=== PATIENT | male | born 1950 | race Caucasian/White ===

== ENCOUNTER 2016-11-12 16:29 | Emergency (ER) | payer MEDICARE, OTHER ==
[2016-11-12 16:38] VITALS: BP 161/88; PULSE 52; RESP 20; TEMP 98
[2016-11-12] MEDS ORDERED: DIPH,PERTUS(ACELL)TETVAC-LF 0.5 ML VIAL IM ONE (16:39)
[2016-11-12] MEDS ORDERED: ceFAZolin 1,000 MG VIAL IM STA ×2 (16:48→16:50)
--- NOTE | 2016-11-12 17:00 | ED ---
Wound/Laceration HPI - General Chief Complaint: Wound/Laceration Stated Complaint: Laceration on Thumb Source: patient, RN notes reviewed Mode of arrival: wheelchair Limitations: no limitations - History of Present Illness Initial Comments: Patient is 66-year-old male with chief complaint of a laceration over his left thumb and second digit after injuring his hand with a table saw. 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 Patient reports that at that time they were able to establish the digits and he has had normal function since then. Patient reports that he has full range of motion over the second through fifth digits and denies any tendon or muscle involvement. Patient reports that his thumb tip is totally amputated. Patient reports that he had chronic peripheral paresthesias of the thumb after his amputation as a child. Patient reports he is not up-to-date on his tetanus vaccination. He denies any other ALLERGIES to antibiotics. - Related Data Previous Rx's Medication Instructions Recorded Cephalexin [Keflex] 500 mg PO Q8HR #30 cap 11/12/16 HYDROcodone/APAP 10-325MG [[place] 1 tab PO Q6H PRN #20 tab 11/12/16 10-325] Allergies Allergy/AdvReac Type Severity Reaction Status Date / Time No Known Allergies Allergy Verified 11/12/16 16:38 Review of Systems ROS Statement: Those systems with pertinent positive or pertinent negative responses have been documented in the HPI. ROS Other: All systems not noted in ROS Statement are negative. Past Medical History Additional Past Medical History / Comment(s): gout History of Any Multi-Drug Resistant Organisms: None Reported Past Surgical History: Appendectomy Additional Past Surgical History / Comment(s): cataract removal Past Psychological History: No Psychological Hx Reported Smoking Status: Never smoker Past Alcohol Use History: Occasional Past Drug Use History: None Reported General Exam - General Exam Comments Initial Comments: Patient is a pleasant 66-year-old male. He doesn't appear to be in any acute distress. Limitations: no limitations General appearance: alert, in no apparent distress Head exam: Present: atraumatic, normocephalic, normal inspection Eye exam: Present: normal appearance, PERRL, EOMI. Absent: scleral icterus, conjunctival injection, periorbital swelling ENT exam: Present: normal exam, mucous membranes moist Neck exam: Present: normal inspection. Absent: tenderness, meningismus, lymphadenopathy Respiratory exam: Present: normal lung sounds bilaterally. Absent: respiratory distress, wheezes, rales, rhonchi, stridor Cardiovascular Exam: Present: regular rate, normal rhythm, normal heart sounds. Absent: systolic murmur, diastolic murmur, rubs, gallop, clicks GI/Abdominal exam: Present: soft, normal bowel sounds. Absent: distended, tenderness, guarding, rebound, rigid Extremities exam: Present: normal inspection, full ROM, normal capillary refill. Absent: tenderness, pedal edema, joint swelling, calf tenderness Left Forearm Wrist exam: Present: normal inspection, full ROM Hand Wrist exam: Absent: normal inspection Hand L/R Front: 1 - laceration (total amputation) 2 - laceration (3 cm laceration) Neuro motor exam: Present: wrist extension intact, thumb opposition intact Vascular: Present: vascular compromise Back exam: Present: normal inspection Neurological exam: Present: alert, oriented X3, CN II-XII intact Psychiatric exam: Present: normal affect, normal mood Skin exam: Present: warm, dry, intact, normal color. Absent: rash Course Vital Signs 11/12/16 16:34 Temperature 98.0 F Pulse Rate 52 L Respiratory 20 Rate Blood Pressure 161/88 O2 Sat by Pulse 97 Oximetry Procedures - Laceration Laceration #1 Site: hand (2nd digit ) Size (cm): 3 Description: linear Depth: simple, single layer Anesthetic Used: benzocaine 0.25% Anesthesia Technique: nerve block Amount (mls): 5 Pre-repair: wound explored, irrigated extensively Type of Sutures: nylon Size of Sutures: 6-0 Number of Sutures: 6 Patient Tolerated Procedure: well, no complications Medical Decision Making - Medical Decision Making Patient is a 66-year-old male with totally medication over the left distal first phalanx. Patient also has a 3 cm laceration over the proximal second digit. Patient had a history of finger amputation when he was a child. The distal digit of the thumb has no arterial supply and will not be able to be save at this time. Patient's thumb was dressed with a foam adherent gauze and tube gauze was placed as well. Patient received stitches over his second digit. Patient has no evidence of extensor or flexor tendon involvement in the second digit laceration. Patient patient was updated on tetanus vaccination and given 2 g of Kefzol IM. Patient will be started on Keflex and a referral for the hand surgeon tomorrow. I advised patient he needs to follow-up with a hand surgeon as soon as possible for the skin graft. Patient will be discharged with pain medication as well. Patient understands treatment plan will comply. Return parameters were discussed. - Radiology Data Radiology results: report reviewed X-ray of the hand reveals evidence of amputation over the fifth digit.There is mild soft tissue deformity of the middle phalanx of the index finger consistent with a laceration. There is no sign of foreign body. No evidence of fracture. Disposition Clinical Impression: Amputation of left thumb, Laceration of left index finger w/o foreign body w/o damage to nail Disposition: HOME SELF-CARE Condition: Good Instructions: Finger Laceration (ED), Finger Amputation (ED) Additional Instructions: Patient instructed that he must follow-up with orthopedic hand surgeon tomorrow. Return to the [facility] if any alarming signs or symptoms occur. Patient started to completely anabiotic prescription as well. Patient advised to cover hand with a plastic bag while showering and did not take off dressing until seen by orthopedic physician. Prescriptions: Cephalexin [Keflex] 500 mg PO Q8HR #30 cap HYDROcodone/APAP 10-325MG [[place] 10-325] 1 tab PO Q6H PRN #20 tab PRN Reason: Pain Referrals: Kiersten Beauchamp MD [Primary Care Provider] - 1-2 days Dmitry Mcadams DO [Doctor of Osteopathic Medicine] - 1-2 days Time of Disposition: 18:18
[2016-11-12] MEDS ORDERED: GELATIN SPONGE,ABSORB (LARGE) 1 EACH SPONGE TOPICAL STA (17:06)
--- NOTE | 2016-11-12 17:07 | XR ---
EXAMINATION TYPE: XR hand complete LT DATE OF EXAM: 11/12/2016 5:00 PM COMPARISON: NONE HISTORY: Saw blade injury TECHNIQUE: 3 views FINDINGS: There is amputation deformity of the thumb at the level of the base of the distal phalanx. There is mild soft tissue deformity of the middle phalanx of the index finger consistent with lacerat ion. There is no sign of a foreign body. I see no fracture. IMPRESSION: Soft tissue deformity and amputation deformity as above. No foreign body seen.
[2016-11-12] MEDS ORDERED: GELATIN SPONGE,ABSORB (SMALL) 1 EACH SPONGE TOPICAL STA (18:01)
[2016-11-12] MEDS ORDERED: HYDROcodone/APAP 10-325MG 1 EACH TAB PO ONE (18:17)
== END 2016-11-12 18:28 | disposition home or self-care (01) ==
LOC: EC 16:29
DX: S61.211A Laceration without foreign body of left index finger without damage to nail, initial encounter (principal); S61.012A Laceration without foreign body of left thumb without damage to nail, initial encounter; W31.2XXA Contact with powered woodworking and forming machines, initial encounter; Z89.012 Acquired absence of left thumb; Z23 Encounter for immunization
CPT/HCPCS: 73130; 90715; 12002; 90471; 99283; 96372; J0690

== ENCOUNTER → 2017-12-21 | Day surgery (SDC) | payer MEDICARE, OTHER ==
[2017-12-18 16:28] VITALS: BMI 28.8
[~2017-12-21] MED LIST: ADENOSINE 90 MG in SODIUM CHLORIDE 0.9% 60 ML IVP ONE; ALLOPURINOL 300 MG TAB PO SCH; ALPRAZolam 0.25 MG TAB PO PRN; ALPRAZolam 0.5 MG TAB PO PRN; ASPIRIN 325 MG TAB PO STA; ASPIRIN 81 MG PO SCH; ATORVASTATIN 40 MG TAB PO SCH; ATORVASTATIN 80 MG TAB PO STA; Acetaminophen-Codeine 300-30mg TAB PO PRN; BIVALIRUDIN 250 MG in SODIUM CHLORIDE 0.9% 50 ML IV ONE; BIVALIRUDIN BOLUS 250 MG/50 ML IV ONE; ERGOCALCIFEROL 50,000 UNIT CAP PO SCH; HEPARIN SODIUM 1,000 UN/ML (10ML VL) ONE; IOHEXOL 350 MG/ML 125ML BOTTLE INJ ONE; IV FLUID CONTINUATION 1,000 ML IV ONE; LIDOCAINE 2% INJ 20 MG/ML (20 ML MDV) ONE; LIDOCAINE 2% INJ 20 MG/ML SQ ONE; LISINOPRIL 20 MG TAB PO SCH; METOPROLOL SUCCINATE (ER) 25 MG TAB.ER.24H PO SCH; MIDAZOLAM 2 MG/2 ML VIAL ONE; NITROGLYCERIN 1000MCG/10ML SYRINGE INTRACORON ONE; NITROGLYCERIN SL TABS 0.4 MG TAB SUBLINGUAL PRN; RX INFO: IV CONTRAST WAS GIVEN 1 EACH MISC MISCELLANE PRN; SODIUM CHLORIDE 0.9% 1,000 ML IV SCH; SODIUM CHLORIDE 0.9% 1,000 ML in EMPTY BAG 1 BAG IV ONE; SPIRONOLACTONE 25 MG TAB PO SCH; VERAPAMIL 2.5 MG/ML 2 ML AMP ONE; fentaNYL (PF) 50 MCG/ML 2 ML AMP IVP ONE; fentaNYL (PF) 50 MCG/ML 2 ML AMP ONE; traZODone HCL 50 MG TAB PO PRN
[2017-12-21 07:27] VITALS: PULSE 83; TEMP 98.6
[2017-12-21 08:10] LABS: Basophils # (A) 0.1 k/uL (0-0.2); Basophils % (A) 1 %; Eosinophils # (A) 0.2 k/uL (0-0.7); Eosinophils % (A) 2 %; HCT 40.8 % (39.0-53.0); HGB 14.2 gm/dL (13.0-17.5); Lymphocytes # (A) 3.4 k/uL (1.0-4.8); Lymphocytes % (A) 44 %; MCH 32.1 pg (25.0-35.0); MCHC 34.9 g/dL (31.0-37.0); MCV 92.1 fL (80.0-100.0); Mean Platelet Volume 8.1; Monocytes # (A) 0.6 k/uL (0-1.0); Monocytes % (A) 8 %; Neutrophils # (A) 3.3 k/uL (1.3-7.7); Neutrophils % (A) 42 %; Platelet Count 155 k/uL (150-450); RBC 4.43 m/uL (4.30-5.90); RDW 14.7 % (11.5-15.5); WBC 7.8 k/uL (3.8-10.6)
[2017-12-21] MEDS: MIDAZOLAM 2 MG/2 ML VIAL IVP ONE ×2 (08:17→08:30)
[2017-12-21] MEDS: VERAPAMIL SYRINGE (5 MG/10 ML) INTRAARTER ONE ×2 (08:20→08:52)
--- NOTE | 2017-12-21 09:54 | CC ---
CARDIAC CATHETERIZATION REPORT Mr. Fields is a 67-year-old male with known history of peripheral arterial disease, history of hyperlipidemia, who presented with abnormal myocardial perfusion imaging and evidence of cardiomyopathy. In view of that, recommendation was made regarding cardiac catheterization. The procedure as well as risks and complications were discussed with the patient who is in full understanding and agreement. PROCEDURE: Patient was brought to laboratory courier in a fasting semi-sedated state after receiving fentanyl and Benadryl and achieving moderate conscious sedated state. Using Xylocaine anesthesia in the Seldinger technique, a 6-Egyptian sheath was introduced in the right radial artery. Selective right and left angiography performed using 5-Egyptian 3.5 bend right and left Farhat catheter. Multiple views of the coronary artery including hemiaxial views were obtained. Following that a 6-Egyptian FR4 guiding catheter introduced in the system and the aortic valve was crossed. Pressure were calculated. Following that, images of the right coronary artery were performed and a Doppler flow wire was advanced across the right coronary artery, positioned distally. Then, iFR and FFR were measured after using intravenous adenosine infusion per protocol. Following that, catheter and sheaths were removed. Hemostasis was obtained with deployment of a TR band. There was no immediate complication. Patient is returned to his room in stable condition. Of note, the patient received Angiomax per protocol as was as well as intra-arterial verapamil. FINDINGS: LEFT MAIN: This is a large size vessel bifurcating in left circumflex and left anterior descending artery. The left main coronary artery has no evidence of high-grade stenosis. LEFT ANTERIOR DESCENDING ARTERY: This is a large-sized vessel reaching toward the apex with a wraparound apex segment giving rise to a small diagonal branch. The left anterior descending artery as well as branches have no evidence of obstructive coronary artery disease. LEFT CIRCUMFLEX: This is a nondominant vessel giving rise to 2 obtuse marginal branches. The first one is very proximal. After the takeoff of the first obtuse marginal branch, there is an area of stenosis about 50%. The rest of the vessel has no high-grade stenosis. RIGHT CORONARY ARTERY: This is a large dominant vessel bifurcating into PDA, posterolateral segment and branches. The right coronary artery has a 50% to 60% plaque proximally with a mild plaque in the mid segment of 30%. The rest of the vessel has no high-grade stenosis. Fractional flow reserve in the RCA was 85% and iFR was 0.99. Left ventricular end-diastolic pressure was 12 mmHg. LEFT VENTRICULOGRAM: Left ventriculogram is not performed. CONCLUSION: 1. Moderate disease involving the left circumflex. 2. 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 RECOMMENDATION: In view of finding anatomy, I recommend to continue medical therapy with aggressive coronary risk modification that has been initiated. Those findings and recommendations were discussed with the patient and his family who are in full understanding and agreement. Duration of the procedure is 36 minutes. MMODL / IJN: [id number] /
--- NOTE | 2017-12-21 09:57 | LTR ---
December 21, 2017 Re: Ryne Fields Dear Dr. Beauchamp: I had the opportunity to perform cardiac catheterization on Mr. Fields at [facility] on the 21 of December and a full copy of the procedure note will be forwarded to you. In brief, he was found to have a moderate to significant disease involving the right coronary artery with mild disease in left circumflex and because of his right coronary artery anatomy, I have proceeded to obtain a fractional flow reserve that revealed a non-hemodynamic significant lesion and based on those findings I recommended to continue medical therapy with aggressive coronary risk modification that has been initiated. Thank you again for allowing me the opportunity to participate in his care. Please feel free to call for any questions. Sincerely yours, MD ELZBIETA EspitiaL / ALEXANDER: [id number] /
[2017-12-21 12:09] VITALS: BP 137/65; RESP 18
== END | disposition home or self-care (01) ==
LOC: CATHCVL 06:57
PROVIDERS: ATTEND Internal Medicine Interventional Cardiology
DX: R94.39 Abnormal result of other cardiovascular function study (principal); I25.10 Atherosclerotic heart disease of native coronary artery without angina pectoris; I25.5 Ischemic cardiomyopathy; I73.9 Peripheral vascular disease, unspecified; E78.2 Mixed hyperlipidemia; Z79.82 Long term (current) use of aspirin; Z79.899 Other long term (current) drug therapy
CPT/HCPCS: 93571; 93458; 85025; C1887; C1894; C1769; J2001; J2250; J3010; J0583; J0153; Q9967; 92978

== ENCOUNTER 2019-03-26 15:27 | Observation (INO) | payer MEDICARE, OTHER ==
[2019-03-26] MEDS ORDERED: ASPIRIN 81 MG PO STA (16:21)
[2019-03-26] MEDS ORDERED: NITROGLYCERIN OINT 1 INCH/GM PACKET TOPICAL STA (16:21)
[2019-03-26] MEDS: NITROGLYCERIN SL TABS 0.4 MG TAB SUBLINGUAL STA ×2 (16:39→17:07)
[2019-03-26 16:50] LABS: Basophils % (A) 1 %; Eosinophils # (A) 0.2 k/uL (0-0.7); Eosinophils % (A) 3 %; HCT 45.6 % (39.0-53.0); HGB 14.9 gm/dL (13.0-17.5); Lymphocytes # (A) 1.9 k/uL (1.0-4.8); Lymphocytes % (A) 28 %; MCH 30.5 pg (25.0-35.0); MCHC 32.6 g/dL (31.0-37.0); MCV 93.6 fL (80.0-100.0); Mean Platelet Volume 7.6; Monocytes # (A) 0.4 k/uL (0-1.0); Monocytes % (A) 6 %; Neutrophils # (A) 4.1 k/uL (1.3-7.7); Neutrophils % (A) 61 %; Platelet Count 161 k/uL (150-450); RBC 4.87 m/uL (4.30-5.90); RDW 13.6 % (11.5-15.5); WBC 6.7 k/uL (3.8-10.6)
--- NOTE | 2019-03-26 16:52 | ED ---
General Adult HPI - General Chief complaint: Chest Pain Stated complaint: chest heaviness; dizziness Time Seen by Provider: 03/26/19 15:30 Source: patient, RN notes reviewed Mode of arrival: wheelchair Limitations: no limitations - History of Present Illness Initial comments: This is a 69-year-old male with a chief complaint of chest pain. Patient states it's been ongoing for about 2 hours. Patient states it does radiate to the back as well. Patient denies any pain in the arm or neck. Patient states he is somewhat short of breath with the chest pain. Patient denies any palpitations. Patient denies any fever chills or cough per patient denies any diaphoretic episodes. Patient denies any nausea patient patient denies abdominal pain patient denies vomiting or diarrhea recently. Patient denies any lightheadedness dizziness per patient denies headache patient denies any numbness or weakness. Patient denies any history of diabetes hypertension or high cholesterol. Patient denies any smoking history. Patient denies a family history of heart disease. - Related Data Home Medications Medication Instructions Recorded Confirmed Allopurinol [Zyloprim] 300 mg PO DAILY 12/18/17 03/26/19 Ergocalciferol [Vitamin D2 50,000 unit PO TU 12/18/17 03/26/19 (DRISDOL)] Allergies Allergy/AdvReac Type Severity Reaction Status Date / Time No Known Allergies Allergy Verified 03/26/19 16:17 Review of Systems ROS Statement: Those systems with pertinent positive or pertinent negative responses have been documented in the HPI. ROS Other: All systems not noted in ROS Statement are negative. Past Medical History Past Medical History: No Reported History Additional Past Medical History / Comment(s): gout History of Any Multi-Drug Resistant Organisms: None Reported Past Surgical History: Appendectomy Additional Past Surgical History / Comment(s): cataracts; repair laceration L finger;fem./aortal bypass Past Anesthesia/Blood Transfusion Reactions: No Reported Reaction Past Psychological History: No Psychological Hx Reported Smoking Status: Former smoker Past Alcohol Use History: Occasional Past Drug Use History: None Reported - Past Family History Mother Family Medical History: Cancer General Exam - General Exam Comments Initial Comments: GENERAL: Patient is well-developed and well-nourished. Patient is nontoxic and well- hydrated and is in mild distress. ENT: Neck is soft and supple. No significant lymphadenopathy is noted. Oropharynx is clear. Moist mucous membranes. Neck has full range of motion without eliciting any pain. EYES: The sclera were anicteric and conjunctiva were pink and moist. Extraocular movements were intact and pupils were equal round and reactive to light. Eyelids were unremarkable. PULMONARY: Unlabored respirations. Good breath sounds bilaterally. No audible rales rhonchi or wheezing was noted. CARDIOVASCULAR: There is a regular rate and rhythm without any murmurs gallops or rubs. ABDOMEN: Soft and nontender with normal bowel sounds. SKIN: Skin is clear with no lesions or rashes and otherwise unremarkable. NEUROLOGIC: Patient is alert and oriented x3. Cranial nerves II through XII are grossly intact. Motor and sensory are also intact. Normal speech, volume and content. Symmetrical smile. MUSCULOSKELETAL: Normal extremities with adequate strength and full range of motion. LYMPHATICS: No significant lymphadenopathy is noted PSYCHIATRIC: Normal psychiatric evaluation. Limitations: no limitations Course Vital Signs 03/26/19 03/26/19 03/26/19 15:32 16:45 17:00 Temperature 98.4 F Pulse Rate 61 56 L 81 Respiratory 18 20 18 Rate Blood Pressure 184/88 185/98 166/102 O2 Sat by Pulse 97 99 98 Oximetry Medical Decision Making - Medical Decision Making EKG shows sinus bradycardia with occasional PVC at 76 bpm WI interval is 220 QRS is 110 Q-T intervals 432 QTC is 416. Patient's EKG shows no ST segment elevation or depression. Chest x-ray shows no acute abnormality. Patient had nitroglycerin emergency department he stated that it did not seem to improve his symptoms. I spoke with Dr. Hoffmann he agreed to admit the patient admitted the patient remaining orders I consult cardiology. - Lab Data Result diagrams: 03/26/19 16:20 03/26/19 16:20 Lab Results 03/26/19 03/26/19 03/26/19 Range/Units 16:20 16:20 16:20 WBC 6.7 (3.8-10.6) k/uL RBC 4.87 (4.30-5.90) m/uL Hgb 14.9 (13.0-17.5) gm/dL Hct 45.6 (39.0-53.0) % MCV 93.6 (80.0-100.0) fL MCH 30.5 (25.0-35.0) pg MCHC 32.6 (31.0-37.0) g/dL RDW 13.6 (11.5-15.5) % Plt Count 161 (150-450) k/uL Neutrophils % 61 % Lymphocytes % 28 % Monocytes % 6 % Eosinophils % 3 % Basophils % 1 % Neutrophils # 4.1 (1.3-7.7) k/uL Lymphocytes # 1.9 (1.0-4.8) k/uL Monocytes # 0.4 (0-1.0) k/uL Eosinophils # 0.2 (0-0.7) k/uL Basophils # 0.0 (0-0.2) k/uL PT 9.7 (9.0-12.0) sec INR 0.9 (<1.2) APTT 25.7 (22.0-30.0) sec Sodium 140 (137-145) mmol/L Potassium 4.8 (3.5-5.1) mmol/L Chloride 110 H (98-107) mmol/L Carbon Dioxide 24 (22-30) mmol/L Anion Gap 6 mmol/L BUN 17 (9-20) mg/dL Creatinine 1.24 (0.66-1.25) mg/dL Est GFR (CKD-EPI)AfAm 69 (>60 ml/min/1.73 sqM) Est GFR (CKD-EPI)NonAf 60 (>60 ml/min/1.73 sqM) Glucose 119 H (74-99) mg/dL Calcium 9.2 (8.4-10.2) mg/dL Magnesium 2.0 (1.6-2.3) mg/dL Total Bilirubin 0.4 (0.2-1.3) mg/dL AST 21 (17-59) U/L ALT 21 (21-72) U/L Alkaline Phosphatase 75 (38-126) U/L Troponin I (0.000-0.034) ng/mL Total Protein 7.4 (6.3-8.2) g/dL Albumin 4.2 (3.5-5.0) g/dL 03/26/19 Range/Units 16:20 WBC (3.8-10.6) k/uL RBC (4.30-5.90) m/uL Hgb (13.0-17.5) gm/dL Hct (39.0-53.0) % MCV (80.0-100.0) fL MCH (25.0-35.0) pg MCHC (31.0-37.0) g/dL RDW (11.5-15.5) % Plt Count (150-450) k/uL Neutrophils % % Lymphocytes % % Monocytes % % Eosinophils % % Basophils % % Neutrophils # (1.3-7.7) k/uL Lymphocytes # (1.0-4.8) k/uL Monocytes # (0-1.0) k/uL Eosinophils # (0-0.7) k/uL Basophils # (0-0.2) k/uL PT (9.0-12.0) sec INR (<1.2) APTT (22.0-30.0) sec Sodium (137-145) mmol/L Potassium (3.5-5.1) mmol/L Chloride (98-107) mmol/L Carbon Dioxide (22-30) mmol/L Anion Gap mmol/L BUN (9-20) mg/dL Creatinine (0.66-1.25) mg/dL Est GFR (CKD-EPI)AfAm (>60 ml/min/1.73 sqM) Est GFR (CKD-EPI)NonAf (>60 ml/min/1.73 sqM) Glucose (74-99) mg/dL Calcium (8.4-10.2) mg/dL Magnesium (1.6-2.3) mg/dL Total Bilirubin (0.2-1.3) mg/dL AST (17-59) U/L ALT (21-72) U/L Alkaline Phosphatase (38-126) U/L Troponin I <0.012 (0.000-0.034) ng/mL Total Protein (6.3-8.2) g/dL Albumin (3.5-5.0) g/dL Disposition Clinical Impression: Chest pain Disposition: ADMITTED IP TO THIS HOSP Referrals: Pati Hoffmann MD [Primary Care Provider] - 1-2 days Time of Disposition: 18:56
[2019-03-26 16:59] LABS: Albumin 4.2 g/dL (3.5-5.0); Calcium 9.2 mg/dL (8.4-10.2); Potassium 4.8 mmol/L (3.5-5.1); Total Bilirubin 0.4 mg/dL (0.2-1.3); Total Protein 7.4 g/dL (6.3-8.2)
[2019-03-26 17:00] LABS: INR 0.9 (<1.2); Partial Thromboplastin Time 25.7 sec (22.0-30.0); Prothrombin Time 9.7 sec (9.0-12.0)
--- NOTE | 2019-03-26 17:21 | XR ---
EXAMINATION: XR chest 2V DATE AND TIME: 03/26/2019 4:48 PM CLINICAL INDICATION: PHH; Chest Pain TECHNIQUE: Departmental protocol COMPARISON: None FINDINGS: The lungs are clear. The pleural spaces are negative. The cardiac silhouette is not enlarged. The remainder of the mediastinal silhouette is unremarkable. The skeletal structures and soft tissues are negative for acute findings. IMPRESSION: NO ACUTE PROCESS.
[2019-03-26] MEDS ORDERED: NITROGLYCERIN SL TABS 0.4 MG TAB SUBLINGUAL PRN (19:10)
[2019-03-26] MEDS ORDERED: ONDANSETRON 4 MG/2 ML VIAL IVP STA (20:11)
[2019-03-26 20:29] LABS: Amylase 88 U/L (30-110); Lipase 95 U/L (23-300)
[2019-03-26] MEDS: NITROGLYCERIN OINT 1 INCH/GM PACKET TOPICAL SCH (21:48)
[2019-03-27] MEDS ORDERED: ACETAMINOPHEN TAB 325 MG TAB PO STA (02:47)
[2019-03-27 04:42] LABS: Cholesterol 154 mg/dL (<200); HDL Cholesterol 35 mg/dL (40-60); LDL Cholesterol,Calculated 82 mg/dL (0-99); Triglycerides 185 mg/dL (<150)
[2019-03-27] MEDS: NITROGLYCERIN OINT 1 INCH/GM PACKET TOPICAL SCH (06:29)
[2019-03-27 08:14] VITALS: RESP 16
--- NOTE | 2019-03-27 08:16 | P.CRDCN ---
History of Present Illness Consult date: 03/27/19 Requesting physician: Pati Hoffmann Reason for Consult (text): chest pain Chief complaint: chest pain History of present illness: This is a pleasant 69-year-old gentleman with history of hyperlipidemia not currently on a statin, CAD and peripheral arterial disease with prior bifemoral bypass. He is followed with Dr. Persaud in the office in the past. In December 2012 he underwent cardiac catheterization after having abnormal myocardial perfusion imaging and evidence of cardiomyopathy with an ejection fraction of 45%. Cardiac catheterization at that time showed moderate disease involving the left circumflex and moderate significant disease involving the RCA proximally with a non-hemodynamic significant measurement of the lesion by iFR and FFR. He presented to the emergency department with complaints of chest pain radiating to his back as well as nausea and dry heaves. Apparently he brought his yesterday in for a colonoscopy following the colonoscopy they had a late breakfast at [facility] after which she went home to take a nap. He will around 3 PM with feeling as if something was sitting on his chest. EKG on admission showed sinus bradycardia with first-degree AV block and occasional PVCs, nonspecific ST-T wave abnormalities with no evidence of acute ischemia. Troponins have been negative 3. Chest x-ray showed no acute process. Pain resolved after approximately 12 hours according to the patient this was after he took Tylenol. Upon examination, patient is resting in bed in no acute distress. He denies current complaints of chest discomfort, nausea or back pain. He denies having any dyspnea on exertion, orthopnea, or edema. He does verbalize very occasional dizziness and occasional palpitations. He says he is not very active but is able to go shopping and do his own yard work without difficulties. He has no exertional symptoms. He is currently not taking any cardiac medications except for aspirin 81 mg daily. Past Medical History Past Medical History: No Reported History Additional Past Medical History / Comment(s): gout, PAD, cataracts History of Any Multi-Drug Resistant Organisms: None Reported Past Surgical History: Appendectomy Additional Past Surgical History / Comment(s): cataracts; repair laceration L finger;fem./aortal bypass Past Anesthesia/Blood Transfusion Reactions: No Reported Reaction Past Psychological History: No Psychological Hx Reported Smoking Status: Former smoker Past Alcohol Use History: Occasional Past Drug Use History: None Reported - Past Family History Mother Family Medical History: Cancer Father Family Medical History: Cancer Additional Family Medical History / Comment(s): suicide, brain tumor Sister(s) Family Medical History: No Reported History Brother(s) Family Medical History: No Reported History Son(s) Family Medical History: No Reported History Daughter(s) Family Medical History: No Reported History Medications and Allergies Home Medications Medication Instructions Recorded Confirmed Type Allopurinol [Zyloprim] 300 mg PO DAILY 12/18/17 03/26/19 History Ergocalciferol [Vitamin D2 50,000 unit PO TU 12/18/17 03/26/19 History (DRISDOL)] Allergies Allergy/AdvReac Type Severity Reaction Status Date / Time No Known Allergies Allergy Verified 03/26/19 21:09 Physical Exam Vitals: Vital Signs Temp Pulse Pulse Resp BP BP Pulse Ox 03/27/19 04:00 98.5 F 61 18 126/70 94 L 03/27/19 03:53 18 03/27/19 00:00 98.3 F 73 18 101/56 95 03/26/19 20:45 97.7 F 59 L 18 127/66 97 03/26/19 20:00 98.5 F 48 L 18 130/76 95 03/26/19 19:00 98.2 F 45 L 18 135/73 94 L 03/26/19 18:00 48 L 18 122/82 95 03/26/19 17:00 81 18 166/102 98 03/26/19 16:45 56 L 20 185/98 99 03/26/19 15:32 98.4 F 61 18 184/88 97 Intake and Output 03/26/19 03/27/19 03/27/19 22:59 06:59 14:59 Other: Voiding Method Toilet Toilet # Voids 1 Weight 86.183 kg PHYSICAL EXAMINATION: HEENT: Head is atraumatic, normocephalic. Pupils equal, round. Neck is supple. There is no elevated jugular venous pressure. No carotid bruit. HEART EXAMINATION: Heart sounds regular, S1 and S2 normal. No murmur or gallop heard. CHEST EXAMINATION: Lungs are clear to auscultation and precussion. No chest wall tenderness is noted on palpation or with deep breathing. ABDOMEN: Soft, nontender. Bowel sounds are heard. No organomegaly noted. EXTREMITIES: 1+ peripheral pulses with no evidence of peripheral edema and no calf tenderness noted. NEUROLOGIC patient is awake, alert and oriented x3. . Results 03/26/19 16:20 03/26/19 16:20 Cardiac Enzymes 03/26/19 03/26/19 03/26/19 Range/Units 16:20 16:20 22:11 AST 21 (17-59) U/L Troponin I <0.012 <0.012 (0.000-0.034) ng/mL 03/27/19 Range/Units 04:09 AST (17-59) U/L Troponin I <0.012 (0.000-0.034) ng/mL Coagulation 03/26/19 Range/Units 16:20 PT 9.7 (9.0-12.0) sec APTT 25.7 (22.0-30.0) sec Lipids 03/27/19 Range/Units 04:09 Triglycerides 185 H (<150) mg/dL Cholesterol 154 (<200) mg/dL HDL Cholesterol 35 L (40-60) mg/dL CBC 03/26/19 Range/Units 16:20 WBC 6.7 (3.8-10.6) k/uL RBC 4.87 (4.30-5.90) m/uL Hgb 14.9 (13.0-17.5) gm/dL Hct 45.6 (39.0-53.0) % Plt Count 161 (150-450) k/uL Comprehensive Metabolic Panel 03/26/19 Range/Units 16:20 Sodium 140 (137-145) mmol/L Potassium 4.8 (3.5-5.1) mmol/L Chloride 110 H (98-107) mmol/L Carbon Dioxide 24 (22-30) mmol/L BUN 17 (9-20) mg/dL Creatinine 1.24 (0.66-1.25) mg/dL Glucose 119 H (74-99) mg/dL Calcium 9.2 (8.4-10.2) mg/dL AST 21 (17-59) U/L ALT 21 (21-72) U/L Alkaline Phosphatase 75 (38-126) U/L Total Protein 7.4 (6.3-8.2) g/dL Albumin 4.2 (3.5-5.0) g/dL Current Medications Generic Name Dose Route Start Last Admin Trade Name Freq PRN Reason Stop Dose Admin Aspirin 325 mg 03/27/19 09:00 Aspirin PO DAILY GLORY Nitroglycerin 1 inch 03/27/19 00:00 03/27/19 06:29 Nitro-Bid Oint TOPICAL 1 inch Q6HR GLORY Administration Nitroglycerin 0.4 mg 03/26/19 19:10 Nitrostat SUBLINGUAL Q5M PRN Chest Pain Intake and Output 03/26/19 03/27/19 03/27/19 22:59 06:59 14:59 Other: Voiding Method Toilet Toilet # Voids 1 Weight 86.183 kg 03/26/19 16:20 03/26/19 16:20 Assessment and Plan Assessment: #1 symptoms of nonexertional chest pain radiating to the back and lasting 12 hours with negative troponins #2 history of CAD with moderate disease in the circumflex and RCA shown on heart catheterization done December 2017 #3 cardiomyopathy with a known ejection fraction of 45% #4 hyperlipidemia #5 hypertension on admission Plan: From welt stitch cleaner perspective, symptoms are not consistent with angina. We will obtain 2-D echo with Doppler to assess LV systolic function as well as an exercise MPI to assess for underlying ischemia given the patient's known history of CAD. Further recommendations to follow depending on these results. HEALTHCARE SCIENCE SPECIALIST note has been reviewed, I agree with a documented findings and plan of care. Patient was seen and examined.
[2019-03-27] MEDS ORDERED: ALLOPURINOL 300 MG TAB PO SCH (09:00)
[2019-03-27] MEDS ORDERED: ASPIRIN 325 MG TAB PO SCH (09:00)
[2019-03-27 09:17] LABS: Basophils # (A) 0.1 k/uL (0-0.2); Basophils % (A) 1 %; Eosinophils # (A) 0.1 k/uL (0-0.7); Eosinophils % (A) 1 %; HCT 41.3 % (39.0-53.0); HGB 13.4 gm/dL (13.0-17.5); Lymphocytes # (A) 3.3 k/uL (1.0-4.8); Lymphocytes % (A) 31 %; MCH 30.5 pg (25.0-35.0); MCHC 32.4 g/dL (31.0-37.0); MCV 94.1 fL (80.0-100.0); Mean Platelet Volume 8.1; Monocytes # (A) 0.7 k/uL (0-1.0); Monocytes % (A) 7 %; Neutrophils # (A) 6.4 k/uL (1.3-7.7); Neutrophils % (A) 59 %; Platelet Count 153 k/uL (150-450); RBC 4.39 m/uL (4.30-5.90); RDW 15.5 % (11.5-15.5); WBC 10.8 k/uL (3.8-10.6)
[2019-03-27 09:22] LABS: Albumin 3.6 g/dL (3.5-5.0); Calcium 8.7 mg/dL (8.4-10.2); Potassium 4.1 mmol/L (3.5-5.1); Total Protein 6.5 g/dL (6.3-8.2)
--- NOTE | 2019-03-27 12:04 | NM ---
EXAMINATION TYPE: NM stress cardiolite complete DATE OF EXAM: 03/27/2019 COMPARISON: NONE HISTORY: History of tobacco use presents with chest pain. TECHNIQUE: After the intravenous administration of 9.8 mCi Tc 99m Sestamibi - Rest images obtained 4 5 minutes post injection. The patient exercised using a ISAIAS protocol and 1 minute prior to peak e xercise was injected with 24.9 mCi Tc 99m Sestamibi - Stress images obtained 50 minutes post injectio n. FINDINGS: Targeted heart rate was achieved during performance of the study. Review of stress and rest SPECT micheal ges demonstrates no distinct perfusion abnormality. Gated analysis shows overall ejection fraction o f 46 %. IMPRESSION: No scintigraphic evidence for reversible ischemia
[2019-03-27] MEDS ORDERED: SPIRONOLACTONE 25 MG TAB PO SCH (12:30)
[2019-03-27] MEDS ORDERED: LISINOPRIL 2.5 MG TAB PO SCH (12:30)
--- NOTE | 2019-03-27 12:52 | P.HPIM ---
History of Present Illness H&P Date: 03/27/19 This is a 69-year-old male patient who presented to the ER with complaints of chest pain that lasted 2 hours that radiated to his back. Patient does state that he had associated nausea. Patient denies any sustained shortness of breath. Patient has has medical history of coronary artery disease including peripheral arterial disease prior bifemoral bypass. Last cardiac cath was in 2012 which showed moderate disease involving the left circumflex and moderate disease involving the RCA. Additional medical history includes gout, cataracts and appendectomy. Troponins negative 3. Chest x-ray completed showing no acute process. EKG completed showing sinus bradycardia with first-degree AV blo ck with occasional premature ventricular complexes. Stress test ordered per cardiology. At this time patient is currently eating lunch. Patient denies chest pain or shortness breath. Patient denies nausea vomiting or diarrhea. Patient denies any urinary burning or frequency. Review of Systems Please refer to HPI otherwise unremarkable Past Medical History Past Medical History: No Reported History Additional Past Medical History / Comment(s): gout, PAD, cataracts History of Any Multi-Drug Resistant Organisms: None Reported Past Surgical History: Appendectomy Additional Past Surgical History / Comment(s): cataracts; repair laceration L finger;fem./aortal bypass Past Anesthesia/Blood Transfusion Reactions: No Reported Reaction Past Psychological History: No Psychological Hx Reported Smoking Status: Former smoker Past Alcohol Use History: Occasional Past Drug Use History: None Reported - Past Family History Mother Family Medical History: Cancer Father Family Medical History: Cancer Additional Family Medical History / Comment(s): suicide, brain tumor Sister(s) Family Medical History: No Reported History Brother(s) Family Medical History: No Reported History Son(s) Family Medical History: No Reported History Daughter(s) Family Medical History: No Reported History Medications and Allergies Home Medications Medication Instructions Recorded Confirmed Type Allopurinol [Zyloprim] 300 mg PO DAILY 12/18/17 03/26/19 History Ergocalciferol [Vitamin D2 50,000 unit PO TU 12/18/17 03/26/19 History (DRISDOL)] Allergies Allergy/AdvReac Type Severity Reaction Status Date / Time No Known Allergies Allergy Verified 03/26/19 21:09 Physical Exam Vitals: Vital Signs Temp Pulse Pulse Resp BP BP BP 03/27/19 08:00 98.7 F 66 16 100/51 03/27/19 04:00 98.5 F 61 18 126/70 03/27/19 03:53 18 03/27/19 00:00 98.3 F 73 18 101/56 03/26/19 20:45 97.7 F 59 L 18 127/66 03/26/19 20:00 98.5 F 48 L 18 130/76 03/26/19 19:00 98.2 F 45 L 18 135/73 03/26/19 18:00 48 L 18 122/82 03/26/19 17:00 81 18 166/102 03/26/19 16:45 56 L 20 185/98 03/26/19 15:32 98.4 F 61 18 184/88 Pulse Ox 03/27/19 08:00 92 L 03/27/19 04:00 94 L 03/27/19 03:53 03/27/19 00:00 95 03/26/19 20:45 97 03/26/19 20:00 95 03/26/19 19:00 94 L 03/26/19 18:00 95 03/26/19 17:00 98 03/26/19 16:45 99 03/26/19 15:32 97 Intake and Output 03/26/19 03/27/19 03/27/19 22:59 06:59 14:59 Other: Voiding Method Toilet Toilet Toilet # Voids 1 1 Weight 86.183 kg Head normocephalic Neck supple Lungs clear to auscultation bilaterally no wheezing or crackles Heart regular rate and rhythm S1-S2, no rub or gallop Abdomen is soft nontender nondistended positive bowel sounds no hepatosplenomegaly Extremities no edema Neuro alert and orientated to 3 Results CBC & Chem 7: 03/27/19 08:53 03/27/19 08:53 Labs: Abnormal Lab Results - Last 24 Hours (Table) 03/26/19 03/27/19 03/27/19 Range/Units 16:20 04:09 08:53 WBC 10.8 H (3.8-10.6) k/uL Chloride 110 H (98-107) mmol/L Creatinine (0.66-1.25) mg/dL Glucose 119 H (74-99) mg/dL ALT (21-72) U/L Triglycerides 185 H (<150) mg/dL HDL Cholesterol 35 L (40-60) mg/dL 03/27/19 Range/Units 08:53 WBC (3.8-10.6) k/uL Chloride 109 H (98-107) mmol/L Creatinine 1.26 H (0.66-1.25) mg/dL Glucose 103 H (74-99) mg/dL ALT 14 L (21-72) U/L Triglycerides (<150) mg/dL HDL Cholesterol (40-60) mg/dL Thrombosis Risk Factor Assmnt - Choose All That Apply Any of the Below Risk Factors Present?: Yes Each Factor Represents 1 point: Obesity (BMI >25) Other Risk Factors: Yes Each Risk Factor Represents 2 Points: Age 61-74 years Other congenital or acquired thrombophilia - If yes, enter type in comment: No Thrombosis Risk Factor Assessment Total Risk Factor Score: 3 Thrombosis Risk Factor Assessment Level: Moderate Risk Assessment and Plan Assessment: 1. Chest pain. Troponins negative 3. EKG completed showing sinus bradycardia with first-degree AV block with occasional premature ventricular complexes. Chest x-ray completed showing no acute process. Stress test completed showing no evidence for pneumonia. Aldactone, lisinopril and Lipitor has been added per cardiology. 2. History of coronary artery disease 3. History of peripheral arterial disease with prior bifemoral bypass. 4. Hyperlipidemia. Patient started on statin per cardiology 5. History of gout 6. History of cataracts Time with Patient: Greater than 30 (Greater than 60% of the total time spent in counseling and coordination of care. I performed an examination of the patient and discussed their management with the Nurse Practitioner. I have reviewed the Nurse Practitioner's notes and agree with the documented findings and plan of care)
[2019-03-27 12:58] VITALS: BP 138/66; PULSE 78; TEMP 98.4
--- NOTE | 2019-03-27 13:11 | ECHOF ---
Referral Reason:chest pain MEASUREMENTS -------- HEIGHT: 170.2 cm WEIGHT: 86.2 kg BP: 100/51 IVSd: 1.4 cm (0.6 - 1.1) LVIDd: 4.4 cm (3.9 - 5.3) LVPWd: 1.2 cm (0.6 - 1.1) IVSs: 1.8 cm LVIDs: 2.8 cm LVPWs: 1.9 cm Ao Diam: 3.2 cm (2.0 - 3.7) AV Cusp: 2.0 cm (1.5 - 2.6) LA Diam: 3.0 cm (2.7 - 3.8) MV EXCURSION: 21.866 mm (> 18.000) MV EF SLOPE: 83 mm/s (70 - 150) EPSS: 1.3 cm MV E Toney: 0.76 m/s MV DecT: 292 ms MV A Toney: 0.97 m/s MV E/A Ratio: 0.78 AR PHT: 513 ms RAP: 5.00 mmHg RVSP: 14.20 mmHg FINDINGS -------- Sinus rhythm with extra systolic beats. This was a technically difficult study with suboptimal views. The left ventricular size is normal. There is mild concentric left ventricular hypertrophy. Overa ll left ventricular systolic function is low-normal with, an EF between 50 - 55 %. The right ventricle is normal in size. The left atrial size is normal. The right atrial size is normal. Lumason used Interatrial and interventricular septum intact. The aortic valve is trileaflet and appears structurally normal. Trace to mild aortic regurgitation. The mitral valve is normal. There is trace mitral regurgitation. Trace tricuspid regurgitation present. There is no evidence of pulmonary hypertension. The right ventricular systolic pressure, as measured by Doppler, is 14.20mmHg. The pulmonic valve was not well visualized. There is no pulmonic regurgitation present. The aortic root size is normal. IVC Not well visulized. There is no pericardial effusion. CONCLUSIONS -------- 1. Sinus rhythm with extra systolic beats. 2. This was a technically difficult study with suboptimal views. 3. The left ventricular size is normal. 4. There is mild concentric left ventricular hypertrophy. 5. Overall left ventricular systolic function is low-normal with, an EF between 50 - 55 %. 6. The left atrial size is normal. 7. Lumason used 8. Interatrial and interventricular septum intact. 9. The aortic valve is trileaflet and appears structurally normal. 10. Trace to mild aortic regurgitation. 11. There is trace mitral regurgitation. 12. Trace tricuspid regurgitation present. 13. There is no evidence of pulmonary hypertension. 14. There is no pulmonic regurgitation present. 15. The aortic root size is normal. 16. IVC Not well visulized. 17. There is no pericardial effusion. FRUIT OR NUT PICKER: Diane Bowling RDCS
--- NOTE | 2019-03-27 14:10 | EST ---
EXERCISE STRESS AGE: 69 SEX: M HT: 67" WT: 190 PROTOCOL: Cardiolite Haresh Stress Test STAGE: 2 DURATION OF EXERCISE: 6:00 HEART RATE REST: 70 BLOOD PRESSURE REST: 115/76 MAXIMUM HEART RATE ACHIEVED: 127 MAXIMUM BLOOD PRESSURE: 183/68 85% MPHR: 129 100% MPHR: 152 METS: 7.1 INDICATIONS: Chest pain. CLINICAL INFORMATION: Baseline rhythm is a sinus mechanism, rate of 70, normal axis, poor R-wave progression. Rare PVCs. Baseline blood pressure 115/76 mmHg. Patient exercised on Haresh protocol for 6 minute reaching peak rate 127 beats per minute which is equal to 83% maximum predicted heart rate. Peak blood pressure 183/68 mmHg. Test was terminated due to fatigue. There was no chest pain. Electrocardiograph monitoring revealed occasional PVCs. There was no evidence of diagnostic ischemic ST deviation. Cardiolite was injected at peak exercise. CONCLUSION: 1. Average exercise tolerance with frequent premature ventricular contractions with bigeminal pattern. 2. Normal electrocardiograph response to exercise. 3. Nuclear images will be reported separately. MMODL / IJN: [id number] /
--- NOTE | 2019-03-27 14:31 | P.DS ---
Providers Date of admission: 03/26/19 19:11 Expected date of discharge: 03/27/19 Attending physician: Pati Hoffmann Consults: 03/26/19 19:11 Consult Physician Urgent Consulting Provider: [facility] Consult Reason/Comments: Chest pain Do you want consulting provider notified?: Yes Primary care physician: Pati Tahira [facility] Course: Discharge diagnosis 1. Chest pain. Troponins negative 3. EKG completed showing sinus bradycardia with first-degree AV block with occasional premature ventricular complexes. Chest x-ray completed showing no acute process. Stress test completed showing no evidence for reversible ischemia. Aldactone, lisinopril and Lipitor has been added per cardiology. Patient has been cleared for discharge from cardiology standpoint 2. History of coronary artery disease 3. History of peripheral arterial disease with prior bifemoral bypass. 4. Hyperlipidemia. Patient started on statin per cardiology 5. History of gout 6. History of cataracts Hospital course This is a 69-year-old male patient who presented to the ER with complaints of chest pain that lasted 2 hours that radiated to his back. Patient does state that he had associated nausea. Patient denies any sustained shortness of breath. Patient has has medical history of coronary artery disease including peripheral arterial disease prior bifemoral bypass. Last cardiac cath was in 2012 which showed moderate disease involving the left circumflex and moderate disease involving the RCA. Additional medical history includes gout, cataracts and appendectomy. Troponins negative 3. Chest x-ray completed showing no acute process. EKG completed showing sinus bradycardia with first-degree AV block with occasional premature ventricular complexes. Stress test ordered per cardiology. At this time patient is currently eating lunch. Patient denies chest pain or shortness breath. Patient denies nausea vomiting or diarrhea. Patient denies any urinary burning or frequency. Stress test negative. Patient has been cleared for discharge from cardiology standpoint. Patient to follow with PCP for further management. Patient denies any chest pain or shortness of breath. Patient denies nausea vomiting or diarrhea. Patient denies any urinary burning or frequency I performed an examination of the patient and discussed their management with the Nurse Practitioner. I have reviewed the Nurse Practitioner's notes and agree with the documented findings and plan of care Patient Condition at Discharge: Stable Plan - Discharge Summary Discharge Rx Participant: No New Discharge Prescriptions: New Spironolactone [Aldactone] 12.5 mg PO DAILY 30 Days #30 tab Atorvastatin [Lipitor] 40 mg PO HS 30 Days #30 tab Lisinopril [Zestril] 2.5 mg PO DAILY 30 Days #30 tab Continue Ergocalciferol [Vitamin D2 (DRISDOL)] 50,000 unit PO TU Allopurinol [Zyloprim] 300 mg PO DAILY Discharge Medication List Allopurinol [Zyloprim] 300 mg PO DAILY 12/18/17 [History] Ergocalciferol [Vitamin D2 (DRISDOL)] 50,000 unit PO TU 12/18/17 [History] Atorvastatin [Lipitor] 40 mg PO HS 30 Days #30 tab 03/27/19 [Rx] Lisinopril [Zestril] 2.5 mg PO DAILY 30 Days #30 tab 03/27/19 [Rx] Spironolactone [Aldactone] 12.5 mg PO DAILY 30 Days #30 tab 03/27/19 [Rx] Follow up Appointment(s)/Referral(s): Isaias Persaud MD [STAFF PHYSICIAN] - 2 Weeks Pati Hoffmann MD [Primary Care Provider] - 1-2 days Ambulatory/Diagnostic Orders: Basic Metabolic Panel [LAB.AMB] Time Frame: 1 Week, Location: None Selected Activity/Diet/Wound Care/Special Instructions: Activity as tolerated Diet heart healthy Discharge Disposition: HOME SELF-CARE
[2019-03-27] MEDS ORDERED: ATORVASTATIN 40 MG TAB PO SCH (21:00)
[2019-04-01] MEDS ORDERED: ERGOCALCIFEROL 50,000 UNIT CAP PO SCH (09:00)
== END 2019-03-27 15:54 | disposition home or self-care (01) ==
LOC: EC 15:27 → 1SOBS 19:11
PROVIDERS: ADMIT Internal Medicine; ATTEND Internal Medicine
DX: R07.89 Other chest pain (principal); I49.3 Ventricular premature depolarization; I44.0 Atrioventricular block, first degree; I25.10 Atherosclerotic heart disease of native coronary artery without angina pectoris; I42.9 Cardiomyopathy, unspecified; I10 Essential (primary) hypertension; M10.9 Gout, unspecified; E78.5 Hyperlipidemia, unspecified; I73.9 Peripheral vascular disease, unspecified; R11.2 Nausea with vomiting, unspecified; E66.9 Obesity, unspecified; Z68.29 Body mass index [BMI] 29.0-29.9, adult; Z79.82 Long term (current) use of aspirin; Z79.899 Other long term (current) drug therapy; Z87.891 Personal history of nicotine dependence; Z90.49 Acquired absence of other specified parts of digestive tract; Z98.49 Cataract extraction status, unspecified eye; Z80.9 Family history of malignant neoplasm, unspecified; Z81.8 Family history of other mental and behavioral disorders; Z80.8 Family history of malignant neoplasm of other organs or systems
CPT/HCPCS: 96374; 99285; 36415; 93005; 93017; 93306; 80061; 80053 ×2; 82150; 83690; 83735; 84484 ×2; 85025 ×2; 85610; 85730; 71046; 78452; G0378 ×2; A9500; J2405

== ENCOUNTER 2019-07-20 22:59 | Emergency (ER) | payer MEDICARE, OTHER ==
--- NOTE | 2019-07-20 23:32 | ED ---
General Adult HPI - General Source: patient Mode of arrival: wheelchair Limitations: no limitations <Milan Elias - Last Filed: 07/21/19 01:27> <Armand Artis - Last Filed: 07/21/19 02:34> - General Chief complaint: Abdominal Pain Stated complaint: poss flu Time Seen by Provider: 07/20/19 23:11 - History of Present Illness Initial comments: Patient presents to the ED with his for evaluation. Patient states that he has had constant and migratory pain since this morning. Patient states that his pain migrates between his abdomen, chest, left shoulder and upper back. Patient states that he has also felt nauseated, and has vomiting today. Patient states that he has felt mildly dyspneic only when his pain has been severe. Patient states that his pain is currently mild and is located in the right side of his thoracic back. Patient denies trauma or injury, fever or chills, headache, focal numbness/weakness/neuro deficit, cough or cold symptoms, hemoptysis, palpitations, dizziness, diarrhea or constipation, bloody or melanotic stool, hematemesis, dysuria, hematuria, urinary symptoms, leg or calf swelling or pain, or any other symptoms or complaints. (Milan Elias) - Related Data Home Medications Medication Instructions Recorded Confirmed Allopurinol [Zyloprim] 300 mg PO DAILY 12/18/17 07/20/19 Aspirin 81 mg PO DAILY 07/20/19 07/20/19 Ergocalciferol [Vitamin D2] 50,000 unit PO TU 07/20/19 07/20/19 Phosporated Carb(Dext-Fructos) 15 - 30 ml PO DAILY PRN 07/20/19 07/20/19 [Emetrol Oral Solution] Allergies Allergy/AdvReac Type Severity Reaction Status Date / Time No Known Allergies Allergy Verified 07/20/19 23:28 Review of Systems ROS Other: All systems not noted in ROS Statement are negative. <Milan Elias - Last Filed: 07/21/19 01:27> ROS Other: All systems not noted in ROS Statement are negative. <Armand Artis - Last Filed: 07/21/19 02:34> ROS Statement: Those systems with pertinent positive or pertinent negative responses have been documented in the HPI. Past Medical History Past Medical History: No Reported History Additional Past Medical History / Comment(s): gout, PAD, cataracts History of Any Multi-Drug Resistant Organisms: None Reported Past Surgical History: Appendectomy Additional Past Surgical History / Comment(s): cataracts; repair laceration L finger;fem./aortal bypass Past Anesthesia/Blood Transfusion Reactions: No Reported Reaction Past Psychological History: No Psychological Hx Reported Smoking Status: Former smoker Past Alcohol Use History: Occasional Past Drug Use History: None Reported - Past Family History Mother Family Medical History: Cancer Father Family Medical History: Cancer Additional Family Medical History / Comment(s): suicide, brain tumor Sister(s) Family Medical History: No Reported History Brother(s) Family Medical History: No Reported History Son(s) Family Medical History: No Reported History Daughter(s) Family Medical History: No Reported History <Milan Elias Filed: 07/21/19 01:27> General Exam Limitations: no limitations General appearance: alert Head exam: Present: atraumatic, normocephalic Eye exam: Present: normal appearance, PERRL, EOMI ENT exam: Present: mucous membranes moist Neck exam: Present: other (Trachea is midline). Absent: tenderness, meningismus Respiratory exam: Present: normal lung sounds bilaterally. Absent: respiratory distress, wheezes, rales, rhonchi Cardiovascular Exam: Present: normal rhythm, bradycardia, normal heart sounds, other (Normal radial pulses bilaterally) GI/Abdominal exam: Present: soft, normal bowel sounds. Absent: distended, tenderness, guarding Extremities exam: Present: full ROM. Absent: tenderness, pedal edema, calf tenderness Back exam: Present: normal inspection, full ROM. Absent: tenderness, CVA tenderness (R), CVA tenderness (L) Neurological exam: Present: alert, oriented X3. Absent: motor sensory deficit Psychiatric exam: Present: normal affect, normal mood Skin exam: Present: warm, dry, intact, normal color <Milan Elias - Last Filed: 07/21/19 01:27> Course <Milan Elias - Filed: 07/21/19 01:27> Vital Signs 07/20/19 07/20/19 07/21/19 23:05 23:32 00:20 Temperature 98.3 F Pulse Rate 55 L 55 L 73 Respiratory 20 16 16 Rate Blood Pressure 154/79 176/88 169/73 O2 Sat by Pulse 98 97 97 Oximetry 07/21/19 07/21/19 01:08 01:57 Temperature 98.2 F Pulse Rate 73 73 Respiratory 16 16 Rate Blood Pressure 185/92 176/96 O2 Sat by Pulse 96 94 L Oximetry - Reevaluation(s) Reevaluation #1: 07/21/19 01:27 Patient states that his pain has improved with ED treatment. Patient denies development of any new symptoms while in the ED. Patient's abdomen remains soft and nontender and exam. Patient's CT angiogram chest/abdomen/pelvis does not provide a definite explanation for the patient's migratory pain. Other than mild leukocytosis, the patient's labs are fairly unremarkable as well, including a negative troponin. Patient's UA is still pending at this time. Dr. Artis (warehouse worker 2nd shift ED physician) has agreed to f/u on the patient's UA result, and plan will be to discharge the pt home if the patient is still feeling better once his UA results have returned. I do not suspect a surgical or emergent medical condition. Patient and are aware of the patient's test results, and patient feels comfortable with this plan. (Milan Elias) EKG Findings - EKG Comments: EKG Findings:: Sinus bradycardia with borderline first-degree AV block, ventricular rate of 54 bpm, HI interval of 202 ms, normal QRS and QT intervals, no ST or T-wave abnormality, normal axis <Milan Elias - Last Filed: 07/21/19 01:27> Medical Decision Making - Lab Data Result diagrams: 07/20/19 23:17 07/20/19 23:17 - Radiology Data Radiology results: report reviewed (CT angiogram chest/abdomen/pelvis is negative for aortic aneurysm, aortic dissection and pulmonary embolism, but does demonstrate cholelithiasis and left-sided urinary bladder wall thickening) <Milan lEias - Last Filed: 07/21/19 01:27> - Lab Data Result diagrams: 07/20/19 23:17 07/20/19 23:17 <Armand Artis - Last Filed: 07/21/19 02:34> - Lab Data Lab Results 07/20/19 07/20/19 07/20/19 Range/Units 23:17 23:17 23:17 WBC 13.2 H (3.8-10.6) k/uL RBC 5.04 (4.30-5.90) m/uL Hgb 16.0 (13.0-17.5) gm/dL Hct 48.9 (39.0-53.0) % MCV 97.1 (80.0-100.0) fL MCH 31.8 (25.0-35.0) pg MCHC 32.7 (31.0-37.0) g/dL RDW 13.1 (11.5-15.5) % Plt Count 198 (150-450) k/uL Neutrophils % 85 % Lymphocytes % 11 % Monocytes % 3 % Eosinophils % 0 % Basophils % 0 % Neutrophils # 11.3 H (1.3-7.7) k/uL Lymphocytes # 1.4 (1.0-4.8) k/uL Monocytes # 0.4 (0-1.0) k/uL Eosinophils # 0.1 (0-0.7) k/uL Basophils # 0.1 (0-0.2) k/uL Sodium 141 (137-145) mmol/L Potassium 4.6 (3.5-5.1) mmol/L Chloride 107 (98-107) mmol/L Carbon Dioxide 23 (22-30) mmol/L Anion Gap 11 mmol/L BUN 14 (9-20) mg/dL Creatinine 1.22 (0.66-1.25) mg/dL Est GFR (CKD-EPI)AfAm 70 (>60 ml/min/1.73 sqM) Est GFR (CKD-EPI)NonAf 61 (>60 ml/min/1.73 sqM) Glucose 139 H (74-99) mg/dL Calcium 9.8 (8.4-10.2) mg/dL Total Bilirubin 0.7 (0.2-1.3) mg/dL AST 21 (17-59) U/L ALT 26 (21-72) U/L Alkaline Phosphatase 93 (38-126) U/L Troponin I <0.012 (0.000-0.034) ng/mL Total Protein 8.3 H (6.3-8.2) g/dL Albumin 4.6 (3.5-5.0) g/dL Amylase 96 (30-110) U/L Lipase 63 (23-300) U/L Urine Color Urine Appearance (Clear) Urine pH (5.0-8.0) Ur Specific [place] (1.001-1.035) Urine Protein (Negative) Urine Glucose (UA) (Negative) Urine Ketones (Negative) Urine Blood (Negative) Urine Nitrite (Negative) Urine Bilirubin (Negative) Urine Urobilinogen (<2.0) mg/dL Ur Leukocyte Esterase (Negative) Urine RBC (0-5) /hpf Urine WBC (0-5) /hpf Ur Squamous Epith Cells (0-4) /hpf Urine Mucus (None) /hpf 07/20/19 Range/Units 23:18 WBC (3.8-10.6) k/uL RBC (4.30-5.90) m/uL Hgb (13.0-17.5) gm/dL Hct (39.0-53.0) % MCV (80.0-100.0) fL MCH (25.0-35.0) pg MCHC (31.0-37.0) g/dL RDW (11.5-15.5) % Plt Count (150-450) k/uL Neutrophils % % Lymphocytes % % Monocytes % % Eosinophils % % Basophils % % Neutrophils # (1.3-7.7) k/uL Lymphocytes # (1.0-4.8) k/uL Monocytes # (0-1.0) k/uL Eosinophils # (0-0.7) k/uL Basophils # (0-0.2) k/uL Sodium (137-145) mmol/L Potassium (3.5-5.1) mmol/L Chloride (98-107) mmol/L Carbon Dioxide (22-30) mmol/L Anion Gap mmol/L BUN (9-20) mg/dL Creatinine (0.66-1.25) mg/dL Est GFR (CKD-EPI)AfAm (>60 ml/min/1.73 sqM) Est GFR (CKD-EPI)NonAf (>60 ml/min/1.73 sqM) Glucose (74-99) mg/dL Calcium (8.4-10.2) mg/dL Total Bilirubin (0.2-1.3) mg/dL AST (17-59) U/L ALT (21-72) U/L Alkaline Phosphatase (38-126) U/L Troponin I (0.000-0.034) ng/mL Total Protein (6.3-8.2) g/dL Albumin (3.5-5.0) g/dL Amylase (30-110) U/L Lipase (23-300) U/L Urine Color Yellow Urine Appearance Clear (Clear) Urine pH 6.5 (5.0-8.0) Ur Specific [place] 1.024 (1.001-1.035) Urine Protein Negative (Negative) Urine Glucose (UA) Negative (Negative) Urine Ketones Trace H (Negative) Urine Blood Moderate H (Negative) Urine Nitrite Negative (Negative) Urine Bilirubin Negative (Negative) Urine Urobilinogen <2.0 (<2.0) mg/dL Ur Leukocyte Esterase Negative (Negative) Urine RBC 135 H (0-5) /hpf Urine WBC 3 (0-5) /hpf Ur Squamous Epith Cells <1 (0-4) /hpf Urine Mucus Rare H (None) /hpf Disposition Is patient prescribed a controlled substance at d/c from ED?: No <Milan Elias - Last Filed: 07/21/19 01:27> Is patient prescribed a controlled substance at d/c from ED?: No <Armand Artis - Last Filed: 07/21/19 02:34> Clinical Impression: Migratory pain, Nausea and vomiting, Hematuria Disposition: HOME SELF-CARE Condition: Stable Instructions (If sedation given, give patient instructions): Hematuria (ED) Additional Instructions: Follow-up with the urologist to further look into the bladder findings discussed. Referrals: Pati Hoffmann MD [Primary Care Provider] - 1-2 days Ulices Hernandez MD [STAFF PHYSICIAN] - 1-2 days
[2019-07-20] MEDS ORDERED: SODIUM CHLORIDE 0.9% 1,000 ML IV ONE (23:39)
[2019-07-20] MEDS ORDERED: HYDROmorphone 1 MG/ML 1 ML SYRINGE IVP STA (23:39)
[2019-07-20 23:45] LABS: Basophils # (A) 0.1 k/uL (0-0.2); Basophils % (A) 0 %; Eosinophils # (A) 0.1 k/uL (0-0.7); Eosinophils % (A) 0 %; HCT 48.9 % (39.0-53.0); Lymphocytes # (A) 1.4 k/uL (1.0-4.8); Lymphocytes % (A) 11 %; MCH 31.8 pg (25.0-35.0); MCHC 32.7 g/dL (31.0-37.0); MCV 97.1 fL (80.0-100.0); Monocytes # (A) 0.4 k/uL (0-1.0); Monocytes % (A) 3 %; Neutrophils # (A) 11.3 k/uL (1.3-7.7); Neutrophils % (A) 85 %; Platelet Count 198 k/uL (150-450); RBC 5.04 m/uL (4.30-5.90); RDW 13.1 % (11.5-15.5); WBC 13.2 k/uL (3.8-10.6)
[2019-07-20 23:59] LABS: Albumin 4.6 g/dL (3.5-5.0); Calcium 9.8 mg/dL (8.4-10.2); Total Bilirubin 0.7 mg/dL (0.2-1.3); Total Protein 8.3 g/dL (6.3-8.2)
[2019-07-21 00:01] LABS: Potassium 4.6 mmol/L (3.5-5.1)
--- NOTE | 2019-07-21 01:17 | CT ---
EXAMINATION TYPE: CT angio thor/abd pel aorta DATE OF EXAM: 07/21/2019 COMPARISON: HISTORY: R/O AAA, Back pain, Abd pain CT DLP: 1689.30 mGycm. Automated Exposure Control for Dose Reduction was Utilized. CONTRAST: CT scan of the thorax, abdomen and pelvis is performed without and with IV Contrast, patient injected with 100 mL of Isovue 370. FINDINGS: There are 3-D post processed images. There is normal branching pattern of the great vessels on the aortic arch. Ascending aorta measures 3 .4 cm. There is no evidence of thoracic aortic dissection or aneurysm. There is patency of the celiac artery and superior mesenteric artery. There is bilateral patency of the renal arteries. There is bi lateral patency of femoral arteries. There is bilateral aortofemoral bypass graft which appears wide ly patent. There is significant plaque in the [place] iliac arteries. Bladder distends smoothly. There is some focal thickening of the wall of the urinary bladder on the left side posteriorly. There is n o inguinal hernia. There is no free fluid in the pelvis. There is no mesenteric edema. There is no ascites or free air. There is no sign of a bowel obstructio n. There are multiple calcified gallstones. Kidneys have normal size and contour. There is no hydronephr osis. There is no evidence of a renal mass. There is no retroperitoneal adenopathy. There is thoracol umbar levoscoliosis. There is small hiatal hernia. Liver shows no focal defect. Spleen appears normal . There is no pancreatic mass. Bile ducts are not dilated. There is no adrenal mass. The lungs are clear of infiltrate. There is no pleural effusion. There are no hilar masses. There is no mediastinal adenopathy. Heart size is normal. There is normal contrast opacification of the pulmonary arteries. There are no filling defects. The l ungs are clear of consolidation. There is no evidence of a pulmonary mass. There are no hilar masses. I see no bony destructive process. IMPRESSION: No evidence of aortic aneurysm or dissection. No evidence of pulmonary embolism. Cholelithiasis. Wide patency of the aortofemoral bypass graft. Atherosclerotic vascular disease. Wall thickening of the urinary bladder on the left side. Follow-up recommended. Cystogram or ultrasou nd or cystoscopy would be useful for further evaluation.
[2019-07-21] MEDS ORDERED: ONDANSETRON 4 MG/2 ML VIAL IVP STA (01:26)
[2019-07-21 02:02] LABS: Appearance,Urine Clear (Clear); Bilirubin,Urine Negative (Negative); Blood,Urine Moderate (Negative); Color,Urine Yellow; Glucose,Urine (UA) Negative (Negative); Ketones,Urine Trace (Negative); Leukocyte Esterase,Urine Negative (Negative); Mucus,Urine Rare /hpf; Nitrite,Urine Negative (Negative); PH, Urine 6.5 (5.0-8.0); Protein,Urine Negative (Negative); RBC,Urine 135 /hpf (0-5); Specific Gravity,Urine 1.024 (1.001-1.035); Squamous Epithelial Cell,Urine <1 /hpf (0-4); Urobilinogen,Urine <2.0 mg/dL (<2.0)
[2019-07-21] MEDS ORDERED: HYDROmorphone 0.5 MG/0.5 ML SYRINGE IVP STA (02:35)
[2019-07-21] MEDS ORDERED: METOCLOPRAMIDE 5 MG/ML 2 ML VIAL IVP STA (02:35)
[2019-07-21 03:41] VITALS: BP 142/85; PULSE 81; RESP 18; TEMP 97.3
== END 2019-07-21 03:42 | disposition home or self-care (01) ==
LOC: EC 22:59
DX: M54.6 Pain in thoracic spine (principal); R10.9 Unspecified abdominal pain; R07.9 Chest pain, unspecified; M25.512 Pain in left shoulder; R11.2 Nausea with vomiting, unspecified; R31.9 Hematuria, unspecified; R00.1 Bradycardia, unspecified; R06.00 Dyspnea, unspecified; M10.9 Gout, unspecified; Z87.891 Personal history of nicotine dependence; Z79.82 Long term (current) use of aspirin; Z79.899 Other long term (current) drug therapy; Z90.49 Acquired absence of other specified parts of digestive tract; Z98.890 Other specified postprocedural states
CPT/HCPCS: 36415; 93005; 80053; 82150; 83690; 84484; 85025; 81001; 71275; 74174; 99284; 96374; 96375 ×2; 96376; 96361; J2765; J2405; J1170 ×2; Q9967

== ENCOUNTER 2019-08-07 15:28 | Inpatient (IN) | payer MEDICARE, OTHER ==
--- NOTE | 2019-08-07 15:52 | ED ---
General Adult HPI - General Chief complaint: Weakness Stated complaint: Weakness/tired Time Seen by Provider: 08/07/19 15:39 Source: patient Mode of arrival: ambulatory Limitations: no limitations - History of Present Illness Initial comments: Patient is a 69-year-old male presenting to emergency Department with chief complaint of generalized weakness. Patient reports symptoms began yesterday and a gradually increasing severity. Patient reports that he is not able to stay awake and fall asleep as soon as he sits down. Patient reports about a week ago he had polyps removed from his bladder and had a Ramos catheter for a week. The Ramos was removed 2 days ago. Patient reports over the last 2 days he has had cloudy urine and reports incomplete emptying, increased frequency and urgency but no dysuria. Patient denies any suprapubic tenderness, abdominal or back pain. Patient denies nausea vomiting or diarrhea. Patient denies night sweats fevers or chills. - Related Data Home Medications Medication Instructions Recorded Confirmed Allopurinol [Zyloprim] 300 mg PO DAILY 12/18/17 07/20/19 Aspirin 81 mg PO DAILY 07/20/19 07/20/19 Ergocalciferol [Vitamin D2] 50,000 unit PO TU 07/20/19 07/20/19 Phosporated Carb(Dext-Fructos) 15 - 30 ml PO DAILY PRN 07/20/19 07/20/19 [Emetrol Oral Solution] Allergies Allergy/AdvReac Type Severity Reaction Status Date / Time No Known Allergies Allergy Verified 08/07/19 15:38 Review of Systems ROS Statement: Those systems with pertinent positive or pertinent negative responses have been documented in the HPI. ROS Other: All systems not noted in ROS Statement are negative. Past Medical History Past Medical History: No Reported History Additional Past Medical History / Comment(s): gout, PAD, cataracts History of Any Multi-Drug Resistant Organisms: None Reported Past Surgical History: Appendectomy Additional Past Surgical History / Comment(s): cataracts; repair laceration L finger;fem./aortal bypass Past Anesthesia/Blood Transfusion Reactions: No Reported Reaction Past Psychological History: No Psychological Hx Reported Smoking Status: Former smoker Past Alcohol Use History: Occasional Past Drug Use History: None Reported - Past Family History Mother Family Medical History: Cancer Father Family Medical History: Cancer Additional Family Medical History / Comment(s): suicide, brain tumor Sister(s) Family Medical History: No Reported History Brother(s) Family Medical History: No Reported History Son(s) Family Medical History: No Reported History Daughter(s) Family Medical History: No Reported History General Exam Limitations: no limitations General appearance: alert, in no apparent distress Head exam: Present: atraumatic, normocephalic, normal inspection Eye exam: Present: normal appearance, PERRL Pupils: Present: normal accommodation ENT exam: Present: normal exam, mucous membranes moist, normal external ear exam Neck exam: Present: normal inspection Respiratory exam: Present: normal lung sounds bilaterally Cardiovascular Exam: Present: normal rhythm, tachycardia, normal heart sounds GI/Abdominal exam: Present: soft, normal bowel sounds. Absent: distended, t enderness, guarding, rebound exam: Present: normal inspection, circumcision. Absent: testicular tenderness, urethral discharge, scrotal swelling, vertical testicular lie Extremities exam: Present: normal inspection, full ROM Back exam: Present: normal inspection, full ROM. Absent: CVA tenderness (R), CVA tenderness (L) Neurological exam: Present: alert, oriented X3 Psychiatric exam: Present: normal affect, normal mood Skin exam: Present: warm, intact, normal color Course Vital Signs 08/07/19 15:36 Temperature 101.4 F H Pulse Rate 111 H Respiratory 20 Rate Blood Pressure 124/60 O2 Sat by Pulse 93 L Oximetry Medical Decision Making - Medical Decision Making Patient is a 69-year-old male presenting to the emergency department with a chief complaint of general weakness. Patient had undergone a polyp removal a week ago and has had a catheter over the last week. Once it was removed patient developed cloudy urine with the typical UTI symptoms. Patient is also having generalized weakness. Physical examination is unremarkable. Patient does fit sepsis criteria. Blood cultures and lactate obtained. CBC is indicative of leukocytosis. Patient does have mild increase in creatinine. High suspicion for cystitis according to UA. Urine culture sent. Low Suspicion for pyelonephritis due to no CVA tenderness. Patient given antipyretics, fluids and antibiotics. Patient will be admitted for further medical management according to sepsis protocol.. Case discussed with . - Lab Data Result diagrams: 08/07/19 16:16 08/07/19 16:16 Lab Results 08/07/19 08/07/19 08/07/19 Range/Units 16:00 16:16 16:16 WBC 20.1 H (3.8-10.6) k/uL RBC 4.44 (4.30-5.90) m/uL Hgb 13.8 (13.0-17.5) gm/dL Hct 42.0 (39.0-53.0) % MCV 94.6 D (80.0-100.0) fL MCH 31.1 (25.0-35.0) pg MCHC 32.9 (31.0-37.0) g/dL RDW 12.7 (11.5-15.5) % Plt Count 264 (150-450) k/uL Sodium 137 (137-145) mmol/L Potassium 4.3 (3.5-5.1) mmol/L Chloride 103 (98-107) mmol/L Carbon Dioxide 22 (22-30) mmol/L Anion Gap 12 mmol/L BUN 15 (9-20) mg/dL Creatinine 1.26 H (0.66-1.25) mg/dL Est GFR (CKD-EPI)AfAm 67 (>60 ml/min/1.73 sqM) Est GFR (CKD-EPI)NonAf 58 (>60 ml/min/1.73 sqM) Glucose 128 H (74-99) mg/dL Plasma Lactic Acid [place] (0.7-2.0) mmol/L Calcium 9.1 (8.4-10.2) mg/dL Total Bilirubin 1.0 (0.2-1.3) mg/dL AST 19 (17-59) U/L ALT 14 L (21-72) U/L Alkaline Phosphatase 104 (38-126) U/L Total Protein 7.7 (6.3-8.2) g/dL Albumin 4.0 (3.5-5.0) g/dL Urine Color Yellow Urine Appearance Cloudy (Clear) Urine pH 5.5 (5.0-8.0) Ur Specific [place] 1.019 (1.001-1.035) Urine Protein 1+ H (Negative) Urine Glucose (UA) Negative (Negative) Urine Ketones Negative (Negative) Urine Blood Moderate H (Negative) Urine Nitrite Positive (Negative) Urine Bilirubin Negative (Negative) Urine Urobilinogen 2.0 (<2.0) mg/dL Ur Leukocyte Esterase Large H (Negative) Urine RBC 66 H (0-5) /hpf Urine WBC >182 H (0-5) /hpf Urine WBC Clumps Moderate H (None) /hpf Urine Bacteria Many H (None) /hpf Urine Mucus Rare H (None) /hpf 08/07/19 Range/Units 16:16 WBC (3.8-10.6) k/uL RBC (4.30-5.90) m/uL Hgb (13.0-17.5) gm/dL Hct (39.0-53.0) % MCV (80.0-100.0) fL MCH (25.0-35.0) pg MCHC (31.0-37.0) g/dL RDW (11.5-15.5) % Plt Count (150-450) k/uL Sodium (137-145) mmol/L Potassium (3.5-5.1) mmol/L Chloride (98-107) mmol/L Carbon Dioxide (22-30) mmol/L Anion Gap mmol/L BUN (9-20) mg/dL Creatinine (0.66-1.25) mg/dL Est GFR (CKD-EPI)AfAm (>60 ml/min/1.73 sqM) Est GFR (CKD-EPI)NonAf (>60 ml/min/1.73 sqM) Glucose (74-99) mg/dL Plasma Lactic Acid [place] 0.9 (0.7-2.0) mmol/L Calcium (8.4-10.2) mg/dL Total Bilirubin (0.2-1.3) mg/dL AST (17-59) U/L ALT (21-72) U/L Alkaline Phosphatase (38-126) U/L Total Protein (6.3-8.2) g/dL Albumin (3.5-5.0) g/dL Urine Color Urine Appearance (Clear) Urine pH (5.0-8.0) Ur Specific [place] (1.001-1.035) Urine Protein (Negative) Urine Glucose (UA) (Negative) Urine Ketones (Negative) Urine Blood (Negative) Urine Nitrite (Negative) Urine Bilirubin (Negative) Urine Urobilinogen (<2.0) mg/dL Ur Leukocyte Esterase (Negative) Urine RBC (0-5) /hpf Urine WBC (0-5) /hpf Urine WBC Clumps (None) /hpf Urine Bacteria (None) /hpf Urine Mucus (None) /hpf Disposition Clinical Impression: Urinary tract infection in male Disposition: ADMITTED IP TO THIS HOSP Condition: Stable Instructions (If sedation given, give patient instructions): Catheter- associated Urinary Tract Infection (ED) Additional Instructions: Patient will be admitted Is patient prescribed a controlled substance at d/c from ED?: No Referrals: Pati Hoffmann MD [Primary Care Provider] - 1-2 days Time of Disposition: 17:11
[2019-08-07 16:07] LABS: Appearance,Urine Cloudy (Clear); Bacteria,Urine Many /hpf; Bilirubin,Urine Negative (Negative); Blood,Urine Moderate (Negative); Color,Urine Yellow; Glucose,Urine (UA) Negative (Negative); Ketones,Urine Negative (Negative); Leukocyte Esterase,Urine Large (Negative); Mucus,Urine Rare /hpf; Nitrite,Urine Positive (Negative); PH, Urine 5.5 (5.0-8.0); Protein,Urine 1+ (Negative); RBC,Urine 66 /hpf (0-5); Specific Gravity,Urine 1.019 (1.001-1.035)
[2019-08-07 16:24] LABS: HGB 13.8 gm/dL (13.0-17.5); MCH 31.1 pg (25.0-35.0); MCHC 32.9 g/dL (31.0-37.0); Mean Platelet Volume 6.4; Platelet Count 264 k/uL (150-450); RBC 4.44 m/uL (4.30-5.90); RDW 12.7 % (11.5-15.5); WBC 20.1 k/uL (3.8-10.6)
[2019-08-07 16:29] LABS: MCV 94.6 fL (80.0-100.0)
[2019-08-07] MEDS ORDERED: ACETAMINOPHEN TAB 500 MG TAB PO STA (16:31)
[2019-08-07 16:44] LABS: Calcium 9.1 mg/dL (8.4-10.2); Potassium 4.3 mmol/L (3.5-5.1); Total Protein 7.7 g/dL (6.3-8.2)
[2019-08-07] MEDS ORDERED: SODIUM CHLORIDE 0.9% 1,000 ML IV STA (17:08)
[2019-08-07] MEDS ORDERED: cefTRIAXone IN SWFI 1,000 MG/10 ML SYRINGE IVP STA (17:08)
[2019-08-07] MEDS: SODIUM CHLORIDE 0.9% 500 ML 500 ML IV SCH ×3 (19:23→23:03)
[2019-08-08] MEDS: ACETAMINOPHEN TAB 325 MG TAB PO PRN ×2 (04:59→20:55)
[2019-08-08 09:01] LABS: Basophils # (A) 0.1 k/uL (0-0.2); Basophils % (A) 1 %; Eosinophils # (A) 0.1 k/uL (0-0.7); Eosinophils % (A) 0 %; HCT 39.3 % (39.0-53.0); HGB 12.9 gm/dL (13.0-17.5); Lymphocytes # (A) 2.4 k/uL (1.0-4.8); Lymphocytes % (A) 15 %; MCH 31.8 pg (25.0-35.0); MCHC 32.9 g/dL (31.0-37.0); MCV 96.7 fL (80.0-100.0); Mean Platelet Volume 6.6; Monocytes # (A) 0.8 k/uL (0-1.0); Monocytes % (A) 5 %; Neutrophils # (A) 12.5 k/uL (1.3-7.7); Neutrophils % (A) 77 %; Platelet Count 239 k/uL (150-450); RBC 4.07 m/uL (4.30-5.90); RDW 12.7 % (11.5-15.5); WBC 16.3 k/uL (3.8-10.6)
[2019-08-08 09:05] LABS: Albumin 3.2 g/dL (3.5-5.0); Calcium 8.7 mg/dL (8.4-10.2); Total Bilirubin 0.6 mg/dL (0.2-1.3); Total Protein 6.5 g/dL (6.3-8.2)
--- NOTE | 2019-08-08 09:52 | P.HPIM ---
History of Present Illness H&P Date: 08/08/19 This is a 69-year-old male patient who presented with complaints of weakness. Patient reports that actually one week ago he had a polyp removed from his bladder with DC'd with Ramos catheter per urology. Reports that he had Ramos catheter removed about 2 days ago and started to have symptoms of increased weakness and chills over the past 2 days. Patient also reports increased fatigue. Patient reports he did have trouble urinating wonderfully catheter was removed. Patient does have a known past medical history of gout, peripheral arterial disease and ex-smoker. UA showing large amount of leukocyte Estrace. Patient started on Rocephin urine culture ordered. Neurology services have been consulted. Patient is still having elevated Tylenol added. Patient denies chest pain or shortness of breath. Patient denies nausea vomiting or diarrhea. Review of Systems Please refer to HPI otherwise unremarkable Past Medical History Past Medical History: No Reported History Additional Past Medical History / Comment(s): gout, PAD, cataracts, gall bladder stones,scoliosis History of Any Multi-Drug Resistant Organisms: None Reported Past Surgical History: Appendectomy Additional Past Surgical History / Comment(s): cataracts; repair laceration L finger;fem./aortal bypass, sunday 07/29 polps removed from bladder benign Past Anesthesia/Blood Transfusion Reactions: No Reported Reaction Past Psychological History: No Psychological Hx Reported Smoking Status: Never smoker Past Alcohol Use History: Occasional Additional Past Alcohol Use History / Comment(s): quit smoking 2011; smoked from teens to age 61 about 1ppd Past Drug Use History: None Reported - Past Family History Mother Family Medical History: Cancer Father Family Medical History: Cancer Additional Family Medical History / Comment(s): suicide, brain tumor Sister(s) Family Medical History: No Reported History Brother(s) Family Medical History: No Reported History Son(s) Family Medical History: No Reported History Daughter(s) Family Medical History: No Reported History Medications and Allergies Home Medications Medication Instructions Recorded Confirmed Type Allopurinol [Zyloprim] 300 mg PO HS 12/18/17 08/07/19 History Aspirin 81 mg PO HS 07/20/19 08/07/19 History Ergocalciferol [Vitamin D2] 50,000 unit PO TU 07/20/19 08/07/19 History Allergies Allergy/AdvReac Type Severity Reaction Status Date / Time No Known Allergies Allergy Verified 08/07/19 17:57 Physical Exam Vitals: Vital Signs Temp Pulse Pulse Resp BP BP Pulse Ox 08/08/19 06:19 98.4 F 08/08/19 05:32 100.4 F H 96 16 126/65 93 L 08/08/19 00:00 16 08/07/19 21:00 98.4 F 87 16 121/66 97 08/07/19 18:23 98.9 F 87 16 128/78 98 08/07/19 17:00 100.3 F H 85 18 08/07/19 15:36 101.4 F H 111 H 20 124/60 93 L Intake and Output 08/07/19 08/08/19 08/08/19 22:59 06:59 14:59 Intake Total 1180 1500 Output Total 1781 Balance 1180 -281 Intake: Intake, IV Titration 1500 Amount Sodium Chloride 0.9% 500 1500 ml 500 ml @ 1000 mls/hr IV Q35M [facility] Rx#:[id number] Oral 1180 Output: Urine 1350 Post Void Residual 431 Other: Voiding Method Toilet Toilet Toilet Urinal # Voids 2 2 # Bowel Movements 1 1 Weight 81.647 kg Head normocephalic Neck supple Lungs clear to auscultation bilaterally no wheezing or crackles Heart regular rate and rhythm S1-S2, no rub or gallop Abdomen is soft nontender nondistended positive bowel sounds no hepatosplenomegaly Extremities no edema Neuro alert and orientated to 3 Results CBC & Chem 7: 08/08/19 08:18 08/08/19 08:18 Labs: Abnormal Lab Results - Last 24 Hours (Table) 08/07/19 08/07/19 08/07/19 Range/Units 16:00 16:16 16:16 WBC 20.1 H (3.8-10.6) k/uL RBC (4.30-5.90) m/uL Hgb (13.0-17.5) gm/dL Neutrophils # (1.3-7.7) k/uL Chloride (98-107) mmol/L Creatinine 1.26 H (0.66-1.25) mg/dL Glucose 128 H (74-99) mg/dL AST (17-59) U/L ALT 14 L (21-72) U/L Albumin (3.5-5.0) g/dL Urine Protein 1+ H (Negative) Urine Blood Moderate H (Negative) Ur Leukocyte Esterase Large H (Negative) Urine RBC 66 H (0-5) /hpf Urine WBC >182 H (0-5) /hpf Urine WBC Clumps Moderate H (None) /hpf Urine Bacteria Many H (None) /hpf Urine Mucus Rare H (None) /hpf 08/08/19 08/08/19 Range/Units 08:18 08:18 WBC 16.3 H (3.8-10.6) k/uL RBC 4.07 L (4.30-5.90) m/uL Hgb 12.9 L (13.0-17.5) gm/dL Neutrophils # 12.5 H (1.3-7.7) k/uL Chloride 110 H (98-107) mmol/L Creatinine (0.66-1.25) mg/dL Glucose 102 H (74-99) mg/dL AST 14 L (17-59) U/L ALT 17 L (21-72) U/L Albumin 3.2 L (3.5-5.0) g/dL Urine Protein (Negative) Urine Blood (Negative) Ur Leukocyte Esterase (Negative) Urine RBC (0-5) /hpf Urine WBC (0-5) /hpf Urine WBC Clumps (None) /hpf Urine Bacteria (None) /hpf Urine Mucus (None) /hpf Microbiology - Last 24 Hours (Table) 08/07/19 16:00 Urine Culture - Preliminary Urine,Voided Thrombosis Risk Factor Assmnt - Choose All That Apply Any of the Below Risk Factors Present?: Yes Each Factor Represents 1 point: Obesity (BMI >25) Other Risk Factors: Yes Each Risk Factor Represents 2 Points: Age 61-74 years Other congenital or acquired thrombophilia - If yes, enter type in comment: No Thrombosis Risk Factor Assessment Total Risk Factor Score: 3 Thrombosis Risk Factor Assessment Level: Moderate Risk Assessment and Plan Assessment: 1. Sepsis secondary to Urinary tract infection. Febrile and elevated white count 20.1 urine culture ordered. Rocephin ordered 2. Recent bladder polyp removal surgery 1 week ago. urology services ordered 3. history of gout 4. history of peripheral arterial disease with prior bifemoral bypass 5. Ex-smoker 6. History of cataracts DVT prophylaxis heparin. GI prophylaxis Pepcid Time with Patient: Greater than 30 (Greater than 60% of the total time spent in counseling and coordination of careI performed an examination of the patient and discussed their management with the Nurse Practitioner. I have reviewed the Nurse Practitioner's notes and agree with the documented findings and plan of care)
[2019-08-08 14:29] VITALS: BMI 27.3
--- NOTE | 2019-08-08 20:13 | P.GSCN ---
History of Present Illness Consult date: 08/08/19 Reason for Consult: UTI with Sepsis Requesting physician: Pati Hoffmann History of present illness: The patient is a 69-year-old white male who underwent a recent CT scan revealing bladder wall thickening. Cystoscopy showed 2 left lateral bladder wall tumors, for which the patient underwent transurethral resection by Dr. Gomes on 07/28/2019. His Ramos catheter was removed on 08/05/2019. Pathology revealed Ta Grade 1 urothelial carcinoma. He is now admitted with generalized weakness. Urinalysis was consistent with infection, and he was admitted and is receiving IV antibiotics. Review of Systems - Constitutional Reports chills, Reports fatigue, Reports fever - Gastrointestinal Denies abdominal pain, Denies nausea, Denies vomiting Past Medical History Past Medical History: No Reported History Additional Past Medical History / Comment(s): gout, PAD, cataracts, gall bladder stones,scoliosis History of Any Multi-Drug Resistant Organisms: None Reported Past Surgical History: Appendectomy Additional Past Surgical History / Comment(s): cataracts; repair laceration L finger;fem./aortal bypass, sunday 07/29 polps removed from bladder benign Past Anesthesia/Blood Transfusion Reactions: No Reported Reaction Past Psychological History: No Psychological Hx Reported Smoking Status: Never smoker Past Alcohol Use History: Occasional Additional Past Alcohol Use History / Comment(s): quit smoking 2011; smoked from teens to age 61 about 1ppd Past Drug Use History: None Reported - Past Family History Mother Family Medical History: Cancer Father Family Medical History: Cancer Additional Family Medical History / Comment(s): suicide, brain tumor Sister(s) Family Medical History: No Reported History Brother(s) Family Medical History: No Reported History Son(s) Family Medical History: No Reported History Daughter(s) Family Medical History: No Reported History Medications and Allergies Home Medications Medication Instructions Recorded Confirmed Type Allopurinol [Zyloprim] 300 mg PO HS 12/18/17 08/07/19 History Aspirin 81 mg PO HS 07/20/19 08/07/19 History Ergocalciferol [Vitamin D2] 50,000 unit PO TU 07/20/19 08/07/19 History Allergies Allergy/AdvReac Type Severity Reaction Status Date / Time No Known Allergies Allergy Verified 08/07/19 17:57 Surgical - Exam Vital Signs Temp Pulse Resp BP Pulse Ox 101.4 F H 111 H 20 124/60 93 L 08/07/19 15:36 08/07/19 15:36 08/07/19 15:36 08/07/19 15:36 08/07/19 15:36 - General well developed, well nourished, no distress - Respiratory normal respiratory effort - Abdomen Abdomen: soft, non tender, no guarding, no rigid, no rebound - Genitourinary normal penis with no external lesions, testicles non-tender - Psychiatric oriented to time, oriented to person, oriented to place, speech is normal, memory intact Results - Labs 08/08/19 08:18 08/08/19 08:18 Abnormal Lab Results - Last 24 Hours (Table) 08/07/19 08/07/19 08/07/19 Range/Units 16:00 16:16 16:16 WBC 20.1 H (3.8-10.6) k/uL RBC (4.30-5.90) m/uL Hgb (13.0-17.5) gm/dL Neutrophils # (1.3-7.7) k/uL Chloride (98-107) mmol/L Creatinine 1.26 H (0.66-1.25) mg/dL Glucose 128 H (74-99) mg/dL AST (17-59) U/L ALT 14 L (21-72) U/L Albumin (3.5-5.0) g/dL Urine Protein 1+ H (Negative) Urine Blood Moderate H (Negative) Ur Leukocyte Esterase Large H (Negative) Urine RBC 66 H (0-5) /hpf Urine WBC >182 H (0-5) /hpf Urine WBC Clumps Moderate H (None) /hpf Urine Bacteria Many H (None) /hpf Urine Mucus Rare H (None) /hpf 08/08/19 08/08/19 Range/Units 08:18 08:18 WBC 16.3 H (3.8-10.6) k/uL RBC 4.07 L (4.30-5.90) m/uL Hgb 12.9 L (13.0-17.5) gm/dL Neutrophils # 12.5 H (1.3-7.7) k/uL Chloride 110 H (98-107) mmol/L Creatinine (0.66-1.25) mg/dL Glucose 102 H (74-99) mg/dL AST 14 L (17-59) U/L ALT 17 L (21-72) U/L Albumin 3.2 L (3.5-5.0) g/dL Urine Protein (Negative) Urine Blood (Negative) Ur Leukocyte Esterase (Negative) Urine RBC (0-5) /hpf Urine WBC (0-5) /hpf Urine WBC Clumps (None) /hpf Urine Bacteria (None) /hpf Urine Mucus (None) /hpf Microbiology - Last 24 Hours (Table) 08/07/19 16:00 Urine Culture - Preliminary Urine,Voided Diabetes panel 08/07/19 08/08/19 Range/Units 16:16 08:18 Sodium 137 142 (137-145) mmol/L Potassium 4.3 4.0 (3.5-5.1) mmol/L Chloride 103 110 H (98-107) mmol/L Carbon Dioxide 22 22 (22-30) mmol/L BUN 15 12 (9-20) mg/dL Creatinine 1.26 H 1.16 (0.66-1.25) mg/dL Glucose 128 H 102 H (74-99) mg/dL Calcium 9.1 8.7 (8.4-10.2) mg/dL AST 19 14 L (17-59) U/L ALT 14 L 17 L (21-72) U/L Alkaline Phosphatase 104 88 (38-126) U/L Total Protein 7.7 6.5 (6.3-8.2) g/dL Albumin 4.0 3.2 L (3.5-5.0) g/dL Calcium panel 08/07/19 08/08/19 Range/Units 16:16 08:18 Calcium 9.1 8.7 (8.4-10.2) mg/dL Albumin 4.0 3.2 L (3.5-5.0) g/dL Pituitary panel 08/07/19 08/08/19 Range/Units 16:16 08:18 Sodium 137 142 (137-145) mmol/L Potassium 4.3 4.0 (3.5-5.1) mmol/L Chloride 103 110 H (98-107) mmol/L Carbon Dioxide 22 22 (22-30) mmol/L BUN 15 12 (9-20) mg/dL Creatinine 1.26 H 1.16 (0.66-1.25) mg/dL Glucose 128 H 102 H (74-99) mg/dL Calcium 9.1 8.7 (8.4-10.2) mg/dL Adrenal panel 08/07/19 08/08/19 Range/Units 16:16 08:18 Sodium 137 142 (137-145) mmol/L Potassium 4.3 4.0 (3.5-5.1) mmol/L Chloride 103 110 H (98-107) mmol/L Carbon Dioxide 22 22 (22-30) mmol/L BUN 15 12 (9-20) mg/dL Creatinine 1.26 H 1.16 (0.66-1.25) mg/dL Glucose 128 H 102 H (74-99) mg/dL Calcium 9.1 8.7 (8.4-10.2) mg/dL Total Bilirubin 1.0 0.6 (0.2-1.3) mg/dL AST 19 14 L (17-59) U/L ALT 14 L 17 L (21-72) U/L Alkaline Phosphatase 104 88 (38-126) U/L Total Protein 7.7 6.5 (6.3-8.2) g/dL Albumin 4.0 3.2 L (3.5-5.0) g/dL Assessment and Plan (1) Urinary tract infection in male Current Visit: Yes Status: Acute Code(s): N39.0 - URINARY TRACT INFECTION, SITE NOT SPECIFIED SNOMED Code(s): 94953989 Plan: Post-void residual was most recently 226 cc. Will keep Ramos out. Continue Rocephin, pending urine culture result.
[2019-08-08] MEDS: ALLOPURINOL 300 MG TAB PO SCH (20:54)
[2019-08-08] MEDS: ASPIRIN 81 MG PO SCH (20:54)
[2019-08-08] MEDS ORDERED: CALCIUM CARBONATE 500 MG CHEWABLE PO PRN (21:03)
[2019-08-08] MEDS: HEPARIN SODIUM,PORCINE 5,000 UNIT/ML 1 ML VIAL SQ SCH (21:06)
[2019-08-08] MEDS: SODIUM CHLORIDE 0.9% 1,000 ML IV SCH (21:31)
[2019-08-08] MEDS: PANTOPRAZOLE 40 MG/10 ML VIAL IVP SCH (21:31)
[2019-08-09 08:57] LABS: Basophils # (A) 0.1 k/uL (0-0.2); Basophils % (A) 1 %; Eosinophils # (A) 0.2 k/uL (0-0.7); Eosinophils % (A) 2 %; HGB 12.4 gm/dL (13.0-17.5); Hypochromasia Slight; Lymphocytes # (A) 2.1 k/uL (1.0-4.8); Lymphocytes % (A) 21 %; MCH 31.1 pg (25.0-35.0); MCHC 31.9 g/dL (31.0-37.0); MCV 97.5 fL (80.0-100.0); Mean Platelet Volume 6.5; Monocytes # (A) 0.5 k/uL (0-1.0); Monocytes % (A) 5 %; Neutrophils # (A) 6.7 k/uL (1.3-7.7); Neutrophils % (A) 69 %; Platelet Count 219 k/uL (150-450); RDW 12.6 % (11.5-15.5); WBC 9.7 k/uL (3.8-10.6)
[2019-08-09 08:59] LABS: Albumin 3.1 g/dL (3.5-5.0); Calcium 8.7 mg/dL (8.4-10.2); Potassium 4.2 mmol/L (3.5-5.1); Total Bilirubin 0.3 mg/dL (0.2-1.3); Total Protein 6.4 g/dL (6.3-8.2)
[2019-08-09] MEDS ORDERED: FAMOTIDINE 20 MG TAB PO SCH (09:00)
--- NOTE | 2019-08-09 09:07 | P.CONS ---
History of Present Illness - Reason for Consult Consult date: 08/08/19 Urinary tract infection Requesting physician: Pati Hoffmann - Chief Complaint Generalized weakness fever x few days - History of Present Illness Patient is a 69-year-old male who underwent a recent CT scan revealing bladder wall thickening. Patient subsequently underwent Cystoscopy which showed 2 left lateral bladder wall tumors, for which the patient underwent transurethral resection by Dr. Gomes on 07/28/2019, Pathology revealed Ta Grade 1 urothelial carcinoma, the patient Ramos catheter was removed on 08/05/2019, patient is now presenting to the ER at [facility] with generalized weakness urinary frequency since his Ramos catheter was removed on 08/05/2019, the patient denies hematuria suprapubic or flank pain with generalized weakness to the point he was unable to get up and around and started having a fever with chills patient was brought into the ER for further evaluation and around to the ER the patient did have a fever of 10 1F the patient did have elevated white count of 20,000 patient did have a positive UA he was started on Rocephin and infectious disease was consulted for further recommendation regarding antibiotic therapy Review of Systems Positive point has been mentioned in the HPI rest of the systems are negative Past Medical History Past Medical History: No Reported History Additional Past Medical History / Comment(s): gout, PAD, cataracts, gall bladder stones,scoliosis History of Any Multi-Drug Resistant Organisms: None Reported Past Surgical History: Appendectomy Additional Past Surgical History / Comment(s): cataracts; repair laceration L finger;fem./aortal bypass, sunday 07/29 polps removed from bladder benign Past Anesthesia/Blood Transfusion Reactions: No Reported Reaction Past Psychological History: No Psychological Hx Reported Smoking Status: Never smoker Past Alcohol Use History: Occasional Additional Past Alcohol Use History / Comment(s): quit smoking 2011; smoked from teens to age 61 about 1ppd Past Drug Use History: None Reported - Past Family History Mother Family Medical History: Cancer Father Family Medical History: Cancer Additional Family Medical History / Comment(s): suicide, brain tumor Sister(s) Family Medical History: No Reported History Brother(s) Family Medical History: No Reported History Son(s) Family Medical History: No Reported History Daughter(s) Family Medical History: No Reported History Medications and Allergies Home Medications Medication Instructions Recorded Confirmed Type Allopurinol [Zyloprim] 300 mg PO HS 12/18/17 08/07/19 History Aspirin 81 mg PO HS 07/20/19 08/07/19 History Ergocalciferol [Vitamin D2] 50,000 unit PO TU 07/20/19 08/07/19 History Allergies Allergy/AdvReac Type Severity Reaction Status Date / Time No Known Allergies Allergy Verified 08/07/19 17:57 Physical Exam Vitals: Vital Signs Temp Pulse Pulse Resp BP BP Pulse Ox 08/08/19 06:19 98.4 F 08/08/19 05:32 100.4 F H 96 16 126/65 93 L 08/08/19 00:00 16 08/07/19 21:00 98.4 F 87 16 121/66 97 08/07/19 18:23 98.9 F 87 16 128/78 98 08/07/19 17:00 100.3 F H 85 18 08/07/19 15:36 101.4 F H 111 H 20 124/60 93 L Intake and Output 08/07/19 08/08/19 08/08/19 22:59 06:59 14:59 Intake Total 1180 1500 Output Total 1781 Balance 1180 -281 Intake: Intake, IV Titration 1500 Amount Sodium Chloride 0.9% 500 1500 ml 500 ml @ 1000 mls/hr IV Q35M [facility] Rx#:[id number] Oral 1180 Output: Urine 1350 Post Void Residual 431 Other: Voiding Method Toilet Toilet Toilet Urinal # Voids 2 2 # Bowel Movements 1 1 Weight 81.647 kg GENERAL DESCRIPTION: An elderly male lying in bed, no distress. No tachypnea or accessory muscle of respiration use. HEENT: Shows Pallor , no scleral icterus. Oral mucous membrane is dry. No pharyngeal erythema or thrush NECK: Trachea central, no thyromegaly. LUNGS: Unlabored breathing. Clear to auscultation anteriorly. No wheeze or crackle. HEART: S1, S2, regular rate and rhythm. No loud murmur ABDOMEN: Soft, no tenderness , guarding or rigidity, no organomegaly EXTREMITIES: No edema of feet. SKIN: No rash, no masses palpable. NEUROLOGICAL: The patient is awake, alert, oriented x3, mood and affect normal. Results CBC & Chem 7: 08/09/19 07:57 08/09/19 07:57 Labs: Abnormal Lab Results - Last 24 Hours (Table) 08/07/19 08/07/19 08/07/19 Range/Units 16:00 16:16 16:16 WBC 20.1 H (3.8-10.6) k/uL RBC (4.30-5.90) m/uL Hgb (13.0-17.5) gm/dL Neutrophils # (1.3-7.7) k/uL Chloride (98-107) mmol/L Creatinine 1.26 H (0.66-1.25) mg/dL Glucose 128 H (74-99) mg/dL AST (17-59) U/L ALT 14 L (21-72) U/L Albumin (3.5-5.0) g/dL Urine Protein 1+ H (Negative) Urine Blood Moderate H (Negative) Ur Leukocyte Esterase Large H (Negative) Urine RBC 66 H (0-5) /hpf Urine WBC >182 H (0-5) /hpf Urine WBC Clumps Moderate H (None) /hpf Urine Bacteria Many H (None) /hpf Urine Mucus Rare H (None) /hpf 08/08/19 08/08/19 Range/Units 08:18 08:18 WBC 16.3 H (3.8-10.6) k/uL RBC 4.07 L (4.30-5.90) m/uL Hgb 12.9 L (13.0-17.5) gm/dL Neutrophils # 12.5 H (1.3-7.7) k/uL Chloride 110 H (98-107) mmol/L Creatinine (0.66-1.25) mg/dL Glucose 102 H (74-99) mg/dL AST 14 L (17-59) U/L ALT 17 L (21-72) U/L Albumin 3.2 L (3.5-5.0) g/dL Urine Protein (Negative) Urine Blood (Negative) Ur Leukocyte Esterase (Negative) Urine RBC (0-5) /hpf Urine WBC (0-5) /hpf Urine WBC Clumps (None) /hpf Urine Bacteria (None) /hpf Urine Mucus (None) /hpf Microbiology - Last 24 Hours (Table) 08/07/19 16:00 Urine Culture - Preliminary Urine,Voided Assessment and Plan Assessment: 1-patient presented to hospital with sepsis in this patient who did have fever and elevated white count significantly positive UA likely the source of this infection and sepsis in view of her patient recent instrumentation and bladder cancer removal,[ concern would be likely for resistant gram-positive and gram- negative pathogen however the patient did have some clinical improvement on IV Rocephin with decrease in his white count could be sensitive pathogen such as E. coli (1) Sepsis Current Visit: Yes Status: Acute Code(s): A41.9 - SEPSIS, UNSPECIFIED ORGANISM SNOMED Code(s): 52716176 (2) Urinary tract infection in male Current Visit: Yes Status: Acute Code(s): N39.0 - URINARY TRACT INFECTION, SITE NOT SPECIFIED SNOMED Code(s): 02692338 Plan: 1-we will increase the dose of Rocephin to 2 g daily 2- gentle IV fluid We will follow on clinical condition and cultures to further adjust medication if needed Thank you for this consultation will follow this patient with you Time with Patient: Greater than 30
[2019-08-09] MEDS: HEPARIN SODIUM,PORCINE 5,000 UNIT/ML 1 ML VIAL SQ SCH ×2 (09:27→20:52)
[2019-08-09] MEDS: PANTOPRAZOLE 40 MG/10 ML VIAL IVP SCH (09:27)
[2019-08-09 11:23] LABS: Appearance,Urine Cloudy (Clear); Bilirubin,Urine Negative (Negative); Blood,Urine Moderate (Negative); Color,Urine Light Yellow; Glucose,Urine (UA) Negative (Negative); Ketones,Urine Negative (Negative); Leukocyte Esterase,Urine Large (Negative); Nitrite,Urine Negative (Negative); PH, Urine 5.5 (5.0-8.0); Protein,Urine Negative (Negative); RBC,Urine 48 /hpf (0-5); Specific Gravity,Urine 1.009 (1.001-1.035); Squamous Epithelial Cell,Urine <1 /hpf (0-4); Urobilinogen,Urine <2.0 mg/dL (<2.0)
--- NOTE | 2019-08-09 11:27 | P.PN ---
Subjective Progress Note Date: 08/09/19 This is a 69-year-old male patient who presented with complaints of weakness. Patient reports that actually one week ago he had a polyp removed from his bladder with DC'd with Ramos catheter per urology. Reports that he had Ramos catheter removed about 2 days ago and started to have symptoms of increased weakness and chills over the past 2 days. Patient also reports increased fatigue. Patient reports he did have trouble urinating wonderfully catheter was removed. Patient does have a known past medical history of gout, peripheral arterial disease and ex-smoker. UA showing large amount of leukocyte Estrace. Patient started on Rocephin urine culture ordered. Neurology services have been consulted. Patient is still having elevated Tylenol added. Patient denies chest pain or shortness of breath. Patient denies nausea vomiting or diarrhea. On 08/09/2019 patient was seen and examined on the medical floor he is alert and oriented 3 in no apparent distress he is complaining of generalized weakness and complaining of episodes of severe sweating otherwise he denies any complaints there is no fever no chills no headache or dizziness no chest pain no shortness of breath no cough no nausea or vomiting no abdominal pain no diarrhea no burning was urination no frequency or urgency no hematuria. Objective - Vital Signs Vital signs: Vital Signs Temp 98.6 F 08/09/19 05:32 Pulse 73 08/09/19 05:32 Resp 18 08/09/19 05:32 BP 154/75 08/09/19 05:32 Pulse Ox 98 08/09/19 05:32 Intake & Output 08/08/19 08/09/19 08/09/19 18:59 06:59 18:59 Intake Total 50 1040 Output Total 400 Balance -350 1040 Weight 81.647 kg Intake: Intake, IV Titration 50 450 Amount Sodium Chloride 0.9% 1, 450 000 ml @ 50 mls/hr IV . Q20H [facility] Rx#:[id number] cefTRIAXone 1 gm In 50 Sodium Chloride 0.9% 50 ml @ 100 mls/hr IVPB Q24HR [facility] Rx#:[id number] Oral 590 Output: Urine 200 Post Void Residual 200 Other: Voiding Method Toilet Toilet Toilet Urinal Urinal Urinal # Voids 2 2 - Exam In general patient is alert and oriented 3 in no apparent distress Head normocephalic and atraumatic Neck supple no JVD no goiter Lungs clear to auscultation bilaterally no wheezing or crackles Heart regular rate and rhythm S1-S2, no rub or gallop Abdomen is soft nontender nondistended positive bowel sounds no hepatosplenomegaly Extremities no edema no cyanosis or clubbing Neuro no gross focal neurological deficit - Labs CBC & Chem 7: 08/09/19 07:57 08/09/19 07:57 Labs: Abnormal Lab Results - Last 24 Hours (Table) 08/09/19 08/09/19 Range/Units 07:57 07:57 RBC 4.00 L (4.30-5.90) m/uL Hgb 12.4 L (13.0-17.5) gm/dL Chloride 109 H (98-107) mmol/L Glucose 150 H (74-99) mg/dL AST 14 L (17-59) U/L ALT 16 L (21-72) U/L Albumin 3.1 L (3.5-5.0) g/dL Microbiology - Last 24 Hours (Table) 08/07/19 16:00 Urine Culture - Preliminary Urine,Voided Gram Neg Bacilli Presumptive Staph aureus 08/07/19 16:16 Blood Culture - Preliminary Blood No Growth after 24 hours Assessment and Plan Plan: 1. Sepsis secondary to Urinary tract infection. Febrile and elevated white c ount on admission 20.1 urine culture ordered. Results still pending. Rocephin IV, dose increased to 2 g every 24 hours by infectious disease 2. Recent bladder polyp removal surgery 1 week ago. urology services ordered 3. history of gout 4. history of peripheral arterial disease with prior bifemoral bypass 5. Ex-smoker 6. History of cataracts DVT prophylaxis heparin. GI prophylaxis Pepcid
--- NOTE | 2019-08-09 12:49 | P.PN ---
Progress Note - Text Progress Note Date: 08/09/19 Mr. Fields is feeling better today. His urine is clear, and he is voiding up to 300 mL at a time. He ambulated earlier today. He is afebrile, and his WBC count has normalized. The preliminary urine culture has shown gram-negative bacilli. He will continue to receive Rocephin, pending the final urine culture result.
[2019-08-09] MEDS: SODIUM CHLORIDE 0.9% 1,000 ML IV SCH (16:28)
--- NOTE | 2019-08-09 17:07 | PN ---
PROGRESS NOTE DATE OF SERVICE: 08/09/2019 REASON FOR FOLLOWUP: Gram-negative urinary tract infection. INTERVAL HISTORY: The patient is currently afebrile. Patient has been breathing comfortably, feeling slightly stronger. Denies having any chest pain. No shortness of breath or cough. No abdominal pain or any worsening urinary symptoms. PHYSICAL EXAMINATION: Blood pressure is 154/73 with a pulse of 50, temperature 98.5. He is 97% on room air. General description is an elderly male lying in bed in no distress. Respiratory system: Unlabored breathing and is clear to auscultation anteriorly. Heart S1, S2. Regular rate and rhythm. Abdomen soft, no tenderness. LABS: White count normalized to 9.7. Urine showing both the E coli and Staph aureus. DIAGNOSTIC IMPRESSION AND PLAN: Patient admitted to the hospital with a complicated urinary tract infection in this patient. Urine showing E coli and Staph aureus, likely MSSA in view of clinical response to Rocephin, which will be continued while waiting for the culture to finalize and continue supportive care. MMODL / IJN: [id number] /
[2019-08-09] MEDS: ASPIRIN 81 MG PO SCH (20:52)
[2019-08-09] MEDS: ALLOPURINOL 300 MG TAB PO SCH (20:52)
[2019-08-10 06:07] LABS: Basophils % (A) 1 %; Eosinophils # (A) 0.3 k/uL (0-0.7); Eosinophils % (A) 3 %; HCT 40.3 % (39.0-53.0); HGB 13.2 gm/dL (13.0-17.5); Lymphocytes # (A) 2.1 k/uL (1.0-4.8); Lymphocytes % (A) 27 %; MCH 31.4 pg (25.0-35.0); MCHC 32.8 g/dL (31.0-37.0); MCV 95.7 fL (80.0-100.0); Mean Platelet Volume 6.7; Monocytes # (A) 0.5 k/uL (0-1.0); Monocytes % (A) 6 %; Neutrophils # (A) 4.7 k/uL (1.3-7.7); Neutrophils % (A) 61 %; Platelet Count 239 k/uL (150-450); RBC 4.21 m/uL (4.30-5.90); RDW 12.6 % (11.5-15.5); WBC 7.7 k/uL (3.8-10.6)
[2019-08-10 06:18] LABS: Albumin 3.4 g/dL (3.5-5.0); Calcium 9.2 mg/dL (8.4-10.2); Potassium 4.4 mmol/L (3.5-5.1); Total Bilirubin 0.2 mg/dL (0.2-1.3); Total Protein 6.7 g/dL (6.3-8.2)
[2019-08-10] MEDS: HEPARIN SODIUM,PORCINE 5,000 UNIT/ML 1 ML VIAL SQ SCH ×2 (07:26→19:56)
[2019-08-10] MEDS: PANTOPRAZOLE 40 MG TABLET PO SCH (07:26)
--- NOTE | 2019-08-10 12:10 | P.PN ---
Subjective Progress Note Date: 08/10/19 This is a 69-year-old male patient who presented with complaints of weakness. Patient reports that actually one week ago he had a polyp removed from his bladder with DC'd with Ramos catheter per urology. Reports that he had Ramos catheter removed about 2 days ago and started to have symptoms of increased weakness and chills over the past 2 days. Patient also reports increased fatigue. Patient reports he did have trouble urinating wonderfully catheter was removed. Patient does have a known past medical history of gout, peripheral arterial disease and ex-smoker. UA showing large amount of leukocyte Estrace. Patient started on Rocephin urine culture ordered. Neurology services have been consulted. Patient is still having elevated Tylenol added. Patient denies chest pain or shortness of breath. Patient denies nausea vomiting or diarrhea. On 08/09/2019 patient was seen and examined on the medical floor he is alert and oriented 3 in no apparent distress he is complaining of generalized weakness and complaining of episodes of severe sweating otherwise he denies any complaints there is no fever no chills no headache or dizziness no chest pain no shortness of breath no cough no nausea or vomiting no abdominal pain no diarrhea no burning was urination no frequency or urgency no hematuria. On 08/10/2019 patient is doing well he is alert and oriented 3 in no apparent distress there is no fever or chills no headache or dizziness no chest pain no shortness of breath no cough no nausea or vomiting no abdominal pain no diarrhea no burning with urination no frequency or urgency no hematuria, he had blood clots in his urine yesterday otherwise his urine has been clear, he is urinating about 300 mL at the time without any difficulty. Urine culture is still pending. Objective - Vital Signs Vital signs: Vital Signs Temp 98.6 F 08/10/19 11:42 Pulse 70 08/10/19 11:42 Resp 17 08/10/19 11:42 BP 147/73 08/10/19 11:42 Pulse Ox 94 L 08/10/19 11:42 Intake & Output 08/09/19 08/10/19 08/10/19 18:59 06:59 18:59 Intake Total 450 1090 Output Total 1650 1571 Balance -1200 -481 Intake: Intake, IV Titration 450 450 Amount Sodium Chloride 0.9% 1, 400 450 000 ml @ 50 mls/hr IV . Q20H [facility] Rx#:[id number] cefTRIAXone 2 gm In 50 Sodium Chloride 0.9% 50 ml @ 100 mls/hr IVPB Q24HR [facility] Rx#:[id number] Oral 640 Output: Urine 1400 800 Post Void Residual 250 771 Other: Voiding Method Toilet Toilet Toilet Urinal Urinal Urinal # Voids 2 - Exam In general patient is alert and oriented 3 in no apparent distress Head normocephalic and atraumatic Neck supple no JVD no goiter Lungs clear to auscultation bilaterally no wheezing or crackles Heart regular rate and rhythm S1-S2, no rub or gallop Abdomen is soft nontender nondistended positive bowel sounds no hepatosplenomegaly Extremities no edema no cyanosis or clubbing Neuro no gross focal neurological deficit - Labs CBC & Chem 7: 08/10/19 05:43 08/10/19 05:43 Labs: Abnormal Lab Results - Last 24 Hours (Table) 08/10/19 08/10/19 Range/Units 05:43 05:43 RBC 4.21 L (4.30-5.90) m/uL Chloride 109 H (98-107) mmol/L Glucose 109 H (74-99) mg/dL AST 15 L (17-59) U/L ALT 14 L (21-72) U/L Albumin 3.4 L (3.5-5.0) g/dL Microbiology - Last 24 Hours (Table) 08/07/19 16:16 Blood Culture - Preliminary Blood No Growth after 48 hours 08/09/19 09:48 Urine Culture - Preliminary Urine,Voided Assessment and Plan Plan: 1. Sepsis secondary to Urinary tract infection. Febrile and elevated white count on admission 20.1 urine culture ordered. Results still pending. Rocephin IV, dose increased to 2 g every 24 hours by infectious disease 2. Recent bladder polyp removal surgery 1 week ago. urology services ordered 3. history of gout 4. history of peripheral arterial disease with prior bifemoral bypass 5. Ex-smoker 6. History of cataracts DVT prophylaxis heparin. GI prophylaxis Pepcid
--- NOTE | 2019-08-10 13:04 | P.PN ---
Progress Note - Text Progress Note Date: 08/10/19 Mr. Fields is afebrile and continues to feel better. I anticipate he will be discharged home tomorrow on oral antibiotics, once the urine culture is completed. He has an appointment to follow-up with Dr. Gomes for surveillance cystoscopy in 3 months. He was advised to contact Dr. Gomes sooner if he suspects a recurrent infection. Please notify us if we can be of any further assistance.
[2019-08-10] MEDS: SODIUM CHLORIDE 0.9% 1,000 ML IV SCH (15:24)
--- NOTE | 2019-08-10 16:08 | PN ---
PROGRESS NOTE DATE OF SERVICE: 08/10/2019. REASON FOR FOLLOWUP: Complicated urinary tract infection. INTERVAL HISTORY: The patient is currently afebrile. The patient is breathing comfortably. The patient denies having any chest pain or shortness of breath or cough. No nausea, vomiting, abdominal pain. No diarrhea. PHYSICAL EXAMINATION: Blood pressure 147/73 with a pulse of 78. Temperature 98.6, 94% on room air. General description is an elderly male lying in bed in no distress. Respiratory system: Unlabored breathing and is clear to auscultation anteriorly. Heart S1, S2. Regular rate and rhythm. Abdomen soft. No tenderness. EXTREMITIES: No edema of the feet. LABS: Hemoglobin 13.2, white count 7.7, BUN of 15, creatinine is 1.17. Urine showing Staph aureus and gram-negative with ID sensitivities pending. DIAGNOSTIC IMPRESSION AND PLAN: Patient admitted to the hospital with complicated urinary tract infection with recent cystoscopy and removal of the urine showing a gram-negative and Staph aureus with sensitivities pending. The patient responded to Zosyn to continue with the discharge antibiotic will depend on the culture report. Continue supportive care. MMODL / IJN: [id number] /
[2019-08-10] MEDS: ASPIRIN 81 MG PO SCH (19:56)
[2019-08-10] MEDS: ALLOPURINOL 300 MG TAB PO SCH (19:56)
[2019-08-11 04:10] VITALS: TEMP 98.4
[2019-08-11 07:32] LABS: Basophils # (A) 0.1 k/uL (0-0.2); Basophils % (A) 2 %; Eosinophils # (A) 0.2 k/uL (0-0.7); Eosinophils % (A) 3 %; HCT 40.9 % (39.0-53.0); HGB 13.4 gm/dL (13.0-17.5); Lymphocytes # (A) 2.2 k/uL (1.0-4.8); Lymphocytes % (A) 32 %; MCH 31.2 pg (25.0-35.0); MCHC 32.7 g/dL (31.0-37.0); MCV 95.3 fL (80.0-100.0); Mean Platelet Volume 6.8; Monocytes # (A) 0.5 k/uL (0-1.0); Monocytes % (A) 7 %; Neutrophils # (A) 3.7 k/uL (1.3-7.7); Neutrophils % (A) 53 %; Platelet Count 243 k/uL (150-450); RBC 4.29 m/uL (4.30-5.90); RDW 12.6 % (11.5-15.5)
[2019-08-11 07:43] LABS: Albumin 3.4 g/dL (3.5-5.0); Calcium 9.2 mg/dL (8.4-10.2); Potassium 4.2 mmol/L (3.5-5.1); Total Bilirubin 0.2 mg/dL (0.2-1.3); Total Protein 6.8 g/dL (6.3-8.2)
[2019-08-11] MEDS: HEPARIN SODIUM,PORCINE 5,000 UNIT/ML 1 ML VIAL SQ SCH (08:46)
[2019-08-11] MEDS: PANTOPRAZOLE 40 MG TABLET PO SCH (08:46)
[2019-08-11] MEDS ORDERED: DOCUSATE 100 MG CAP PO SCH (10:30)
--- NOTE | 2019-08-11 11:33 | P.PN ---
Subjective Progress Note Date: 08/11/19 This is a 69-year-old male patient who presented with complaints of weakness. Patient reports that actually one week ago he had a polyp removed from his bladder with DC'd with Ramos catheter per urology. Reports that he had Ramos catheter removed about 2 days ago and started to have symptoms of increased weakness and chills over the past 2 days. Patient also reports increased fatigue. Patient reports he did have trouble urinating wonderfully catheter was removed. Patient does have a known past medical history of gout, peripheral arterial disease and ex-smoker. UA showing large amount of leukocyte Estrace. Patient started on Rocephin urine culture ordered. Neurology services have been consulted. Patient is still having elevated Tylenol added. Patient denies chest pain or shortness of breath. Patient denies nausea vomiting or diarrhea. On 08/09/2019 patient was seen and examined on the medical floor he is alert and oriented 3 in no apparent distress he is complaining of generalized weakness and complaining of episodes of severe sweating otherwise he denies any complaints there is no fever no chills no headache or dizziness no chest pain no shortness of breath no cough no nausea or vomiting no abdominal pain no diarrhea no burning was urination no frequency or urgency no hematuria. On 08/10/2019 patient is doing well he is alert and oriented 3 in no apparent distress there is no fever or chills no headache or dizziness no chest pain no shortness of breath no cough no nausea or vomiting no abdominal pain no diarrhea no burning with urination no frequency or urgency no hematuria, he had blood clots in his urine yesterday otherwise his urine has been clear, he is urinating about 300 mL at the time without any difficulty. Urine culture is still pending. On 08/11/2019 patient alert and oriented 3. Patient remains afebrile. White blood cell has normalized. Repeat urine culture showing presumptive staph aureus. Waiting on sensitivity. Discussed case with Dr. Ashley will hold patient until sensitivity returns and final antibiotic to be determined. At this time patient denies chest pain or shortness of breath. Patient denies nausea vomiting or diarrhea. Patient denies any urinary burning frequency. Objective - Vital Signs Vital signs: Vital Signs Temp 98.4 F 08/11/19 04:08 Pulse 77 08/11/19 04:08 Resp 16 08/11/19 04:08 BP 122/60 08/11/19 04:08 Pulse Ox 94 L 08/11/19 04:08 Intake & Output 08/10/19 08/11/19 08/11/19 18:59 06:59 18:59 Intake Total 450 1550 480 Output Total 200 150 Balance 450 1350 330 Intake: Intake, IV Titration 450 Amount Sodium Chloride 0.9% 1, 400 000 ml @ 50 mls/hr IV . Q20H [facility] Rx#:[id number] cefTRIAXone 2 gm In 50 Sodium Chloride 0.9% 50 ml @ 100 mls/hr IVPB Q24HR [facility] Rx#:[id number] Oral 1550 480 Output: Urine 200 150 Other: Voiding Method Toilet Toilet Toilet Urinal Urinal Urinal # Voids 2 - Exam In general patient is alert and oriented 3 in no apparent distress Head normocephalic and atraumatic Neck supple no JVD no goiter Lungs clear to auscultation bilaterally no wheezing or crackles Heart regular rate and rhythm S1-S2, no rub or gallop Abdomen is soft nontender nondistended positive bowel sounds no hepatosplenomegaly Extremities no edema no cyanosis or clubbing Neuro no gross focal neurological deficit - Labs CBC & Chem 7: 08/11/19 06:28 08/11/19 06:28 Labs: Abnormal Lab Results - Last 24 Hours (Table) 08/11/19 08/11/19 Range/Units 06:28 06:28 RBC 4.29 L (4.30-5.90) m/uL Albumin 3.4 L (3.5-5.0) g/dL Microbiology - Last 24 Hours (Table) 08/07/19 16:00 Urine Culture - Final Urine,Voided Klebsiella oxytoca Staphylococcus aureus 08/09/19 09:48 Urine Culture - Preliminary Urine,Voided Presumptive Staph aureus 08/07/19 16:16 Blood Culture - Preliminary Blood No Growth after 72 hours Assessment and Plan Assessment: 1. Sepsis secondary to Urinary tract infection. Febrile and elevated white count 20.1 urine culture ordered. Rocephin ordered. Repeat urine culture growing presumptive staph aureus awaiting final sensitivities for antibiotic determination per ID 2. Recent bladder polyp removal surgery 1 week ago. Patient was evaluated by urology services patient to follow-up with Dr. Gomes for surveillance cystoscopy in 3 months but follow up sooner if suspects of recurrent infections 3. history of gout 4. history of peripheral arterial disease with prior bifemoral bypass 5. Ex-smoker 6. History of cataracts DVT prophylaxis heparin. GI prophylaxis Pepcid I performed an examination of the patient and discussed their management with the Nurse Practitioner. I have reviewed the Nurse Practitioner's notes and agree with the documented findings and plan of care
[2019-08-11 11:43] VITALS: BP 116/56; PULSE 68; RESP 18
--- NOTE | 2019-08-11 13:46 | P.PN ---
Subjective Progress Note Date: 08/11/19 The patient developed a uti after catheter from a turbt recently He came into the hospital with a uti His wbc was 16 k It is now normal He grew both klebsiella and dstaph aureus These are both sensitive to bactrim, cirp, augmentin and tetracycline. The patient is ambulatory and tolerating a regular diet He can go home from a uroogical standpoint I would like to see him in 1 week Objective - Vital Signs Vital signs: Vital Signs Temp 98.4 F 08/11/19 11:41 Pulse 68 08/11/19 11:41 Resp 18 08/11/19 11:41 BP 116/56 08/11/19 11:41 Pulse Ox 95 08/11/19 11:41 Intake & Output 08/10/19 08/11/19 08/11/19 18:59 06:59 18:59 Intake Total 450 1550 480 Output Total 200 150 Balance 450 1350 330 Intake: Intake, IV Titration 450 Amount Sodium Chloride 0.9% 1, 400 000 ml @ 50 mls/hr IV . Q20H [facility] Rx#:[id number] cefTRIAXone 2 gm In 50 Sodium Chloride 0.9% 50 ml @ 100 mls/hr IVPB Q24HR [facility] Rx#:[id number] Oral 1550 480 Output: Urine 200 150 Other: Voiding Method Toilet Toilet Toilet Urinal Urinal Urinal # Voids 2 - Labs CBC & Chem 7: 08/11/19 06:28 08/11/19 06:28 Labs: Abnormal Lab Results - Last 24 Hours (Table) 08/11/19 08/11/19 Range/Units 06:28 06:28 RBC 4.29 L (4.30-5.90) m/uL Albumin 3.4 L (3.5-5.0) g/dL Microbiology - Last 24 Hours (Table) 08/07/19 16:00 Urine Culture - Final Urine,Voided Klebsiella oxytoca Staphylococcus aureus 08/09/19 09:48 Urine Culture - Preliminary Urine,Voided Presumptive Staph aureus 08/07/19 16:16 Blood Culture - Preliminary Blood No Growth after 72 hours
--- NOTE | 2019-08-11 14:10 | PN ---
PROGRESS NOTE DATE OF SERVICE: 08/11/2019 REASON FOR FOLLOWUP: Complicated urinary tract infection. INTERVAL HISTORY: The patient is currently afebrile. Patient has been breathing comfortably. The patient denies having any chest pain. No shortness of breath or cough. No nausea. No pain. No abdominal pain and no diarrhea. PHYSICAL EXAMINATION: Blood pressure 116/56, pulse of 68, temperature 98.4. He is 95% on room air. General description is an elderly male, lying in bed in no distress. RESPIRATORY SYSTEM: Unlabored breathing, clear to auscultation anteriorly. HEART: S1, S2. Regular rate and rhythm. ABDOMEN: Soft, no tenderness. EXTREMITIES: No edema of the feet. LABS: Hemoglobin is 13.4, white count 7.0, BUN of 7, creatinine 1.21. Urine with Klebsiella and MSSA, repeat showing MSSA. DIAGNOSTIC IMPRESSION AND PLAN: Patient with a complicated urinary tract infection. This patient did have a recent cystoscopy with removal of the bladder polyps. Patient clinically responded to the Rocephin. PLAN: At this time, the decision to move to oral Ceftin 500 mg twice a day for another 10 days with close outpatient followup. Plan of care was discussed with the nurse practitioner for the admitting team. MMARLYNL / MARIANON: [id number] /
--- NOTE | 2019-08-11 14:29 | P.DS ---
Providers Date of admission: 08/09/19 10:51 Expected date of discharge: 08/11/19 Attending physician: Pati Hoffmann Consults: 08/07/19 18:10 Consult Physician Stat Consulting Provider: Ulices Hernandez Consult Reason/Comments: sepsis, cystitis Do you want consulting provider notified?: Yes 08/08/19 11:28 Consult Physician Routine Consulting Provider: Majo Ashley Consult Reason/Comments: UTI Do you want consulting provider notified?: Yes Primary care physician: Pati Hoffmann [facility] Course: Discharge diagnosis 1. Sepsis secondary to Urinary tract infection. Febrile and elevated white count 20.1 urine culture ordered. Rocephin ordered. Repeat urine culture growing presumptive staph aureus awaiting final sensitivities for antibiotic determination per ID. per infectious disease patient may be discharged on Ceftin 500 twice a day for 10 days 2. Recent bladder polyp removal surgery 1 week ago. Patient was evaluated by urology services patient to follow-up with Dr. Gomes for surveillance cystoscopy in 3 months but follow up sooner if suspects of recurrent infections 3. history of gout 4. history of peripheral arterial disease with prior bifemoral bypass 5. Ex-smoker 6. History of cataracts Hospital course This is a 69-year-old male patient who presented with complaints of weakness. Patient reports that actually one week ago he had a polyp removed from his bladder with DC'd with Ramos catheter per urology. Reports that he had Ramos catheter removed about 2 days ago and started to have symptoms of increased weakness and chills over the past 2 days. Patient also reports increased fatigue. Patient reports he did have trouble urinating wonderfully catheter was removed. Patient does have a known past medical history of gout, peripheral arterial disease and ex-smoker. UA showing large amount of leukocyte Estrace. Patient started on Rocephin urine culture ordered. Neurology services have been consulted. Patient is still having elevated Tylenol added. Patient denies chest pain or shortness of breath. Patient denies nausea vomiting or diarrhea. On 08/09/2019 patient was seen and examined on the medical floor he is alert and oriented 3 in no apparent distress he is complaining of generalized weakness and complaining of episodes of severe sweating otherwise he denies any comp laints there is no fever no chills no headache or dizziness no chest pain no shortness of breath no cough no nausea or vomiting no abdominal pain no diarrhea no burning was urination no frequency or urgency no hematuria. On 08/10/2019 patient is doing well he is alert and oriented 3 in no apparent distress there is no fever or chills no headache or dizziness no chest pain no shortness of breath no cough no nausea or vomiting no abdominal pain no diarrhea no burning with urination no frequency or urgency no hematuria, he had blood clots in his urine yesterday otherwise his urine has been clear, he is urinating about 300 mL at the time without any difficulty. Urine culture is still pending. On 08/11/2019 patient alert and oriented 3. Patient remains afebrile. White blood cell has normalized. Repeat urine culture showing presumptive staph aureus. Waiting on sensitivity. Discussed case with Dr. Ashley will hold patient until sensitivity returns and final antibiotic to be determined. At this time patient denies chest pain or shortness of breath. Patient denies nausea vomiting or diarrhea. Patient denies any urinary burning frequency. Discussed case with Dr. Ashley per infectious disease patient may be discharged on Ceftin 500 twice a day for 10 days follow up with PCP consulting providers for further management I performed an examination of the patient and discussed their management with the Nurse Practitioner. I have reviewed the Nurse Practitioner's notes and agree with the documented findings and plan of care Patient Condition at Discharge: Stable Plan - Discharge Summary Discharge Rx Participant: Yes New Discharge Prescriptions: New Cefuroxime Axetil [Ceftin] 500 mg PO BID 10 Days #20 tab Continue Allopurinol [Zyloprim] 300 mg PO HS Aspirin 81 mg PO HS Ergocalciferol [Vitamin D2 (DRISDOL)] 50,000 unit PO TU Discharge Medication List Allopurinol [Zyloprim] 300 mg PO HS 12/18/17 [History] Aspirin 81 mg PO HS 07/20/19 [History] Ergocalciferol [Vitamin D2 (DRISDOL)] 50,000 unit PO TU 07/20/19 [History] Cefuroxime Axetil [Ceftin] 500 mg PO BID 10 Days #20 tab 08/11/19 [Rx] Follow up Appointment(s)/Referral(s): Pati Hoffmann MD [Primary Care Provider] - 1-2 days Majo Ashley MD [STAFF PHYSICIAN] - 1 Week Ryne Gomes MD [STAFF PHYSICIAN] - 1 Week Patient Instructions/Handouts: Sepsis (IP), Catheter-associated Urinary Tract Infection (ED)
[2019-08-12] MEDS ORDERED: ERGOCALCIFEROL 50,000 UNIT CAP PO SCH (09:00)
== END 2019-08-11 15:09 | disposition home or self-care (01) | DRG 872 ==
LOC: EC 15:28 → 3NMEDONC 18:14 → OBSVTOIN 08-09 10:51
PROVIDERS: ADMIT Internal Medicine; ATTEND Internal Medicine
DX: A41.50 Gram-negative sepsis, unspecified (principal); C68.9 Malignant neoplasm of urinary organ, unspecified; I73.9 Peripheral vascular disease, unspecified; M41.9 Scoliosis, unspecified; N30.90 Cystitis, unspecified without hematuria; Z79.82 Long term (current) use of aspirin; Z85.51 Personal history of malignant neoplasm of bladder; Z87.891 Personal history of nicotine dependence; Z79.899 Other long term (current) drug therapy; Z98.42 Cataract extraction status, left eye; Z98.41 Cataract extraction status, right eye; A41.01 Sepsis due to Methicillin susceptible Staphylococcus aureus
CPT/HCPCS: 36415; 80053; 81001; 83605; 85025; 85027; 87040; 87077; 87086; 87186; 93005; 96361; 96374; 99285

== ENCOUNTER 2019-10-09 14:51 | Observation (INO) | payer MEDICARE, OTHER ==
[2019-10-09] MEDS ORDERED: MORPHINE SULFATE 4 MG/ML SYRINGE IV STA (15:29)
[2019-10-09] MEDS ORDERED: SODIUM CHLORIDE 0.9% 500 ML 500 ML IV STA (15:29)
[2019-10-09] MEDS ORDERED: ONDANSETRON 4 MG/2 ML VIAL IVP STA ×2 (15:54→18:09)
--- NOTE | 2019-10-09 16:05 | ED ---
Chest Pain HPI - General Chief Complaint: Chest Pain Stated Complaint: Chest pain Time Seen by Provider: 10/09/19 15:21 Source: patient Mode of arrival: ambulatory Limitations: no limitations - History of Present Illness Initial Comments: Patient is a 69-year-old male presenting to the emergency Department with complaints of chest pain that has been ongoing since this morning. Patient describes the pain as constant and sharp in nature in the middle of his chest. The pain is also radiating into the back. Patient rates 9/10 currently. Patient has history of arterial femoral bypass graft. Patient states he had mild intermittent pain 2 days ago that felt similar. Patient states this is more intense. He is also complaining of nausea, no vomiting, no diarrhea, no belly pain. Patient denies recent fever, chills, shortness of breath. Patient has no other complaints at this time. Upon arrival to the ER, BP is slightly elevated at 160/99, rest of vitals normal. - Related Data Home Medications Medication Instructions Recorded Confirmed Allopurinol [Zyloprim] 300 mg PO HS 12/18/17 10/09/19 Aspirin 81 mg PO HS 07/20/19 10/09/19 Ergocalciferol [Vitamin D2 50,000 unit PO TU 07/20/19 10/09/19 (DRISDOL)] Tamsulosin HCl [Flomax] 0.4 mg PO HS 10/09/19 10/09/19 Allergies Allergy/AdvReac Type Severity Reaction Status Date / Time No Known Allergies Allergy Verified 10/09/19 19:30 Review of Systems ROS Statement: Those systems with pertinent positive or pertinent negative responses have been documented in the HPI. ROS Other: All systems not noted in ROS Statement are negative. EKG Findings - EKG Comments: EKG Findings:: Ventricular rate 71, RI interval 204, QTC 436. Sinus rhythm with occasional PVC, otherwise normal EKG. No acute ST segment changes. Compared to similar EKG on 08/07/2019. Past Medical History Past Medical History: No Reported History Additional Past Medical History / Comment(s): gout, PAD, cataracts, gall bladder stones,scoliosis History of Any Multi-Drug Resistant Organisms: None Reported Past Surgical History: Appendectomy Additional Past Surgical History / Comment(s): cataracts; repair laceration L finger;fem./aortal bypass, sunday 07/29 polps removed from bladder benign Past Anesthesia/Blood Transfusion Reactions: No Reported Reaction Past Psychological History: No Psychological Hx Reported Smoking Status: Never smoker Past Alcohol Use History: Occasional Past Drug Use History: None Reported - Past Family History Mother Family Medical History: Cancer Father Family Medical History: Cancer Additional Family Medical History / Comment(s): suicide, brain tumor Sister(s) Family Medical History: No Reported History Brother(s) Family Medical History: No Reported History Son(s) Family Medical History: No Reported History Daughter(s) Family Medical History: No Reported History General Exam - General Exam Comments Initial Comments: GENERAL: Well-appearing, well-nourished and in no acute distress. HEAD: Atraumatic, normocephalic. EYES: Pupils equal round and reactive to light, extraocular movements intact, sclera anicteric, conjunctiva are normal. ENT: TMs normal, nares patent, oropharynx clear without exudates. Moist mucous membranes. NECK: Normal range of motion, supple without lymphadenopathy or JVD. LUNGS: Breath sounds clear to auscultation bilaterally and equal. No wheezes rales or rhonchi. HEART: Regular rate and rhythm without murmurs, rubs or gallops. No pain with palpation of the chest. ABDOMEN: Soft, nontender, normoactive bowel sounds. No guarding, no rebound. No masses appreciated. : Deferred EXTREMITIES: Normal range of motion, no pitting or edema. No clubbing or cyanosis. NEUROLOGICAL: Cranial nerves II through XII grossly intact. Normal speech, normal gait. PSYCH: Normal mood, normal affect. SKIN: Warm, Dry, normal turgor, no rashes or lesions noted. Limitations: no limitations Course Vital Signs 10/09/19 10/09/19 10/09/19 15:04 15:24 15:25 Temperature 98.1 F Pulse Rate 74 65 Pulse Rate [ 65 [employer] ] Respiratory 18 18 Rate Blood Pressure 160/99 156/80 O2 Sat by Pulse 96 97 Oximetry Chest Pain [facility] Patient is a 69-year-old male presenting with chest pain 2 days as radiating into his back. Patient has history of aortofemoral bypass graft. Patient's BP was slightly elevated upon arrival at 160/99, rest of vitals normal. She uses no acute abnormalities. Lab work shows no acute abnormalities, troponin is normal. 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 No significant change compared to last exam. No evidence of PE. Patient was given morphine and Zofran and reported slight improvement in his symptoms however upon recheck patient's pain has returned. I discussed these findings with the patient. Patient will be admitted for possible ACS protocol. Patient was given aspirin as well as nitro. Case was discussed with Dr. Wood who is in agreement with this plan of care. Patient was accepted by Dr. Hoffmann with consult cardiology. Patient is agreement with this plan of care. Disposition Clinical Impression: Chest pain, Unstable angina pectoris Disposition: ADMITTED IP TO THIS HOSP Condition: Stable Decision Date: 10/09/19 Decision Time: 17:45
[2019-10-09 16:06] LABS: Basophils # (A) 0.1 k/uL (0-0.2); Basophils % (A) 1 %; Eosinophils # (A) 0.1 k/uL (0-0.7); Eosinophils % (A) 1 %; HCT 47.8 % (39.0-53.0); HGB 15.6 gm/dL (13.0-17.5); Lymphocytes # (A) 1.5 k/uL (1.0-4.8); Lymphocytes % (A) 15 %; MCH 30.9 pg (25.0-35.0); MCHC 32.7 g/dL (31.0-37.0); MCV 94.4 fL (80.0-100.0); Mean Platelet Volume 8.4; Monocytes # (A) 0.4 k/uL (0-1.0); Monocytes % (A) 4 %; Neutrophils % (A) 78 %; Platelet Count 161 k/uL (150-450); RBC 5.06 m/uL (4.30-5.90); RDW 14.1 % (11.5-15.5); WBC 10.2 k/uL (3.8-10.6)
[2019-10-09 16:15] LABS: Albumin 4.1 g/dL (3.5-5.0); Calcium 9.5 mg/dL (8.4-10.2); Magnesium 1.8 mg/dL (1.6-2.3); Potassium 4.6 mmol/L (3.5-5.1); Total Bilirubin 0.5 mg/dL (0.2-1.3); Total Protein 7.6 g/dL (6.3-8.2)
[2019-10-09 16:22] LABS: INR 0.9 (<1.2); Partial Thromboplastin Time 24.8 sec (22.0-30.0); Prothrombin Time 9.6 sec (9.0-12.0)
--- NOTE | 2019-10-09 17:31 | CT ---
EXAMINATION TYPE: CT angio thor/abd pel aorta DATE OF EXAM: 10/09/2019 COMPARISON: 07/21/2019 HISTORY: Chest and back pain. CT DLP: 1800.4 mGycm Automated exposure control for dose reduction was used. CONTRAST: Performed without and with IV Contrast, patient injected with 100 mL of Isovue 370. There are 3-D post processed images. Exam performed from the thoracic inlet to the floor the pelvis. The lungs are clear of consolidation. There is minimal subsegmental atelectasis at the lung bases. Th ere is no evidence of renal calculus. There are multiple calcified gallstones. Thoracic aorta is intact without evidence of aneurysm or dissection. I see no filling defects in the pulmonary arteries. There are no hilar masses. There is no mediastinal adenopathy. Lungs are clear of consolidation. There is no pericardial effusion. There is mild hiatal hernia. Liver spleen pancreas appear normal. Bile ducts are not dilated. There are calcified gallstones. There is no adrenal mass. Kidneys show satisfactory contrast opacification. There is no hydronephrosi s. There is significant thoracolumbar levorotoscoliosis. There is no retroperitoneal adenopathy. Blad olaf distends smoothly. There is no inguinal hernia. There is no free fluid in the pelvis. There is no sign of a bowel obstruction. Abdominal aorta has fairly normal size and contour. There is minimal 3 cm aneurysm of the upper abdom inal aorta. There is patency of the celiac artery and superior mesenteric artery. There is bilateral patency of the renal arteries. There is bilateral iliac artery bypass graft which is widely patent. T here is extensive plaque formation in the [place] iliac arteries. There is bilateral patency of the pr oximal femoral arteries. 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 No aortic dissection. Wide patency of the escobar c artery bypass grafts. Extensive plaque in the [place] iliac arteries which show very little contrast opacification. There is probably retrograde filling of both internal iliac arteries. No significant change compared to last exam. No evidence of pulmonary embolism.
[2019-10-09] MEDS ORDERED: ASPIRIN 81 MG PO STA (17:43)
[2019-10-09] MEDS ORDERED: NITROGLYCERIN SL TABS 0.4 MG TAB SUBLINGUAL PRN (17:43)
[2019-10-09] MEDS: ALLOPURINOL 300 MG TAB PO SCH (21:21)
[2019-10-09] MEDS: TAMSULOSIN 0.4 MG CAP.ER.24H PO SCH (21:21)
[2019-10-09] MEDS: MAG HYDROX/AL HYDROX/SIMETH 30 ML CUP PO PRN (23:04)
[2019-10-10 04:05] LABS: Cholesterol 168 mg/dL (<200); HDL Cholesterol 38 mg/dL (40-60); LDL Cholesterol,Calculated 81 mg/dL (0-99); Triglycerides 246 mg/dL (<150)
--- NOTE | 2019-10-10 08:37 | P.CRDCN ---
History of Present Illness Consult date: 10/10/19 Requesting physician: Pati Hoffmann Reason for Consult (text): chest pain Chief complaint: chest heaviness, dizziness, nausea History of present illness: This is a pleasant 69-year-old gentleman with history of hyperlipidemia, not currently on a statin, CAD and peripheral artery disease with prior bifemoral bypass. Follow-up regularly in the office but is seeing Dr. Persaud in the past. According to the patient, he was told by his primary care physician that he did not need follow-up with cardiology nor did he need to take medications that were prescribed to him during his admission in March of this year. In December 2017 he underwent cardiac catheterization after having abnormal myocardial perfusion imaging and evidence of cardiomyopathy with an ejection fraction of 45%. Cardiac catheterization at that time showed moderate disease involving the left circumflex and moderate-sized disease involving the RCA proximally with a non- hemodynamic significant measurement of the lesion by iFR and FFR. He presented again in March of this year with symptoms of chest heaviness radiating to his back following a meal at [employer]. At that time he underwent stress test which showed no evidence of ischemia and an echocardiogram that showed a low-normal EF of 50-55%. He presented to the emergency department yet again with complaints of chest heaviness as well as nausea, dry heaves, dizziness and pain radiating into his back. The pain was constant all day on Sunday and all day again yesterday with no discomfort on Sunday there were no aggravating or relieving factors. EKG on admission showed sinus rhythm with no significant ST-T wave abnormalities and rare PVCs. Troponins have been negative 3. Computed tomography scan showed borderline 3 cm aneurysm of the upper abdominal aorta, no aortic dissection, wide patency of the iliac artery bypass grafts, extensive plaque in the [place] iliac arteries which show very little contrast opacification, no significant change compared to last exam and no evidence of pulmonary embolism. Upon examination, patient is resting comfortably in bed. Denies current complaints at this time. He's had no complaints of shortness of breath, orthopnea, PND, palpitations, or edema. Past Medical History Past Medical History: No Reported History Additional Past Medical History / Comment(s): gout, PAD, cataracts, gall bladder stones,scoliosis History of Any Multi-Drug Resistant Organisms: None Reported Past Surgical History: Appendectomy Additional Past Surgical History / Comment(s): cataracts; repair laceration L finger;fem./aortal bypass, sunday 07/29 polps removed from bladder benign Past Anesthesia/Blood Transfusion Reactions: No Reported Reaction Past Psychological History: No Psychological Hx Reported Smoking Status: Never smoker Past Alcohol Use History: Occasional Past Drug Use History: None Reported - Past Family History Mother Family Medical History: Cancer Additional Family Medical History / Comment(s): cervical, breast, liver Father Family Medical History: Cancer Additional Family Medical History / Comment(s): suicide, brain tumor Sister(s) Family Medical History: No Reported History Brother(s) Family Medical History: No Reported History Son(s) Family Medical History: No Reported History Daughter(s) Family Medical History: No Reported History Medications and Allergies Home Medications Medication Instructions Recorded Confirmed Type Allopurinol [Zyloprim] 300 mg PO HS 12/18/17 10/09/19 History Aspirin 81 mg PO HS 07/20/19 10/09/19 History Ergocalciferol [Vitamin D2 50,000 unit PO TU 07/20/19 10/09/19 History (DRISDOL)] Tamsulosin HCl [Flomax] 0.4 mg PO HS 10/09/19 10/09/19 History Allergies Allergy/AdvReac Type Severity Reaction Status Date / Time No Known Allergies Allergy Verified 10/09/19 19:30 Physical Exam Vitals: Vital Signs Temp Pulse Pulse Pulse Resp BP BP 10/10/19 07:54 18 10/10/19 06:51 98.8 F 76 18 10/10/19 04:00 99.5 F 79 18 160/82 10/09/19 23:07 98.5 F 68 18 165/87 10/09/19 18:59 98.1 F 78 18 163/77 10/09/19 15:25 65 18 156/80 10/09/19 15:24 65 10/09/19 15:04 98.1 F 74 18 160/99 BP Pulse Ox 10/10/19 07:54 10/10/19 06:51 112/49 94 L 10/10/19 04:00 92 L 10/09/19 23:07 95 10/09/19 18:59 95 10/09/19 15:25 97 10/09/19 15:24 10/09/19 15:04 96 Intake and Output 10/09/19 10/10/19 10/10/19 22:59 06:59 14:59 Other: Voiding Method Toilet # Voids 1 Weight 83.915 kg PHYSICAL EXAMINATION: HEENT: Head is atraumatic, normocephalic. Pupils equal, round. Neck is supple. There is no elevated jugular venous pressure. No carotid bruit. HEART EXAMINATION: Heart sounds regular, S1 and S2 normal. No murmur or gallop heard. CHEST EXAMINATION: Lungs are clear to auscultation. No chest wall tenderness is noted on palpation or with deep breathing. ABDOMEN: Soft, nontender. Bowel sounds are heard. No organomegaly noted. EXTREMITIES: 1+ peripheral pulses with no evidence of peripheral edema and no calf tenderness noted. NEUROLOGIC patient is awake, alert and oriented x3. . Results 10/09/19 15:19 10/09/19 15:19 Cardiac Enzymes 10/09/19 10/09/19 10/09/19 Range/Units 15:19 15:19 22:01 AST 22 (17-59) U/L Troponin I <0.012 <0.012 (0.000-0.034) ng/mL 10/10/19 Range/Units 03:17 AST (17-59) U/L Troponin I <0.012 (0.000-0.034) ng/mL Coagulation 10/09/19 Range/Units 15:19 PT 9.6 (9.0-12.0) sec APTT 24.8 (22.0-30.0) sec Lipids 10/10/19 Range/Units 03:17 Triglycerides 246 H (<150) mg/dL Cholesterol 168 (<200) mg/dL HDL Cholesterol 38 L (40-60) mg/dL CBC 10/09/19 Range/Units 15:19 WBC 10.2 (3.8-10.6) k/uL RBC 5.06 (4.30-5.90) m/uL Hgb 15.6 (13.0-17.5) gm/dL Hct 47.8 (39.0-53.0) % Plt Count 161 (150-450) k/uL Comprehensive Metabolic Panel 10/09/19 Range/Units 15:19 Sodium 139 (137-145) mmol/L Potassium 4.6 (3.5-5.1) mmol/L Chloride 108 H (98-107) mmol/L Carbon Dioxide 22 (22-30) mmol/L BUN 15 (9-20) mg/dL Creatinine 1.02 (0.66-1.25) mg/dL Glucose 127 H (74-99) mg/dL Calcium 9.5 (8.4-10.2) mg/dL AST 22 (17-59) U/L ALT 17 (4-49) U/L Alkaline Phosphatase 85 (38-126) U/L Total Protein 7.6 (6.3-8.2) g/dL Albumin 4.1 (3.5-5.0) g/dL Current Medications Generic Name Dose Route Start Last Admin Trade Name Freq PRN Reason Stop Dose Admin Al Hydroxide/Mg Hydroxide 30 ml 10/09/19 22:48 10/09/19 23:04 Maalox PO 30 ml Q4HR PRN Administration GI Upset Allopurinol 300 mg 10/09/19 21:00 10/09/19 21:21 Zyloprim PO 300 mg HS GLORY Administration Aspirin 81 mg 10/10/19 09:00 Aspirin PO DAILY [facility] Atorvastatin Calcium 40 mg 10/10/19 21:00 Lipitor PO HS [facility] Ergocalciferol 50,000 unit 10/14/19 12:00 Vitamin D2 PO TU [facility] Nitroglycerin 0.4 mg 10/09/19 17:43 Nitrostat SUBLINGUAL Q5M PRN Chest Pain Tamsulosin HCl 0.4 mg 10/09/19 21:00 10/09/19 21:21 Flomax PO 0.4 mg HS GLORY Administration Intake and Output 10/09/19 10/10/19 10/10/19 22:59 06:59 14:59 Other: Voiding Method Toilet # Voids 1 Weight 83.915 kg 10/09/19 15:19 10/09/19 15:19 Assessment and Plan Assessment: #1 symptoms of nonexertional chest heaviness radiating to the back and lasting for many hours, troponins negative 3, no ischemic changes on EKG, negative stress test in March of this year #2 history of CAD D with moderate disease in the circumflex and RCA showed a heart catheterization done in December 2017 with nonhemodynamically significant measurements taken by IFR and FFR #3 PAD #4 hyperlipidemia #5 hypertension on admission, denies history of hypertension Plan: From cardiology's perspective, no further cardiac workup is warranted at this time. Patient is stable for discharge home from our standpoint. We would recommend the addition of a statin as well as close monitoring of blood pressure at home to assess for hypertension. We will follow up in the office with the patient in about 2 weeks. REVENUE ANALYST note has been reviewed, I agree with a documented findings and plan of care. Patient was seen and examined.
[2019-10-10] MEDS ORDERED: ASPIRIN 325 MG TAB PO SCH (09:00)
[2019-10-10] MEDS: ASPIRIN 81 MG PO SCH (09:36)
--- NOTE | 2019-10-10 10:07 | P.PN ---
Subjective Progress Note Date: 10/10/19 Principal diagnosis: chest pain /This is a 69-year-old male patient who presented with complaints of chest pain. Patient reports that his pain started on 10/07 and was described as a sharp intermittent pain. Patient reports That the pain subsided and returned on 10/09 which prompted him to come to the hospital. Patient has a past medical history of hyperlipidemia, CAD, peripheral artery disease with prior bifemoral bypass, , gallbladder stones, cataracts and ex-smoker. Patient also had polyps removed from his bladder in July 2019. Patient reports that he follows regularly with billiard table mechanic Dr. Persaud. In December 2017 patient underwent cardiac catheterization moderate disease involving the left circumflex and moderate size disease involving the RCA proximally with non-hemodynamic significant management of the lesion by FFR. Patient underwent stress test in March 2019 which showed no evidence of ischemia and EF of 50-55%. Troponins negative 3. Computed robert ography scan showed borderline 3 cm aneurysm of the upper abdominal aorta or aortic dissection wide patency of the iliac artery bypass grafts extensive plaque in the [place] iliac arteries which showed very little contrast no significant change compared to last exam no evidence of pulmonary embolism. Patient reports that he feels like he has been having intermittent fevers at home will order UA and chest x-ray to rule out infection. Patient denies any coughing. At this time patient is resting comfortably in bed. Patient denies chest pain. Patient denies shortness breath. Patient denies nausea vomiting or diarrhea. Patient denies any urinary burning or frequency. Objective - Vital Signs Vital signs: Vital Signs Temp 98.8 F 10/10/19 06:51 Pulse 76 10/10/19 06:51 Resp 18 10/10/19 07:54 BP 112/49 10/10/19 06:51 Pulse Ox 94 L 10/10/19 06:51 Intake & Output 10/09/19 10/10/19 10/10/19 18:59 06:59 18:59 Weight 83.915 kg Other: Voiding Method Toilet # Voids 1 - Exam Head normocephalic Neck supple Lungs clear to auscultation bilaterally no wheezing or crackles Heart regular rate and rhythm S1-S2, no rub or gallop Abdomen is soft nontender nondistended positive bowel sounds no hepatosplenomegaly Extremities no edema Neuro alert and orientated to 3 - Labs CBC & Chem 7: 10/09/19 15:19 10/09/19 15:19 Labs: Abnormal Lab Results - Last 24 Hours (Table) 10/09/19 10/09/19 10/10/19 Range/Units 15:19 15:19 03:17 Neutrophils # 8.0 H (1.3-7.7) k/uL Chloride 108 H (98-107) mmol/L Glucose 127 H (74-99) mg/dL Triglycerides 246 H (<150) mg/dL HDL Cholesterol 38 L (40-60) mg/dL Assessment and Plan Assessment: 1. Chest pain. Troponins negative 3. Last stress test in March reviewed per cardiology EF 50-55%. 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 No aortic dissection wide patency of the iliac artery bypass graft. Extensive plaque in the [place] iliac arteries which show very little contrast opacification. There is probably retrograde filling of both internal iliac arteries. No significant change compared to last exam no evidence of pulmonary embolism. Per cardiology services no further cardiac workup at this time. Patient follow-up outpatient in 2 weeks with billiard table mechanic 2. History of hyperlipidemia. Patient continued on statin 3. History of peripheral arterial disease with prior bifemoral bypass 4. History of bladder polyp removal in July 2019 5. History of gout 6. History of cataracts 7. Patient reports he's had intermittent fever at home. Will order chest x-ray and urinary analysis DVT prophylaxis heparin. GI prophylaxis Pepcid Time with Patient: Greater than 30 (Greater than 60% of the total time spent in counseling and coordination of care. I performed an examination of the patient and discussed their management with the Nurse Practitioner. I have reviewed the Nurse Practitioner's notes and agree with the documented findings and plan of care)
--- NOTE | 2019-10-10 10:09 | P.HPIM ---
History of Present Illness H&P Date: 10/10/19 Chief Complaint: chest pain This is a 69-year-old male patient who presented with complaints of chest pain. Patient reports that his pain started on 10/07 and was described as a sharp intermittent pain. Patient reports That the pain subsided and returned on 10/09 which prompted him to come to the hospital. Patient has a past medical history of hyperlipidemia, CAD, peripheral artery disease with prior bifemoral bypass, , gallbladder stones, cataracts and ex-smoker. Patient also had polyps removed from his bladder in July 2019. Patient reports that he follows regularly with steaming cabinet tender Dr. Persaud. In December 2017 patient underwent cardiac catheterization moderate disease involving the left circumflex and moderate size disease involving the RCA proximally with non-hemodynamic significant management of the lesion by FFR. Patient underwent stress test in March 2019 which showed no evidence of ischemia and EF of 50-55%. Troponins negative 3. Computed renetta graphy scan showed borderline 3 cm aneurysm of the upper abdominal aorta or aortic dissection wide patency of the iliac artery bypass grafts extensive plaque in the [place] iliac arteries which showed very little contrast no significant change compared to last exam no evidence of pulmonary embolism. Patient reports that he feels like he has been having intermittent fevers at home will order UA and chest x-ray to rule out infection. Patient denies any coughing. At this time patient is resting comfortably in bed. Patient denies chest pain. Patient denies shortness breath. Patient denies nausea vomiting or diarrhea. Patient denies any urinary burning or frequency. Review of Systems please refer to HPI otherwise unremarkable Past Medical History Past Medical History: No Reported History Additional Past Medical History / Comment(s): gout, PAD, cataracts, gall bladder stones,scoliosis History of Any Multi-Drug Resistant Organisms: None Reported Past Surgical History: Appendectomy Additional Past Surgical History / Comment(s): cataracts; repair laceration L finger;fem./aortal bypass, sunday 07/29 polps removed from bladder benign Past Anesthesia/Blood Transfusion Reactions: No Reported Reaction Past Psychological History: No Psychological Hx Reported Smoking Status: Never smoker Past Alcohol Use History: Occasional Past Drug Use History: None Reported - Past Family History Mother Family Medical History: Cancer Additional Family Medical History / Comment(s): cervical, breast, liver Father Family Medical History: Cancer Additional Family Medical History / Comment(s): suicide, brain tumor Sister(s) Family Medical History: No Reported History Brother(s) Family Medical History: No Reported History Son(s) Family Medical History: No Reported History Daughter(s) Family Medical History: No Reported History Medications and Allergies Home Medications Medication Instructions Recorded Confirmed Type Allopurinol [Zyloprim] 300 mg PO HS 12/18/17 10/09/19 History Aspirin 81 mg PO HS 07/20/19 10/09/19 History Ergocalciferol [Vitamin D2 50,000 unit PO TU 07/20/19 10/09/19 History (DRISDOL)] Tamsulosin HCl [Flomax] 0.4 mg PO HS 10/09/19 10/09/19 History Allergies Allergy/AdvReac Type Severity Reaction Status Date / Time No Known Allergies Allergy Verified 10/09/19 19:30 Physical Exam Vitals: Vital Signs Temp Pulse Pulse Pulse Resp BP BP 10/10/19 07:54 18 10/10/19 06:51 98.8 F 76 18 10/10/19 04:00 99.5 F 79 18 160/82 10/09/19 23:07 98.5 F 68 18 165/87 10/09/19 18:59 98.1 F 78 18 163/77 10/09/19 15:25 65 18 156/80 10/09/19 15:24 65 10/09/19 15:04 98.1 F 74 18 160/99 BP Pulse Ox 10/10/19 07:54 10/10/19 06:51 112/49 94 L 10/10/19 04:00 92 L 10/09/19 23:07 95 10/09/19 18:59 95 10/09/19 15:25 97 10/09/19 15:24 10/09/19 15:04 96 Intake and Output 10/09/19 10/10/19 10/10/19 22:59 06:59 14:59 Intake Total 240 Balance 240 Intake: Oral 240 Other: Voiding Method Toilet # Voids 1 Weight 83.915 kg Head normocephalic Neck supple Lungs clear to auscultation bilaterally no wheezing or crackles Heart regular rate and rhythm S1-S2, no rub or gallop Abdomen is soft nontender nondistended positive bowel sounds no hepatosplenomegaly Extremities no edema Neuro alert and orientated to 3 Results CBC & Chem 7: 10/09/19 15:19 10/09/19 15:19 Labs: Abnormal Lab Results - Last 24 Hours (Table) 10/09/19 10/09/19 10/10/19 Range/Units 15:19 15:19 03:17 Neutrophils # 8.0 H (1.3-7.7) k/uL Chloride 108 H (98-107) mmol/L Glucose 127 H (74-99) mg/dL Triglycerides 246 H (<150) mg/dL HDL Cholesterol 38 L (40-60) mg/dL Thrombosis Risk Factor Assmnt - Choose All That Apply Any of the Below Risk Factors Present?: Yes Each Factor Represents 1 point: Obesity (BMI >25) Other Risk Factors: Yes Each Risk Factor Represents 2 Points: Age 61-74 years Other congenital or acquired thrombophilia - If yes, enter type in comment: No Thrombosis Risk Factor Assessment Total Risk Factor Score: 3 Thrombosis Risk Factor Assessment Level: Moderate Risk Assessment and Plan Assessment: 1. Chest pain. Troponins negative 3. Last stress test in March reviewed per cardiology EF 50-55%. 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 No aortic dissection wide patency of t he iliac artery bypass graft. Extensive plaque in the [place] iliac arteries which show very little contrast opacification. There is probably retrograde filling of both internal iliac arteries. No significant change compared to last exam no evidence of pulmonary embolism. Per cardiology services no further cardiac workup at this time. Patient follow-up outpatient in 2 weeks with steaming cabinet tender 2. History of hyperlipidemia. Patient continued on statin 3. History of peripheral arterial disease with prior bifemoral bypass 4. History of bladder polyp removal in July 2019 5. History of gout 6. History of cataracts 7. Patient reports he's had intermittent fever at home. Will order chest x-ray and urinary analysis DVT prophylaxis heparin. GI prophylaxis Pepcid Time with Patient: Greater than 30 (Greater than 60% of the total time spent in counseling and coordination of care. I performed an examination of the patient and discussed their management with the Nurse Practitioner. I have reviewed the Nurse Practitioner's notes and agree with the documented findings and plan of care)
--- NOTE | 2019-10-10 10:40 | XR ---
EXAMINATION TYPE: XR chest 2V DATE OF EXAM: 10/10/2019 COMPARISON: 03/26/2019 HISTORY: Shortness of breath TECHNIQUE: Frontal and lateral views of the chest are obtained. FINDINGS: Scattered senescent parenchymal changes noted. Hyperinflation compatible with COPD. No evidence for infiltrate. No evidence for atelectasis. Heart size is stable. Mediastinal structures are stable and grossly unremarkable. No evidence for hilar prominence. Degenerative changes dorsal spine. IMPRESSION: 1. No evidence for acute pulmonary disease.
[2019-10-10 12:39] LABS: Appearance,Urine Clear (Clear); Bilirubin,Urine Negative (Negative); Blood,Urine Negative (Negative); Color,Urine Yellow; Glucose,Urine (UA) Negative (Negative); Ketones,Urine Negative (Negative); Leukocyte Esterase,Urine Negative (Negative); Nitrite,Urine Negative (Negative); PH, Urine 5.5 (5.0-8.0); Protein,Urine Negative (Negative); Specific Gravity,Urine 1.029 (1.001-1.035); Urobilinogen,Urine <2.0 mg/dL (<2.0)
[2019-10-10 14:20] LABS: Amylase 92 U/L (30-110)
[2019-10-10] MEDS: TAMSULOSIN 0.4 MG CAP.ER.24H PO SCH (19:48)
[2019-10-10] MEDS: HEPARIN SODIUM,PORCINE 5,000 UNIT/ML 1 ML VIAL SQ SCH (19:48)
[2019-10-10] MEDS: ALLOPURINOL 300 MG TAB PO SCH (19:48)
[2019-10-10] MEDS ORDERED: ATORVASTATIN 40 MG TAB PO SCH (21:00)
[2019-10-11] MEDS: MAG HYDROX/AL HYDROX/SIMETH 30 ML CUP PO PRN (01:12)
[2019-10-11] MEDS ORDERED: ACETAMINOPHEN TAB 325 MG TAB PO PRN (02:41)
[2019-10-11 03:56] VITALS: RESP 18; TEMP 98.5
[2019-10-11] MEDS: MORPHINE SULFATE 2 MG/ML SYRINGE IVP PRN ×2 (03:57→06:20)
[2019-10-11 07:42] LABS: Basophils % (A) 0 %; Eosinophils # (A) 0.2 k/uL (0-0.7); Eosinophils % (A) 2 %; HCT 43.9 % (39.0-53.0); HGB 14.2 gm/dL (13.0-17.5); Lymphocytes # (A) 2.2 k/uL (1.0-4.8); Lymphocytes % (A) 24 %; MCH 30.8 pg (25.0-35.0); MCHC 32.2 g/dL (31.0-37.0); MCV 95.5 fL (80.0-100.0); Mean Platelet Volume 8.1; Monocytes # (A) 0.5 k/uL (0-1.0); Monocytes % (A) 6 %; Neutrophils % (A) 66 %; Platelet Count 168 k/uL (150-450); RDW 13.9 % (11.5-15.5); WBC 9.1 k/uL (3.8-10.6)
[2019-10-11 07:55] LABS: Albumin 3.7 g/dL (3.5-5.0); Calcium 9.1 mg/dL (8.4-10.2); Potassium 4.7 mmol/L (3.5-5.1); Total Bilirubin 0.5 mg/dL (0.2-1.3)
[2019-10-11 08:07] VITALS: BP 127/71; PULSE 74
[2019-10-11] MEDS: ASPIRIN 81 MG PO SCH (08:25)
[2019-10-11] MEDS: HEPARIN SODIUM,PORCINE 5,000 UNIT/ML 1 ML VIAL SQ SCH (08:25)
[2019-10-11] MEDS ORDERED: FAMOTIDINE 20 MG TAB PO SCH (09:00)
--- NOTE | 2019-10-11 09:03 | US ---
EXAMINATION TYPE: US abdomen complete DATE OF EXAM: 10/11/2019 COMPARISON: CT 2 days earlier. CLINICAL HISTORY: rule out . pain.Exam limited due to body habitus and bowel gas. EXAM MEASUREMENTS: Liver Length: 12.9 cm Gallbladder Wall: .4 cm CBD: .4 cm Spleen: 11 cm Right Kidney: 10.1 x 5.2 x 4.2 cm Left Kidney: 10.5 x 4.4 x 4.0 cm Pancreas: Obscured by bowel gas Liver: Limited Gallbladder: Polyps vs small stones. Evidence for sonographic Everett's sign: no CBD: wnl Spleen: wnl Right Kidney: Limited Left Kidney: wnl Upper IVC: limited Abd Aorta: limited The visualized liver is heterogeneously hyperechoic. Evaluation for focal masses suboptimal due to th e heterogeneity. The intrahepatic portion of the IVC and proximal abdominal aorta are within normal l imits. Common bile duct is unremarkable. Gallbladder not well seen on images saved. Hyperechoic foci could reflect polyps or small stones. They are poorly seen. The spleen is unremarkable. Kidneys are symmetric and free of hydronephrosis. No renal lesions are seen. IMPRESSION: Suboptimal study, diffuse fatty infiltration of liver along with intraluminal gallstones are both seen better on recent CT.
--- NOTE | 2019-10-11 11:39 | P.PN ---
Subjective This is Flower Harmon PA-C dictating a progress note on this patient The patient was interviewed and examined by me as well as by Dr. Vo Case discussed with Dr. 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 Troponins were negative 3 and his EKG did not show any acute changes suggestive of ischemia. Chest CT showed 3 cm aneurysm of the upper abdominal aorta, no dissection. Patient had another episode of chest discomfort overnight and again EKG at that time did not show any acute ST or T-wave abnormalities. Patient seen and examined resting in bed. Continues to have intermittent right-sided chest discomfort which radiates to his back. Denies any shortness of breath, palpitations, dizziness or syncope. EXAMINATION Temperature 98.5F, pulse 74, respirations 18, blood pressure 127/71, oxygen saturation 93% on room air Patient seen and examined resting comfortably in bed, in no acute distress Lungs clear to auscultation bilaterally Heart is regular, no murmurs appreciated No elevated JVD No lower extremity edema Tenderness to palpation in the right upper quadrant as well as the right ribs REVIEW OF LABS, ECG WBC 9.1, hemoglobin 14.2, platelets 168, potassium 4.7, BUN 19, creatinine 1.09 LDL 81 Objective - Vital Signs Vital signs: Vital Signs Temp 98.5 F 10/11/19 08:00 Pulse 74 10/11/19 08:00 Resp 18 10/11/19 08:00 BP 127/71 10/11/19 08:00 Pulse Ox 93 L 10/11/19 08:00 Intake & Output 10/10/19 10/11/19 10/11/19 18:59 06:59 18:59 Intake Total 240 Balance 240 Intake: Oral 240 Other: Voiding Method Toilet Toilet Toilet # Voids 1 1 - Labs CBC & Chem 7: 10/11/19 07:14 10/11/19 07:14 Labs: Abnormal Lab Results - Last 24 Hours (Table) 10/11/19 Range/Units 07:14 Glucose 116 H (74-99) mg/dL
--- NOTE | 2019-10-11 13:12 | P.DS ---
Providers Date of admission: 10/09/19 17:50 Expected date of discharge: 10/11/19 Attending physician: Pati Hoffmann Consults: 10/09/19 17:45 Consult Physician Urgent Consulting Provider: Terence Jaramillo Consult Reason/Comments: Atypical chest pain, history caridac disease Do you want consulting provider notified?: Yes Primary care physician: Pati Hoffmann [facility] Course: Diagnosis on discharge: 1. Chest pain. Troponins negative 3. Last stress test in March reviewed per cardiology EF 50-55%. 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 No aortic dissection wide patency of the iliac artery bypass graft. Extensive plaque in the [place] iliac arteries which show very little contrast opacification. There is probably retrograde filling of both internal iliac arteries. No significant change compared to last exam no evidence of pulmonary embolism. Per cardiology services no further cardiac workup at this time. Patient follow-up outpatient in 2 weeks with swatch folder 2. History of hyperlipidemia. Patient continued on statin 3. History of peripheral arterial disease with prior bifemoral bypass 4. History of bladder polyp removal in July 2019 5. History of gout 6. History of cataracts 7. Patient reports he's had intermittent fever at home. Will order chest x-ray and urinary analysis. No evidence of any infectious process no need for antibiotic at this point. 8. Evidence of gallbladder stones, no evidence of common bile duct stone or common bile duct dilatatian, no elevation in liver enzymes or amylase or lipase, gallbladder could be the source of patient pain, he will be referred to surgery as outpatient for further evaluation and treatment. Hospital course: This is a 69-year-old male patient who presented with complaints of chest pain. Patient reports that his pain started on 10/07 and was described as a sharp in termittent pain. Patient reports That the pain subsided and returned on 10/09 which prompted him to come to the hospital. Patient has a past medical history of hyperlipidemia, CAD, peripheral artery disease with prior bifemoral bypass, , gallbladder stones, cataracts and ex-smoker. Patient also had polyps removed from his bladder in July 2019. Patient reports that he follows regularly with swatch folder Dr. Persaud. In December 2017 patient underwent cardiac catheterization moderate disease involving the left circumflex and moderate size disease involving the RCA proximally with non-hemodynamic significant management of the lesion by FFR. Patient underwent stress test in March 2019 which showed no evidence of ischemia and EF of 50-55%. Troponins negative 3. Computed tomography scan showed borderline 3 cm aneurysm of the upper abdominal aorta or aortic dissection wide patency of the iliac artery bypass grafts extensive plaque in the [place] iliac arteries which showed very little contrast no significant change compared to last exam no evidence of pulmonary embolism. Patient reports that he feels like he has been having intermittent fevers at home will order UA and chest x-ray to rule out infection. Patient denies any coughing. At this time patient is resting comfortably in bed. Patient denies chest pain. Patient denies shortness breath. Patient denies nausea vomiting or diarrhea. Patient denies any urinary burning or frequency. On 10/11/2019 patient was seen and examined on the medical floor he is alert and oriented 3 in no apparent distress he does not have any pain or any symptoms at this time he reported that yesterday he had right upper quadrant abdominal pain requiring IV morphine administration, at this time patient is asymptomatic course of treatment was discussed with him in details for surgical consultation and further testing on the gallbladder however this may take several days due to weekend and holiday season other option was to discharge patient to home and to proceed with outpatient referral to surgery and further evaluation of the gallbladder.. At this point patient is asymptomatic and he opted to be discharged home will follow in the office within 1 week will arrange for surgery appointment as outpatient. Patient Condition at Discharge: Stable Plan - Discharge Summary Discharge Rx Participant: No New Discharge Prescriptions: New Atorvastatin [Lipitor] 40 mg PO HS 30 Days #30 tab Continue Allopurinol [Zyloprim] 300 mg PO HS Aspirin 81 mg PO HS Ergocalciferol [Vitamin D2 (DRISDOL)] 50,000 unit PO TU Tamsulosin HCl [Flomax] 0.4 mg PO HS Discharge Medication List Allopurinol [Zyloprim] 300 mg PO HS 12/18/17 [History] Aspirin 81 mg PO HS 07/20/19 [History] Ergocalciferol [Vitamin D2 (DRISDOL)] 50,000 unit PO TU 07/20/19 [History] Tamsulosin HCl [Flomax] 0.4 mg PO HS 10/09/19 [History] Atorvastatin [Lipitor] 40 mg PO HS 30 Days #30 tab 10/10/19 [Rx] Follow up Appointment(s)/Referral(s): Isaias Persaud MD [STAFF PHYSICIAN] - 10/24/19 8:30 am Pati Hoffmann MD [Primary Care Provider] - 1-2 days Activity/Diet/Wound Care/Special Instructions: activity as tolerated Diet heart healthy Discharge Disposition: HOME SELF-CARE
[2019-10-14] MEDS ORDERED: ERGOCALCIFEROL 50,000 UNIT CAP PO SCH (12:00)
== END 2019-10-11 13:54 | disposition home or self-care (01) ==
LOC: EC 14:51 → 1SOBS 17:50
PROVIDERS: ADMIT Internal Medicine; ATTEND Internal Medicine
DX: R07.89 Other chest pain (principal); E78.5 Hyperlipidemia, unspecified; I73.9 Peripheral vascular disease, unspecified; Z87.448 Personal history of other diseases of urinary system; M10.9 Gout, unspecified; Z98.49 Cataract extraction status, unspecified eye; R50.9 Fever, unspecified; K80.20 Calculus of gallbladder without cholecystitis without obstruction; R03.0 Elevated blood-pressure reading, without diagnosis of hypertension; I25.10 Atherosclerotic heart disease of native coronary artery without angina pectoris; I49.3 Ventricular premature depolarization; M41.9 Scoliosis, unspecified; I71.4 Abdominal aortic aneurysm, without rupture; K76.0 Fatty (change of) liver, not elsewhere classified; E66.9 Obesity, unspecified; Z68.28 Body mass index [BMI] 28.0-28.9, adult; Z95.820 Peripheral vascular angioplasty status with implants and grafts; Z90.49 Acquired absence of other specified parts of digestive tract; Z98.890 Other specified postprocedural states; Z79.899 Other long term (current) drug therapy; Z79.82 Long term (current) use of aspirin; Z80.3 Family history of malignant neoplasm of breast; Z80.0 Family history of malignant neoplasm of digestive organs; Z80.8 Family history of malignant neoplasm of other organs or systems; Z81.8 Family history of other mental and behavioral disorders
CPT/HCPCS: 93005 ×2; 96372 ×2; 96376 ×2; 96361; 96374; 96375; 99285; 36415; 80061; 80053 ×2; 82150; 83690; 83735; 84484 ×2; 85025 ×2; 85610; 85730; 81003; 71046; 76700; 71275; 74174; G0378 ×3; J2270 ×2; J1644 ×2; J2405; Q9967

== ENCOUNTER → 2019-11-14 | Day surgery (SDC) | payer MEDICARE, OTHER ==
[2019-11-13 10:00] VITALS: BMI 28.8
[~2019-11-14] MED LIST changes: -ADENOSINE 90 MG in SODIUM CHLORIDE 0.9% 60 ML IVP ONE; -ALLOPURINOL 300 MG TAB PO SCH; -ALPRAZolam 0.25 MG TAB PO PRN; -ALPRAZolam 0.5 MG TAB PO PRN; -ASPIRIN 325 MG TAB PO STA; -ASPIRIN 81 MG PO SCH; -ATORVASTATIN 40 MG TAB PO SCH; -ATORVASTATIN 80 MG TAB PO STA; -Acetaminophen-Codeine 300-30mg TAB PO PRN; -BIVALIRUDIN 250 MG in SODIUM CHLORIDE 0.9% 50 ML IV ONE; -BIVALIRUDIN BOLUS 250 MG/50 ML IV ONE; +BUPIVACAINE (PF) 0.25% 30 ML VIAL SQ ONE; +DEXAMETHASONE SOD PHOSPHATE 10 MG/ML 1 ML VIAL IV ONE; -ERGOCALCIFEROL 50,000 UNIT CAP PO SCH; +GLYCOPYRROLATE 0.2 MG/ML 2 ML VIAL ONE; -HEPARIN SODIUM 1,000 UN/ML (10ML VL) ONE; +HEPARIN SODIUM,PORCINE 5,000 UNIT/ML 1 ML VIAL SQ ONE; +HYDROcodone/APAP 5-325MG 1 EACH TAB PO PRN; +HYDROmorphone 0.5 MG/0.5 ML SYRINGE IVP PRN; -IOHEXOL 350 MG/ML 125ML BOTTLE INJ ONE; -IV FLUID CONTINUATION 1,000 ML IV ONE; +LACTATED RINGERS 1,000 ML IV ONE; +LACTATED RINGERS 1,000 ML IV SCH; +LIDOCAINE 1% 20 ML VIAL (10MG/ML) FOR IV START INTRADERMA ONE; +LIDOCAINE 1% INJ 10MG/ML (20 ML MDV) ONE; -LIDOCAINE 2% INJ 20 MG/ML (20 ML MDV) ONE; -LIDOCAINE 2% INJ 20 MG/ML SQ ONE; -LISINOPRIL 20 MG TAB PO SCH; -METOPROLOL SUCCINATE (ER) 25 MG TAB.ER.24H PO SCH; +MIDAZOLAM 2 MG/2 ML VIAL IV PRN; +NALOXONE 0.4 MG/ML 1 ML VIAL IV PRN; +NEOSTIGMINE 1 MG/ML 10 ML VIAL ONE; -NITROGLYCERIN 1000MCG/10ML SYRINGE INTRACORON ONE; -NITROGLYCERIN SL TABS 0.4 MG TAB SUBLINGUAL PRN; +ONDANSETRON 4 MG/2 ML VIAL IVP ONE; +PROPOFOL 10 MG/ML 20 ML VIAL IV ONE; +ROCURONIUM BROMIDE 10 MG/ML 10 ML VIAL IV ONE; -RX INFO: IV CONTRAST WAS GIVEN 1 EACH MISC MISCELLANE PRN; -SODIUM CHLORIDE 0.9% 1,000 ML IV SCH; -SODIUM CHLORIDE 0.9% 1,000 ML in EMPTY BAG 1 BAG IV ONE; -SPIRONOLACTONE 25 MG TAB PO SCH; +SUCCINYLCHOLINE CHLORIDE 100 MG/5 ML SYR IV ONE; -VERAPAMIL 2.5 MG/ML 2 ML AMP ONE; +ePHEDrine SULFATE/0.9% NACL/PF 50 MG/5 ML SYRINGE IV ONE; -fentaNYL (PF) 50 MCG/ML 2 ML AMP IVP ONE; -traZODone HCL 50 MG TAB PO PRN
--- NOTE | 2019-11-14 13:03 | P.OP ---
Date of Procedure: 11/14/19 Procedure(s) Performed: PREOPERATIVE DIAGNOSIS: Chronic cholecystitis POSTOPERATIVE DIAGNOSIS: Same PROCEDURE: Laparoscopic cholecystectomy SURGEON: Marcelo EBL: Minimal see anesthesia record ANESTHESIA: Gen. COMPLICATIONS: None OPERATIVE PROCEDURE: The patient was brought and placed on the operating room table in the supine position. The patient was placed under general anesthesia at that time. The abdomen was prepped and draped in the usual sterile fashion. The patient had a previous midline surgical scar from aortobifemoral bypass. A 5 mm optical trocar was used to enter the left upper quadrant. There were adhesions present throughout the midline extending to the left. Thankfully we had avoided the adhesions. An additional 5 mm trocar was placed in the left lateral abdomen. Lysis of adhesions took place from that opening a window so that the right upper quadrant could be visualized. 2 additional 5 mm trochars were placed in the right upper quadrant under direct visualization. A 12 mm trocar was placed in the epigastrium under direct dilatation and a 5 mm trocar in the periumbilical region. The gallbladder was inspected. There were adhesions to the gallbladder that were lysed using electrocautery. The patient's gallbladder was contracted and had a thickened wall. Careful di ssection at the infundibulum occurred at that time. The patient's cystic duct was visualized. The junction between the cystic duct common and hepatic duct was identified. The patient appeared to have a long slender cystic duct. The cystic duct was then divided after placement of 3 12 mm clips on the patient's side and one on the specimen side. The cystic artery was identified and clipped as well. A small vessel was seen along the gallbladder fossa and clipped as well. The gallbladder was then removed from the liver bed using electrocautery. The gallbladder was then removed from the epigastric trocar site with an Endo Catch bag. The gallbladder fossa was irrigated with saline. There was a small area of bleeding along the liver that was controlled using electrocautery. Following that their was no evidence of any bleeding or biliary drainage seen. The fascia at the 12 millimeter site was closed using a Gregory-Timmy 0 Vicryl stitch. The trochars were then removed. The skin at all 6 sites was closed using a 4-0 Monocryl stitch. Skin glue was utilized on the incision sites. At the end of this procedure the sponge and needle counts were correct. DISPOSITION: Stable to the recovery room
[2019-11-14 13:18] VITALS: TEMP 97.6
[2019-11-14 14:20] VITALS: RESP 17
[2019-11-14 14:29] VITALS: BP 131/69; PULSE 76
== END ==
LOC: OR 09:30
PROVIDERS: ATTEND Surgery
DX: K80.10 Calculus of gallbladder with chronic cholecystitis without obstruction (principal); K82.8 Other specified diseases of gallbladder; K66.0 Peritoneal adhesions (postprocedural) (postinfection); I10 Essential (primary) hypertension; I73.9 Peripheral vascular disease, unspecified; M41.9 Scoliosis, unspecified; N40.0 Benign prostatic hyperplasia without lower urinary tract symptoms; M10.9 Gout, unspecified; Z87.891 Personal history of nicotine dependence; Z79.82 Long term (current) use of aspirin; Z79.899 Other long term (current) drug therapy; Z90.49 Acquired absence of other specified parts of digestive tract; Z98.49 Cataract extraction status, unspecified eye; Z95.820 Peripheral vascular angioplasty status with implants and grafts
CPT/HCPCS: 88304; 47562; J2250; J1644; J1100; J2710; J0690; J2405; J2001; J3010; J0330; J2704; J1170

== ENCOUNTER 2020-09-05 15:39 | Emergency (ER) | payer MEDICARE ==
[2020-09-05 15:52] VITALS: TEMP 98.2
--- NOTE | 2020-09-05 17:27 | ED ---
General Adult HPI - General Source: patient, RN notes reviewed Mode of arrival: ambulatory Limitations: no limitations <Robert Stuart - Last Filed: 09/05/20 18:48> <Salvador Flores - Last Filed: 09/06/20 17:42> - General Chief complaint: Shortness of Breath Stated complaint: SOB/COVID + Time Seen by Provider: 09/05/20 16:35 - History of Present Illness Initial comments: 70-year-old male presents emergency Department with chief complaint of shortness of breath. Patient states he tested positive for covid 14 days ago. Patient states that he was on some steroids recently finished. Patient it is a was helping. Patient states that he is no prior for cardiac disease. Denies any chest pain states he had a fever which has resolved. Patient denies any abdominal complaints including nausea vomiting diarrhea constipation. He states he just feels like he didn't deep inspiration. No history of PE or DVT. Patient states that he feels better when he goes on the cold. (Robert Stuart) - Related Data Home Medications Medication Instructions Recorded Confirmed allopurinoL [Zyloprim] 300 mg PO HS 12/18/17 09/05/20 Aspirin 81 mg PO HS 07/20/19 09/05/20 Allergy Otc(Unknown) 1 tab PO DAILY 09/05/20 09/05/20 Vitamin C(Unknown Dose) 1 tab PO DAILY 09/05/20 09/05/20 Vitamin D3(Unknown Dose) 1 tab PO DAILY 09/05/20 09/05/20 Previous Rx's Medication Instructions Recorded amLODIPine [Norvasc] 5 mg PO DAILY #10 tab 09/05/20 Allergies Allergy/AdvReac Type Severity Reaction Status Date / Time No Known Allergies Allergy Verified 09/05/20 18:35 Review of Systems ROS Other: All systems not noted in ROS Statement are negative. <Robert Stuart - Last Filed: 09/05/20 18:48> ROS Other: All systems not noted in ROS Statement are negative. <Salvador Flores - Last Filed: 09/06/20 17:42> ROS Statement: Those systems with pertinent positive or pertinent negative responses have been documented in the HPI. Past Medical History Past Medical History: No Reported History Additional Past Medical History / Comment(s): gout, PAD,, gall bladder stones,scoliosis History of Any Multi-Drug Resistant Organisms: None Reported Past Surgical History: Appendectomy, Tonsillectomy Additional Past Surgical History / Comment(s): bilat cataracts; repair laceration L finger;fem./aortal bypass, polps removed from bladder benign, colonoscopy Past Anesthesia/Blood Transfusion Reactions: No Reported Reaction Past Psychological History: No Psychological Hx Reported Smoking Status: Never smoker Past Alcohol Use History: Occasional Past Drug Use History: None Reported - Past Family History Mother Family Medical History: Cancer Additional Family Medical History / Comment(s): cervical, breast, liver Father Family Medical History: Cancer Additional Family Medical History / Comment(s): suicide, brain tumor Sister(s) Family Medical History: No Reported History Brother(s) Family Medical History: No Reported History Son(s) Family Medical History: No Reported History Daughter(s) Family Medical History: No Reported History <Robert Stuart M - Last Filed: 09/05/20 18:48> General Exam Limitations: no limitations General appearance: alert, in no apparent distress Head exam: Present: atraumatic, normocephalic, normal inspection Eye exam: Present: normal appearance, PERRL, EOMI. Absent: scleral icterus, c onjunctival injection, periorbital swelling ENT exam: Present: normal exam, normal oropharynx, mucous membranes moist, TM's normal bilaterally Neck exam: Present: normal inspection, full ROM. Absent: tenderness, meningismus, lymphadenopathy Respiratory exam: Present: normal lung sounds bilaterally. Absent: respiratory distress, wheezes, rales, rhonchi, stridor Cardiovascular Exam: Present: regular rate, normal rhythm, normal heart sounds. Absent: systolic murmur, diastolic murmur, rubs, gallop, clicks GI/Abdominal exam: Present: soft, normal bowel sounds. Absent: distended, tenderness, guarding, rebound, rigid Extremities exam: Absent: pedal edema, calf tenderness Neurological exam: Present: alert, oriented X3 Skin exam: Present: warm, dry, intact, normal color. Absent: rash <Robert Stuart M - Last Filed: 09/05/20 18:48> Course Vital Signs 09/05/20 09/05/20 09/05/20 15:49 16:52 17:00 Temperature 98.2 F Pulse Rate 74 63 63 Respiratory 18 18 18 Rate Blood Pressure 156/89 176/86 175/85 O2 Sat by Pulse 98 98 98 Oximetry 09/05/20 09/05/20 09/05/20 18:00 19:46 19:52 Temperature Pulse Rate 60 54 L 57 L Respiratory 18 20 24 Rate Blood Pressure 168/95 169/102 198/104 O2 Sat by Pulse 98 98 97 Oximetry 09/05/20 09/05/20 20:23 20:45 Temperature Pulse Rate 55 L 56 L Respiratory 20 20 Rate Blood Pressure 158/79 144/88 O2 Sat by Pulse 98 98 Oximetry EKG Findings - EKG Comments: EKG Findings:: EKG performed at 17:15 sinus bradycardia with first-degree AV block, rate of 54 IN 210 QRS 104 QT/QTc 448/424 <Robert Stuart - Last Filed: 09/05/20 18:48> Medical Decision Making - Lab Data Result diagrams: 09/05/20 17:20 09/05/20 17:20 <Robert Stuart - Last Filed: 09/05/20 18:48> - Lab Data Result diagrams: 09/05/20 17:20 09/05/20 17:20 <Salvador Flores - Last Filed: 09/06/20 17:42> - Medical Decision Making CT of the chest showed no PE but scattered slight areas of infiltrate. Patient was ambulated around the emergency department with no shortness of breath. Patient wanted to go home and quarantined. Patient's blood pressure was high gave him 20 hydralazine he came down to 150/70 any felt at his baseline. (Salvador Flores) - Lab Data Lab Results 09/05/20 09/05/20 09/05/20 Range/Units 17:20 17:20 17:20 WBC 14.4 H (3.8-10.6) k/uL RBC 4.85 (4.30-5.90) m/uL Hgb 15.2 (13.0-17.5) gm/dL Hct 46.9 (39.0-53.0) % MCV 96.6 (80.0-100.0) fL MCH 31.3 (25.0-35.0) pg MCHC 32.4 (31.0-37.0) g/dL RDW 14.0 (11.5-15.5) % Plt Count 290 (150-450) k/uL MPV 9.2 Neutrophils % 75 % Lymphocytes % 15 % Monocytes % 7 % Eosinophils % 0 % Basophils % 1 % Neutrophils # 10.9 H (1.3-7.7) k/uL Lymphocytes # 2.1 (1.0-4.8) k/uL Monocytes # 1.0 (0-1.0) k/uL Eosinophils # 0.0 (0-0.7) k/uL Basophils # 0.1 (0-0.2) k/uL PT 9.8 (9.0-12.0) sec INR 0.9 (<1.2) APTT 21.5 L (22.0-30.0) sec D-Dimer 0.95 H (<0.60) mg/L FEU Sodium 134 L (137-145) mmol/L Potassium 4.8 (3.5-5.1) mmol/L Chloride 105 (98-107) mmol/L Carbon Dioxide 21 L (22-30) mmol/L Anion Gap 8 mmol/L BUN 26 H (9-20) mg/dL Creatinine 0.96 (0.66-1.25) mg/dL Est GFR (CKD-EPI)AfAm >90 (>60 ml/min/1.73 sqM) Est GFR (CKD-EPI)NonAf 81 (>60 ml/min/1.73 sqM) Glucose 88 (74-99) mg/dL Plasma Lactic Acid [place] (0.7-2.0) mmol/L Calcium 8.8 (8.4-10.2) mg/dL Magnesium 2.3 (1.6-2.3) mg/dL Total Bilirubin 0.5 (0.2-1.3) mg/dL AST 22 (17-59) U/L ALT 35 (4-49) U/L Alkaline Phosphatase 65 (38-126) U/L Troponin I (0.000-0.034) ng/mL NT-Pro-B Natriuret Pep pg/mL Total Protein 6.5 (6.3-8.2) g/dL Albumin 3.3 L (3.5-5.0) g/dL 11/22/20 11/22/20 11/22/20 Range/Units 17:20 17:20 17:20 WBC (3.8-10.6) k/uL RBC (4.30-5.90) m/uL Hgb (13.0-17.5) gm/dL Hct (39.0-53.0) % MCV (80.0-100.0) fL MCH (25.0-35.0) pg MCHC (31.0-37.0) g/dL RDW (11.5-15.5) % Plt Count (150-450) k/uL MPV Neutrophils % % Lymphocytes % % Monocytes % % Eosinophils % % Basophils % % Neutrophils # (1.3-7.7) k/uL Lymphocytes # (1.0-4.8) k/uL Monocytes # (0-1.0) k/uL Eosinophils # (0-0.7) k/uL Basophils # (0-0.2) k/uL PT (9.0-12.0) sec INR (<1.2) APTT (22.0-30.0) sec D-Dimer (<0.60) mg/L FEU Sodium (137-145) mmol/L Potassium (3.5-5.1) mmol/L Chloride (98-107) mmol/L Carbon Dioxide (22-30) mmol/L Anion Gap mmol/L BUN (9-20) mg/dL Creatinine (0.66-1.25) mg/dL Est GFR (CKD-EPI)AfAm (>60 ml/min/1.73 sqM) Est GFR (CKD-EPI)NonAf (>60 ml/min/1.73 sqM) Glucose (74-99) mg/dL Plasma Lactic Acid [place] 1.6 (0.7-2.0) mmol/L Calcium (8.4-10.2) mg/dL Magnesium (1.6-2.3) mg/dL Total Bilirubin (0.2-1.3) mg/dL AST (17-59) U/L ALT (4-49) U/L Alkaline Phosphatase (38-126) U/L Troponin I <0.012 (0.000-0.034) ng/mL NT-Pro-B Natriuret Pep 340 pg/mL Total Protein (6.3-8.2) g/dL Albumin (3.5-5.0) g/dL Disposition <Robert Stuart - Last Filed: 09/05/20 18:48> Is patient prescribed a controlled substance at d/c from ED?: No Time of Disposition: 20:31 <Salvador Flores - Last Filed: 09/06/20 17:42> Clinical Impression: Hypertensive urgency, COVID-19 Disposition: HOME SELF-CARE Condition: Good Instructions (If sedation given, give patient instructions): Hypertension (ED) Additional Instructions: Patient should return if there is any difficulty breathing or chest pain. Prescriptions: amLODIPine [Norvasc] 5 mg PO DAILY #10 tab Referrals: Pati Hoffmann MD [Primary Care Provider] - 1-2 days
[2020-09-05 18:06] LABS: ALT 35 U/L (4-49); AST 22 U/L (17-59); African American GFR (CKD) >90 (>60 ml/min/1.73 sqM); Albumin 3.3 g/dL (3.5-5.0); Alkaline Phosphatase 65 U/L (38-126); Anion Gap 8 mmol/L; Blood Urea Nitrogen 26 mg/dL (9-20); Calcium 8.8 mg/dL (8.4-10.2); Carbon Dioxide 21 mmol/L (22-30); Chloride 105 mmol/L (98-107); Glucose 88 mg/dL (74-99); Magnesium 2.3 mg/dL (1.6-2.3); Non-African American GFR(CKD) 81 (>60 ml/min/1.73 sqM); Potassium 4.8 mmol/L (3.5-5.1); Sodium 134 mmol/L (137-145); Total Bilirubin 0.5 mg/dL (0.2-1.3); Total Protein 6.5 g/dL (6.3-8.2)
[2020-09-05 18:10] LABS: Basophils # (A) 0.1 k/uL (0-0.2); Basophils % (A) 1 %; Eosinophils % (A) 0 %; HCT 46.9 % (39.0-53.0); HGB 15.2 gm/dL (13.0-17.5); Lymphocytes # (A) 2.1 k/uL (1.0-4.8); Lymphocytes % (A) 15 %; MCH 31.3 pg (25.0-35.0); MCHC 32.4 g/dL (31.0-37.0); MCV 96.6 fL (80.0-100.0); Mean Platelet Volume 9.2; Monocytes % (A) 7 %; Neutrophils # (A) 10.9 k/uL (1.3-7.7); Neutrophils % (A) 75 %; Platelet Count 290 k/uL (150-450); RBC 4.85 m/uL (4.30-5.90); WBC 14.4 k/uL (3.8-10.6)
--- NOTE | 2020-09-05 18:12 | XR ---
EXAMINATION TYPE: XR chest 2V DATE OF EXAM: 09/05/2020 COMPARISON: 10/10/2019. HISTORY: Shortness of breath. TECHNIQUE: Frontal and lateral views of the chest are obtained. FINDINGS: There is subtle mild bibasilar hazy opacity. No pleural effusion, or pneumothorax seen. T he cardiac silhouette size is within normal limits. The osseous structures are intact. IMPRESSION: Subtle mild bibasilar atelectasis versus infiltrate.
[2020-09-05 18:34] LABS: D-Dimer 0.95 mg/L FEU (<0.60); INR 0.9 (<1.2); Partial Thromboplastin Time 21.5 sec (22.0-30.0); Prothrombin Time 9.8 sec (9.0-12.0)
--- NOTE | 2020-09-05 19:32 | CT ---
EXAMINATION TYPE: CT chest angio for PE DATE OF EXAM: 09/05/2020 COMPARISON: Same-day radiograph. CT 10/09/2019. HISTORY: elevated d-dimer, SOB, +covid CT DLP: 445.2 mGycm Automated exposure control for dose reduction was used. CONTRAST: CT Chest for pulmonary embolism performed with with IV Contrast, patient injected with 95cc mL of Iso ayana 370. FINDINGS: LUNGS: There is bilateral diffuse mild to moderate patchy ground glass opacities with random pattern and most notable in the mid to lower lungs. There is no pleural effusion or pneumothorax seen. MEDIASTINUM: There is satisfactory enhancement of the pulmonary artery and its branches, there is no CT evidence for pulmonary embolism. There are no greater than 1 cm hilar or mediastinal lymph nodes. No pericardial effusion is seen. OTHER: No additional significant abnormality is seen. There is moderate levoconvex curvature of the thoracic spine. IMPRESSION: Bilateral diffuse patchy ground glass opacity, consistent with Covid pneumonia. No evidence of PE.
[2020-09-05] MEDS ORDERED: hydrALAZINE HCL 20 MG/ML 1 ML VIAL IVP STA (19:55)
[2020-09-05 20:24] VITALS: RESP 20
[2020-09-05 20:46] VITALS: BP 144/88; PULSE 56
== END 2020-09-05 20:46 | disposition home or self-care (01) ==
LOC: EC 15:39
DX: U07.1 COVID-19 (principal); I16.0 Hypertensive urgency; R91.8 Other nonspecific abnormal finding of lung field; M10.9 Gout, unspecified; Z79.899 Other long term (current) drug therapy; Z79.82 Long term (current) use of aspirin
CPT/HCPCS: 99285; 96374; 36415; 93005; 85379; 83880; 80053; 83605; 83735; 84484; 85025; 85610; 85730; 71046; 71275; J0360; Q9967

== ENCOUNTER 2020-09-07 21:35 | Inpatient (IN) | payer MEDICARE ==
--- NOTE | 2020-09-07 23:08 | ED ---
General Adult HPI - General Chief complaint: Shortness of Breath Stated complaint: Revist,Light headed Time Seen by Provider: 09/07/20 22:13 Source: patient, RN notes reviewed, old records reviewed Mode of arrival: ambulatory Limitations: no limitations - History of Present Illness Initial comments: 70-year-old male presenting for evaluation of cough, dizziness, shortness of breath. Patient was diagnosed with coronavirus approximately 2 weeks ago. He states he did have pneumonia at that time and was not treated as this was a viral pneumonia. He continues to have chills. He has generalized weakness and fatigue. He was sent in by his primary care physician for treatment of suspected bacterial pneumonia. - Related Data Home Medications Medication Instructions Recorded Confirmed allopurinoL [Zyloprim] 300 mg PO HS 12/18/17 09/05/20 Aspirin 81 mg PO HS 07/20/19 09/05/20 Allergy Otc(Unknown) 1 tab PO DAILY 09/05/20 09/05/20 Vitamin C(Unknown Dose) 1 tab PO DAILY 09/05/20 09/05/20 Vitamin D3(Unknown Dose) 1 tab PO DAILY 09/05/20 09/05/20 Previous Rx's Medication Instructions Recorded amLODIPine [Norvasc] 5 mg PO DAILY #10 tab 09/05/20 Allergies Allergy/AdvReac Type Severity Reaction Status Date / Time No Known Allergies Allergy Verified 09/07/20 21:48 Review of Systems ROS Statement: Those systems with pertinent positive or pertinent negative responses have been documented in the HPI. ROS Other: All systems not noted in ROS Statement are negative. Past Medical History Past Medical History: No Reported History Additional Past Medical History / Comment(s): gout, PAD,, gall bladder stones,scoliosis History of Any Multi-Drug Resistant Organisms: None Reported Past Surgical History: Appendectomy, Tonsillectomy Additional Past Surgical History / Comment(s): bilat cataracts; repair laceration L finger;fem./aortal bypass, polps removed from bladder benign, colonoscopy Past Anesthesia/Blood Transfusion Reactions: No Reported Reaction Past Psychological History: No Psychological Hx Reported Smoking Status: Never smoker Past Alcohol Use History: Occasional Past Drug Use History: None Reported - Past Family History Mother Family Medical History: Cancer Additional Family Medical History / Comment(s): cervical, breast, liver Father Family Medical History: Cancer Additional Family Medical History / Comment(s): suicide, brain tumor Sister(s) Family Medical History: No Reported History Brother(s) Family Medical History: No Reported History Son(s) Family Medical History: No Reported History Daughter(s) Family Medical History: No Reported History General Exam Limitations: no limitations General appearance: alert, in no apparent distress Head exam: Present: atraumatic, normocephalic Eye exam: Present: normal appearance, PERRL ENT exam: Present: normal exam Neck exam: Present: normal inspection. Absent: tenderness Respiratory exam: Present: rhonchi, decreased breath sounds. Absent: respiratory distress Cardiovascular Exam: Present: regular rate, normal rhythm GI/Abdominal exam: Present: soft. Absent: distended, tenderness Extremities exam: Present: normal inspection, normal capillary refill. Absent: pedal edema Neurological exam: Present: alert, oriented X3, CN II-XII intact. Absent: motor sensory deficit Psychiatric exam: Present: normal affect, normal mood Skin exam: Present: warm, dry, intact. Absent: cyanosis, diaphoretic Course Vital Signs 09/07/20 09/07/20 21:43 22:19 Temperature 98.1 F Pulse Rate 85 Respiratory 16 16 Rate Blood Pressure 138/75 O2 Sat by Pulse 98 Oximetry EKG Findings - EKG Comments: EKG Findings:: EKG sinus rhythm with PVC, rate of 79, PA interval 206, QRS duration 100 QTC 435, no ST segment elevation. Medical Decision Making - Medical Decision Making 70-year-old male sent in from primary care office for evaluation generalized weakness, dehydration, cough, recent diagnosis of coronavirus. Workup is initiated, patient has leukocytosis 14.7. Stable hemoglobin. He has a creatinine 1.43 consistent with acute kidney injury dehydration, mild lactic acidosis of 2.4. Chest x-ray showed fibrotic changes. Patient has been initiated on IV fluids and IV antibiotics. He will be admitted for hydration. Case discussed with the admitting physician Dr. Hoffmann. - Lab Data Result diagrams: 09/07/20 22:41 09/07/20 22:41 Lab Results 09/07/20 09/07/20 09/07/20 Range/Units 22:41 22:41 22:41 WBC 14.7 H (3.8-10.6) k/uL RBC 4.77 (4.30-5.90) m/uL Hgb 15.5 (13.0-17.5) gm/dL Hct 46.1 (39.0-53.0) % MCV 96.5 (80.0-100.0) fL MCH 32.4 (25.0-35.0) pg MCHC 33.6 (31.0-37.0) g/dL RDW 13.8 (11.5-15.5) % Plt Count 226 (150-450) k/uL MPV 7.6 Neutrophils % 88 % Lymphocytes % 8 % Monocytes % 2 % Eosinophils % 1 % Basophils % 1 % Neutrophils # 12.9 H (1.3-7.7) k/uL Lymphocytes # 1.2 (1.0-4.8) k/uL Monocytes # 0.4 (0-1.0) k/uL Eosinophils # 0.1 (0-0.7) k/uL Basophils # 0.1 (0-0.2) k/uL PT 9.9 (9.0-12.0) sec INR 0.9 (<1.2) APTT 23.0 (22.0-30.0) sec Sodium 130 L (137-145) mmol/L Potassium 5.3 H (3.5-5.1) mmol/L Chloride 102 (98-107) mmol/L Carbon Dioxide 21 L (22-30) mmol/L Anion Gap 7 mmol/L BUN 29 H (9-20) mg/dL Creatinine 1.43 H (0.66-1.25) mg/dL Est GFR (CKD-EPI)AfAm 58 (>60 ml/min/1.73 sqM) Est GFR (CKD-EPI)NonAf 50 (>60 ml/min/1.73 sqM) Glucose 178 H (74-99) mg/dL Plasma Lactic Acid Colton (0.7-2.0) mmol/L Calcium 8.5 (8.4-10.2) mg/dL Total Bilirubin 0.6 (0.2-1.3) mg/dL AST 26 (17-59) U/L ALT 31 (4-49) U/L Alkaline Phosphatase 65 (38-126) U/L Total Protein 6.4 (6.3-8.2) g/dL Albumin 3.2 L (3.5-5.0) g/dL Influenza Type A RNA (Not Detectd) Influenza Type B (PCR) (Not Detectd) 09/07/20 09/07/20 Range/Units 22:41 22:41 WBC (3.8-10.6) k/uL RBC (4.30-5.90) m/uL Hgb (13.0-17.5) gm/dL Hct (39.0-53.0) % MCV (80.0-100.0) fL MCH (25.0-35.0) pg MCHC (31.0-37.0) g/dL RDW (11.5-15.5) % Plt Count (150-450) k/uL MPV Neutrophils % % Lymphocytes % % Monocytes % % Eosinophils % % Basophils % % Neutrophils # (1.3-7.7) k/uL Lymphocytes # (1.0-4.8) k/uL Monocytes # (0-1.0) k/uL Eosinophils # (0-0.7) k/uL Basophils # (0-0.2) k/uL PT (9.0-12.0) sec INR (<1.2) APTT (22.0-30.0) sec Sodium (137-145) mmol/L Potassium (3.5-5.1) mmol/L Chloride (98-107) mmol/L Carbon Dioxide (22-30) mmol/L Anion Gap mmol/L BUN (9-20) mg/dL Creatinine (0.66-1.25) mg/dL Est GFR (CKD-EPI)AfAm (>60 ml/min/1.73 sqM) Est GFR (CKD-EPI)NonAf (>60 ml/min/1.73 sqM) Glucose (74-99) mg/dL Plasma Lactic Acid Colton 2.4 H* (0.7-2.0) mmol/L Calcium (8.4-10.2) mg/dL Total Bilirubin (0.2-1.3) mg/dL AST (17-59) U/L ALT (4-49) U/L Alkaline Phosphatase (38-126) U/L Total Protein (6.3-8.2) g/dL Albumin (3.5-5.0) g/dL Influenza Type A RNA Not Detected (Not Detectd) Influenza Type B (PCR) Not Detected (Not Detectd) Disposition Clinical Impression: Dehydration, LENNOX (acute kidney injury), Pneumonia Disposition: ADMITTED IP TO THIS HOSP Condition: Stable Is patient prescribed a controlled substance at d/c from ED?: No Referrals: Pati Hoffmann MD [Primary Care Provider] - 1-2 days Decision to Admit Reason: Admit from EC Decision Date: 09/08/20 Decision Time: 00:15
[2020-09-07 23:13] LABS: Basophils # (A) 0.1 k/uL (0-0.2); Basophils % (A) 1 %; Eosinophils # (A) 0.1 k/uL (0-0.7); Eosinophils % (A) 1 %; HCT 46.1 % (39.0-53.0); HGB 15.5 gm/dL (13.0-17.5); Lymphocytes # (A) 1.2 k/uL (1.0-4.8); Lymphocytes % (A) 8 %; MCH 32.4 pg (25.0-35.0); MCHC 33.6 g/dL (31.0-37.0); MCV 96.5 fL (80.0-100.0); Mean Platelet Volume 7.6; Monocytes # (A) 0.4 k/uL (0-1.0); Monocytes % (A) 2 %; Neutrophils # (A) 12.9 k/uL (1.3-7.7); Neutrophils % (A) 88 %; Platelet Count 226 k/uL (150-450); RBC 4.77 m/uL (4.30-5.90); RDW 13.8 % (11.5-15.5); WBC 14.7 k/uL (3.8-10.6)
[2020-09-07 23:22] LABS: Albumin 3.2 g/dL (3.5-5.0); Calcium 8.5 mg/dL (8.4-10.2); Potassium 5.3 mmol/L (3.5-5.1); Total Bilirubin 0.6 mg/dL (0.2-1.3); Total Protein 6.4 g/dL (6.3-8.2)
[2020-09-07 23:23] LABS: INR 0.9 (<1.2); Prothrombin Time 9.9 sec (9.0-12.0)
--- NOTE | 2020-09-07 23:40 | XR ---
EXAMINATION TYPE: XR chest 2V DATE OF EXAM: 09/07/2020 COMPARISON: 09/05/2020 HISTORY: Short of breath TECHNIQUE: 2 views FINDINGS: Heart is normal. Lungs are clear of consolidation. There are no hilar masses. There is slig ht coarsening of interstitial markings. IMPRESSION: Minimal fibrotic changes. Normal heart. No significant change compared to recent exam.
[2020-09-08] MEDS ORDERED: SODIUM CHLORIDE 0.9% 500 ML 500 ML IV ONE ×2 (00:03→04:21)
[2020-09-08] MEDS ORDERED: NALOXONE 0.4 MG/ML 1 ML VIAL IV PRN (00:12)
[2020-09-08] MEDS ORDERED: ONDANSETRON 4 MG/2 ML VIAL IVP PRN (00:12)
[2020-09-08] MEDS ORDERED: ACETAMINOPHEN TAB 325 MG TAB PO PRN (00:12)
[2020-09-08] MEDS: SODIUM CHLORIDE 0.9% 1,000 ML IV SCH ×2 (00:22→16:14)
[2020-09-08 09:45] LABS: Albumin 3.2 g/dL (3.80-4.90); Albumin/Globulin Ratio 1.45 (1.60-3.17); BUN/Creat Ratio 24.55 Ratio (12.00-20.00); Calcium 8.2 mg/dL (8.7-10.3); Globulin 2.2 g/dL (1.6-3.3); Non-African American GFR(CKD) 68.1 (60.0-200.0); Potassium 4.9 mmol/L (3.5-5.5); Total Bilirubin 0.2 mg/dL (0.2-1.2); Total Protein 5.4 g/dL (6.2-8.2)
[2020-09-08 10:42] LABS: Basophils % (A) 0 %; Eosinophils # (A) 0.1 k/uL (0-0.7); Eosinophils % (A) 1 %; HCT 43.7 % (39.0-53.0); HGB 14.1 gm/dL (13.0-17.5); Lymphocytes # (A) 1.2 k/uL (1.0-4.8); Lymphocytes % (A) 10 %; MCH 31.6 pg (25.0-35.0); MCHC 32.2 g/dL (31.0-37.0); MCV 98.1 fL (80.0-100.0); Mean Platelet Volume 9.5; Monocytes # (A) 0.3 k/uL (0-1.0); Monocytes % (A) 3 %; Neutrophils # (A) 10.3 k/uL (1.3-7.7); Neutrophils % (A) 86 %; Platelet Count 255 k/uL (150-450); RBC 4.46 m/uL (4.30-5.90); RDW 14.2 % (11.5-15.5); WBC 12.1 k/uL (3.8-10.6)
[2020-09-08] MEDS: CHOLECALCIFEROL 1,000 UNIT TAB PO SCH (13:13)
[2020-09-08] MEDS: amLODIPine 5 MG TAB PO SCH (13:13)
[2020-09-08] MEDS: ASCORBIC ACID 500 MG TAB PO SCH (13:13)
[2020-09-08] MEDS: dexAMETHasone 4 MG TAB PO SCH (13:13)
[2020-09-08 15:28] VITALS: BMI 29.6
--- NOTE | 2020-09-08 18:28 | P.HPIM ---
History of Present Illness H&P Date: 09/08/20 Ryne Fields, he is a 70-year-old male well-known to my practice who presented to the office on 09/07/2020 due to worsening shortness of breath and cough, patient was seen 10 days prior at that time he underwent nasal swab for Covid 19 that was positive he was given a course of Decadron patient felt well until he finished the course of Decadron he started having worsening shortness of breath he return to the office and was sent to [facility] emergency room he was evaluated there and was admitted to medical floor, pulmonary consultation and infectious disease consultation was requested. On review of systems patient is complaining of generalized fatigue and weakness he is also complaining of lightheadedness and dizziness, he is complaining of occasional cough and shortness of breath with activity otherwise he denies any complaints there is no fever or chills no headache no chest pain no palpitation no nausea or vomiting no abdominal pain no diarrhea no blood in the stools no burning with urination no frequency or urgency and no hematuria Past Medical History Past Medical History: No Reported History Additional Past Medical History / Comment(s): gout, PAD,, gall bladder stones,scoliosis, covid positive aug 21 2020 History of Any Multi-Drug Resistant Organisms: None Reported Past Surgical History: Appendectomy, Tonsillectomy Additional Past Surgical History / Comment(s): bilat cataracts; repair laceration L finger;fem./aortal bypass, polps removed from bladder benign, colonoscopy Past Anesthesia/Blood Transfusion Reactions: No Reported Reaction Past Psychological History: Anxiety Smoking Status: Never smoker Past Alcohol Use History: Occasional Additional Past Alcohol Use History / Comment(s): quit smoking 2010; smoked from teens to age 61 about 1ppd Past Drug Use History: None Reported - Past Family History Mother Family Medical History: Cancer Additional Family Medical History / Comment(s): cervical, breast, liver Father Family Medical History: Cancer Additional Family Medical History / Comment(s): suicide, brain tumor Sister(s) Family Medical History: No Reported History Brother(s) Family Medical History: No Reported History Son(s) Family Medical History: No Reported History Daughter(s) Family Medical History: No Reported History Medications and Allergies Home Medications Medication Instructions Recorded Confirmed Type allopurinoL [Zyloprim] 300 mg PO HS 12/18/17 09/08/20 History Aspirin 81 mg PO HS 07/20/19 09/08/20 History Allergy Otc(Unknown) 1 tab PO DAILY 09/05/20 09/08/20 History Vitamin C(Unknown Dose) 1 tab PO DAILY 09/05/20 09/08/20 History amLODIPine [Norvasc] 5 mg PO DAILY #10 tab 09/05/20 09/08/20 Rx Cholecalciferol [Vitamin D3 (25 5,000 unit PO DAILY 09/08/20 09/08/20 History Mcg = 1000 Iu)] dexAMETHasone [Dexamethasone] 4 mg PO DAILY 09/08/20 09/08/20 History Allergies Allergy/AdvReac Type Severity Reaction Status Date / Time No Known Allergies Allergy Verified 09/08/20 08:05 Physical Exam Vitals: Vital Signs Temp Pulse Pulse Resp BP BP Pulse Ox 09/08/20 05:36 98.0 F 83 16 129/52 94 L 09/08/20 01:50 97.9 F 62 16 151/66 99 09/08/20 00:54 97.8 F 87 18 143/81 97 09/08/20 00:00 18 96 09/07/20 22:19 16 09/07/20 21:43 98.1 F 85 16 138/75 98 Intake and Output 09/07/20 09/08/20 09/08/20 22:59 06:59 14:59 Intake Total 150 Balance 150 Intake: Intake, IV Titration 150 Amount Sodium Chloride 0.9% 1, 150 000 ml @ 75 mls/hr IV . [id number] [facility] Rx#:[id number] Other: Voiding Method Toilet Weight 88.451 kg 88.451 kg In general patient is alert and oriented 3 in no apparent distress HEENT head normocephalic and atraumatic Neck is supple no JVD no goiter no lymphadenopathy no carotid bruit Chest exam reveals a few scattered rhonchi no wheezing Cardiac exam reveals regular heart sounds S1 and S2 no gallops no murmurs nor rubs Abdomen is soft nontender no organomegaly with normal bowel sounds Extremity exam reveals no edema no cyanosis or clubbing Neurological examination reveals no gross focal deficit Results CBC & Chem 7: 09/08/20 06:01 09/08/20 06:01 Labs: Abnormal Lab Results - Last 24 Hours (Table) 09/07/20 09/07/20 09/07/20 Range/Units 22:41 22:41 22:41 WBC 14.7 H (3.8-10.6) k/uL Neutrophils # 12.9 H (1.3-7.7) k/uL Sodium 130 L (137-145) mmol/L Potassium 5.3 H (3.5-5.1) mmol/L Carbon Dioxide 21 L (22-30) mmol/L BUN 29 H (9-20) mg/dL Creatinine 1.43 H (0.66-1.25) mg/dL BUN/Creatinine Ratio (12.00-20.00) Ratio Glucose 178 H (74-99) mg/dL Plasma Lactic Acid Colton 2.4 H* (0.7-2.0) mmol/L Calcium (8.7-10.3) mg/dL Total Protein (6.2-8.2) g/dL Albumin 3.2 L (3.5-5.0) g/dL Albumin/Globulin Ratio (1.60-3.17) g/dL 09/08/20 09/08/20 09/08/20 Range/Units 02:36 06:01 06:01 WBC (3.8-10.6) k/uL Neutrophils # (1.3-7.7) k/uL Sodium 133 L (137-145) mmol/L Potassium (3.5-5.1) mmol/L Carbon Dioxide 21.0 L (22-30) mmol/L BUN (9-20) mg/dL Creatinine (0.66-1.25) mg/dL BUN/Creatinine Ratio 24.55 H (12.00-20.00) Ratio Glucose 219 H (74-99) mg/dL Plasma Lactic Acid Colton 2.7 H* 2.9 H* (0.7-2.0) mmol/L Calcium 8.2 L (8.7-10.3) mg/dL Total Protein 5.4 L (6.2-8.2) g/dL Albumin 3.20 L (3.5-5.0) g/dL Albumin/Globulin Ratio 1.45 L (1.60-3.17) g/dL 09/08/20 Range/Units 08:53 WBC (3.8-10.6) k/uL Neutrophils # (1.3-7.7) k/uL Sodium (137-145) mmol/L Potassium (3.5-5.1) mmol/L Carbon Dioxide (22-30) mmol/L BUN (9-20) mg/dL Creatinine (0.66-1.25) mg/dL BUN/Creatinine Ratio (12.00-20.00) Ratio Glucose (74-99) mg/dL Plasma Lactic Acid Colton 2.4 H* (0.7-2.0) mmol/L Calcium (8.7-10.3) mg/dL Total Protein (6.2-8.2) g/dL Albumin (3.5-5.0) g/dL Albumin/Globulin Ratio (1.60-3.17) g/dL Thrombosis Risk Factor Assmnt - Choose All That Apply Any of the Below Risk Factors Present?: Yes Each Factor Represents 1 point: Obesity (BMI >25) Other Risk Factors: Yes Each Risk Factor Represents 2 Points: Age 61-74 years Other congenital or acquired thrombophilia - If yes, enter type in comment: No Thrombosis Risk Factor Assessment Total Risk Factor Score: 3 Thrombosis Risk Factor Assessment Level: Moderate Risk Assessment and Plan Plan: 1. Covid 19 infection diagnosed 10 days ago patient received a course of Decadron At this time patient is admitted to medical floor he was restarted on Decadron pulmonary and infectious disease consultation requested 2. Underlying history of gout, maintained on allopurinol continue 3. Underlying history of hypertension continue with Norvasc 4. For DVT and PE prophylaxis patient was started on subcu Lovenox 5. Will follow during this admission for medical management please see orders
[2020-09-08] MEDS: ENOXAPARIN 40 MG/0.4 ML SYRINGE SQ SCH (20:05)
[2020-09-08] MEDS: allopurinoL 300 MG TAB PO SCH (20:05)
[2020-09-08] MEDS: ASPIRIN 81 MG PO SCH (20:05)
[2020-09-09] MEDS: SODIUM CHLORIDE 0.9% 1,000 ML IV SCH ×2 (04:26→16:49)
--- NOTE | 2020-09-09 06:22 | CONS ---
CONSULTATION DATE OF SERVICE: 09/08/2020 REASON FOR CONSULTATION: COVID-19 infection and pneumonia HISTORY OF PRESENT ILLNESS: The patient is a 70-year-old male, symptoms started on August 21, 2020. The patient mentioned he did have testing on August 22 that came back positive. The patient has been treated with steroids and antibiotic in the outpatient setting. Did not have significant improvement. The patient was evaluated at [facility] ER last Sunday with main symptoms of weakness and dizziness unable to get up and around along with shortness of breath. The patient did have a mild cough, not bringing any sputum. No nausea, no vomiting or any diarrhea. The patient did have a follow up with his primary care physician yesterday from ER followup. The patient was sent back to the ER with concern for possible bacterial pneumonia. On presentation to the hospital, the patient was afebrile. The patient is currently saturating 97-96% on room air and was not tachycardic. The patient did have white count of 12.1 with left shift. BUN of 27, creatinine 1.1. Did have elevated lactic acid. CRP was 2.2. The patient did have a chest x-ray, mild fibrotic changes, normal heart. No significant change from recent exam. Patient was admitted to the hospital. The patient has been started on Tylenol, Zyloprim, Norvasc, Rocephin and Infectious Disease was consulted for further management. REVIEW OF SYSTEMS: Positive points have been mentioned in HPI. Rest of systems are negative. PAST MEDICAL HISTORY: Gout, PAD, gallstones, scoliosis. PAST SURGICAL HISTORY: Appendectomy, tonsillectomy, bilateral cataract surgery, infection left finger, femoral-popliteal from femoral artery bypass, colonoscopy. SOCIAL HISTORY: Smoking. Denies drinking or drug use. FAMILY HISTORY: Mother with history of cervical and breast cancer. Father from suicide. ALLERGIES: No known drug allergies. MEDICATIONS: The patient is currently on IV fluids, , Zofran Narcan, NovoLog, dexamethasone, Rocephin aspirin, Norvasc, Zyloprim. PHYSICAL EXAMINATION: Blood pressure 133/68 with a pulse of 90, temperature 98.3, he is 94% on room air. GENERAL DESCRIPTION: The patient is an elderly male up in the bed in no distress. No tachypnea or accessory muscles of respiration use. HEENT: Examination shows no pallor or scleral icterus. Oral mucous moist. NECK: Trachea central, no thyromegaly. LUNGS: Unlabored breathing, decreased breath sounds in the base, no wheeze. HEART: S1, S2. Regular rate and rhythm. ABDOMEN: Soft, no tenderness. No rigidity. EXTREMITIES: No edema of the feet. SKIN: No rash or mass palpable. NEUROLOGIC: The patient is awake, alert, oriented. Mood and affect normal. LABS: Hemoglobin is 14.1, white count 10.3, BUN of 27, creatinine 1.1, 2.9. Liver enzymes normal. CRP mildly elevated. DIAGNOSTIC IMPRESSION: Patient admitted to the hospital with increasing shortness of breath and cough. This patient has been diagnosed with COVID-19 infection about two weeks ago, now with symptom of mostly generalized weakness, no energy, with concern for possible dehydration plus-minus component of pneumonia. PLAN: 1. We will try to obtain sputum for Gram stain and culture. 2. Check a procalcitonin level. 3. Continue with Rocephin 1 g daily along with dexamethasone, Lovenox, and zinc. 4. We will follow on his clinical condition and culture to further adjust medication if needed. Thank you for this consultation. Will follow this patient along with you. MMODL / IJN: [id number] /
[2020-09-09] MEDS: ASCORBIC ACID 500 MG TAB PO SCH (08:58)
[2020-09-09] MEDS: LORATADINE 10 MG TAB PO SCH (08:58)
[2020-09-09] MEDS: dexAMETHasone 4 MG TAB PO SCH (08:58)
[2020-09-09] MEDS: CHOLECALCIFEROL 1,000 UNIT TAB PO SCH (08:58)
[2020-09-09] MEDS: ENOXAPARIN 40 MG/0.4 ML SYRINGE SQ SCH (08:58)
[2020-09-09] MEDS: amLODIPine 5 MG TAB PO SCH (08:58)
--- NOTE | 2020-09-09 13:42 | P.PN ---
Subjective Progress Note Date: 09/09/20 Ryne Fields, he is a 70-year-old male well-known to my practice who presented to the office on 09/07/2020 due to worsening shortness of breath and cough, patient was seen 10 days prior at that time he underwent nasal swab for Covid 19 that was positive he was given a course of Decadron patient felt well until he finished the course of Decadron he started having worsening shortness of breath he return to the office and was sent to [facility] emergency room he was evaluated there and was admitted to medical floor, pulmonary consultation and infectious disease consultation was requested. On review of systems patient is complaining of generalized fatigue and weakness he is also complaining of lightheadedness and dizziness, he is complaining of occasional cough and shortness of breath with activity otherwise he denies any complaints there is no fever or chills no headache no chest pain no palpitation no nausea or vomiting no abdominal pain no diarrhea no blood in the stools no b urning with urination no frequency or urgency and no hematuria On 09/09/2020 patient was seen and examined on the medical floor he is alert and oriented 3 in no apparent distress, he is complaining of cough with mild sputum production shortness of breath and lightheadedness he states he is feeling somewhat better than yesterday otherwise he denies any complaints there is no fever or chills no headache or dizziness no chest pain palpitation no nausea or vomiting no abdominal pain no diarrhea no blood in the stools and no urinary symptoms. Recommendation from infectious disease reviewed will repeat chest x- ray in a.m. Will try to obtain sputum sample continue current management at this time. Objective - Vital Signs Vital signs: Vital Signs Temp 97.7 F 09/09/20 11:15 Pulse 69 09/09/20 11:15 Resp 17 09/09/20 11:15 BP 121/68 09/09/20 11:15 Pulse Ox 96 09/09/20 11:15 Intake & Output 09/08/20 09/09/20 09/09/20 18:59 06:59 18:59 Intake Total 650 1000 Balance 650 1000 Weight 88.451 kg Intake: Intake, IV Titration 650 600 Amount Sodium Chloride 0.9% 1, 650 600 000 ml @ 75 mls/hr IV . [id number] [facility] Rx#:[id number] Oral 400 Other: Voiding Method Toilet Toilet # Voids 3 - Exam In general patient is alert and oriented 3 in no apparent distress HEENT head normocephalic and atraumatic Neck is supple no JVD no goiter no lymphadenopathy no carotid bruit Chest exam reveals a few scattered rhonchi no wheezing Cardiac exam reveals regular heart sounds S1 and S2 no gallops no murmurs nor rubs Abdomen is soft nontender no organomegaly with normal bowel sounds Extremity exam reveals no edema no cyanosis or clubbing Neurological examination reveals no gross focal deficit - Labs CBC & Chem 7: 09/08/20 06:01 09/08/20 06:01 Labs: Abnormal Lab Results - Last 24 Hours (Table) 09/08/20 Range/Units 06:01 C-Reactive Protein 2.2 H (0.0-0.8) mg/dL Microbiology - Last 24 Hours (Table) 09/07/20 22:41 Blood Culture - Preliminary Blood No Growth after 24 hours Assessment and Plan Plan: 1. Covid 19 infection diagnosed 10 days ago patient received a course of Decadron At this time patient is admitted to medical floor he was restarted on Decadron pulmonary and infectious disease consultation requested 2. Underlying history of gout, maintained on allopurinol continue 3. Underlying history of hypertension continue with Norvasc 4. For DVT and PE prophylaxis patient was started on subcu Lovenox 5. Will follow during this admission for medical management please see orders
[2020-09-09] MEDS: ASPIRIN 81 MG PO SCH (20:16)
[2020-09-09] MEDS: allopurinoL 300 MG TAB PO SCH (20:16)
[2020-09-10] MEDS: SODIUM CHLORIDE 0.9% 1,000 ML IV SCH ×3 (04:22→17:15)
--- NOTE | 2020-09-10 07:07 | PN ---
PROGRESS NOTE DATE OF SERVICE: 09/10/2020 REASON FOR FOLLOWUP: Possible pneumonia. INTERVAL HISTORY: The patient is currently afebrile. The patient is breathing comfortably. Patient denies having any chest pain or shortness. Has minimal cough. No nausea, no vomiting. No abdominal pain, no diarrhea. PHYSICAL EXAMINATION: Blood pressure 154/76, pulse of 69, temperature 98.8. He is 96% on room air. General description is a middle-aged male up in the bed in no distress. Respiratory system: Unlabored breathing, decreased breath sounds at bases. No wheeze. Heart S1, S2. Regular rate and rhythm. Abdomen is soft, no tenderness. LABS: No new labs have been obtained. Blood culture has been negative so far. DIAGNOSTIC IMPRESSION AND PLAN: Patient admitted to the hospital with increasing shortness of breath and cough with recent diagnosis of COVID-19 infection and concern for possible pneumonia. Patient is covered with Rocephin, Lovenox, dexamethasone and to continue and monitor clinical course closely. MMODL / IJN: [id number] /
--- NOTE | 2020-09-10 08:01 | XR ---
EXAMINATION TYPE: XR chest 1V DATE OF EXAM: 09/10/2020 HISTORY: Shortness of breath. COMPARISON: 09/07/2020 TECHNIQUE: Single view of the chest is submitted. FINDINGS: Demonstrated are scattered senescent parenchymal change. There is no evidence for focal infiltrate. The heart is stable. Hilar and mediastinal structures are within normal limits. Degenerative changes are seen of the dorsal spine. IMPRESSION: 1. Chronic changes without evidence for acute pulmonary disease.
[2020-09-10] MEDS: ENOXAPARIN 40 MG/0.4 ML SYRINGE SQ SCH (09:11)
[2020-09-10] MEDS: LORATADINE 10 MG TAB PO SCH (09:12)
[2020-09-10] MEDS: ASCORBIC ACID 500 MG TAB PO SCH (09:12)
[2020-09-10] MEDS: CHOLECALCIFEROL 1,000 UNIT TAB PO SCH (09:12)
[2020-09-10] MEDS: dexAMETHasone 4 MG TAB PO SCH (09:12)
[2020-09-10] MEDS: amLODIPine 5 MG TAB PO SCH (09:12)
--- NOTE | 2020-09-10 12:36 | P.PN ---
Subjective Progress Note Date: 09/10/20 Ryne Fields, he is a 70-year-old male well-known to my practice who presented to the office on 09/07/2020 due to worsening shortness of breath and cough, patient was seen 10 days prior at that time he underwent nasal swab for Covid 19 that was positive he was given a course of Decadron patient felt well until he finished the course of Decadron he started having worsening shortness of breath he return to the office and was sent to [facility] emergency room he was evaluated there and was admitted to medical floor, pulmonary consultation and infectious disease consultation was requested. On review of systems patient is complaining of generalized fatigue and weakness he is also complaining of lightheadedness and dizziness, he is complaining of occasional cough and shortness of breath with activity otherwise he denies any complaints there is no fever or chills no headache no chest pain no palpitation no nausea or vomiting no abdominal pain no diarrhea no blood in the stools no b urning with urination no frequency or urgency and no hematuria On 09/09/2020 patient was seen and examined on the medical floor he is alert and oriented 3 in no apparent distress, he is complaining of cough with mild sputum production shortness of breath and lightheadedness he states he is feeling somewhat better than yesterday otherwise he denies any complaints there is no fever or chills no headache or dizziness no chest pain palpitation no nausea or vomiting no abdominal pain no diarrhea no blood in the stools and no urinary symptoms. Recommendation from infectious disease reviewed will repeat chest x- ray in a.m. Will try to obtain sputum sample continue current management at this time. On 09/10/2020 patient was seen and examined on the medical floor he is complaining of generalized weakness he is complaining of cough with sputum production otherwise he denies any complaints there is no fever or chills no headache or dizziness no chest pain no shortness of breath, no nausea or v omiting no abdominal pain no diarrhea no blood in the stools no burning with urination no frequency or urgency and no hematuria. Possibility of discharge home discussed with patient he is still not feeling ready due to generalized weakness will recheck labs and recheck patient in a.m. Objective - Vital Signs Vital signs: Vital Signs Temp 97.7 F 09/10/20 07:45 Pulse 64 09/10/20 07:45 Resp 18 09/10/20 07:45 BP 155/75 09/10/20 07:45 Pulse Ox 96 09/10/20 07:45 Intake & Output 09/09/20 09/10/20 09/10/20 18:59 06:59 18:59 Intake Total 1670 1200 Balance 1670 1200 Intake: Intake, IV Titration 950 900 Amount Sodium Chloride 0.9% 1, 900 900 000 ml @ 75 mls/hr IV . [id number] [facility] Rx#:[id number] cefTRIAXone 1 gm In 50 Sodium Chloride 0.9% 50 ml @ 100 mls/hr IVPB Q24H [facility] Rx#:[id number] Oral 720 300 Other: Voiding Method Toilet Toilet Toilet # Voids 4 3 - Exam In general patient is alert and oriented 3 in no apparent distress HEENT head normocephalic and atraumatic Neck is supple no JVD no goiter no lymphadenopathy no carotid bruit Chest exam reveals a few scattered rhonchi no wheezing Cardiac exam reveals regular heart sounds S1 and S2 no gallops no murmurs nor rubs Abdomen is soft nontender no organomegaly with normal bowel sounds Extremity exam reveals no edema no cyanosis or clubbing Neurological examination reveals no gross focal deficit - Labs CBC & Chem 7: 09/08/20 06:01 09/08/20 06:01 Labs: Microbiology - Last 24 Hours (Table) 09/07/20 22:41 Blood Culture - Preliminary Blood No Growth after 48 hours Assessment and Plan Plan: 1. Covid 19 infection diagnosed 10 days ago patient received a course of Decadron At this time patient is admitted to medical floor he was restarted on Decadron pulmonary and infectious disease consultation requested 2. Underlying history of gout, maintained on allopurinol continue 3. Underlying history of hypertension continue with Norvasc 4. For DVT and PE prophylaxis patient was started on subcu Lovenox 5. Will follow during this admission for medical management please see orders
[2020-09-10 13:29] LABS: Basophils % (A) 0 %; Eosinophils % (A) 0 %; HCT 43.6 % (39.0-53.0); HGB 13.8 gm/dL (13.0-17.5); Lymphocytes # (A) 1.3 k/uL (1.0-4.8); Lymphocytes % (A) 10 %; MCH 30.8 pg (25.0-35.0); MCHC 31.6 g/dL (31.0-37.0); MCV 97.4 fL (80.0-100.0); Mean Platelet Volume 7.9; Monocytes # (A) 0.6 k/uL (0-1.0); Monocytes % (A) 5 %; Neutrophils # (A) 10.9 k/uL (1.3-7.7); Neutrophils % (A) 84 %; Platelet Count 189 k/uL (150-450); RBC 4.47 m/uL (4.30-5.90); RDW 14.4 % (11.5-15.5)
[2020-09-10 14:31] VITALS: TEMP 98.1
[2020-09-10 19:08] LABS: African American GFR (CKD) 100.6 (60.0-200.0); Albumin 3.5 g/dL (3.80-4.90); Albumin/Globulin Ratio 1.67 (1.60-3.17); Anion Gap 6.6 mmol/L (4.00-12.00); BUN/Creat Ratio 25.56 Ratio (12.00-20.00); Calcium 8.7 mg/dL (8.7-10.3); Carbon Dioxide 22.4 mmol/L (21.6-31.8); Globulin 2.1 g/dL (1.6-3.3); Non-African American GFR(CKD) 86.8 (60.0-200.0); Potassium 4.8 mmol/L (3.5-5.5); Total Bilirubin 0.3 mg/dL (0.3-1.2); Total Protein 5.6 g/dL (6.2-8.2)
[2020-09-10] MEDS: allopurinoL 300 MG TAB PO SCH (20:48)
[2020-09-10] MEDS: ASPIRIN 81 MG PO SCH (20:48)
--- NOTE | 2020-09-10 23:10 | PN ---
PROGRESS NOTE DATE OF SERVICE: 09/10/2020 REASON FOR FOLLOW UP: Recent Covid and concern for possible secondary bacterial pneumonia. INTERVAL HISTORY: Patient is currently afebrile. He is breathing comfortably. Did have minimal congestion and cough. No abdominal pain. No diarrhea. PHYSICAL EXAMINATION: Blood pressure 144/74 with a pulse of 76, temperature 98.1. He is 96% on room air. General description is an elderly male lying in bed in no distress. Respiratory system: Unlabored breathing, clear to auscultation anteriorly. Heart S1, S2. Regular rate and rhythm. ABDOMEN: Soft. No tenderness. LABS: Hemoglobin 13.8, white count 99983, BUN of 10, creatinine 0.9. Lactic acid normal. Chest x-ray did not show any acute infiltrate. DIAGNOSTIC IMPRESSION AND PLAN: Patient admitted to the hospital with weakness, lethargy and concern for possible secondary bacterial pneumonia with recent diagnosis of Covid. However, the patient did not have any evidence of consolidation on chest x-ray. Antibiotic with short course of oral Ceftin on discharge along with Dexamethasone. Continue supportive care. MMODL / IJN: [id number] /
[2020-09-11 06:43] LABS: Basophils # (A) 0.1 k/uL (0-0.2); Basophils % (A) 1 %; Eosinophils # (A) 0.1 k/uL (0-0.7); Eosinophils % (A) 1 %; HGB 13.9 gm/dL (13.0-17.5); Lymphocytes # (A) 2.2 k/uL (1.0-4.8); Lymphocytes % (A) 16 %; MCH 32.6 pg (25.0-35.0); MCHC 33.8 g/dL (31.0-37.0); MCV 96.4 fL (80.0-100.0); Mean Platelet Volume 7.8; Monocytes # (A) 0.9 k/uL (0-1.0); Monocytes % (A) 6 %; Neutrophils # (A) 10.6 k/uL (1.3-7.7); Neutrophils % (A) 75 %; Platelet Count 160 k/uL (150-450); RBC 4.26 m/uL (4.30-5.90); RDW 13.8 % (11.5-15.5); WBC 14.1 k/uL (3.8-10.6)
[2020-09-11 07:31] LABS: Glucose,Whole Blood 93 mg/dL (75-99)
[2020-09-11 08:31] VITALS: RESP 16
[2020-09-11] MEDS: ENOXAPARIN 40 MG/0.4 ML SYRINGE SQ SCH (08:50)
[2020-09-11 08:51] LABS: African American GFR (CKD) 100.6 (60.0-200.0); Albumin 3.5 g/dL (3.80-4.90); Albumin/Globulin Ratio 1.67 (1.60-3.17); Anion Gap 9.4 mmol/L (4.00-12.00); BUN/Creat Ratio 24.44 Ratio (12.00-20.00); Calcium 8.6 mg/dL (8.7-10.3); Carbon Dioxide 21.6 mmol/L (21.6-31.8); Globulin 2.1 g/dL (1.6-3.3); Non-African American GFR(CKD) 86.8 (60.0-200.0); Potassium 4.5 mmol/L (3.5-5.5); Total Bilirubin 0.3 mg/dL (0.3-1.2); Total Protein 5.6 g/dL (6.2-8.2)
[2020-09-11] MEDS: dexAMETHasone 4 MG TAB PO SCH (08:51)
[2020-09-11] MEDS: CHOLECALCIFEROL 1,000 UNIT TAB PO SCH (08:51)
[2020-09-11] MEDS: LORATADINE 10 MG TAB PO SCH (08:51)
[2020-09-11] MEDS: amLODIPine 5 MG TAB PO SCH (08:51)
[2020-09-11] MEDS: ASCORBIC ACID 500 MG TAB PO SCH (08:51)
--- NOTE | 2020-09-11 13:11 | P.DS ---
Providers Date of admission: 09/08/20 00:12 Expected date of discharge: 09/11/20 Attending physician: Pati Hoffmann Consults: 09/08/20 09:54 Consult Physician Routine Consulting Provider: Majo Ashley Consult Reason/Comments: covid 19 Do you want consulting provider notified?: Yes Primary care physician: [facility] Course: Diagnosis on discharge: 1. Covid 19 infection diagnosed 10 days ago patient received a course of Decadron At this time patient is admitted to medical floor he was restarted on Decadron pulmonary and infectious disease consultation requested 2. Underlying history of gout, maintained on allopurinol continue 3. Underlying history of hypertension continue with Norvasc 4. For DVT and PE prophylaxis patient was started on subcu Lovenox 5. Will follow during this admission for medical management please see orders Hospital course: Ryne Fields, he is a 70-year-old male well-known to my practice who presented to the office on 09/07/2020 due to worsening shortness of breath and cough, patient was seen 10 days prior at that time he underwent nasal swab for Covid 19 that was positive he was given a course of Decadron patient felt well until he finished the course of Decadron he started having worsening shortness of breath he return to the office and was sent to [facility] emergency room he was evaluated there and was admitted to medical floor, pulmonary consultation and infectious disease consultation was requested. On review of systems patient is complaining of generalized fatigue and weakness he is also complaining of lightheadedness and dizziness, he is complaining of occasional cough and shortness of breath with activity otherwise he denies any complaints there is no fever or chills no headache no chest pain no palpitation no nausea or vomiting no abdominal pain no diarrhea no blood in the stools no burning with urination no frequency or urgency and no hematuria On 09/09/2020 patient was seen and examined on the medical floor he is alert and oriented 3 in no apparent distress, he is complaining of cough with mild sputum production shortness of breath and lightheadedness he states he is feeling somewhat better than yesterday otherwise he denies any complaints there is no fever or chills no headache or dizziness no chest pain palpitation no nausea or vomiting no abdominal pain no diarrhea no blood in the stools and no urinary symptoms. Recommendation from infectious disease reviewed will repeat chest x- ray in a.m. Will try to obtain sputum sample continue current management at this time. On 09/10/2020 patient was seen and examined on the medical floor he is complaining of generalized weakness he is complaining of cough with sputum production otherwise he denies any complaints there is no fever or chills no headache or dizziness no chest pain no shortness of breath, no nausea or vomiting no abdominal pain no diarrhea no blood in the stools no burning with urination no frequency or urgency and no hematuria. Possibility of discharge home discussed with patient he is still not feeling ready due to generalized weakness will recheck labs and recheck patient in a.m. On 09/11/2020 patient was seen and examined on the medical floor he is alert and oriented 3 in no apparent distress he is still complaining of cough otherwise he denies any complaints there is no fever or chills no headache or dizziness no chest pain no shortness of breath no cough no nausea or vomiting no abdominal pain no diarrhea and no urinary symptoms. Patient is stable to be discharged home today, he has Covid 19 infection and possible acute purulent bronchitis he was given a course of Cefdinir and a course of Decadron he will be discharged home today Will follow in the office in 2-3 days Patient Condition at Discharge: Stable Plan - Discharge Summary Discharge Rx Participant: Yes New Discharge Prescriptions: New Cefdinir 300 mg PO Q12HR 7 Days #14 cap Dexamethasone [Decadron] 4 mg PO BID 10 Days #20 tablet Continue allopurinoL [Zyloprim] 300 mg PO HS Aspirin 81 mg PO HS Vitamin C(Unknown Dose) 1 tab PO DAILY Allergy Otc(Unknown) 1 tab PO DAILY amLODIPine [Norvasc] 5 mg PO DAILY #10 tab Cholecalciferol [Vitamin D3 (25 Mcg = 1000 Iu)] 5,000 unit PO DAILY dexAMETHasone [Dexamethasone] 4 mg PO DAILY Discharge Medication List allopurinoL [Zyloprim] 300 mg PO HS 12/18/17 [History] Aspirin 81 mg PO HS 07/20/19 [History] Allergy Otc(Unknown) 1 tab PO DAILY 09/05/20 [History] Vitamin C(Unknown Dose) 1 tab PO DAILY 09/05/20 [History] amLODIPine [Norvasc] 5 mg PO DAILY #10 tab 09/05/20 [Rx] Cholecalciferol [Vitamin D3 (25 Mcg = 1000 Iu)] 5,000 unit PO DAILY 09/08/20 [History] dexAMETHasone [Dexamethasone] 4 mg PO DAILY 09/08/20 [History] Cefdinir 300 mg PO Q12HR 7 Days #14 cap 09/11/20 [Rx] Dexamethasone [Decadron] 4 mg PO BID 10 Days #20 tablet 09/11/20 [Rx] Follow up Appointment(s)/Referral(s): Pati Hoffmann MD [Primary Care Provider] - 1-2 days
[2020-09-11 14:13] VITALS: BP 144/84; PULSE 72
== END 2020-09-11 15:45 | disposition home or self-care (01) | DRG 178 ==
LOC: EC 21:35 → 6NMEDSUR 09-08 00:12
PROVIDERS: ADMIT Internal Medicine; ATTEND Internal Medicine
DX: U07.1 COVID-19 (principal); E87.2 Acidosis; N17.9 Acute kidney failure, unspecified; F41.9 Anxiety disorder, unspecified; E86.0 Dehydration; M10.9 Gout, unspecified; I10 Essential (primary) hypertension; J20.9 Acute bronchitis, unspecified; M41.9 Scoliosis, unspecified; I73.9 Peripheral vascular disease, unspecified; Z90.49 Acquired absence of other specified parts of digestive tract; Z90.89 Acquired absence of other organs; Z79.82 Long term (current) use of aspirin; Z79.899 Other long term (current) drug therapy; Z98.42 Cataract extraction status, left eye; Z98.41 Cataract extraction status, right eye; Z98.890 Other specified postprocedural states; Z80.3 Family history of malignant neoplasm of breast; Z80.0 Family history of malignant neoplasm of digestive organs; Z81.8 Family history of other mental and behavioral disorders
CPT/HCPCS: 36415; 71045; 71046; 71275; 80053; 83605; 83735; 83880; 84145; 84484; 85025; 85379; 85610; 85730; 86140; 87040; 87502; 93005; 96361; 96365; 96374; 99285

== ENCOUNTER 2020-09-27 12:14 | Inpatient (IN) | payer MEDICARE ==
[2020-09-27] MEDS ORDERED: SODIUM CHLORIDE 0.9% 1,000 ML IV STA (12:39)
--- NOTE | 2020-09-27 12:47 | ED ---
General Adult HPI - General Chief complaint: Dizziness Stated complaint: lightheaded/weakness Time Seen by Provider: 09/27/20 12:33 Source: patient Mode of arrival: wheelchair Limitations: no limitations - History of Present Illness Initial comments: Dictation was produced using [employer] dictation software. please excuse any grammatical, word or spelling errors. This patient was cared for during a federal and state declared state of emergency secondary to Covid 19 Chief Complaint: 70-year-old male presents today with several days of nausea and generalized weakness History of Present Illness: 70-year-old male who presents today with malaise of nausea, generalized weakness and significant fatigue. Patient states the murmur 40 test positive for rhinovirus. States that his symptoms were very mild at the time. 2 weeks ago he tested negative for coronavirus. It is going started having symptoms again. States his symptoms are worse this time. States she does have constitutional symptoms are on and off. Denies any shortness of breath. No abdominal pain. No nausea vomiting. States she has extreme fatigue and rhinorrhea. Denies any sore throat. No loss of taste or smell. The ROS documented in this emergency department record has been reviewed and confirmed by me. Those systems with pertinent positive or negative responses have been documented in the HPI. All other systems are other negative and/or noncontributory. PHYSICAL EXAM: General Impression: Alert and oriented x3, not in acute distress HEENT: Normocephalic atraumatic, extra-ocular movements intact, pupils equal and reactive to light bilaterally, mucous membranes moist. Cardiovascular: Heart regular rate and rhythm Chest: Able to complete full sentences, no retractions, no tachypnea Abdomen: abdomen soft, non-tender, non-distended, no organomegaly Musculoskeletal: Pulses present and equal in all extremities, no peripheral edema Motor: no focal deficits noted Neurological: CN II-XII grossly intact, no focal motor or sensory deficits noted Skin: Intact with no visualized rashes Psych: Normal affect and mood ED course: 70-year-old male presents with generalized fatigue and rhinorrhea. Vital signs upon arrival shows temperature 11.1, heart rate of 119 rest of vital signs within acceptable limits. Laboratory evaluation tape. No leukocytosis however there is positive neutrophils. Coag panel is negative. D-dimer slightly elevated with near patient's age-adjusted limit.. Metabolic panel is unremarkable. CRP is elevated at 196.9. Chest x-ray shows left basilar infiltrate. Disposition options were discussed with patient he was adamant about being admitted for observation. Patient given azithromycin and ceftriaxone. Patient also given a dose of Decadron. At this point there is concern of bacterial respiratory infection. Patient be admitted to Dr. Hoffmann EKG interpretation: Ventricular rate 110, sinus tachycardia,. 192, QRS 12, QTc 433. No HI prolongation, no QTC prolongation, no ST or T-wave changes noted. EKG compared to 09/07/2020 showing no changes. Overall, this EKG is unremarkable - Related Data Home Medications Medication Instructions Recorded Confirmed allopurinoL [Zyloprim] 300 mg PO HS 12/18/17 09/27/20 Aspirin 81 mg PO HS 07/20/19 09/27/20 Allergy Otc(Unknown) 1 tab PO DAILY 09/05/20 09/27/20 Cholecalciferol [Vitamin D3 (25 5,000 unit PO DAILY 09/08/20 09/27/20 Mcg = 1000 Iu)] Ascorbic Acid [Vitamin C] 500 mg PO DAILY 09/27/20 09/27/20 Allergies Allergy/AdvReac Type Severity Reaction Status Date / Time No Known Allergies Allergy Verified 09/27/20 13:14 Review of Systems ROS Statement: Those systems with pertinent positive or pertinent negative responses have been documented in the HPI. ROS Other: All systems not noted in ROS Statement are negative. Past Medical History Past Medical History: No Reported History Additional Past Medical History / Comment(s): gout, PAD,, gall bladder stones,scoliosis, covid positive aug 21 2020 History of Any Multi-Drug Resistant Organisms: None Reported Past Surgical History: Appendectomy, Tonsillectomy Additional Past Surgical History / Comment(s): bilat cataracts; repair laceration L finger;fem./aortal bypass, polps removed from bladder benign, colonoscopy Past Anesthesia/Blood Transfusion Reactions: No Reported Reaction Past Psychological History: Anxiety Smoking Status: Never smoker Past Alcohol Use History: Occasional Past Drug Use History: None Reported - Past Family History Mother Family Medical History: Cancer Additional Family Medical History / Comment(s): cervical, breast, liver Father Family Medical History: Cancer Additional Family Medical History / Comment(s): suicide, brain tumor Sister(s) Family Medical History: No Reported History Brother(s) Family Medical History: No Reported History Son(s) Family Medical History: No Reported History Daughter(s) Family Medical History: No Reported History General Exam Limitations: no limitations Course Vital Signs 09/27/20 09/27/20 12:26 13:03 Temperature 101.1 F H Pulse Rate 119 H 98 Respiratory 20 18 Rate Blood Pressure 140/71 147/76 O2 Sat by Pulse 98 Oximetry Medical Decision Making - Lab Data Result diagrams: 09/27/20 12:53 09/27/20 12:53 Lab Results 09/27/20 09/27/20 09/27/20 Range/Units 12:53 12:53 12:53 WBC 9.7 (3.8-10.6) k/uL RBC 3.31 L (4.30-5.90) m/uL Hgb 10.7 L D (13.0-17.5) gm/dL Hct 32.6 L (39.0-53.0) % MCV 98.5 (80.0-100.0) fL MCH 32.3 (25.0-35.0) pg MCHC 32.8 (31.0-37.0) g/dL RDW 15.5 (11.5-15.5) % Plt Count 133 L (150-450) k/uL MPV 7.6 Neutrophils % 82 % Lymphocytes % 11 % Monocytes % 5 % Eosinophils % 1 % Basophils % 0 % Neutrophils # 8.0 H (1.3-7.7) k/uL Lymphocytes # 1.0 (1.0-4.8) k/uL Monocytes # 0.5 (0-1.0) k/uL Eosinophils # 0.1 (0-0.7) k/uL Basophils # 0.0 (0-0.2) k/uL Macrocytosis Slight PT 9.2 (9.0-12.0) sec INR 0.9 (<1.2) APTT 23.1 (22.0-30.0) sec D-Dimer 0.76 H (<0.60) mg/L FEU Sodium 134 L (137-145) mmol/L Potassium 4.4 (3.5-5.1) mmol/L Chloride 106 (98-107) mmol/L Carbon Dioxide 27 (22-30) mmol/L Anion Gap 1 mmol/L BUN 17 (9-20) mg/dL Creatinine 1.10 (0.66-1.25) mg/dL Est GFR (CKD-EPI)AfAm 79 (>60 ml/min/1.73 sqM) Est GFR (CKD-EPI)NonAf 68 (>60 ml/min/1.73 sqM) Glucose 153 H (74-99) mg/dL Plasma Lactic Acid Colton (0.7-2.0) mmol/L Calcium 8.2 L (8.4-10.2) mg/dL Magnesium 2.1 (1.6-2.3) mg/dL Total Bilirubin 0.6 (0.2-1.3) mg/dL AST 29 (17-59) U/L ALT 38 (4-49) U/L Alkaline Phosphatase 53 (38-126) U/L Lactate Dehydrogenase 637 H (313-618) U/L C-Reactive Protein 196.9 H (<10.0) mg/L Total Protein 5.4 L (6.3-8.2) g/dL Albumin 2.9 L (3.5-5.0) g/dL 09/27/20 Range/Units 12:53 WBC (3.8-10.6) k/uL RBC (4.30-5.90) m/uL Hgb (13.0-17.5) gm/dL Hct (39.0-53.0) % MCV (80.0-100.0) fL MCH (25.0-35.0) pg MCHC (31.0-37.0) g/dL RDW (11.5-15.5) % Plt Count (150-450) k/uL MPV Neutrophils % % Lymphocytes % % Monocytes % % Eosinophils % % Basophils % % Neutrophils # (1.3-7.7) k/uL Lymphocytes # (1.0-4.8) k/uL Monocytes # (0-1.0) k/uL Eosinophils # (0-0.7) k/uL Basophils # (0-0.2) k/uL Macrocytosis PT (9.0-12.0) sec INR (<1.2) APTT (22.0-30.0) sec D-Dimer (<0.60) mg/L FEU Sodium (137-145) mmol/L Potassium (3.5-5.1) mmol/L Chloride (98-107) mmol/L Carbon Dioxide (22-30) mmol/L Anion Gap mmol/L BUN (9-20) mg/dL Creatinine (0.66-1.25) mg/dL Est GFR (CKD-EPI)AfAm (>60 ml/min/1.73 sqM) Est GFR (CKD-EPI)NonAf (>60 ml/min/1.73 sqM) Glucose (74-99) mg/dL Plasma Lactic Acid Colton 1.4 (0.7-2.0) mmol/L Calcium (8.4-10.2) mg/dL Magnesium (1.6-2.3) mg/dL Total Bilirubin (0.2-1.3) mg/dL AST (17-59) U/L ALT (4-49) U/L Alkaline Phosphatase (38-126) U/L Lactate Dehydrogenase (313-618) U/L C-Reactive Protein (<10.0) mg/L Total Protein (6.3-8.2) g/dL Albumin (3.5-5.0) g/dL Disposition Clinical Impression: Pneumonia Disposition: ADMITTED IP TO THIS HOSP Condition: Fair Referrals: Pati Hoffmann MD [Primary Care Provider] - 1-2 days Decision Time: 14:49
[2020-09-27] MEDS: ACETAMINOPHEN TAB 500 MG TAB PO PRN (12:56)
[2020-09-27 13:13] LABS: Basophils % (A) 0 %; Eosinophils # (A) 0.1 k/uL (0-0.7); Eosinophils % (A) 1 %; HCT 32.6 % (39.0-53.0); Lymphocytes % (A) 11 %; MCH 32.3 pg (25.0-35.0); MCHC 32.8 g/dL (31.0-37.0); MCV 98.5 fL (80.0-100.0); Macrocytosis Slight; Mean Platelet Volume 7.6; Monocytes # (A) 0.5 k/uL (0-1.0); Monocytes % (A) 5 %; Neutrophils % (A) 82 %; Platelet Count 133 k/uL (150-450); RBC 3.31 m/uL (4.30-5.90); RDW 15.5 % (11.5-15.5); WBC 9.7 k/uL (3.8-10.6)
[2020-09-27 13:14] LABS: HGB 10.7 gm/dL (13.0-17.5)
--- NOTE | 2020-09-27 13:18 | XR ---
EXAMINATION TYPE: XR chest 1V portable DATE OF EXAM: 09/27/2020 COMPARISON: 11/10/2019 HISTORY: lightheadedness and shortness of breath TECHNIQUE: Single frontal view of the chest is obtained. FINDINGS: Heart is enlarged and there is left basilar subsegmental consolidation. Coarsened intersti tium. Underlying COPD suspected. No pleural effusion or pneumothorax. IMPRESSION: 1. Left basilar atelectasis or infiltrate. 2. COPD correlate for chronic interstitial lung disease or interstitial pneumonitis.
[2020-09-27 13:20] LABS: Albumin 2.9 g/dL (3.5-5.0); Calcium 8.2 mg/dL (8.4-10.2); Magnesium 2.1 mg/dL (1.6-2.3); Potassium 4.4 mmol/L (3.5-5.1); Total Bilirubin 0.6 mg/dL (0.2-1.3); Total Protein 5.4 g/dL (6.3-8.2)
[2020-09-27 13:36] LABS: C Reactive Protein 196.9 mg/L (<10.0)
[2020-09-27 13:40] LABS: INR 0.9 (<1.2); Partial Thromboplastin Time 23.1 sec (22.0-30.0); Prothrombin Time 9.2 sec (9.0-12.0)
[2020-09-27 13:48] LABS: D-Dimer 0.76 mg/L FEU (<0.60)
[2020-09-27] MEDS ORDERED: AZITHROMYCIN 500 MG TAB PO STA (14:11)
[2020-09-27] MEDS ORDERED: DEXAMETHASONE SOD PHOSPHATE 10 MG/ML 1 ML VIAL IV STA (14:12)
[2020-09-27] MEDS ORDERED: AZITHROMYCIN 500 MG in SODIUM CHLORIDE 0.9% 250 ML IVPB STA (14:29)
[2020-09-27] MEDS ORDERED: cefTRIAXone IN SWFI 1,000 MG/10 ML SYRINGE IVP STA (14:29)
[2020-09-27] MEDS ORDERED: NALOXONE 0.4 MG/ML 1 ML VIAL IV PRN (14:46)
[2020-09-27] MEDS ORDERED: ONDANSETRON 4 MG/2 ML VIAL IVP PRN (14:46)
[2020-09-27] MEDS: SODIUM CHLORIDE 0.9% 1,000 ML IV SCH (15:36)
--- NOTE | 2020-09-27 18:39 | P.HPIM ---
History of Present Illness H&P Date: 09/27/20 Ryne Fields, is a 70-year-old male who presented to [facility] with complaints of generalized weakness muscle aches cough and shortness of breath, patient was diagnosed with Covid pneumonia about 6 weeks ago, he was admitted to [facility] on 09/08/2020 and was discharged home on 09/11 2020 however patient continued to have worsening weakness cough and shortness of breath and he decided to come back to emergency room. Patient was evaluated in the emergency room vital examination on presentation revealed a temperature of 101.1 pulse 119 respiration 20 blood pressure 140/71 pulse ox 98% on room air white blood count was 9.7 hemoglobin 10.7 platelet count 133 d-dimer 0.76 LDH 637 C-reactive protein 196.9 patient stated that yesterday and the day before he had black stools. Chest x-ray done in the emergency room revealed evidence of left basilar infiltrate he was started on IV antibiotic for possible bacterial pneumonia pulmonary consultation was requested. 22 history of black stools stools Hemoccult was ordered and repeat CBC was requested Past Medical History Past Medical History: Coronary Artery Disease (CAD), GERD/Reflux, Hypertension, Pneumonia, Vascular Disorder Additional Past Medical History / Comment(s): Covid + 08/18/20 [facility] [place] per pt. Pt recently admitted to [facility] on 09/08/20 with previously diagnosed covid pneumonia, PAD, cardiomyopathy per past medical record but pt does not recall, severe scoliosis, occasional low back pain, bronchitis, gout L great toe and occasionally R great toe. History of Any Multi-Drug Resistant Organisms: None Reported Past Surgical History: Appendectomy, Bladder Surgery, Heart Catheterization, Orthopedic Surgery, Tonsillectomy Additional Past Surgical History / Comment(s): Bifemoral/aortic bypass, L thumb laceration/partial ampuration, bilateral cataract removals, colonoscopy, 2018 cardiac cath with disease/treated medically, benign bladder polyps, colonoscopy. Past Anesthesia/Blood Transfusion Reactions: No Reported Reaction Smoking Status: Former smoker - Past Family History Mother Family Medical History: Cancer Additional Family Medical History / Comment(s): cervical, breast, liver Father Family Medical History: Cancer Additional Family Medical History / Comment(s): Father had brain cancer and committed suicide. Sister(s) Family Medical History: No Reported History Brother(s) Family Medical History: No Reported History Son(s) Family Medical History: No Reported History Daughter(s) Family Medical History: No Reported History Medications and Allergies Home Medications Medication Instructions Recorded Confirmed Type allopurinoL [Zyloprim] 300 mg PO HS 12/18/17 09/27/20 History Aspirin 81 mg PO HS 07/20/19 09/27/20 History Allergy Otc(Unknown) 1 tab PO DAILY 09/05/20 09/27/20 History Cholecalciferol [Vitamin D3 (25 5,000 unit PO DAILY 09/08/20 09/27/20 History Mcg = 1000 Iu)] Ascorbic Acid [Vitamin C] 500 mg PO DAILY 09/27/20 09/27/20 History Allergies Allergy/AdvReac Type Severity Reaction Status Date / Time No Known Allergies Allergy Verified 09/27/20 13:14 Physical Exam Vitals: Vital Signs Temp Pulse Pulse Resp BP BP Pulse Ox 09/27/20 17:24 98.2 F 93 16 129/67 98 09/27/20 15:23 99.1 F 90 18 133/76 94 L 09/27/20 13:03 98 18 147/76 09/27/20 12:33 93 16 09/27/20 12:26 101.1 F H 119 H 20 140/71 98 Intake and Output 09/27/20 09/27/20 09/27/20 06:59 14:59 22:59 Intake Total 1250 Balance 1250 Intake: Intake, IV Titration 290 Amount Azithromycin 500 mg In 250 Sodium Chloride 0.9% 250 ml @ 250 mls/hr IVPB ONCE STA Rx#:[id number] Sodium Chloride 0.9% 1, 40 000 ml @ 20 mls/hr IV . Q24H [facility] Rx#:[id number] Oral 960 Other: Voiding Method Urinal Weight 88.451 kg 88.451 kg In general patient is alert and oriented 3 in no apparent distress HEENT head normocephalic and atraumatic Neck is supple no JVD no goiter no lymphadenopathy Chest exam reveals fine crackles in both lung aguilar no wheezing Cardiac exam reveals regular heart sounds S1 and S2 no gallops no murmurs Abdomen is soft nontender no organomegaly with normal bowel sounds Extremity exam reveals minimal edema no cyanosis or clubbing Neurological examination reveals no gross focal neurological deficit Results CBC & Chem 7: 09/27/20 12:53 09/27/20 12:53 Labs: Abnormal Lab Results - Last 24 Hours (Table) 09/27/20 09/27/20 09/27/20 Range/Units 12:53 12:53 12:53 RBC 3.31 L (4.30-5.90) m/uL Hgb 10.7 L D (13.0-17.5) gm/dL Hct 32.6 L (39.0-53.0) % Plt Count 133 L (150-450) k/uL Neutrophils # 8.0 H (1.3-7.7) k/uL D-Dimer 0.76 H (<0.60) mg/L FEU Sodium 134 L (137-145) mmol/L Glucose 153 H (74-99) mg/dL Calcium 8.2 L (8.4-10.2) mg/dL Lactate Dehydrogenase 637 H (313-618) U/L C-Reactive Protein 196.9 H (<10.0) mg/L Total Protein 5.4 L (6.3-8.2) g/dL Albumin 2.9 L (3.5-5.0) g/dL Thrombosis Risk Factor Assmnt - Choose All That Apply Any of the Below Risk Factors Present?: Yes Each Factor Represents 1 point: Obesity (BMI >25), Serious lung disease incl. pneumonia (< 1month) Other Risk Factors: No Other congenital or acquired thrombophilia - If yes, enter type in comment: No Thrombosis Risk Factor Assessment Total Risk Factor Score: 2 Thrombosis Risk Factor Assessment Level: Low Risk Assessment and Plan Plan: 1. Left lower lobe infiltrate possible bacterial pneumonia 2. Black tarry stool yesterday and the day before hemoglobin is down to 10.7 hemoglobin on 09/11/2020 was 13.9 will repeat CBC tonight and check stool Hemoccult will avoid anticoagulation at this time will consult gastroenterology 3. Underlying history of gout will continue allopurinol 4. Recent diagnosis of Covid 19 infection diagnosed on 08/21/2020 Home medications reviewed and reordered patient was started on IV antibiotics pulmonary consultation was requested gastroenterology consultation requested will follow closely
[2020-09-27 21:10] LABS: Ferritin 382.1 ng/mL (22.0-322.0)
[2020-09-27] MEDS: allopurinoL 300 MG TAB PO SCH (21:53)
[2020-09-27] MEDS: ASCORBIC ACID 500 MG TAB PO SCH (21:54)
[2020-09-27] MEDS: ACETAMINOPHEN TAB 325 MG TAB PO PRN (21:54)
[2020-09-27 22:11] LABS: Basophils % (A) 0 %; Eosinophils % (A) 0 %; HCT 28.7 % (39.0-53.0); Lymphocytes # (A) 0.5 k/uL (1.0-4.8); Lymphocytes % (A) 5 %; MCHC 31.6 g/dL (31.0-37.0); MCV 101.2 fL (80.0-100.0); Macrocytosis Slight; Mean Platelet Volume 7.6; Monocytes # (A) 0.2 k/uL (0-1.0); Monocytes % (A) 2 %; Neutrophils # (A) 8.4 k/uL (1.3-7.7); Neutrophils % (A) 92 %; Platelet Count 126 k/uL (150-450); RBC 2.83 m/uL (4.30-5.90); RDW 15.7 % (11.5-15.5); WBC 9.1 k/uL (3.8-10.6)
[2020-09-27 22:15] LABS: HGB 9.1 gm/dL (13.0-17.5)
[2020-09-28 06:32] LABS: Basophils % (A) 0 %; Eosinophils % (A) 0 %; HCT 27.6 % (39.0-53.0); HGB 8.9 gm/dL (13.0-17.5); Lymphocytes # (A) 0.5 k/uL (1.0-4.8); Lymphocytes % (A) 5 %; MCH 31.9 pg (25.0-35.0); MCHC 32.2 g/dL (31.0-37.0); MCV 99.2 fL (80.0-100.0); Macrocytosis Slight; Monocytes # (A) 0.4 k/uL (0-1.0); Monocytes % (A) 4 %; Neutrophils # (A) 8.9 k/uL (1.3-7.7); Neutrophils % (A) 90 %; Platelet Count 139 k/uL (150-450); RBC 2.78 m/uL (4.30-5.90); RDW 15.6 % (11.5-15.5); WBC 9.9 k/uL (3.8-10.6)
[2020-09-28] MEDS: CHOLECALCIFEROL 1,000 UNIT TAB PO SCH (09:57)
[2020-09-28] MEDS: ASCORBIC ACID 500 MG TAB PO SCH (09:57)
[2020-09-28 11:17] LABS: Appearance,Urine Clear (Clear); Bilirubin,Urine Negative (Negative); Blood,Urine Negative (Negative); Color,Urine Light Yellow; Glucose,Urine (UA) 4+ (Negative); Ketones,Urine Negative (Negative); Leukocyte Esterase,Urine Negative (Negative); Nitrite,Urine Negative (Negative); PH, Urine 6.5 (5.0-8.0); Protein,Urine Negative (Negative); Specific Gravity,Urine 1.017 (1.001-1.035); Urobilinogen,Urine <2.0 mg/dL (<2.0)
[2020-09-28 13:24] LABS: African American GFR (CKD) 100.6 (60.0-200.0); Albumin 3.2 g/dL (3.80-4.90); Anion Gap 6.2 mmol/L (4.00-12.00); BUN/Creat Ratio 25.56 Ratio (12.00-20.00); Carbon Dioxide 23.8 mmol/L (21.6-31.8); Globulin 1.6 g/dL (1.6-3.3); Non-African American GFR(CKD) 86.8 (60.0-200.0); Potassium 4.5 mmol/L (3.5-5.5); Total Bilirubin 0.3 mg/dL (0.2-1.2); Total Protein 4.8 g/dL (6.2-8.2)
[2020-09-28] MEDS ORDERED: AZITHROMYCIN 500 MG in SODIUM CHLORIDE 0.9% 250 ML IVPB SCH (15:00)
--- NOTE | 2020-09-28 15:35 | CONS ---
CONSULTATION PULMONARY/CRITICAL CARE CONSULTATION: DATE OF SERVICE: 09/28/2020 REASON FOR CONSULTATION: COVID-19 infection. This is a very pleasant 70-year-old male who apparently presented to the emergency room with complaints of malaise, nausea, weakness and fatigue. The patient apparently tested positive for coronavirus. He apparently tested positive back on August 18. He has minimal shortness of breath or no shortness of breath. The patient is on room air. The patient is receiving saline at 20 mL/hour. I question the need for this patient to be admitted to the hospital. He is really not having much in the way of pneumonic symptoms. His chest x-ray shows some left basilar atelectasis. He denies any significant cough or phlegm production. He is not having any fever. The patient denies being profoundly short of breath. MEDICATIONS: Home medications are reviewed. He is on zyloprim, aspirin, [id number]-[id number] allergy medications, vitamin D3 and some vitamin C. MEDICATION ALLERGIES: DENIED. MEDICAL HISTORY: Medical history includes primarily gout, peripheral artery disease, gallstones, scoliosis and being tested positive for COVID-19 on August 18. SURGICAL HISTORY: Surgical history includes appendectomy and tonsillectomy. He has also had bilateral cataract surgery, laceration repair on the left finger, lower extremity bypass for peripheral artery disease, bladder polyps and colonoscopy. SOCIAL HISTORY: Negative for tobacco use. He drinks alcohol occasionally. No illicit drug use. FAMILY HISTORY: Positive for mother with breast cancer, cervical cancer and liver cancer, father with brain cancer who committed suicide, and a sister and brother who have no medical problems. His son and daughter also are healthy, without medical problems. REVIEW OF SYSTEMS: CONSTITUTIONAL: Fatigue, muscle aches, joint aches, weakness. NEUROLOGIC: Negative. HEENT: Negative. CARDIOVASCULAR: Negative. PULMONARY: Minimal if any shortness of breath. GI: Nausea without vomiting. : Negative. RHEUMATOLOGIC: Negative. IMMUNOLOGIC: Negative. ENDOCRINOLOGIC: Negative. DERMATOLOGIC: Negative. PHYSICAL EXAMINATION: VITAL SIGNS: Current vital signs are reviewed. Temperature is 97.4, heart rate 76, respiratory rate 18, blood pressure 178/72, mean 107, room-air saturation 99%. GENERAL APPEARANCE: Appears in no acute distress. HEENT: Examination is grossly unremarkable. NECK: Supple. Full range of motion. No adenopathy. Neck veins are flat. CARDIOVASCULAR: Examination reveals regular rhythm and rate. Heart rate 76. S1, S2 normal. LUNGS: Lungs reveal clear breath sounds. No wheezes, rhonchi or crackles. ABDOMEN: Soft. Bowel sounds are heard. EXTREMITIES: Intact. No cyanosis, clubbing or edema. SKIN: Without rash. NEUROLOGIC: Neurologic examination is nonfocal. LABS/IMAGING: Reviewed. White count 9.9, hemoglobin 8.9, hematocrit 27.6, platelet count 139,000. PT, INR, PTT normal. D-dimer is 0.76. Sodium 134, potassium 4.4 chloride 106, CO2 27. Anion gap is 1. BUN and creatinine were 17 and 1.10. Glucose 153, calcium 8.2, ferritin 382. LDH 637. C-reactive protein 197. Albumin 2.9. Procalcitonin 0.08. Urine is essentially negative. Stools for occult blood were positive. Microbiology is negative. Chest x-ray shows some minimal/mild left basilar atelectasis. CURRENT MEDICATIONS: Current medications are reviewed. The patient is on Tylenol, zyloprim, vitamin C, azithromycin, Rocephin, vitamin D3, Narcan, Zofran and saline IV KVO. ASSESSMENT: 1. Previous history of COVID-19 positive, August 18, 2020. 2. Vague viral symptoms, including nausea, weakness, fatigue and minimal shortness of breath with essentially a normal chest x-ray. 3. Doubt pneumonia. 4. History of gout. 5. History of peripheral arterial disease, status post aortobifemoral bypass. 6. History of gallstones. 7. History of scoliosis. PLAN: In my opinion, this patient should be discharged home. The patient does not need to be in the hospital. I would also discontinue his antibiotics, given his very low procalcitonin level. I do not believe he needs any antibiotics at this time. Will see the patient as needed. No additional recommendations are made. Prognosis is generally thought to be good. MMODL / IJN: [id number] /
[2020-09-28] MEDS ORDERED: PEG 3350-NA SULF,BICARB,CL/KCL 4,000 ML BOTTLE PO ONE (17:00)
--- NOTE | 2020-09-28 17:20 | CONS ---
CONSULTATION DATE OF DICTATION: 09/28/2020 REASON FOR CONSULTATION: Acute GI bleed and anemia. HISTORY OF PRESENT ILLNESS: The patient is a 70-year-old pleasant white male who was admitted to the hospital with complaints of generalized weakness, shortness of breath and black tarry stools that started on Sunday afternoon. The patient was admitted with COVID-19 pneumonia about 6 weeks ago, admitted to the hospital for 4 days. He was discharged home on antibiotics and anticoagulants which he finished within the first week following discharge from the hospital. For the last one week he has been having more progressive shortness of breath and black tarry stools. He came to the emergency room. Hemoglobin was reported as 10.7 g/dL and subsequently it dropped to 8.9 g/dL. Because of the anemia, we are consulted for further evaluation. The patient denies any recent NSAID use. He denies any prior history of peptic ulcer disease. PAST MEDICAL HISTORY: His past medical history is significant for COVID-19 pneumonia 6 weeks ago. PAST SURGICAL HISTORY: Appendectomy, tonsillectomy, bilateral cataract surgery, repair of laceration of the left finger, fem-fem bypass surgery, colonoscopy 5 years ago for polyps. SOCIAL HISTORY: No smoking. No alcohol use. FAMILY HISTORY: Mother had breast cancer. Father had a brain tumor. Sister and brother are healthy. REVIEW OF SYSTEMS: CARDIOPULMONARY: No chest pain or shortness of breath. GENITOURINARY: No dysuria or hematuria. MUSCULOSKELETAL: Unremarkable. SKIN: Unremarkable. ENDOCRINE: Unremarkable. PSYCHIATRIC: Unremarkable. NEUROLOGY: Unremarkable. ENT/VISION: Unremarkable. CONSTITUTIONAL: Fatigue and weakness, but no fever, chills or night sweats. PHYSICAL EXAMINATION: He appears comfortable. No apparent distress. VITAL SIGNS: Stable. Blood pressure is 178/72, pulse rate 76, temperature 97.4. HEENT examination unremarkable. Conjunctivae pink. Sclerae anicteric. Oral cavity no lesions. NECK: No JVD or lymph node enlargement. CHEST: Clear to auscultation. HEART: Regular rate and rhythm. ABDOMEN: Soft. It was non-tender, non-distended. Bowel sounds are positive. No organomegaly. EXTREMITIES: No pedal edema. SKIN: No rashes. NEUROLOGIC: Alert and oriented x3. No focal deficits. LABS: Labs from yesterday showed WBC 9.7, hemoglobin 10.7, platelets are 133. Today hemoglobin has dropped to 8.9, WBC 9.9, platelets are 139. PT and INR are within normal limits. Stool occult blood was positive. IMPRESSION: 1. Anemia and black tarry stools for the last 3 to 4 days' duration. Hemoglobin dropped from 10.7 to 8.9 g/dL. He had two episodes of black tarry stools this morning. Stool occult blood was positive. No prior history of peptic ulcer disease or recent NSAID use. Last colonoscopy was 5 years ago and he was noted to have small polyps. 2. Left lower lobe pneumonia, for which he is on broad-spectrum antibiotics. Pulmonary is following the patient closely. 3. History of recent COVID-19 pneumonia diagnosed 6 weeks ago. RECOMMENDATIONS: 1. Continue with broad-spectrum antibiotics. 2. Monitor CBC on a daily basis. 3. Continue with Protonix 40 mg daily. 4. Will proceed with EGD and colonoscopy tomorrow. Discussed with the patient risks, benefits and complications, and he is agreeable to it. Thank you for this consultation. MMARLYNL / MARIANON: [id number] /
--- NOTE | 2020-09-28 19:01 | P.PN ---
Subjective Progress Note Date: 09/28/20 Ryne Fields, is a 70-year-old male who presented to [facility] with complaints of generalized weakness muscle aches cough and shortness of breath, patient was diagnosed with Covid pneumonia about 6 weeks ago, he was admitted to [facility] on 09/08/2020 and was discharged home on 09/11 2020 however patient continued to have worsening weakness cough and shortness of breath and he decided to come back to emergency room. Patient was evaluated in the emergency room vital examination on presentation revealed a temperature of 101.1 pulse 119 respiration 20 blood pressure 140/71 pulse ox 98% on room air white blood count was 9.7 hemoglobin 10.7 platelet count 133 d-dimer 0.76 LDH 637 C-reactive protein 196.9 patient stated that yesterday and the day before he had black stools. Chest x-ray done in the emergency room revealed evidence of left basilar infiltrate he was started on IV antibiotic for possible bacterial pneumonia pulmonary consultation was requested. 22 history of black stools stools Hemoccult was ordered and repeat CBC was requested On 09/28/2020 patient was seen and examined on the medical floor he is alert and oriented 3 in no apparent distress there is no fever or chills no headache or dizziness no chest pain no shortness of breath no cough no nausea or vomiting no abdominal pain no diarrhea and no urinary symptoms he is still complaining of generalized weakness and body ache his hemoglobin is dropping it dropped again to 8.9 today he was evaluated by gastroenterology and is scheduled for EGD and colonoscopy tomorrow Objective - Vital Signs Vital signs: Vital Signs Temp 97.7 F 09/28/20 16:08 Pulse 83 09/28/20 16:08 Resp 18 09/28/20 16:08 BP 160/70 09/28/20 16:08 Pulse Ox 97 09/28/20 16:08 Intake & Output 09/27/20 09/28/20 09/28/20 18:59 06:59 18:59 Intake Total 1250 160 Balance 1250 160 Weight 88.451 kg Intake: Intake, IV Titration 290 160 Amount Azithromycin 500 mg In 250 Sodium Chloride 0.9% 250 ml @ 250 mls/hr IVPB ONCE STA Rx#:[id number] Sodium Chloride 0.9% 1, 40 160 000 ml @ 20 mls/hr IV . Q24H [facility] Rx#:[id number] Oral 960 Other: Voiding Method Urinal Urinal Urinal - Exam In general patient is alert and oriented 3 in no apparent distress HEENT head normocephalic and atraumatic Neck is supple no JVD no goiter no lymphadenopathy Chest exam reveals fine crackles in both lung aguilar no wheezing Cardiac exam reveals regular heart sounds S1 and S2 no gallops no murmurs Abdomen is soft nontender no organomegaly with normal bowel sounds Extremity exam reveals minimal edema no cyanosis or clubbing Neurological examination reveals no gross focal neurological deficit - Labs CBC & Chem 7: 09/28/20 06:02 09/28/20 06:02 Labs: Abnormal Lab Results - Last 24 Hours (Table) 09/27/20 09/27/20 09/27/20 Range/Units 12:53 21:32 23:00 RBC 2.83 L (4.30-5.90) m/uL Hgb 9.1 L D (13.0-17.5) gm/dL Hct 28.7 L (39.0-53.0) % MCV 101.2 H (80.0-100.0) fL RDW 15.7 H (11.5-15.5) % Plt Count 126 L (150-450) k/uL Neutrophils # 8.4 H (1.3-7.7) k/uL Lymphocytes # 0.5 L (1.0-4.8) k/uL BUN/Creatinine Ratio (12.00-20.00) Ratio Glucose (70-110) mg/dL Calcium (8.7-10.3) mg/dL Ferritin 382.1 H (22.0-322.0) ng/mL Total Protein (6.2-8.2) g/dL Albumin (3.80-4.90) g/dL Urine Glucose (UA) (Negative) Stool Occult Blood Positive A (Negative) 09/28/20 09/28/20 09/28/20 Range/Units 06:02 06:02 11:05 RBC 2.78 L (4.30-5.90) m/uL Hgb 8.9 L (13.0-17.5) gm/dL Hct 27.6 L (39.0-53.0) % MCV (80.0-100.0) fL RDW 15.6 H (11.5-15.5) % Plt Count 139 L (150-450) k/uL Neutrophils # 8.9 H (1.3-7.7) k/uL Lymphocytes # 0.5 L (1.0-4.8) k/uL BUN/Creatinine Ratio 25.56 H (12.00-20.00) Ratio Glucose 201 H (70-110) mg/dL Calcium 8.0 L (8.7-10.3) mg/dL Ferritin (22.0-322.0) ng/mL Total Protein 4.8 L (6.2-8.2) g/dL Albumin 3.20 L (3.80-4.90) g/dL Urine Glucose (UA) 4+ H (Negative) Stool Occult Blood (Negative) Microbiology - Last 24 Hours (Table) 09/27/20 12:53 Blood Culture - Preliminary Blood No Growth after 24 hours Assessment and Plan Plan: 1. Left lower lobe infiltrate possible bacterial pneumonia 2. Black tarry stool yesterday and the day before hemoglobin is down to 10.7 hemoglobin on 09/11/2020 was 13.9 will repeat CBC tonight and check stool Hemoccult will avoid anticoagulation at this time will consult gastroenterology 3. Underlying history of gout will continue allopurinol 4. Recent diagnosis of Covid 19 infection diagnosed on 08/21/2020 5. Anemia hemoglobin is down to 8.9 patient was evaluated by gastroenterology he is scheduled for EGD and colonoscopy tomorrow Home medications reviewed and reordered patient was started on IV antibiotics pulmonary consultation was requested gastroenterology consultation requested will follow closely
[2020-09-28] MEDS: SODIUM CHLORIDE 0.9% 1,000 ML IV SCH (20:03)
[2020-09-28] MEDS: allopurinoL 300 MG TAB PO SCH (20:08)
[2020-09-29] MEDS: CHOLECALCIFEROL 1,000 UNIT TAB PO SCH (08:13)
[2020-09-29] MEDS: ASCORBIC ACID 500 MG TAB PO SCH (08:13)
--- NOTE | 2020-09-29 12:10 | PN ---
PROGRESS NOTE PULMONARY/CRITICAL CARE PROGRESS NOTE: DATE OF SERVICE: 09/29/2020 This is a 70-year-old gentleman who was admitted to the hospital back on September 27. The patient came into the emergency room initially with complaints of malaise, nausea, weakness and fatigue. The patient apparently tested positive for coronavirus. He tested positive back on August 18. He had minimal lung issues. The patient was not receiving any supplemental oxygen. Not receiving any IV fluids. Today, he tells me, he has been having black tarry stools and apparently he is scheduled to have an EGD and colonoscopy today. I was not aware that yesterday when I did this consultation. Again, he did not really have much in the way of any lung issues and his chest x-ray only showed some mild left basilar atelectasis. Currently, he is resting comfortably. He has no major complaints. Denies any shortness of breath, cough, wheezing, or phlegm production. He denies any abdominal pain. Current vital signs are reviewed, temperature 97.5 heart rate 80, respiratory rate 18, blood pressure 141/74 mean 96 and room air saturations are between 96%-97%. He appears in no acute distress. Looks a bit pale. HEENT: Examination is grossly unremarkable. No supplemental oxygen. NECK: Supple full range of motion. There is no adenopathy, thyromegaly or neck vein distention. CARDIOVASCULAR: Examination reveals regular rhythm and rate. Heart rate 80 beats per minute. S1, S2 normal. No S3, S4, or murmur. LUNGS: Reveal mostly clear breath sounds. Maybe a few scattered mild rhonchi. No wheezes or crackles. His lung examination is mostly normal. ABDOMEN: Soft. No masses or tenderness. Bowel sounds are noted. EXTREMITIES: Intact. There is no cyanosis, clubbing, or edema. SKIN: Without rash. NEUROLOGIC: Examination is brief but nonfocal. LABS: Reviewed. White count 9.9, hemoglobin 8.9, hematocrit 27.6, and platelet count was a 139,000. Sodium, potassium, chloride, CO2 all normal. Anion gap normal. BUN and creatinine were normal. Urine was negative. He was retested for COVID-19 and did test negative on 09/28. Microbiologic studies are all negative. A chest x-ray done on the showed minimal left basilar atelectasis. Current medications reviewed. He is currently on Tylenol, allopurinol, vitamin C, Zithromax and Rocephin, vitamin D3, Narcan, Zofran, and a did receive GoLYTELY lavage for anticipated EGD, colonoscopy today. ASSESSMENT: 1. Previous COVID-19 infection, August 18, 2020. 2. Apparent GI bleed, with anticipated EGD/colonoscopy scheduled for today. 3. Vague viral symptoms including nausea, weakness, fatigue, with minimal to no shortness of breath and essentially normal chest x-ray. 4. Doubt pneumonia. 5. History of gout. 6. Peripheral artery disease, status post aortobifemoral bypass. 7. History of gallstones. 8. History of scoliosis. PLAN: Yesterday, in my comments I mentioned that he probably could be discharged home. I was not aware and he did not mention to me that he was having some black tarry stools. Apparently, today he is scheduled for an EGD and colonoscopy. He has received a prep. His chest x-ray is essentially normal. He does not need any antibiotics. Those will be discontinued. We will continue to follow. Prognosis is guarded. Again, pulmonary issues are minimal at best. Chest x-ray is near normal. No additional recommendations are made. MMODL / IJN: [id number] /
[2020-09-29] MEDS ORDERED: SODIUM CHLORIDE 0.9% 500 ML 500 ML IV ONE (13:12)
[2020-09-29] MEDS ORDERED: PROPOFOL 10 MG/ML 20 ML VIAL IV ONE (13:16)
[2020-09-29] MEDS ORDERED: LIDOCAINE 1% INJ 10MG/ML (20 ML MDV) ONE (13:16)
--- NOTE | 2020-09-29 13:37 | P.PCN ---
Date of Procedure: 09/29/20 Procedure(s) Performed: Brief history: Patient is a pleasant 70-year-old white male admitted hospital with acute GI bleed. Had multiple episodes of dark colored stools with some fresh blood and hence scheduled for an elective upper endoscopy as well as colonoscopy as a part of evaluation of he agreed. Procedure performed: Esophagogastroduodenoscopy with biopsy Colonoscopy Preoperative diagnosis: Anesthesia: MAC Procedure: After informed consent was obtained from the patient was brought into the endoscopy unit and IV sedation was administered by anesthesia under continuous monitoring. Initially upper endoscopy was done. The Olympus GF 160 video endoscope was inserted inserted into the mouth and esophagus intubated without any difficulty and was gradually advanced into the stomach and duodenum and carefully examined. The bulb and second part of the duodenum appeared normal. The scope was then withdrawn into the stomach adequately insufflated with air and upon careful examination the antrum had erosive gastritis and biopsies were done from this area. In the proximal body the stomach at the site of the diaphragmatic hiatus Hiatal hernia there was a 1 cm ulcerations with no active bleeding which was biopsied. The rest of the body, cardia and fundus appeared normal. The scope was then withdrawn into the esophagus. The GE junction was located at 40 cm to the incisors. It appeared regular with no erythema erosions or ulcerations. Rest of the esophagus appeared normal. Patient tolerated the procedure well. At this time the patient continued to remain sedation. Initial digital rectal examination was normal. Olympus CF 160 video colonoscope was then inserted into the rectum and gradually advanced to the cecum without any difficulty. Careful examination was performed as the scope was gradually being withdrawn. The prep was poor and several areas of the colon. The cecum, ascending colon, transverse colon, descending colon, sigmoid colon and rectum appeared normal. Retroflexion was performed in the rectum and no lesions were noted. Patient tolerated the procedure well. Impression: 1. Upper endoscopy revealed 1 cm proximal gastric ulcer at the diaphragmatic hiatus with no active bleeding and mild antral gastritis 2. Colonoscopy revealed poor prep but no evidence of colitis or colorectal neoplasia Recommendations: Findings of this examination were discussed with the patient. He was advised to continue with Protonix 40 mg daily. Diet will be advanced as tolerated. Monitor CBC daily. because of the poor prep recommend repeat colonoscopy in 3 years
[2020-09-29] MEDS ORDERED: AZITHROMYCIN 500 MG TAB PO SCH (15:00)
[2020-09-29] MEDS: SODIUM CHLORIDE 0.9% 1,000 ML IV SCH (16:02)
--- NOTE | 2020-09-29 17:06 | P.PN ---
Subjective Progress Note Date: 09/29/20 Ryne Fields, is a 70-year-old male who presented to [facility] with complaints of generalized weakness muscle aches cough and shortness of breath, patient was diagnosed with Covid pneumonia about 6 weeks ago, he was admitted to [facility] on 09/08/2020 and was discharged home on 09/11 2020 however patient continued to have worsening weakness cough and shortness of breath and he decided to come back to emergency room. Patient was evaluated in the emergency room vital examination on presentation revealed a temperature of 101.1 pulse 119 respiration 20 blood pressure 140/71 pulse ox 98% on room air white blood count was 9.7 hemoglobin 10.7 platelet count 133 d-dimer 0.76 LDH 637 C-reactive protein 196.9 patient stated that yesterday and the day before he had black stools. Chest x-ray done in the emergency room revealed evidence of left basilar infiltrate he was started on IV antibiotic for possible bacterial pneumonia pulmonary consultation was requested. 22 history of black stools stools Hemoccult was ordered and repeat CBC was requested On 09/28/2020 patient was seen and examined on the medical floor he is alert and oriented 3 in no apparent distress there is no fever or chills no headache or dizziness no chest pain no shortness of breath no cough no nausea or vomiting no abdominal pain no diarrhea and no urinary symptoms he is still complaining of generalized weakness and body ache his hemoglobin is dropping it dropped again to 8.9 today he was evaluated by gastroenterology and is scheduled for EGD and colonoscopy tomorrow On 09/29/2020 patient was seen and examined on the medical floor he is alert and oriented times is 3 in no apparent distress there is no fever or chills no headache or dizziness no chest pain no shortness of breath no cough no nausea or vomiting no abdominal pain no diarrhea no blood in the stools no burning with ur ination no frequency or urgency and no hematuria patient is scheduled for EGD and colonoscopy today Objective - Vital Signs Vital signs: Vital Signs Temp 97.5 F L 09/29/20 04:52 Pulse 80 09/29/20 04:52 Resp 18 09/28/20 20:00 BP 141/74 09/29/20 04:52 Pulse Ox 96 09/29/20 04:52 Intake & Output 09/28/20 09/29/20 09/29/20 18:59 06:59 18:59 Intake Total 250 250 Balance 250 250 Intake: Intake, IV Titration 250 250 Amount Azithromycin 500 mg In 250 250 Sodium Chloride 0.9% 250 ml @ 250 mls/hr IVPB DAILY@1500 [facility] Rx#: [id number] Other: Voiding Method Urinal Urinal - Exam In general patient is alert and oriented 3 in no apparent distress HEENT head normocephalic and atraumatic Neck is supple no JVD no goiter no lymphadenopathy Chest exam reveals fine crackles in both lung aguilar no wheezing Cardiac exam reveals regular heart sounds S1 and S2 no gallops no murmurs Abdomen is soft nontender no organomegaly with normal bowel sounds Extremity exam reveals minimal edema no cyanosis or clubbing Neurological examination reveals no gross focal neurological deficit - Labs CBC & Chem 7: 09/28/20 06:02 09/28/20 06:02 Labs: Abnormal Lab Results - Last 24 Hours (Table) 09/28/20 09/28/20 Range/Units 06:02 11:05 BUN/Creatinine Ratio 25.56 H (12.00-20.00) Ratio Glucose 201 H (70-110) mg/dL Calcium 8.0 L (8.7-10.3) mg/dL Total Protein 4.8 L (6.2-8.2) g/dL Albumin 3.20 L (3.80-4.90) g/dL Urine Glucose (UA) 4+ H (Negative) Microbiology - Last 24 Hours (Table) 09/27/20 12:53 Blood Culture - Preliminary Blood No Growth after 24 hours Assessment and Plan Plan: 1. Left lower lobe infiltrate possible bacterial pneumonia 2. Black tarry stool yesterday and the day before hemoglobin is down to 10.7 hemoglobin on 09/11/2020 was 13.9 will repeat CBC tonight and check stool Hemoccult will avoid anticoagulation at this time will consult gastroenterology 3. Underlying history of gout will continue allopurinol 4. Recent diagnosis of Covid 19 infection diagnosed on 08/21/2020 5. Anemia hemoglobin is down to 8.9 patient was evaluated by gastroenterology he is scheduled for EGD and colonoscopy tomorrow Home medications reviewed and reordered patient was started on IV antibiotics pulmonary consultation was requested gastroenterology consultation requested will follow closely
[2020-09-29] MEDS: allopurinoL 300 MG TAB PO SCH (20:20)
[2020-09-29] MEDS: PANTOPRAZOLE 40 MG/10 ML VIAL IVP SCH (20:21)
[2020-09-30] MEDS: ACETAMINOPHEN TAB 500 MG TAB PO PRN (01:44)
[2020-09-30 05:55] LABS: Basophils # (A) 0.1 k/uL (0-0.2); Basophils % (A) 1 %; Eosinophils # (A) 0.1 k/uL (0-0.7); Eosinophils % (A) 2 %; HCT 25.6 % (39.0-53.0); HGB 8.6 gm/dL (13.0-17.5); Lymphocytes # (A) 1.2 k/uL (1.0-4.8); Lymphocytes % (A) 15 %; MCH 33.6 pg (25.0-35.0); MCHC 33.7 g/dL (31.0-37.0); MCV 99.7 fL (80.0-100.0); Macrocytosis Slight; Mean Platelet Volume 7.9; Monocytes # (A) 0.5 k/uL (0-1.0); Monocytes % (A) 7 %; Neutrophils # (A) 5.6 k/uL (1.3-7.7); Neutrophils % (A) 74 %; Platelet Count 163 k/uL (150-450); RBC 2.57 m/uL (4.30-5.90); RDW 15.3 % (11.5-15.5); WBC 7.6 k/uL (3.8-10.6)
[2020-09-30] MEDS: CHOLECALCIFEROL 1,000 UNIT TAB PO SCH (08:35)
[2020-09-30] MEDS: ASCORBIC ACID 500 MG TAB PO SCH (08:35)
[2020-09-30] MEDS: PANTOPRAZOLE 40 MG/10 ML VIAL IVP SCH ×2 (08:35→21:39)
[2020-09-30 10:46] LABS: Albumin 3.1 g/dL (3.80-4.90); Albumin/Globulin Ratio 2.07 (1.60-3.17); Anion Gap 7.7 mmol/L (4.00-12.00); BUN/Creat Ratio 16.36 Ratio (12.00-20.00); Calcium 7.8 mg/dL (8.7-10.3); Carbon Dioxide 25.3 mmol/L (21.6-31.8); Globulin 1.5 g/dL (1.6-3.3); Non-African American GFR(CKD) 68.1 (60.0-200.0); Potassium 4.3 mmol/L (3.5-5.5); Total Bilirubin 0.3 mg/dL (0.2-1.2); Total Protein 4.6 g/dL (6.2-8.2)
--- NOTE | 2020-09-30 14:03 | P.PN ---
Subjective Progress Note Date: 09/30/20 Principal diagnosis: Acute GI bleed and anemia This patient is a 70-year-old pleasant white male who was admitted to the hospital with complaints of generalized weakness, shortness of breath, black tarry stools that started on Sunday afternoon. The patient was admitted with Coban 19 pneumonia about 6 weeks ago with treatment. He was started on anticoagulation while in the hospital and discharged home on antibiotics. For the last 1 week he was having increased shortness of breath and black tarry stools so he came to the emergency department for further evaluation. He was noted to have a drop in his hemoglobin from 10.7-8.9. He underwent an upper and lower endoscopy yesterday. His EGD revealed a 1 cm proximal gastric ulcer no active bleeding and mild antral gastritis. Colonoscopy revealed poor prep, no evidence of colitis or colorectal neoplasia. Today the patient states he has not had a bowel movement. He denies any rectal bleeding, nausea, vomiting or ab dominal pain. He denies any hematemesis. He states overall he is feeling better. Objective - Vital Signs Vital signs: Vital Signs Temp 98.8 F 09/30/20 11:00 Pulse 92 09/30/20 11:00 Resp 16 09/30/20 11:00 BP 122/68 09/30/20 11:00 Pulse Ox 95 09/30/20 11:00 Intake & Output 09/29/20 09/30/20 09/30/20 18:59 06:59 18:59 Intake Total 900 Balance 900 Intake: IV 250 Oral 650 Other: Voiding Method Urinal Urinal Urinal # Voids 3 2 2 # Bowel Movements 0 - Exam General appearance: The patient is alert, oriented, in no acute distress. HET: Head is normocephalic and atraumatic. Conjunctiva pink. Sclera anicteric. Neck: Supple without lymphadenopathy. Abdomen: Soft, nontender, nondistended with bowel sounds. No guarding or rigidity. Extremities: Normal skin color and turgor. No pedal edema Neurological: No focal deficits. Alert and oriented 3. - Labs CBC & Chem 7: 09/30/20 05:02 09/30/20 05:02 Labs: Abnormal Lab Results - Last 24 Hours (Table) 09/30/20 09/30/20 Range/Units 05:02 05:02 RBC 2.57 L (4.30-5.90) m/uL Hgb 8.6 L (13.0-17.5) gm/dL Hct 25.6 L (39.0-53.0) % Glucose 154 H (70-110) mg/dL Calcium 7.8 L (8.7-10.3) mg/dL Total Protein 4.6 L (6.2-8.2) g/dL Albumin 3.10 L (3.80-4.90) g/dL Globulin 1.5 L (1.6-3.3) g/dL Microbiology - Last 24 Hours (Table) 09/27/20 12:53 Blood Culture - Preliminary Blood No Growth after 48 hours Assessment and Plan Assessment: 1. Anemia black tarry stools for the last 3-4 days duration prior to admission. He had a hemoglobin dropped from 10.7-8.9. He had 2 episodes of black tarry stools is admission. Stool occult blood was positive. He had no previous history of peptic ulcer disease or recent NSAID use. Last colonoscopy was 5 years ago was noted to have small polyps. He is status post upper and lower endoscopy. Upper endoscopy revealed a 1 cm small gastric ulcer and mild gastritis. His colonoscopy he did have a poor prep, however her was no evidence of colitis or colorectal neoplasia. The patient was told he should have a repeat colonoscopy in 3 years. Hemoglobin is stable at 8.6. 2. Left lower lobe pneumonia for which he is on broad-spectrum antibiotics. Pulmonary is following patient closely. 3. History of recent Covid-19 pneumonia diagnosed 6 weeks ago. Repeat Covid-19 testing negative. Plan: 1. Supportive care 2. Diet as tolerated 3. Continue with broad-spectrum antibiotics 4. Continue with Protonix 40 mg daily 5. Monitor CBC daily 6. Patient is status post EGD and colonoscopy. Patient will need repeat colonoscopy in 3 years due to poor prep. We will continue to follow Dr. Magali Sterling I agree with the dictator's note, documented as a scribe by Magalys Pierson.
[2020-09-30] MEDS: SODIUM CHLORIDE 0.9% 1,000 ML IV SCH (14:20)
--- NOTE | 2020-09-30 16:27 | P.PN ---
Subjective Progress Note Date: 09/30/20 Principal diagnosis: GI bleed The patient is seen today 09/30/2020 in follow-up on the regular medical floor. He is awake and alert in no acute distress. Maintaining O2 saturations in the mid 90s on room air. He's afebrile. Hemodynamically medically stable. He did undergo EGD and colonoscopy yesterday. EGD revealed a 1 cm proximal gastric ulcer at the diaphragm but no active bleeding and mild antral gastritis. Colonoscopy revealed poor prep but no evidence of colitis or colorectal neoplasia. White count 7.6. Hemoglobin 8.6. Sodium 139. Potassium 4.3. Creatinine 1.1. Objective - Vital Signs Vital signs: Vital Signs Temp 98.8 F 09/30/20 11:00 Pulse 92 09/30/20 11:00 Resp 16 09/30/20 11:00 BP 122/68 09/30/20 11:00 Pulse Ox 95 09/30/20 13:00 Intake & Output 09/29/20 09/30/20 09/30/20 18:59 06:59 18:59 Intake Total 900 Balance 900 Intake: IV 250 Oral 650 Other: Voiding Method Urinal Urinal Urinal # Voids 3 2 2 # Bowel Movements 0 - Exam GENERAL EXAM: Alert, active, comfortable in no apparent distress. HEAD: Normocephalic. EYES: Normal reaction of pupils, equal size. NOSE: Clear with pink turbinates. THROAT: No erythema or exudates. NECK: No masses, no JVD. CHEST: No chest wall deformity. LUNGS: Equal air entry with no crackles, wheeze, rhonchi or dullness. CVS: S1 and S2 normal with no audible murmur, regular rhythm. ABDOMEN: No hepatosplenomegaly, normal bowel sounds, no guarding or rigidity. SPINE: No scoliosis or deformity SKIN: No rashes CENTRAL NERVOUS SYSTEM: No focal deficits, tone is normal in all 4 extremities. EXTREMITIES: There is no peripheral edema. No clubbing, no cyanosis. Peripheral pulses are intact. - Labs CBC & Chem 7: 09/30/20 05:02 09/30/20 05:02 Labs: Abnormal Lab Results - Last 24 Hours (Table) 09/30/20 09/30/20 Range/Units 05:02 05:02 RBC 2.57 L (4.30-5.90) m/uL Hgb 8.6 L (13.0-17.5) gm/dL Hct 25.6 L (39.0-53.0) % Glucose 154 H (70-110) mg/dL Calcium 7.8 L (8.7-10.3) mg/dL Total Protein 4.6 L (6.2-8.2) g/dL Albumin 3.10 L (3.80-4.90) g/dL Globulin 1.5 L (1.6-3.3) g/dL Microbiology - Last 24 Hours (Table) 09/27/20 12:53 Blood Culture - Preliminary Blood No Growth after 72 hours Assessment and Plan Assessment: 1 Gastrointestinal bleeding with EGD and colonoscopy performed yesterday noted 1 cm proximal gastric ulcer at the diaphragmatic hiatus but no active bleeding. Colonoscopy revealed no active bleeding. Currently 6. 2 History of previous CoVID infection on 08/18/2020 no pulmonary complaints 3 History of gout 4 Peripheral artery disease status post aortobifem bypass 5 Scoliosis Plan: The patient was seen and evaluated by Dr. Monte Currently stable from the pulmonary standpoint We will see on an as-needed basis I, the cosigning physician, performed a history & physical examination of the patient. Lungs sounds are clear. Maintaining good O2 saturations in the 90s on room air. I discussed the assessment and plan of care with my nurse practitioner, Mariela Avendano. I attest to the above note as dictated by her.
[2020-09-30] MEDS: allopurinoL 300 MG TAB PO SCH (21:39)
[2020-09-30] MEDS: ACETAMINOPHEN TAB 325 MG TAB PO PRN (21:40)
[2020-10-01 05:30] LABS: Basophils % (A) 1 %; Eosinophils # (A) 0.1 k/uL (0-0.7); Eosinophils % (A) 2 %; HCT 27.9 % (39.0-53.0); HGB 8.9 gm/dL (13.0-17.5); Lymphocytes # (A) 1.3 k/uL (1.0-4.8); Lymphocytes % (A) 19 %; MCH 31.9 pg (25.0-35.0); MCHC 31.9 g/dL (31.0-37.0); MCV 100.1 fL (80.0-100.0); Macrocytosis Slight; Monocytes # (A) 0.2 k/uL (0-1.0); Monocytes % (A) 4 %; Neutrophils % (A) 73 %; Platelet Count 169 k/uL (150-450); RBC 2.79 m/uL (4.30-5.90); RDW 15.8 % (11.5-15.5); WBC 6.9 k/uL (3.8-10.6)
[2020-10-01] MEDS: PANTOPRAZOLE 40 MG/10 ML VIAL IVP SCH ×2 (07:28→20:27)
[2020-10-01] MEDS: ASCORBIC ACID 500 MG TAB PO SCH (07:29)
[2020-10-01] MEDS: CHOLECALCIFEROL 1,000 UNIT TAB PO SCH (07:29)
[2020-10-01 09:33] LABS: African American GFR (CKD) 64.5 (60.0-200.0); Albumin 3.2 g/dL (3.80-4.90); Anion Gap 6.9 mmol/L (4.00-12.00); BUN/Creat Ratio 12.31 Ratio (12.00-20.00); Calcium 8.3 mg/dL (8.7-10.3); Carbon Dioxide 26.1 mmol/L (21.6-31.8); Globulin 1.6 g/dL (1.6-3.3); Non-African American GFR(CKD) 55.7 (60.0-200.0); Total Bilirubin 0.3 mg/dL (0.2-1.2); Total Protein 4.8 g/dL (6.2-8.2)
[2020-10-01] MEDS: ACETAMINOPHEN TAB 325 MG TAB PO PRN (10:37)
--- NOTE | 2020-10-01 13:26 | P.PN ---
Subjective Progress Note Date: 10/01/20 Principal diagnosis: Acute GI bleed and anemia This patient is a 70-year-old pleasant white male who was admitted to the hospital with complaints of generalized weakness, shortness of breath, black tarry stools that started on Sunday afternoon. The patient was admitted with Coban 19 pneumonia about 6 weeks ago with treatment. He was started on anticoagulation while in the hospital and discharged home on antibiotics. For the last 1 week he was having increased shortness of breath and black tarry stools so he came to the emergency department for further evaluation. He was noted to have a drop in his hemoglobin from 10.7-8.9. He underwent an upper and lower endoscopy two days ago. His EGD revealed a 1 cm proximal gastric ulcer no active bleeding and mild antral gastritis. Colonoscopy revealed poor prep, no evidence of colitis or colorectal neoplasia. Today the patient states he has not had a bowel movement. He denies any rectal bleeding, nausea, vomiting or abdominal pain. He denies any hematemesis. He states overall he is feeling better, however he did continue to have a fever. He is tolerating a regular diet. Objective - Vital Signs Vital signs: Vital Signs Temp 102.4 F H 10/01/20 10:55 Pulse 133 H 10/01/20 10:55 Resp 22 10/01/20 10:55 BP 160/83 10/01/20 10:55 Pulse Ox 93 L 10/01/20 10:55 Intake & Output 09/30/20 10/01/20 10/01/20 18:59 06:59 18:59 Intake Total 760 300 Balance 760 300 Intake: Intake, IV Titration 160 Amount Sodium Chloride 0.9% 1, 160 000 ml @ 20 mls/hr IV . Q24H [facility] Rx#:[id number] Oral 600 300 Other: Voiding Method Urinal Urinal # Voids 2 2 - Exam General appearance: The patient is alert, oriented, in no acute distress. HET: Head is normocephalic and atraumatic. Conjunctiva pink. Sclera anicteric. Neck: Supple without lymphadenopathy. Abdomen: Soft, nontender, nondistended with bowel sounds. No guarding or rigidity. Extremities: Normal skin color and turgor. No pedal edema Neurological: No focal deficits. Alert and oriented 3. - Labs CBC & Chem 7: 10/01/20 04:51 10/01/20 04:51 Labs: Abnormal Lab Results - Last 24 Hours (Table) 10/01/20 10/01/20 Range/Units 04:51 04:51 RBC 2.79 L (4.30-5.90) m/uL Hgb 8.9 L (13.0-17.5) gm/dL Hct 27.9 L (39.0-53.0) % MCV 100.1 H (80.0-100.0) fL RDW 15.8 H (11.5-15.5) % Est GFR (CKD-EPI)NonAf 55.7 L (60.0-200.0) Glucose 276 H (70-110) mg/dL Calcium 8.3 L (8.7-10.3) mg/dL Total Protein 4.8 L (6.2-8.2) g/dL Albumin 3.20 L (3.80-4.90) g/dL Microbiology - Last 24 Hours (Table) 09/27/20 12:53 Blood Culture - Preliminary Blood No Growth after 72 hours Assessment and Plan Assessment: 1. Anemia black tarry stools for the last 3-4 days duration prior to admission. He had a hemoglobin dropped from 10.7-8.9. He had 2 episodes of black tarry stools is admission. Stool occult blood was positive. He had no previous hist ory of peptic ulcer disease or recent NSAID use. Last colonoscopy was 5 years ago was noted to have small polyps. He is status post upper and lower endoscopy. Upper endoscopy revealed a 1 cm small gastric ulcer and mild gastritis. His colonoscopy he did have a poor prep, however her was no evidence of colitis or colorectal neoplasia. The patient was told he should have a repeat colonoscopy in 3 years. Hemoglobin is stable at 8.9. 2. Left lower lobe pneumonia for which he is on broad-spectrum antibiotics. Pulmonary is following patient closely. 3. History of recent Covid-19 pneumonia diagnosed 6 weeks ago. Repeat Covid-19 testing negative. Plan: 1. Supportive care 2. Regular diet 3. Continue with broad-spectrum antibiotics 4. Continue with Protonix 40 mg daily 5. Monitor CBC daily 6. Patient is status post EGD and colonoscopy. Patient will need repeat colonoscopy in 3 years due to poor prep. Thank you for this consultation, we will sign off at this time. Dr. Pete I agree with the dictator's note, documented as a scribe by Magalys Pierson.
--- NOTE | 2020-10-01 13:57 | P.PN ---
Subjective Progress Note Date: 09/30/20 Ryne Fields, is a 70-year-old male who presented to [facility] with complaints of generalized weakness muscle aches cough and shortness of breath, patient was diagnosed with Covid pneumonia about 6 weeks ago, he was admitted to [facility] on 09/08/2020 and was discharged home on 09/11 2020 however patient continued to have worsening weakness cough and shortness of breath and he decided to come back to emergency room. Patient was evaluated in the emergency room vital examination on presentation revealed a temperature of 101.1 pulse 119 respiration 20 blood pressure 140/71 pulse ox 98% on room air white blood count was 9.7 hemoglobin 10.7 platelet count 133 d-dimer 0.76 LDH 637 C-reactive protein 196.9 patient stated that yesterday and the day before he had black stools. Chest x-ray done in the emergency room revealed evidence of left basilar infiltrate he was started on IV antibiotic for possible bacterial pneumonia pulmonary consultation was requested. 22 history of black stools stools Hemoccult was ordered and repeat CBC was requested On 09/28/2020 patient was seen and examined on the medical floor he is alert and oriented 3 in no apparent distress there is no fever or chills no headache or dizziness no chest pain no shortness of breath no cough no nausea or vomiting no abdominal pain no diarrhea and no urinary symptoms he is still complaining of generalized weakness and body ache his hemoglobin is dropping it dropped again to 8.9 today he was evaluated by gastroenterology and is scheduled for EGD and colonoscopy tomorrow On 09/29/2020 patient was seen and examined on the medical floor he is alert and oriented times is 3 in no apparent distress there is no fever or chills no headache or dizziness no chest pain no shortness of breath no cough no nausea or vomiting no abdominal pain no diarrhea no blood in the stools no burning with ur ination no frequency or urgency and no hematuria patient is scheduled for EGD and colonoscopy today On 09/30/2020 patient was seen and examined on the medical floor he is alert and oriented times is 3 in no apparent distress there is no fever or chills no headache or dizziness no chest pain no shortness of breath no cough no nausea or vomiting no abdominal pain no diarrhea no blood in the stools no burning with urination no frequency or urgency and no hematuria patient had EGD and colonoscopy, and had evidence of gastric ulcer, HGB stable, he is still having episodes of fever urine analysis done no evidence of urinary tract infection Objective - Vital Signs Vital signs: Vital Signs Temp 99.2 F 09/30/20 04:35 Pulse 97 09/30/20 04:35 Resp 16 09/30/20 04:35 BP 98/55 09/30/20 04:35 Pulse Ox 96 09/30/20 04:35 Intake & Output 09/29/20 09/30/20 09/30/20 18:59 06:59 18:59 Intake Total 900 Balance 900 Intake: IV 250 Oral 650 Other: Voiding Method Urinal Urinal # Voids 3 2 # Bowel Movements 0 - Exam In general patient is alert and oriented 3 in no apparent distress HEENT head normocephalic and atraumatic Neck is supple no JVD no goiter no lymphadenopathy Chest exam reveals fine crackles in both lung aguilar no wheezing Cardiac exam reveals regular heart sounds S1 and S2 no gallops no murmurs Abdomen is soft nontender no organomegaly with normal bowel sounds Extremity exam reveals minimal edema no cyanosis or clubbing Neurological examination reveals no gross focal neurological deficit - Labs CBC & Chem 7: 10/01/20 04:51 10/01/20 04:51 Labs: Abnormal Lab Results - Last 24 Hours (Table) 09/30/20 Range/Units 05:02 RBC 2.57 L (4.30-5.90) m/uL Hgb 8.6 L (13.0-17.5) gm/dL Hct 25.6 L (39.0-53.0) % Microbiology - Last 24 Hours (Table) 09/27/20 12:53 Blood Culture - Preliminary Blood No Growth after 48 hours Assessment and Plan Plan: 1. Left lower lobe infiltrate possible bacterial pneumonia 2. Black tarry stool yesterday and the day before hemoglobin is down to 10.7 hemoglobin on 09/11/2020 was 13.9 will repeat CBC tonight and check stool Hemoccult will avoid anticoagulation at this time will consult gastroenterology 3. Underlying history of gout will continue allopurinol 4. Recent diagnosis of Covid 19 infection diagnosed on 08/21/2020 5. Anemia hemoglobin is down to 8.9 patient was evaluated by gastroenterology he is scheduled for EGD and colonoscopy tomorrow Home medications reviewed and reordered patient was started on IV antibiotics pulmonary consultation was requested gastroenterology consultation requested will follow closely
--- NOTE | 2020-10-01 14:27 | P.PN ---
Subjective Progress Note Date: 10/01/20 Ryne Fields, is a 70-year-old male who presented to [facility] with complaints of generalized weakness muscle aches cough and shortness of breath, patient was diagnosed with Covid pneumonia about 6 weeks ago, he was admitted to [facility] on 09/08/2020 and was discharged home on 09/11 2020 however patient continued to have worsening weakness cough and shortness of breath and he decided to come back to emergency room. Patient was evaluated in the emergency room vital examination on presentation revealed a temperature of 101.1 pulse 119 respiration 20 blood pressure 140/71 pulse ox 98% on room air white blood count was 9.7 hemoglobin 10.7 platelet count 133 d-dimer 0.76 LDH 637 C-reactive protein 196.9 patient stated that yesterday and the day before he had black stools. Chest x-ray done in the emergency room revealed evidence of left basilar infiltrate he was started on IV antibiotic for possible bacterial pneumonia pulmonary consultation was requested. 22 history of black stools stools Hemoccult was ordered and repeat CBC was requested On 09/28/2020 patient was seen and examined on the medical floor he is alert and oriented 3 in no apparent distress there is no fever or chills no headache or dizziness no chest pain no shortness of breath no cough no nausea or vomiting no abdominal pain no diarrhea and no urinary symptoms he is still complaining of generalized weakness and body ache his hemoglobin is dropping it dropped again to 8.9 today he was evaluated by gastroenterology and is scheduled for EGD and colonoscopy tomorrow On 09/29/2020 patient was seen and examined on the medical floor he is alert and oriented times is 3 in no apparent distress there is no fever or chills no headache or dizziness no chest pain no shortness of breath no cough no nausea or vomiting no abdominal pain no diarrhea no blood in the stools no burning with ur ination no frequency or urgency and no hematuria patient is scheduled for EGD and colonoscopy today On 09/30/2020 patient was seen and examined on the medical floor he is alert and oriented times is 3 in no apparent distress there is no fever or chills no headache or dizziness no chest pain no shortness of breath no cough no nausea or vomiting no abdominal pain no diarrhea no blood in the stools no burning with urination no frequency or urgency and no hematuria patient had EGD and colonoscopy, and had evidence of gastric ulcer, HGB stable, he is still having episodes of fever urine analysis done no evidence of urinary tract infection On 10/01/2020 patient was seen and examined on the medical floor he is alert and oriented 3 in no apparent distress he is still complaining of episodes of fever up to 102.4 today, he is complaining of generalized weakness otherwise he denies any complaints there is no headache or dizziness no chest pain no shortness of breath no cough no nausea or vomiting no abdominal pain no diarrhea no blood in the stools no burning with urination no frequency or urgency and no hematuria. Cause of elevated temperature is not entirely clear, Covid testing was -2 days ago although patient was diagnosed was Covid 19 infection about 1 month ago, blood culture on 09/27/2020 were negative, urine analysis was negative, at this time will recheck blood culture, recheck chest x-ray, consult infectious disease and start patient empirically on IV Zosyn at this time Objective - Vital Signs Vital signs: Vital Signs Temp 101.6 F H 10/01/20 12:15 Pulse 133 H 10/01/20 10:55 Resp 22 10/01/20 10:55 BP 160/83 10/01/20 10:55 Pulse Ox 93 L 10/01/20 10:55 Intake & Output 09/30/20 10/01/20 10/01/20 18:59 06:59 18:59 Intake Total 760 300 Balance 760 300 Intake: Intake, IV Titration 160 Amount Sodium Chloride 0.9% 1, 160 000 ml @ 20 mls/hr IV . Q24H [facility] Rx#:[id number] Oral 600 300 Other: Voiding Method Urinal Urinal # Voids 2 2 - Exam In general patient is alert and oriented 3 in no apparent distress HEENT head normocephalic and atraumatic Neck is supple no JVD no goiter no lymphadenopathy Chest exam reveals fine crackles in both lung aguilar no wheezing Cardiac exam reveals regular heart sounds S1 and S2 no gallops no murmurs Abdomen is soft nontender no organomegaly with normal bowel sounds Extremity exam reveals minimal edema no cyanosis or clubbing Neurological examination reveals no gross focal neurological deficit - Labs CBC & Chem 7: 10/01/20 04:51 10/01/20 04:51 Labs: Abnormal Lab Results - Last 24 Hours (Table) 10/01/20 10/01/20 Range/Units 04:51 04:51 RBC 2.79 L (4.30-5.90) m/uL Hgb 8.9 L (13.0-17.5) gm/dL Hct 27.9 L (39.0-53.0) % MCV 100.1 H (80.0-100.0) fL RDW 15.8 H (11.5-15.5) % Est GFR (CKD-EPI)NonAf 55.7 L (60.0-200.0) Glucose 276 H (70-110) mg/dL Calcium 8.3 L (8.7-10.3) mg/dL Total Protein 4.8 L (6.2-8.2) g/dL Albumin 3.20 L (3.80-4.90) g/dL Microbiology - Last 24 Hours (Table) 09/27/20 12:53 Blood Culture - Preliminary Blood No Growth after 72 hours Assessment and Plan Plan: 1. Left lower lobe infiltrate possible bacterial pneumonia 2. Black tarry stool yesterday and the day before hemoglobin is down to 10.7 hemoglobin on 09/11/2020 was 13.9 will repeat CBC tonight and check stool Hemoccult will avoid anticoagulation at this time will consult gastroenterology 3. Underlying history of gout will continue allopurinol 4. Recent diagnosis of Covid 19 infection diagnosed on 08/21/2020 5. Anemia hemoglobin is down to 8.9 patient was evaluated by gastroenterology he is scheduled for EGD and colonoscopy tomorrow Home medications reviewed and reordered patient was started on IV antibiotics pulmonary consultation was requested gastroenterology consultation requested will follow closely
--- NOTE | 2020-10-01 15:12 | XR ---
EXAMINATION TYPE: XR chest 1V portable DATE OF EXAM: 10/01/2020 HISTORY: Shortness of breath. COMPARISON: 09/27/2020 TECHNIQUE: Single view of the chest is submitted. FINDINGS: Demonstrated are scattered senescent parenchymal change. Vague interstitial prominence suggested bilaterally may reflect developing infiltrate. Correlate clin ically. The heart is stable. Hilar and mediastinal structures are within normal limits. Degenerative changes are seen of the dorsal spine. IMPRESSION: 1. Vague interstitial prominence suggested bilaterally may reflect developing infiltrate. Correlate clinically.
[2020-10-01] MEDS: SODIUM CHLORIDE 0.9% 1,000 ML IV SCH (17:47)
[2020-10-01] MEDS: PIPERACILLIN-TAZOBACTAM 3.375 GM in SODIUM CHLORIDE 0.9% 100 ML IVPB SCH ×2 (17:47→23:33)
[2020-10-01] MEDS: allopurinoL 300 MG TAB PO SCH (20:27)
--- NOTE | 2020-10-02 06:13 | CONS ---
CONSULTATION DATE OF SERVICE: 10/01/2020 REASON FOR CONSULTATION: Fever. HISTORY OF PRESENT ILLNESS: The patient is a 60-year-old male with initially diagnosed with COVID-19 infection on August 18. The patient did have minimal symptoms and subsequently was admitted to this facility from 09/08 until 09/10 with concern for possible secondary bacterial pneumonia. The patient was stabilized and subsequently discharged home. Patient now presenting back to the hospital with a chief complaint of generalized weakness, no energy and started having black tarry stools. No fresh blood. Patient did have some vague left lower abdominal pain / with no radiation. Has been nauseated but no vomiting. With these symptoms the patient was brought back to the hospital. On arrival to the ER the patient did have fever of 101 degrees Fahrenheit and the patient has been running a fever on a daily basis with a fever of 102 Fahrenheit this morning that has prompted this infectious disease consultation. The patient during this hospital admission also noticed to have mild anemia. Hemoglobin is trending down to 8.9. D-dimer was 0.76. Did have elevated inflammatory markers. Procalcitonin was normal. Urine was negative. Hines PCR came back negative. The patient did have a chest x-ray that showed left basilar atelectasis or infiltrate, COPD, correlate for chronic interstitial lung disease. The patient has been evaluated by GI Services and is status post EGD with evidence of peptic ulcer disease and colon prep was poor. With this persistent fever, ID was consulted today. The patient denies having any headache or significant URI symptoms. No chest pain, shortness of breath or cough. Abdominal pain as mentioned above and black tarry stool. No urinary symptoms. REVIEW OF SYSTEMS: Positive points have been mentioned in HPI. Rest of systems are negative. PAST MEDICAL HISTORY: Recent admission for COVID-19 pneumonia, hypertension, gastroesophageal reflux disease, coronary artery disease. PAST SURGICAL HISTORY: Past surgical history appendectomy, bladder surgery, heart catheterization, tonsillectomy. SOCIAL HISTORY: Remote history of smoking. No drinking or drug use. FAMILY HISTORY: Mother history of breast cancer. Father history of brain cancer and committed suicide. ALLERGIES: No known drug allergies. MEDICATIONS: The patient is currently on Tylenol, Zyloprim, mitomycin, vitamin D, Narcan, Zofran, Protonix and IV fluid. PHYSICAL EXAMINATION: Blood pressure 118/64, pulse of 85, temperature 98.8, T-max 102, he is 94% on 2 L nasal cannula. General description is an elderly male lying in bed in no distress. No tachypnea or accessory muscle of respiration use. HEENT: Shows slight pallor. No scleral icterus. Oral mucous membrane is dry no pharyngeal erythema or thrush. Neck trachea central, no thyromegaly. Lungs unlabored breathing, decreased breath sounds in the bases, no wheeze. Heart S1, S2. Regular rate and rhythm. Abdomen are soft, mildly distended, tender left lower quadrant area. Extremities no edema of the feet. Skin Examination no rash or mass palpable. Neurological patient is awake, alert, oriented. Mood and affect normal. LABS: Hemoglobin 8.3, white count 6.9, BUN of 16, creatinine 1.3. Electrolytes have been normal. Liver enzymes are normal. Urine is negative. Chest x-ray as mentioned above. DIAGNOSTIC IMPRESSION: Patient admitted to hospital with fever, black tarry stools. This patient did have evidence of peptic ulcer disease. Colon prep was poor. Patient did have left lower quadrant pain and tenderness with concern for possible diverticulitis. Pneumonia less likely but not entirely excluded and no other obvious focus of infection. PLAN: 1. Zosyn has been started to continue at 3.75 g q.12 hours which should provide coverage for possible diverticulitis plus-minus pneumonia. 2. We will obtain a CT of abdomen and pelvis to rule out intraabdominal pathology and evaluate the lung bases. 3. We will follow on clinical condition and culture to further adjust medication if needed. Thank you for this consultation. Will follow this patient along with you. MMODL / IJN: [id number] /
[2020-10-02 07:38] LABS: Basophils % (A) 1 %; Eosinophils # (A) 0.1 k/uL (0-0.7); Eosinophils % (A) 2 %; HCT 27.3 % (39.0-53.0); HGB 9.3 gm/dL (13.0-17.5); Lymphocytes # (A) 1.2 k/uL (1.0-4.8); Lymphocytes % (A) 17 %; MCH 33.1 pg (25.0-35.0); MCV 97.3 fL (80.0-100.0); Mean Platelet Volume 7.7; Monocytes # (A) 0.3 k/uL (0-1.0); Monocytes % (A) 4 %; Neutrophils # (A) 4.9 k/uL (1.3-7.7); Neutrophils % (A) 75 %; Platelet Count 164 k/uL (150-450); RBC 2.81 m/uL (4.30-5.90); RDW 15.3 % (11.5-15.5); WBC 6.6 k/uL (3.8-10.6)
[2020-10-02] MEDS: ASCORBIC ACID 500 MG TAB PO SCH (08:23)
[2020-10-02] MEDS: PANTOPRAZOLE 40 MG/10 ML VIAL IVP SCH ×2 (08:23→19:45)
[2020-10-02] MEDS: CHOLECALCIFEROL 1,000 UNIT TAB PO SCH (08:23)
[2020-10-02] MEDS: PIPERACILLIN-TAZOBACTAM 3.375 GM in SODIUM CHLORIDE 0.9% 100 ML IVPB SCH ×3 (08:24→23:41)
--- NOTE | 2020-10-02 08:35 | US ---
EXAMINATION TYPE: US abdomen complete DATE OF EXAM: 10/02/2020 COMPARISON: US & CT's CLINICAL HISTORY: fever. EXAM MEASUREMENTS: Liver Length: 14.1 cm Gallbladder Wall: Surgically absent cm CBD: not visualized due to extensive midline bowel gas Spleen: 11.6 cm Right Kidney: 10.1 x 4.8 x 5.2 cm Left Kidney: 10.7 x 5.8 x 5.8 cm Technically difficult study due to extensive midline bowel gas. Pancreas: Obscured by bowel gas Liver: limited evaluation to intercostal window, visualized portions wnl. Gallbladder: Surgically absent CBD: not seen Spleen: wnl Right Kidney: No hydronephrosis or masses seen Left Kidney: No hydronephrosis or masses seen Upper IVC: Obscured by overlying bowel gas Abd Aorta: Obscured by overlying bowel gas IMPRESSION: 1. No abnormality as visualized. 2. Post cholecystectomy changes.
[2020-10-02] MEDS: IOPAMIDOL CONTRAST (ORAL USE) VIAL PO PRN ×2 (08:54→10:11)
--- NOTE | 2020-10-02 10:57 | P.PN ---
Subjective Progress Note Date: 10/02/20 Ryne Fields, is a 70-year-old male who presented to [facility] with complaints of generalized weakness muscle aches cough and shortness of breath, patient was diagnosed with Covid pneumonia about 6 weeks ago, he was admitted to [facility] on 09/08/2020 and was discharged home on 09/11 2020 however patient continued to have worsening weakness cough and shortness of breath and he decided to come back to emergency room. Patient was evaluated in the emergency room vital examination on presentation revealed a temperature of 101.1 pulse 119 respiration 20 blood pressure 140/71 pulse ox 98% on room air white blood count was 9.7 hemoglobin 10.7 platelet count 133 d-dimer 0.76 LDH 637 C-reactive protein 196.9 patient stated that yesterday and the day before he had black stools. Chest x-ray done in the emergency room revealed evidence of left basilar infiltrate he was started on IV antibiotic for possible bacterial pneumonia pulmonary consultation was requested. 22 history of black stools stools Hemoccult was ordered and repeat CBC was requested On 09/28/2020 patient was seen and examined on the medical floor he is alert and oriented 3 in no apparent distress there is no fever or chills no headache or dizziness no chest pain no shortness of breath no cough no nausea or vomiting no abdominal pain no diarrhea and no urinary symptoms he is still complaining of generalized weakness and body ache his hemoglobin is dropping it dropped again to 8.9 today he was evaluated by gastroenterology and is scheduled for EGD and colonoscopy tomorrow On 09/29/2020 patient was seen and examined on the medical floor he is alert and oriented times is 3 in no apparent distress there is no fever or chills no headache or dizziness no chest pain no shortness of breath no cough no nausea or vomiting no abdominal pain no diarrhea no blood in the stools no burning with urination no frequency or urgency and no hematuria patient is scheduled for EGD and colonoscopy today On 09/30/2020 patient was seen and examined on the medical floor he is alert and oriented times is 3 in no apparent distress there is no fever or chills no headache or dizziness no chest pain no shortness of breath no cough no nausea or vomiting no abdominal pain no diarrhea no blood in the stools no burning with urination no frequency or urgency and no hematuria patient had EGD and colonoscopy, and had evidence of gastric ulcer, HGB stable, he is still having episodes of fever urine analysis done no evidence of urinary tract infection On 10/01/2020 patient was seen and examined on the medical floor he is alert and oriented 3 in no apparent distress he is still complaining of episodes of fever up to 102.4 today, he is complaining of generalized weakness otherwise he denies any complaints there is no headache or dizziness no chest pain no shortness of breath no cough no nausea or vomiting no abdominal pain no diarrhea no blood in the stools no burning with urination no frequency or urgency and no hematuria. Cause of elevated temperature is not entirely clear, Covid testing was -2 days ago although patient was diagnosed was Covid 19 infection about 1 month ago, blood culture on 09/27/2020 were negative, urine analysis was negative, at this time will recheck blood culture, recheck chest x-ray, consult infectious disease and start patient empirically on IV Zosyn at this time On 10/01/2020 patient is alert and oriented 3 patient still continues to complain of generalized weakness. Patient is currently maintained on Zosyn per infectious disease CT of abdomen and pelvis has been ordered per infectious disease. Patient currently being followed by infectious disease, pulmonary and GI services. Patient continued to have low-grade temps Objective - Vital Signs Vital signs: Vital Signs Temp 99.5 F 10/02/20 03:59 Pulse 97 10/02/20 03:59 Resp 18 10/02/20 03:59 BP 118/70 10/02/20 03:59 Pulse Ox 95 10/02/20 03:59 Intake & Output 10/01/20 10/02/20 10/02/20 18:59 06:59 18:59 Intake Total 600 Balance 600 Intake: Intake, IV Titration 100 Amount Piperacillin-Tazobactam 3 100 .375 gm In Sodium Chloride 0.9% 100 ml @ 25 mls/hr IVPB Q8HR [facility] Rx# :[id number] Oral 500 Other: Voiding Method Urinal # Voids 4 2 # Bowel Movements 1 - Exam In general patient is alert and oriented 3 in no apparent distress HEENT head normocephalic and atraumatic Neck is supple no JVD no goiter no lymphadenopathy Chest exam reveals fine crackles in both lung aguilar no wheezing Cardiac exam reveals regular heart sounds S1 and S2 no gallops no murmurs Abdomen is soft nontender no organomegaly with normal bowel sounds Extremity exam reveals minimal edema no cyanosis or clubbing Neurological examination reveals no gross focal neurological deficit - Labs CBC & Chem 7: 10/02/20 07:08 10/01/20 04:51 Labs: Abnormal Lab Results - Last 24 Hours (Table) 10/02/20 Range/Units 07:08 RBC 2.81 L (4.30-5.90) m/uL Hgb 9.3 L (13.0-17.5) gm/dL Hct 27.3 L (39.0-53.0) % Microbiology - Last 24 Hours (Table) 09/27/20 12:53 Blood Culture - Preliminary Blood No Growth after 96 hours Assessment and Plan Assessment: 1. Fever with possible Left lower lobe infiltrate possible bacterial pneumonia. Currently maintained on Zosyn. Infectious disease and pulmonary services are following CT of abdomen and pelvis has been ordered per GI services 2. pulmonary services no further workup at this timeBlack tarry stool yesterday and the day before hemoglobin is down to 10.7 hemoglobin on 09/11/2020 was 13.9 will repeat CBC tonight and check stool Hemoccult will avoid anticoagulation at this time will consult gastroenterology. Status post EGD and colonoscopy with findings revealing 1 cm proximal gastric ulcer with no active bleeding. 3. Underlying history of gout will continue allopurinol 4. Recent diagnosis of Covid 19 infection diagnosed on 08/21/2020 Patient currently being followed by infectious disease, GI services and pulmonary services patient remains on IV Zosyn CT of abdomen and pelvis has been ordered per infectious disease to rule out intra-abdominal pathology and to evaluate lung bases
--- NOTE | 2020-10-02 11:04 | CT ---
EXAMINATION TYPE: CT abdomen pelvis w con DATE OF EXAM: 10/02/2020 COMPARISON: None HISTORY: Left lower abdominal pain CT DLP: 1070 mGycm Automated exposure control for dose reduction was used. CONTRAST: CT scan of the abdomen pelvis is performed with IV Contrast, patient injected with 80 mL of Isovue 30 0. FINDINGS- LUNG BASES-coarsened interstitium and groundglass opacities correlate for pneumonitis and chronic int erstitial lung disease. Coronary artery calcification and cardiomegaly.. LIVER/GB-postcholecystectomy changes seen. There is low attenuation in the liver.. PANCREAS- No gross abnormality is seen. SPLEEN- No gross abnormality is seen. ADRENALS- No gross abnormality is seen. KIDNEYS/BLADDER- no hydronephrosis nephrolithiasis or renal mass. BOWEL-there is a hiatal hernia. Mild wall thickening of the sigmoid colon may be related to incomplet e distention. No inflammatory changes correlate clinically.. LYMPH NODES- No greater than 1cm abdominal or pelvic lymph nodes areappreciated. OSSEOUS STRUCTURES-scoliosis with hypertrophic and degenerative change of the spine. Vertebral body f usion at L3-L4 noted. OTHER- aorta of normal caliber. Mild bladder wall thickening could be related to incomplete distenti on correlate with urinalysis to exclude a mild cystitis. Tiny fat-containing periumbilical hernia. IMPRESSION- 1. Groundglass changes involving the lungs are suggestive of a pneumonitis or alveolitis. Chronic int erstitial lung disease also suspected. 2. Wall thickening of the sigmoid colon. There is no inflammatory change. Finding could be related to incomplete distention rather than a mild colitis correlate clinically. 3. Severe scoliosis with multilevel foraminal encroachment and canal stenosis suspected. 4. Hiatal hernia. 5. Correlate for hepatic steatosis
[2020-10-02 13:38] LABS: Albumin 3.4 g/dL (3.80-4.90); Albumin/Globulin Ratio 1.89 (1.60-3.17); Anion Gap 6.1 mmol/L (4.00-12.00); BUN/Creat Ratio 14.55 Ratio (12.00-20.00); Calcium 8.4 mg/dL (8.7-10.3); Carbon Dioxide 26.9 mmol/L (21.6-31.8); Globulin 1.8 g/dL (1.6-3.3); Non-African American GFR(CKD) 68.1 (60.0-200.0); Potassium 4.3 mmol/L (3.5-5.5); Total Bilirubin 0.5 mg/dL (0.3-1.2); Total Protein 5.2 g/dL (6.2-8.2)
[2020-10-02] MEDS: SODIUM CHLORIDE 0.9% 1,000 ML IV SCH (17:19)
[2020-10-02] MEDS: allopurinoL 300 MG TAB PO SCH (19:45)
--- NOTE | 2020-10-02 22:30 | PN ---
PROGRESS NOTE DATE OF SERVICE: 10/02/2020. REASON FOR FOLLOWUP: Fever, concern for pneumonia, diverticulitis. INTERVAL HISTORY: The patient fever pattern has improved. The patient has been feeling better today. Breathing comfortably. He did have a cough and bringing up sputum. No nausea. No vomiting. No abdominal pain or diarrhea. PHYSICAL EXAMINATION: Blood pressure 104/64 with a pulse of 97. Temperature is 97.7. He is 90% on room air. General description is an elderly male lying in bed in no distress. Respiratory system: Unlabored breathing. Decreased intensity in the breath sounds. No wheeze. Heart S1, S2. Regular rate and rhythm. ABDOMEN: Soft, no tenderness. LABS: Hemoglobin is 9.8, white count 6.6, BUN of 16, and creatinine is 1.1. Severe abdominal pain with question of colitis versus undistended colon. IMPRESSION/PLAN: Patient with a fever in this patient admitted to the hospital with weakness and GI bleed with concern for possible diverticulitis versus pneumonia. Patient is started on Zosyn. Overall fever pattern has improved. We will try to obtain a sputum and monitor. Clinical course closely. MMODL / IJN: [id number] /
[2020-10-03 08:37] LABS: Basophils % (A) 1 %; Eosinophils # (A) 0.1 k/uL (0-0.7); Eosinophils % (A) 2 %; HCT 27.3 % (39.0-53.0); HGB 9.1 gm/dL (13.0-17.5); Hypochromasia Slight; Lymphocytes # (A) 1.2 k/uL (1.0-4.8); Lymphocytes % (A) 20 %; MCH 32.5 pg (25.0-35.0); MCHC 33.4 g/dL (31.0-37.0); MCV 97.4 fL (80.0-100.0); Mean Platelet Volume 7.8; Monocytes # (A) 0.3 k/uL (0-1.0); Monocytes % (A) 6 %; Neutrophils # (A) 4.3 k/uL (1.3-7.7); Neutrophils % (A) 70 %; Platelet Count 169 k/uL (150-450); Poikilocytosis Slight; RDW 15.4 % (11.5-15.5); WBC 6.2 k/uL (3.8-10.6)
[2020-10-03] MEDS: ASCORBIC ACID 500 MG TAB PO SCH (08:49)
[2020-10-03] MEDS: PANTOPRAZOLE 40 MG/10 ML VIAL IVP SCH ×2 (08:49→21:05)
[2020-10-03] MEDS: CHOLECALCIFEROL 1,000 UNIT TAB PO SCH (08:49)
[2020-10-03] MEDS: PIPERACILLIN-TAZOBACTAM 3.375 GM in SODIUM CHLORIDE 0.9% 100 ML IVPB SCH ×2 (08:49→17:45)
[2020-10-03 12:10] LABS: African American GFR (CKD) 71.1 (60.0-200.0); Albumin 3.4 g/dL (3.80-4.90); Albumin/Globulin Ratio 1.89 (1.60-3.17); Anion Gap 5.8 mmol/L (4.00-12.00); BUN/Creat Ratio 12.5 Ratio (12.00-20.00); Calcium 8.3 mg/dL (8.7-10.3); Carbon Dioxide 27.2 mmol/L (21.6-31.8); Globulin 1.8 g/dL (1.6-3.3); Non-African American GFR(CKD) 61.3 (60.0-200.0); Potassium 4.1 mmol/L (3.5-5.5); Total Bilirubin 0.4 mg/dL (0.3-1.2); Total Protein 5.2 g/dL (6.2-8.2)
[2020-10-03] MEDS: ACETAMINOPHEN TAB 500 MG TAB PO PRN (13:05)
[2020-10-03] MEDS ORDERED: HYDROcodone/APAP 7.5-325MG 1 EACH TAB PO PRN (13:50)
--- NOTE | 2020-10-03 13:50 | P.PN ---
Subjective Progress Note Date: 10/03/20 Ryne Fields, is a 70-year-old male who presented to [facility] with complaints of generalized weakness muscle aches cough and shortness of breath, patient was diagnosed with Covid pneumonia about 6 weeks ago, he was admitted to [facility] on 09/08/2020 and was discharged home on 09/11 2020 however patient continued to have worsening weakness cough and shortness of breath and he decided to come back to emergency room. Patient was evaluated in the emergency room vital examination on presentation revealed a temperature of 101.1 pulse 119 respiration 20 blood pressure 140/71 pulse ox 98% on room air white blood count was 9.7 hemoglobin 10.7 platelet count 133 d-dimer 0.76 LDH 637 C-reactive protein 196.9 patient stated that yesterday and the day before he had black stools. Chest x-ray done in the emergency room revealed evidence of left basilar infiltrate he was started on IV antibiotic for possible bacterial pneumonia pulmonary consultation was requested. 22 history of black stools stools Hemoccult was ordered and repeat CBC was requested On 09/28/2020 patient was seen and examined on the medical floor he is alert and oriented 3 in no apparent distress there is no fever or chills no headache or dizziness no chest pain no shortness of breath no cough no nausea or vomiting no abdominal pain no diarrhea and no urinary symptoms he is still complaining of generalized weakness and body ache his hemoglobin is dropping it dropped again to 8.9 today he was evaluated by gastroenterology and is scheduled for EGD and colonoscopy tomorrow On 09/29/2020 patient was seen and examined on the medical floor he is alert and oriented times is 3 in no apparent distress there is no fever or chills no headache or dizziness no chest pain no shortness of breath no cough no nausea or vomiting no abdominal pain no diarrhea no blood in the stools no burning with ur ination no frequency or urgency and no hematuria patient is scheduled for EGD and colonoscopy today On 09/30/2020 patient was seen and examined on the medical floor he is alert and oriented times is 3 in no apparent distress there is no fever or chills no headache or dizziness no chest pain no shortness of breath no cough no nausea or vomiting no abdominal pain no diarrhea no blood in the stools no burning with urination no frequency or urgency and no hematuria patient had EGD and colonoscopy, and had evidence of gastric ulcer, HGB stable, he is still having episodes of fever urine analysis done no evidence of urinary tract infection On 10/01/2020 patient was seen and examined on the medical floor he is alert and oriented 3 in no apparent distress he is still complaining of episodes of fever up to 102.4 today, he is complaining of generalized weakness otherwise he denies any complaints there is no headache or dizziness no chest pain no shortness of breath no cough no nausea or vomiting no abdominal pain no diarrhea no blood in the stools no burning with urination no frequency or urgency and no hematuria. Cause of elevated temperature is not entirely clear, Covid testing was -2 days ago although patient was diagnosed was Covid 19 infection about 1 month ago, blood culture on 09/27/2020 were negative, urine analysis was negative, at this time will recheck blood culture, recheck chest x-ray, consult infectious disease and start patient empirically on IV Zosyn at this time. On 10/02/2020 patient is alert and oriented 3 patient still continues to complain of generalized weakness. Patient is currently maintained on Zosyn per infectious disease CT of abdomen and pelvis has been ordered per infectious disease. Patient currently being followed by infectious disease, pulmonary and GI services. Patient continued to have low-grade temps On 10/03/2020 patient was seen and examined on the medical floor he is alert and oriented times is 3 in no apparent distress there is no fever or chills no headache or dizziness no chest pain no shortness of breath no cough no nausea or vomiting no abdominal pain no diarrhea no blood in the stools no burning with urination no frequency or urgency and no hematuria patient had EGD and colonoscopy, and had evidence of gastric ulcer, HGB stable, he is still having episodes of fever urine analysis done no evidence of urinary tract infection. Patient has evidence of pneumonia and is being treated with IV Zosyn, infectious disease following. Objective - Vital Signs Vital signs: Vital Signs Temp 99.0 F 10/03/20 04:49 Pulse 105 H 10/03/20 04:49 Resp 16 10/03/20 04:49 BP 124/68 10/03/20 04:49 Pulse Ox 95 10/03/20 04:49 Intake & Output 10/02/20 10/03/20 10/03/20 18:59 06:59 18:59 Intake Total 700 Balance 700 Intake: Intake, IV Titration 100 Amount Piperacillin-Tazobactam 3 100 .375 gm In Sodium Chloride 0.9% 100 ml @ 25 mls/hr IVPB Q8HR [facility] Rx# :[id number] Oral 600 Other: Voiding Method Urinal # Voids 1 2 - Exam In general patient is alert and oriented 3 in no apparent distress HEENT head normocephalic and atraumatic Neck is supple no JVD no goiter no lymphadenopathy Chest exam reveals fine crackles in both lung aguilar no wheezing Cardiac exam reveals regular heart sounds S1 and S2 no gallops no murmurs Abdomen is soft nontender no organomegaly with normal bowel sounds Extremity exam reveals minimal edema no cyanosis or clubbing Neurological examination reveals no gross focal neurological deficit - Labs CBC & Chem 7: 10/03/20 07:50 10/03/20 07:50 Labs: Abnormal Lab Results - Last 24 Hours (Table) 10/02/20 10/03/20 Range/Units 07:08 07:50 RBC 2.80 L (4.30-5.90) m/uL Hgb 9.1 L (13.0-17.5) gm/dL Hct 27.3 L (39.0-53.0) % Glucose 130 H (70-110) mg/dL Calcium 8.4 L (8.7-10.3) mg/dL Total Protein 5.2 L (6.2-8.2) g/dL Albumin 3.40 L (3.80-4.90) g/dL Microbiology - Last 24 Hours (Table) 10/01/20 15:13 Blood Culture - Preliminary Blood No Growth after 24 hours 09/27/20 12:53 Blood Culture - Preliminary Blood No Growth after 120 hours Assessment and Plan Plan: 1. Left lower lobe infiltrate possible bacterial pneumonia 2. Black tarry stool yesterday and the day before hemoglobin is down to 10.7 hemoglobin on 09/11/2020 was 13.9 will repeat CBC tonight and check stool Hemoccult will avoid anticoagulation at this time will consult gastroenterology 3. Underlying history of gout will continue allopurinol 4. Recent diagnosis of Covid 19 infection diagnosed on 08/21/2020 5. Anemia hemoglobin is down to 8.9 patient was evaluated by gastroenterology he is scheduled for EGD and colonoscopy tomorrow Home medications reviewed and reordered patient was started on IV antibiotics pulmonary consultation was requested gastroenterology consultation requested will follow closely
[2020-10-03] MEDS: SODIUM CHLORIDE 0.9% 1,000 ML IV SCH ×2 (17:45→21:28)
[2020-10-03] MEDS: allopurinoL 300 MG TAB PO SCH (21:05)
[2020-10-04] MEDS: PIPERACILLIN-TAZOBACTAM 3.375 GM in SODIUM CHLORIDE 0.9% 100 ML IVPB SCH ×2 (01:04→08:03)
[2020-10-04] MEDS: ACETAMINOPHEN TAB 325 MG TAB PO PRN (01:15)
--- NOTE | 2020-10-04 03:21 | PN ---
PROGRESS NOTE DATE OF SERVICE: 10/03/2020 REASON FOR FOLLOWUP: Fever, question of pneumonia, question of diverticulitis. INTERVAL HISTORY: The patient is currently afebrile. Patient is breathing more comfortably. The patient denies having any chest pain. He did have some cough but not bringing up any sputum. No abdominal pain. No diarrhea. No further blood in the stool. PHYSICAL EXAMINATION: Blood pressure 125/73 with a pulse of 89, temperature 98.5. He is 92% on room air. General description is an elderly male lying in bed in no distress. RESPIRATORY SYSTEM: Unlabored breathing with decreased intensity of breath sounds. No wheeze. HEART: S1, S2. Regular rate and rhythm. ABDOMEN: Soft, no tenderness. LABS: Hemoglobin is 9.1, white count 6.2. BUN of 15, creatinine 1.2. Blood culture has been negative. DIAGNOSTIC IMPRESSION AND PLAN: Patient presented with a fever with concern for possible pneumonia, diverticulitis in this patient covered with Zosyn. Fever has improved. Culture has been negative. Continue with supportive care. MMODL / IJN: [id number] /
[2020-10-04 04:28] VITALS: RESP 18
[2020-10-04 06:44] LABS: Basophils % (A) 1 %; Eosinophils # (A) 0.1 k/uL (0-0.7); Eosinophils % (A) 2 %; HCT 28.6 % (39.0-53.0); HGB 9.6 gm/dL (13.0-17.5); Hypochromasia Slight; Lymphocytes # (A) 1.3 k/uL (1.0-4.8); Lymphocytes % (A) 22 %; MCH 32.9 pg (25.0-35.0); MCHC 33.5 g/dL (31.0-37.0); MCV 98.1 fL (80.0-100.0); Macrocytosis Slight; Mean Platelet Volume 7.9; Monocytes # (A) 0.3 k/uL (0-1.0); Monocytes % (A) 5 %; Neutrophils # (A) 3.9 k/uL (1.3-7.7); Neutrophils % (A) 68 %; Platelet Count 174 k/uL (150-450); Poikilocytosis Slight; RBC 2.91 m/uL (4.30-5.90); RDW 15.3 % (11.5-15.5); WBC 5.8 k/uL (3.8-10.6)
[2020-10-04] MEDS: ASCORBIC ACID 500 MG TAB PO SCH (08:02)
[2020-10-04] MEDS: CHOLECALCIFEROL 1,000 UNIT TAB PO SCH (08:02)
[2020-10-04] MEDS: PANTOPRAZOLE 40 MG/10 ML VIAL IVP SCH (08:02)
[2020-10-04 11:01] LABS: African American GFR (CKD) 71.1 (60.0-200.0); Albumin 3.4 g/dL (3.80-4.90); Albumin/Globulin Ratio 1.89 (1.60-3.17); Anion Gap 7.7 mmol/L (4.00-12.00); BUN/Creat Ratio 14.17 Ratio (12.00-20.00); Calcium 8.4 mg/dL (8.7-10.3); Carbon Dioxide 24.3 mmol/L (21.6-31.8); Globulin 1.8 g/dL (1.6-3.3); Non-African American GFR(CKD) 61.3 (60.0-200.0); Potassium 4.3 mmol/L (3.5-5.5); Total Bilirubin 0.4 mg/dL (0.2-1.2); Total Protein 5.2 g/dL (6.2-8.2)
[2020-10-04 11:19] VITALS: BP 108/74; PULSE 63; TEMP 98.5
[2020-10-04] MEDS ORDERED: FERROUS SULFATE 325 MG TAB PO SCH (12:30)
[2020-10-04] MEDS ORDERED: PANTOPRAZOLE 40 MG TABLET PO SCH (21:00)
== END 2020-10-04 15:19 | disposition home or self-care (01) | DRG 193 ==
LOC: EC 12:14 → 6NMEDSUR 14:46 → OBSVTOIN 10-01 09:49
PROVIDERS: ADMIT Internal Medicine; ATTEND Internal Medicine
PROC: 0DJD8ZZ Inspection of Lower Intestinal Tract, Via Natural or Artificial Opening Endoscopic (ICD-10-PCS; principal; 2020-09-29 08:45)
PROC: 0DB78ZX Excision of Stomach, Pylorus, Via Natural or Artificial Opening Endoscopic, Diagnostic (ICD-10-PCS; principal; 2020-09-29 08:45)
DX: J18.9 Pneumonia, unspecified organism (principal); K25.4 Chronic or unspecified gastric ulcer with hemorrhage; I42.9 Cardiomyopathy, unspecified; I73.9 Peripheral vascular disease, unspecified; J44.9 Chronic obstructive pulmonary disease, unspecified; K29.60 Other gastritis without bleeding; D64.9 Anemia, unspecified; Z20.828 Contact with and (suspected) exposure to other viral communicable diseases; I25.10 Atherosclerotic heart disease of native coronary artery without angina pectoris; K21.9 Gastro-esophageal reflux disease without esophagitis; I10 Essential (primary) hypertension; K44.9 Diaphragmatic hernia without obstruction or gangrene; M41.9 Scoliosis, unspecified; Z79.82 Long term (current) use of aspirin; Z79.899 Other long term (current) drug therapy; M10.9 Gout, unspecified; Z86.19 Personal history of other infectious and parasitic diseases; Z87.891 Personal history of nicotine dependence; Z87.19 Personal history of other diseases of the digestive system; Z90.49 Acquired absence of other specified parts of digestive tract; Z90.89 Acquired absence of other organs; Z89.012 Acquired absence of left thumb; Z95.828 Presence of other vascular implants and grafts; Z98.42 Cataract extraction status, left eye; Z98.41 Cataract extraction status, right eye; Z87.448 Personal history of other diseases of urinary system; Z87.01 Personal history of pneumonia (recurrent); Z98.890 Other specified postprocedural states; Z80.8 Family history of malignant neoplasm of other organs or systems; Z81.8 Family history of other mental and behavioral disorders; Z80.3 Family history of malignant neoplasm of breast; Z80.0 Family history of malignant neoplasm of digestive organs
CPT/HCPCS: 36415; 43239; 45378; 71045; 74177; 76700; 80053; 81003; 82272; 82728; 83605; 83615; 83735; 84145; 85025; 85379; 85610; 85730; 86140; 87040; 87070; 87205; 87635; 88305; 88342; 93005; 96361; 96365; 96375; 99285

== ENCOUNTER → 2021-07-07 | Outpatient (CLI) | payer MEDICARE ==
--- NOTE | 2021-07-07 13:39 | CT ---
EXAMINATION TYPE: CT urogram wo/w con DATE OF EXAM: 07/07/2021 COMPARISON: 10/02/2020 HISTORY: f/u bladder ca CT DLP: 3828 mGycm CONTRAST: Performed and without and with IV Contrast, patient injected with 100 mL of Isovue 300. CT Urography was performed with unenhanced followed by enhanced images of the kidneys, ureters and ur inary bladder. Delayed images were obtained. 3d reconstruction was performed at a separate work sta tion. FINDINGS: KIDNEYS/BLADDER: No hydronephrosis. No nephrolithiasis. No distinct renal mass. Urinary bladder gr ossly unremarkable. LUNG BASES-: No visible nodule. No infiltrate. Small hiatal hernia noted. LIVER/GB: The gallbladder surgically absent. No space occupying hepatic lesion. Biliary tree is of no rmal caliber. PANCREAS: No inflammation. No distinct mass. SPLEEN: No splenic enlargement. No lesion seen. ADRENALS: No nodule. No thickening. BOWEL: Normal appendix. Normal bowel caliber. No inflammation. GENITAL ORGANS: No gross abnormality. LYMPH NODES: No greater than 1cm abdominal or pelvic lymph nodes are appreciated. AORTA: Aortic bypass graft redemonstrated. OSSEOUS STRUCTURES: Severe scoliosis redemonstrated. OTHER: No significant additional abnormality is seen. IMPRESSION: 1. Urinary bladder is free of mass lesion. No hydronephrosis or renal mass.
== END | disposition home or self-care (01) ==
LOC: RADCTMAIN 11:35
PROVIDERS: ATTEND Urology
DX: C67.9 Malignant neoplasm of bladder, unspecified (principal); Z09 Encounter for follow-up examination after completed treatment for conditions other than malignant neoplasm
CPT/HCPCS: 82565; 84520; 74178; 36415; 74400; Q9967

== ENCOUNTER → 2022-09-06 | Outpatient (CLI) | payer MEDICARE ==
--- NOTE | 2022-09-07 10:28 | XR ---
EXAMINATION TYPE: XR lumbosacral spine min 4V DATE OF EXAM: 09/06/2022 4:47 PM INDICATION: Patient age:Male; 72 years old; Reason for study: LOW BACK PAIN M54.50. COMPARISON: 07/04/2021 TECHNIQUE: Frontal, lateral , bilateral oblique and coned in L5-S1 lateral views of the spine. FINDINGS: Levoscoliosis apex L3 with extensive degeneration with facet joint arthropathy and osteophy darryl. Atherosclerosis of the arterial vasculature with multiple surgical clips present. Dior angle of 73. Overall findings are not significantly changed from 07/07/2021. Evaluation for neural foramen and spinal canal stenosis is extremely limited given scoliosis changes. No definite evidence for fracture . IMPRESSION: Severe degeneration with scoliosis changes of the spine.
--- NOTE | 2022-09-07 10:29 | US ---
EXAMINATION TYPE: US kidneys/renal and bladder DATE OF EXAM: 09/06/2022 COMPARISON: US CLINICAL HISTORY: R10.9 RIGHT FLANK PAIN. EXAM MEASUREMENTS: Right Kidney: 10.4 x 5.1 x 4.4 cm Left Kidney: 10.1 x 4.9 x 4.7 cm Right Kidney: No hydronephrosis or masses seen, very limited visualization due to overlying bowel and position Left Kidney: No hydronephrosis or masses seen Bladder: wnl There is no evidence for hydronephrosis at this point in time. No nephrolithiasis is seen. No morena s are identified. The urinary bladder is anechoic. IMPRESSION: No evidence for obstructive uropathy.
== END | disposition home or self-care (01) ==
LOC: RADUSWWP 15:40
PROVIDERS: ATTEND Internal Medicine
DX: M41.87 Other forms of scoliosis, lumbosacral region (principal); M47.817 Spondylosis without myelopathy or radiculopathy, lumbosacral region; R10.9 Unspecified abdominal pain
CPT/HCPCS: 72110; 76770

== ENCOUNTER 2023-03-09 13:21 | Day surgery (SDC) | payer MEDICARE ==
[~2023-03-09 13:21] MED LIST changes: -BUPIVACAINE (PF) 0.25% 30 ML VIAL SQ ONE; -DEXAMETHASONE SOD PHOSPHATE 10 MG/ML 1 ML VIAL IV ONE; -GLYCOPYRROLATE 0.2 MG/ML 2 ML VIAL ONE; -HEPARIN SODIUM,PORCINE 5,000 UNIT/ML 1 ML VIAL SQ ONE; -HYDROcodone/APAP 5-325MG 1 EACH TAB PO PRN; -HYDROmorphone 0.5 MG/0.5 ML SYRINGE IVP PRN; -LACTATED RINGERS 1,000 ML IV ONE; -LIDOCAINE 1% 20 ML VIAL (10MG/ML) FOR IV START INTRADERMA ONE; -LIDOCAINE 1% INJ 10MG/ML (20 ML MDV) ONE; -MIDAZOLAM 2 MG/2 ML VIAL IV PRN; -MIDAZOLAM 2 MG/2 ML VIAL ONE; -NALOXONE 0.4 MG/ML 1 ML VIAL IV PRN; -NEOSTIGMINE 1 MG/ML 10 ML VIAL ONE; -ONDANSETRON 4 MG/2 ML VIAL IVP ONE; -PROPOFOL 10 MG/ML 20 ML VIAL IV ONE; -ROCURONIUM BROMIDE 10 MG/ML 10 ML VIAL IV ONE; -SUCCINYLCHOLINE CHLORIDE 100 MG/5 ML SYR IV ONE; -ePHEDrine SULFATE/0.9% NACL/PF 50 MG/5 ML SYRINGE IV ONE; -fentaNYL (PF) 50 MCG/ML 2 ML AMP ONE
[2023-03-09 14:03] VITALS: RESP 14; TEMP 97.8
[2023-03-09] MEDS ORDERED: LACTATED RINGERS 1,000 ML IV ONE (14:10)
[2023-03-09] MEDS ORDERED: LIDOCAINE 2% INJ 20 MG/ML (2 ML VIAL) ONE (14:38)
[2023-03-09] MEDS ORDERED: PROPOFOL 10 MG/ML 20 ML VIAL IV ONE (14:38)
--- NOTE | 2023-03-09 14:49 | P.PCN ---
Date of Procedure: 03/09/23 Procedure(s) Performed: BRIEF HISTORY: Patient is a 72-year-old, pleasant, white male scheduled for an upper endoscopy as a part of evaluation of intermittent dysphagia to solids for the last 1 year duration.. PROCEDURE PERFORMED: Esophagogastroduodenoscopy with biopsy and dilation. PREOPERATIVE DIAGNOSIS: Intermittent dysphagia to solids. IV sedation per anesthesia. PROCEDURE: After informed consent was obtained, the patient was brought into the endoscopy unit. IV sedation was administered by Anesthesia under continuous monitoring. Initially the Olympus GIF-140 video endoscope was inserted into the mouth. Esophagus intubated without any difficulty. It was gradually advanced into the stomach and duodenum and carefully examined. The bulb and the second part of the duodenum appeared normal. The scope at this time was withdrawn to the stomach, adequately insufflated with air, and upon careful examination, mucosa of the antrum, body, cardia and the fundus appeared normal. The scope was then withdrawn into the esophagus. The GE junction was located at 39 cm from the incisors. Small hiatal hernia noted. There was a distal esophageal Schatzki's ring identified and I was dilated using 15-18 mm TTS balloon in a sequential fashion for 60 seconds. The esophagus appeared normal. There were no erosions or ulcerations seen, biopsies were done from the distal esophagus and the patient tolerated the procedure well. IMPRESSION: 1. Small hiatal hernia. 2. Distal Esophageal Schatzki's ring status post balloon dilation using 15-18 mm TTS balloon as described above. RECOMMENDATIONS: The findings of this examination were discussed with the patient as well as his family. He was advised to be on a clear liquid diet for lunch today. IN office in 6 weeks..
[2023-03-09 14:54] VITALS: PULSE 73
[2023-03-09 15:08] VITALS: BP 140/80
== END 2023-03-09 15:28 | disposition home or self-care (01) ==
LOC: ORWHC2ENDO 13:21
PROVIDERS: ATTEND Internal Medicine Gastroenterology
DX: K44.9 Diaphragmatic hernia without obstruction or gangrene (principal); K22.2 Esophageal obstruction; K20.0 Eosinophilic esophagitis; K21.9 Gastro-esophageal reflux disease without esophagitis; E07.9 Disorder of thyroid, unspecified; Z79.890 Hormone replacement therapy; Z79.82 Long term (current) use of aspirin; Z79.899 Other long term (current) drug therapy
CPT/HCPCS: 88305; 43239; 43249; J2704; J2001; C1726

== ENCOUNTER 2023-05-21 14:30 | Observation (INO) | payer MEDICARE ==
[2023-05-21 15:10] LABS: Basophils # (A) 0.1 k/uL (0-0.2); Basophils % (A) 1 %; Eosinophils # (A) 0.2 k/uL (0-0.7); Eosinophils % (A) 2 %; HCT 43.7 % (39.0-53.0); Lymphocytes # (A) 2.3 k/uL (1.0-4.8); Lymphocytes % (A) 28 %; MCH 32.6 pg (25.0-35.0); MCHC 34.4 g/dL (31.0-37.0); MCV 94.9 fL (80.0-100.0); Mean Platelet Volume 8.5; Monocytes # (A) 0.5 k/uL (0-1.0); Monocytes % (A) 7 %; Neutrophils % (A) 61 %; Platelet Count 154 k/uL (150-450); RBC 4.61 m/uL (4.30-5.90); RDW 13.5 % (11.5-15.5); WBC 8.2 k/uL (3.8-10.6)
[2023-05-21 15:16] LABS: ALT 20 U/L (4-49); AST 22 U/L (17-59); African American GFR (CKD) 77 (>60 ml/min/1.73 sqM); Alkaline Phosphatase 90 U/L (38-126); Anion Gap 10 mmol/L; Blood Urea Nitrogen 12 mg/dL (9-20); Calcium 8.9 mg/dL (8.4-10.2); Carbon Dioxide 23 mmol/L (22-30); Chloride 105 mmol/L (98-107); Glucose 121 mg/dL (74-99); Non-African American GFR(CKD) 66 (>60 ml/min/1.73 sqM); Potassium 4.2 mmol/L (3.5-5.1); Sodium 138 mmol/L (137-145); Total Bilirubin 0.6 mg/dL (0.2-1.3); Total Protein 7.4 g/dL (6.3-8.2)
[2023-05-21] MEDS ORDERED: METOCLOPRAMIDE 5 MG/ML 2 ML VIAL IVP STA (15:16)
[2023-05-21 15:22] LABS: INR 0.9 (<1.2); Partial Thromboplastin Time 24.2 sec (22.0-30.0); Prothrombin Time 9.9 sec (9.0-12.0)
--- NOTE | 2023-05-21 15:22 | CT ---
EXAMINATION TYPE: CT brain wo con DATE OF EXAM: 05/21/2023 COMPARISON: INDICATION: dizziness, nausea, vomiting DLP: 1182.3 mGycm, Automated exposure control for dose reduction was used. CONTRAST: None CT of the brain is performed utilizing 3 mm thick sections through the posterior fossa and 3 mm thick sections through the remaining calvarium. Study is performed within 24 hours of arrival to the hosp [facility]. No abnormal hyperdensity is present to suggest an acute intracranial hemorrhage. No mass lesion is evident. No acute infarcts are evident. Periventricular white matter hypodensity is present, likely on the bas is of chronic white matter ischemic changes. Ventricles and sulci are appropriate for the patient age. There is patent cavum septum pellucidum an d cavum vergae, normal variants. Paranasal sinuses and mastoid air cells within the [id number] are clear. IMPRESSIONS: 1. Chronic appearing periventricular white matter ischemic-type changes. Follow-up MRI can be perfo rmed as clinically indicated.
[2023-05-21] MEDS ORDERED: SODIUM CHLORIDE 0.9% 1,000 ML IV STA (15:31)
--- NOTE | 2023-05-21 15:32 | ED ---
General Adult HPI - General Chief complaint: Dizziness Stated complaint: Dizziness,Weak Time Seen by Provider: 05/21/23 14:37 Source: patient Mode of arrival: wheelchair Limitations: no limitations - History of Present Illness Initial comments: Dictation was produced using [employer] dictation software. please excuse any grammatical, word or spelling errors. Chief Complaint: 73-year-old male presents emergency Department with dizziness History of Present Illness: 73-year-old male presents with dizziness. States that his symptoms have been ongoing since this morning. States it is worse when he tries to stand up. Patient denies any exacerbation of symptoms with moving and so much as if he is sitting down or lying down. Patient states when he sits down after try to stand up his symptoms resolved within seconds. Denies any oth er symptoms. He has been however struggling with vomiting over the last 3 days. The ROS documented in this emergency department record has been reviewed and confirmed by me. Those systems with pertinent positive or negative responses have been documented in the HPI. All other systems are other negative and/or noncontributory. - Related Data Home Medications Medication Instructions Recorded Confirmed allopurinoL [Zyloprim] 300 mg PO DAILY 12/18/17 05/21/23 Levothyroxine Sodium [Synthroid] 75 mcg PO DAILY 03/07/23 05/21/23 Loratadine 10 mg PO Q2D 03/07/23 05/21/23 Aspirin EC [Ecotrin Low Dose] 81 mg PO DAILY 05/21/23 05/21/23 Omeprazole 20 mg PO AC-SUPPER 05/21/23 05/21/23 tadalafiL [Cialis] 20 mg PO HS 05/21/23 05/21/23 Allergies Allergy/AdvReac Type Severity Reaction Status Date / Time No Known Allergies Allergy Verified 05/21/23 15:30 Review of Systems ROS Statement: Those systems with pertinent positive or pertinent negative responses have been documented in the HPI. ROS Other: All systems not noted in ROS Statement are negative. Past Medical History Past Medical History: Coronary Artery Disease (CAD), GERD/Reflux, Pneumonia, Thyroid Disorder, Vascular Disorder Additional Past Medical History / Comment(s): Covid + 08/18/20 [facility] [place] per pt. Pt recently admitted to [facility] on 09/08/20 with previously diagnosed covid pneumonia, PAD, cardiomyopathy per past medical record but pt does not recall, severe scoliosis, occasional low back pain, bronchitis, gout L great toe and occasionally R great toe. History of Any Multi-Drug Resistant Organisms: None Reported Past Surgical History: Appendectomy, Bladder Surgery, Cholecystectomy, Heart Catheterization, Orthopedic Surgery, Tonsillectomy Additional Past Surgical History / Comment(s): Bifemoral/aortic bypass, L thumb laceration/partial ampuration, bilateral cataract removals, colonoscopy, 2018 cardiac cath with disease/treated medically, benign bladder polyps, colonoscopy. Past Anesthesia/Blood Transfusion Reactions: No Reported Reaction Past Psychological History: No Psychological Hx Reported Smoking Status: Former smoker Past Alcohol Use History: Occasional Past Drug Use History: None Reported - Past Family History Mother Family Medical History: Cancer Additional Family Medical History / Comment(s): cervical, breast, liver Father Family Medical History: Cancer Additional Family Medical History / Comment(s): Father had brain cancer and committed suicide. Sister(s) Family Medical History: No Reported History Brother(s) Family Medical History: No Reported History Son(s) Family Medical History: No Reported History Daughter(s) Family Medical History: No Reported History General Exam - General Exam Comments Initial Comments: PHYSICAL EXAM: General Impression: Alert and oriented x3, not in acute distress HEENT: Normocephalic atraumatic, extra-ocular movements intact, pupils equal and reactive to light bilaterally, mucous membranes moist. Cardiovascular: Heart regular rate and rhythm Chest: Able to complete full sentences, no retractions, no tachypnea Abdomen: abdomen soft, non-tender, non-distended, no organomegaly Musculoskeletal: Pulses present and equal in all extremities, no peripheral edema Motor: no focal deficits noted Neurological: CN II-XII grossly intact, no focal motor or sensory deficits noted, no vertical nystagmus, no rotatory nystagmus no present nystagmus, patient's dizziness is reproduced with standing. His dizziness was not reproduced however with sitting to supine or supine to sitting Skin: Intact with no visualized rashes Psych: Normal affect and mood Limitations: no limitations Course Vital Signs 05/21/23 05/21/23 05/21/23 14:31 14:34 15:21 Temperature 97.9 F 98.5 F Pulse Rate 62 60 80 Respiratory 18 20 16 Rate Blood Pressure 163/89 181/89 135/68 O2 Sat by Pulse 95 95 95 Oximetry EKG Findings - EKG Comments: EKG Findings:: My EKG interpretation: Ventricular rate 67, sinus rhythm,. Interval to 16, QRS 127, QTc 440. No TX prolongation, no QTC prolongation, no ST or T-wave changes noted. Overall, this EKG is unremarkable Medical Decision Making - Medical Decision Making Was pt. sent in by a medical professional or institution (, [facility], [facility], urgent care, hospital, or custodial...) When possible be specific @ -No Did you speak to anyone other than the patient for history (EMS, parent, family, police, friend...)? What history was obtained from this source @ - at the bedside states that patient's been slightly ataxic having frequent falling episodes Did you review nursing and triage notes (agree or disagree)? Why? @ -I reviewed and agree with nursing and triage notes Were old charts reviewed (outside hosp., previous admission, EMS record, old EKG, old radiological studies, urgent care reports/EKG's, custodial records)? Report findings @ -No old charts were reviewed Differential Diagnosis (chest pain, altered mental status, abdominal pain women, abdominal pain men, vaginal bleeding, musculoskeletal, weakness, fever, dyspnea, syncope, headache, dizziness, GI bleed, back pain, seizure, CVA, palpatations, mental health)? @ -Differential Dizziness: Benign paroxysmal positional Vertigo, Menieres disease, otitis media, acoustic neuroma, vertebrobasilar insufficiency, cerebellar stroke, encephalitis, hypovolemic, arrhythmia, coronary artery syndrome, anemia, this is not meant to be an all-inclusive list EKG interpreted by me (3pts min.). @ -See above X-rays interpreted by me (1pt min.). @ -None done CT interpreted by me (1pt min.). @ -Computed tomography scan of the brain shows no acute intracranial abnormalities U/S interpreted by me (1pt. min.). @ -None done What testing was considered but not performed or refused? (CT, X-rays, U/S, labs)? Why? @ -None What meds were considered but not given or refused? Why? @ -None Did you discuss the management of the patient with other professionals (professionals i.e. , [facility], [facility], lab, RT, psych nurse, social services coordinator, stranding machine operator, teacher, national insurance officer, shoe caser)? Give summary @ -Case discussed with Dr. Hoffmann for admission Was smoking cessation discussed for >3mins.? @ -No Was critical care preformed (if so, how long)? @ -No Were there social determinants of health that impacted care today? How? (Homelessness, low income, unemployed, alcoholism, drug addiction, transportation, low edu. Level, literacy, decrease access to med. care, nursing home, rehab)? @ -No Was there de-escalation of care discussed even if they declined (Discuss DNR or withdrawal of care, Hospice)? DNR status @ -No What co-morbidities impacted this encounter? (DM, HTN, Smoking, COPD, CAD, Cancer, CVA, ARF, Chemo, Hep., AIDS, mental health diagnosis, sleep apnea, morbid obesity)? @ -None Was patient admitted / discharged? Hospital course, mention meds given and route, prescriptions, significant lab abnormalities, going to OR and other per tinent info. @ -73-year-old male presents to emergency room for dizziness. States that his symptoms are significantly worse with standing. He doesn't have any signs to suggest BPPV. Medications reviewed. Vital signs upon arrival are within acceptable limits. Laboratory evaluation obtained. CBC coag panel metabolic panel is unremarkable. Patient has no pain complaints. Computed tomography scan of brain is negative. Orthostatic vital signs were attempted however he became very symptomatic with standing point were felt back to the bed. Patient be admitted with consultation to cardiology and neurology. Undiagnosed new problem with uncertain prognosis? @ -No Drug Therapy requiring intensive monitoring for toxicity (Heparin, Nitro, Insulin, Cardizem)? @ -No Were any procedures done? @ -No Diagnosis/symptom? Acute, or Chronic, or Acute on Chronic? Uncomplicated (without systemic symptoms) or Complicated (systemic symptoms)? @ -1. Dizziness Side effects of treatment? @ -No Exacerbation, Progression, or Severe Exacerbation? @ -No Poses a threat to life or bodily function? How? (Chest pain, USA, NE, pneumonia, PE, COPD, DKA, ARF, appy, cholecystitis, CVA, Diverticulitis, Homicidal, Suicidal, threat to staff... and all critical care pts) @ -yes - Lab Data Result diagrams: 05/21/23 14:50 05/21/23 14:53 Lab Results 05/21/23 05/21/23 05/21/23 Range/Units 14:50 14:53 14:53 WBC 8.2 (3.8-10.6) k/uL RBC 4.61 (4.30-5.90) m/uL Hgb 15.0 (13.0-17.5) gm/dL Hct 43.7 (39.0-53.0) % MCV 94.9 (80.0-100.0) fL MCH 32.6 (25.0-35.0) pg MCHC 34.4 (31.0-37.0) g/dL RDW 13.5 (11.5-15.5) % Plt Count 154 (150-450) k/uL MPV 8.5 Neutrophils % 61 % Lymphocytes % 28 % Monocytes % 7 % Eosinophils % 2 % Basophils % 1 % Neutrophils # 5.0 (1.3-7.7) k/uL Lymphocytes # 2.3 (1.0-4.8) k/uL Monocytes # 0.5 (0-1.0) k/uL Eosinophils # 0.2 (0-0.7) k/uL Basophils # 0.1 (0-0.2) k/uL PT 9.9 (9.0-12.0) sec INR 0.9 (<1.2) APTT 24.2 (22.0-30.0) sec Sodium 138 (137-145) mmol/L Potassium 4.2 (3.5-5.1) mmol/L Chloride 105 (98-107) mmol/L Carbon Dioxide 23 (22-30) mmol/L Anion Gap 10 mmol/L BUN 12 (9-20) mg/dL Creatinine 1.11 (0.66-1.25) mg/dL Est GFR (CKD-EPI)AfAm 77 (>60 ml/min/1.73 sqM) Est GFR (CKD-EPI)NonAf 66 (>60 ml/min/1.73 sqM) Glucose 121 H (74-99) mg/dL Calcium 8.9 (8.4-10.2) mg/dL Total Bilirubin 0.6 (0.2-1.3) mg/dL AST 22 (17-59) U/L ALT 20 (4-49) U/L Alkaline Phosphatase 90 (38-126) U/L Troponin I (0.000-0.034) ng/mL Total Protein 7.4 (6.3-8.2) g/dL Albumin 4.0 (3.5-5.0) g/dL 05/21/23 Range/Units 14:53 WBC (3.8-10.6) k/uL RBC (4.30-5.90) m/uL Hgb (13.0-17.5) gm/dL Hct (39.0-53.0) % MCV (80.0-100.0) fL MCH (25.0-35.0) pg MCHC (31.0-37.0) g/dL RDW (11.5-15.5) % Plt Count (150-450) k/uL MPV Neutrophils % % Lymphocytes % % Monocytes % % Eosinophils % % Basophils % % Neutrophils # (1.3-7.7) k/uL Lymphocytes # (1.0-4.8) k/uL Monocytes # (0-1.0) k/uL Eosinophils # (0-0.7) k/uL Basophils # (0-0.2) k/uL PT (9.0-12.0) sec INR (<1.2) APTT (22.0-30.0) sec Sodium (137-145) mmol/L Potassium (3.5-5.1) mmol/L Chloride (98-107) mmol/L Carbon Dioxide (22-30) mmol/L Anion Gap mmol/L BUN (9-20) mg/dL Creatinine (0.66-1.25) mg/dL Est GFR (CKD-EPI)AfAm (>60 ml/min/1.73 sqM) Est GFR (CKD-EPI)NonAf (>60 ml/min/1.73 sqM) Glucose (74-99) mg/dL Calcium (8.4-10.2) mg/dL Total Bilirubin (0.2-1.3) mg/dL AST (17-59) U/L ALT (4-49) U/L Alkaline Phosphatase (38-126) U/L Troponin I <0.012 (0.000-0.034) ng/mL Total Protein (6.3-8.2) g/dL Albumin (3.5-5.0) g/dL Disposition Clinical Impression: Dizziness, Orthostatic hypotension Disposition: ADMITTED IP TO THIS [facility] Condition: Fair Referrals: Pati Hoffmann MD [Primary Care Provider] - 1-2 days Decision Time: 16:14
[2023-05-21] MEDS ORDERED: NALOXONE 0.4 MG/ML 1 ML VIAL IV PRN (16:07)
[2023-05-21] MEDS ORDERED: ONDANSETRON 4 MG/2 ML VIAL IVP PRN (16:07)
[2023-05-21] MEDS: SODIUM CHLORIDE 0.9% 1,000 ML IV SCH (17:44)
[2023-05-21] MEDS ORDERED: hydrALAZINE HCL 20 MG/ML 1 ML VIAL IVP STA (17:57)
[2023-05-22] MEDS: METOPROLOL SUCCINATE (ER) 25 MG TAB.ER.24H PO SCH (08:55)
[2023-05-22] MEDS: ASPIRIN 81 MG PO SCH (08:56)
--- NOTE | 2023-05-22 11:24 | CA ---
Transthoracic Echo Report Name: Ryne Fields Age: 73 Gender: M : 1950 Exam Date: 05/22/2023 09:17 Exam Location: [place] Echo Ht (in): 67 Wt (lb): 202 Ordering Physician: Brenda Segura Attending/Referring Phys: [id number], Imelda Licensed Direct Entry Midwife Maria D Gu [facility] Procedure CPT: Indications: LVF Cardiac Hx: Technical Quality: Fair Contrast 1: Total Dose (mL): Contrast 2: Total Dose (mL): MEASUREMENTS (Male / Female) Normal Values 2D ECHO LV Diastolic Diameter PLAX 5.5 cm 4.2 - 5.9 / 3.9 - 5.3 cm LV Systolic Diameter PLAX 4.1 cm IVS Diastolic Thickness 1.2 cm 0.6 - 1.0 / 0.6 - 0.9 cm LVPW Diastolic Thickness 1.3 cm 0.6 - 1.0 / 0.6 - 0.9 cm LV Relative Wall Thickness 0.5 M-MODE Aortic Root Diameter MM 3.1 cm LA Systolic Diameter MM 3.2 cm LA Ao Ratio MM 1.0 AV Cusp Separation MM 2.2 cm DOPPLER AV Peak Velocity 106.6 cm/s AV Peak Gradient 4.5 mmHg AV Mean Velocity 80.7 cm/s AV Mean Gradient 2.8 mmHg AV Velocity Time Integral 20.1 cm Mitral E Point Velocity 78.0 cm/s Mitral A Point Velocity 119.2 cm/s Mitral E to A Ratio 0.7 MV Deceleration Time 190.5 ms LV E' Lateral Velocity 7.5 cm/s Mitral E to LV E' Lateral Ratio 10.3 LV E' Septal Velocity 5.4 cm/s Mitral E to LV E' Septal Ratio 14.3 Right Atrial Pressure 8.0 mmHg FINDINGS Left Ventricle Mildly increased left ventricular wall thickness. Mild concentric left ventricular hypertrophy. Left ventricular cavity size at the upper limits of normal. Left ventricular ejection fraction is estimated at 50%. Mildly reduced global left ventricular systolic function. Right Ventricle Moderate right ventricular dilatation. Unable to estimate the right ventricular systolic pressure. Right Atrium Normal right atrial size. Left Atrium Normal left atrial size. Mitral Valve Structurally normal mitral valve. No mitral regurgitation. Aortic Valve Aortic valve not well visualized. Trace aortic regurgitation. Tricuspid Valve Structurally normal tricuspid valve. No tricuspid regurgitation. Pulmonic Valve Structurally normal pulmonic valve. No pulmonic regurgitation. Pericardium No pericardial effusion. Aorta Normal size aortic root. CONCLUSIONS LV size is normal with fair systolic function. Right ventricle is enlarged right-sided pressures are not well quantified. No significant mitral or tricuspid regurgitation no pericardial effusion. Previewed by: Dr. Lilibeth Garcia MD (Electronically Signed) Final Date: 22 May 2023 11:22
[2023-05-22] MEDS: LEVOTHYROXINE 75 MCG TAB PO SCH (11:38)
[2023-05-22] MEDS: allopurinoL 300 MG TAB PO SCH (11:38)
--- NOTE | 2023-05-22 11:40 | US ---
EXAMINATION TYPE: US carotid duplex BILAT DATE OF EXAM: 05/22/2023 COMPARISON: NONE CLINICAL INDICATION: Male, 73 years old with history of dizziness; Dizziness, imbalance TECHNIQUE: Carotid duplex ultrasound examination. Indirect Doppler criteria was utilized. FINDINGS: EXAM MEASUREMENTS: RIGHT: Peak Systolic Velocity (PSV) cm/sec ----- Right CCA: 104 ----- Right ICA: 173 ----- Right ECA: 150 ICA/CCA ratio: 1.66 RIGHT: End Diastole cm/sec ----- Right CCA: 13.6 ----- Right ICA: 34.4 ----- Right ECA: 7.1 LEFT: Peak Systolic Velocity (PSV) cm/sec ----- Left CCA: 103 ----- Left ICA: 258 ----- Left ECA: 200 ICA/CCA ratio: 2.50 LEFT: End Diastole cm/sec ----- Left CCA: 13.9 ----- Left ICA: 44.5 ----- Left ECA: 2.3 VERTEBRALS (direction of flow): Right Vertebral: Antegrade Left Vertebral: Antegrade Rhythm: Normal ENVIRONMENTAL LAW PROFESSOR NOTES: Moderate plaque bilateral bifurcations. Increased velocities bilateral ICA's, grea ter on the left and bilateral ECA's IMPRESSION: * 50-69% stenosis of the right carotid bifurcation * Greater than 70% stenosis of the left carotid bifurcation. Criteria for Assigning % of Stenosis / Diameter reduction (Estimation based on the indirect measurements of the internal carotid artery velocities (ICA PSV). 1. Normal (no stenosis)=ICA PSV < 125 cm/s: ratio < 2.0: ICA EDV<40 cm/s. 2. Less than 50% stenosis=ICA PSV < 125 cm/s: ratio < 2.0: ICA EDV<40 cm/s. 3. 50 to 69% stenosis=ICA PSV of 125 to 230 cm/s: ration 2.0 ? 4.0: ICA EDV 40-100 cm/s. 4. Greater than 70% stenosis to near occlusion= ICA PSV > 230 cm/s: ratio > 4.0: ICA EDV > 100 cm/s. 5. Near occlusion= ICA PSV velocities may be low or undetectable: variable ratio and ICA EDV. 6. Total occlusion=unable to detect flow.
[2023-05-22] MEDS: SODIUM CHLORIDE 0.9% 1,000 ML IV SCH (15:20)
--- NOTE | 2023-05-22 16:53 | P.CNNES ---
History of Present Illness Consult date: 05/22/23 Requesting physician: Rush Wood Reason for Consult: Dizziness, vertigo History of Present Illness: Patient is a 73-year-old right-handed male came to the hospital yesterday at 2:30 PM for 3 day history of near syncopal spells. Patient states that for last 3 days every time he stands up, he gets dizzy, and tends to fall him a has to grab onto something. It "kind of passes" but stays with him. He has never pas sed out, although he has caught himself a few times. He called his PCP, who told him to come to the ER. Patient states that for "years and years" if he would get up quickly, he may get dizzy lasting for 15-20 seconds. However he has never passed out. It would occur maybe once a day in the morning but rest of the day he is fine. Tums as above but more intense, occurring throughout the day. Patient denies any tinnitus, hearing loss, although does have occasional earaches. Patient denies any slurred speech, any droopy face, denies any numbness tingling focal weakness of extremities. Denies any visual disturbance. Patient admits to having some memory symptoms getting worse, his also has noticed. He denies any problem with controlling urine, leaking or urgency. He does have balance issues only when he is dizzy. Overall he is noticing that he is losing balance more than usual for the last 1 month or so. Vital signs on arrival blood pressure 163/89, pulse rate 62, temperature 97.9. Orthostatics were checked, and apparently supine blood pressure 156/65, pulse rate 77. On sitting up, blood pressure 149/78, with pulse of 75. On standing up blood pressure 162/78 and pulse rate 103. Orthostatics negative. Blood test shows normal CBC, PT/PTT, normal CMP. Troponin negative. EKG shows sinus rhythm with first-degree AV block CT had revealed chronic appearing periventri cular white matter ischemic type changes. Paranasal sinuses are clear. I personally reviewed CT head, and it appears that external auditory canal and paranasal sinuses are clear. There is slight prominence of the lateral ventricles more than the amount of cortical atrophy. no previous CT scans of head available for comparison. Patient states that while he was in the hospital, and was sitting on side of the bed, he felt dizzy and then fell onto the right side. Did not pass out. Patient has smoked 1 pack per day from age 15 until 59 when he quit 13 years ago (44 pack years). Patient denies hypertension or diabetes. Patient states that he was born with scoliosis. Never required any surgery. Patient does take aspirin 81 mg every day. Review of Systems Constitutional: Reports weight gain, Denies chills, Denies fever Eyes: denies blurred vision, denies diplopia, denies pain Ears: deny: decreased hearing, ear discharge Ears, nose, mouth and throat: Reports headache (Mild JOE now left behind ear), Denies sore throat Cardiovascular: Denies chest pain, Denies shortness of breath Respiratory: Reports excessive sputum (last couple days), Denies cough Gastrointestinal: Reports vomiting (All day yesterday and day before), Denies abdominal pain, Denies diarrhea, Denies nausea Genitourinary: Denies dysuria, Denies incontinence Musculoskeletal: Reports neck pain (Last 1 month getting neck pain), Denies low back pain, Denies myalgias Integumentary: Denies pruritus, Denies rash Neurological: Reports as per HPI Psychiatric: Denies anxiety, Denies depression Endocrine: Reports fatigue, Reports weight change Hematologic/Lymphatic: Denies easy bleeding, Denies easy bruising Past Medical History Past Medical History: Coronary Artery Disease (CAD), GERD/Reflux, Pneumonia, Thyroid Disorder, Vascular Disorder Additional Past Medical History / Comment(s): Covid + 08/18/20 [facility] [place] per pt. admitted to [facility] on 09/08/20 with previously diagnosed covid pneumonia, PAD, cardiomyopathy per past medical record but pt does not recall, severe scoliosis, occasional low back pain, bronchitis, gout L great toe and occasionally R great toe. History of Any Multi-Drug Resistant Organisms: None Reported Past Surgical History: Adenoidectomy, Appendectomy, Bladder Surgery, Cholecystectomy, Heart Catheterization, Orthopedic Surgery, Tonsillectomy Additional Past Surgical History / Comment(s): Bifemoral/aortic bypass, L thumb laceration/partial ampuration, bilateral cataract removals, colonoscopy, 2018 cardiac cath with disease/treated medically, benign bladder polyps, colonoscopy. Past Anesthesia/Blood Transfusion Reactions: No Reported Reaction Past Psychological History: No Psychological Hx Reported Additional Psychological History / Comment(s): Pt resides with his spouse. He is independent. Smoking Status: Former smoker Past Alcohol Use History: Occasional Additional Past Alcohol Use History / Comment(s): Pt started smoking as a teen and quit in 2010. Past Drug Use History: None Reported - Past Family History Mother Family Medical History: Cancer Additional Family Medical History / Comment(s): cervical, breast, liver Father Family Medical History: Cancer Additional Family Medical History / Comment(s): Father had brain cancer and committed suicide. Sister(s) Family Medical History: No Reported History Brother(s) Family Medical History: No Reported History Son(s) Family Medical History: No Reported History Daughter(s) Family Medical History: No Reported History Medications and Allergies Home Medications Medication Instructions Recorded Confirmed Type allopurinoL [Zyloprim] 300 mg PO DAILY 12/18/17 05/21/23 History Levothyroxine Sodium [Synthroid] 75 mcg PO DAILY 03/07/23 05/21/23 History Loratadine 10 mg PO Q2D 03/07/23 05/21/23 History Aspirin EC [Ecotrin Low Dose] 81 mg PO DAILY 05/21/23 05/21/23 History Omeprazole 20 mg PO AC-SUPPER 05/21/23 05/21/23 History tadalafiL [Cialis] 20 mg PO HS 05/21/23 05/21/23 History Allergies Allergy/AdvReac Type Severity Reaction Status Date / Time No Known Allergies Allergy Verified 05/21/23 15:30 Physical Examination - Vital Signs Vital Signs: Vital Signs Temp Pulse Pulse Pulse Pulse Pulse Resp 05/22/23 07:00 98.3 F 80 16 05/22/23 02:23 98.4 F 74 16 05/21/23 20:00 78 75 103 H 77 05/21/23 18:45 97.7 F 78 16 05/21/23 18:29 60 16 05/21/23 18:17 69 16 05/21/23 18:02 72 20 05/21/23 17:40 74 20 05/21/23 16:37 65 20 05/21/23 16:11 65 20 05/21/23 15:21 80 16 05/21/23 14:34 98.5 F 60 20 05/21/23 14:31 97.9 F 62 18 BP BP BP BP BP Pulse Ox 08/08/23 07:00 161/78 96 05/22/23 02:23 117/46 93 L 05/21/23 20:00 149/78 162/78 156/65 95 05/21/23 18:45 145/76 96 05/21/23 18:29 160/80 98 05/21/23 18:17 169/82 98 05/21/23 18:02 169/82 98 05/21/23 17:40 169/100 95 05/21/23 16:37 189/109 98 05/21/23 16:11 205/87 98 05/21/23 15:21 135/68 95 05/21/23 14:34 181/89 95 05/21/23 14:31 163/89 95 Intake and Output 05/21/23 05/22/23 05/22/23 22:59 06:59 14:59 Other: # Voids 1 1 2 Weight 91.626 kg Patient is a young-looking elderly male, very pleasant, in no acute distress. Patient is alert awake oriented to time place and person. Speech and language functions are normal. Patient can name and repeat very well. No aphasia or dysarthria. Attention, concentration and fund of knowledge is adequate. On cranial nerve examination, pupils are equal, round and reacting to light, visual aguilar are full on confrontation, with no neglect on double simultaneous stimulation. Extraocular muscles are intact with no nystagmus. Face is symmetric, tongue protrudes to the midline. Palatal elevation and sensation normal, hearing and shoulder shrug normal, facial sensation normal. On muscle strength testing, there is no pronator drift and the strength is normal in arms and legs distally and proximally. Deep tendon reflexes are (right/left) biceps 2+/1+, brachioradialis 2+/1+, knees 2+/2+, ankles 2/2, plantars downgoing bilaterally. Sensory to touch is equal with no neglect on double simultaneous stimulation. Cerebellar function showed no ataxia for [id number] testing. No dysdiadochokinesia. No ataxia for [id number] testing on either side. Tone and bulk of muscles normal. Gait: Patient walked fairly steady with good arm swing, although has slight wide base. Stride was normal. Patient was able to turn around without difficulty. Patient does have significant scoliosis. On general examination, there is no carotid bruit or murmur, S1-S2 audible. Chest is clear on consultation. Abdomen is soft nontender. No organomegaly, bowel sounds present. Peripheral pulses are present. No edema. Results - Laboratory Findings CBC and BMP: 05/21/23 14:50 05/21/23 14:53 Abnormal Lab Findings: Abnormal Labs 05/21/23 14:53 Glucose 121 H Assessment and Plan Assessment: * Recurrent near syncopal spells on getting up, unclear cause. Orthostatic checks are negative. Rule out arrhythmia. * Bilateral ICA stenosis, left side > 70%, whereas 50-69% stenosis right ICA per carotid Doppler. * Abnormal CT head, with slight prominence of the ventricles, rule out NPH. * Gout * Scoliosis * Hypothyroidism Plan: * Patient has long-standing history of transient dizziness on getting up fast. However it was sporadic and not lasting long. Symptoms have got worse in the last 3 days with dizziness, near syncopal symptoms occurring every time standing up. The cause remains uncertain. * Orthostatics checked are negative. May consider tilt table test. * Cardiology has seen the patient, recommending event monitoring. Agree. * Carotid Doppler revealed 50-69% stenosis of the right carotid bifurcation. Greater than 70% stenosis of the left carotid bifurcation. Antegrade flow in both vertebral arteries. * Check CTA of head and neck for further evaluation of carotid stenosis. * Recommend a vascular surgical consultation. * 2-D echo revealed normal left ventricular size and systolic function with EF 50%. Mild concentric LVH. Left ventricular cavity size in the upper limits of normal. Mildly reduced global left ventricular systolic function. Normal left atrial size. * Check B12, folate, lipid panel, hemoglobin A1c. * Telemetry monitoring. * Patient's computed tomography scan of the head revealed some prominence of the lateral ventricles, concerning for NPH. At present patient does not have significant gait impairment, balance issues, incontinence or memory loss. Patient was informed, if he ever gets those symptoms, may need to follow-up with neurologist as an outpatient. * Neurology will follow. Thank you for the consult.
--- NOTE | 2023-05-22 17:21 | P.HPIM ---
History of Present Illness H&P Date: 05/22/23 Ryne Fields, he is a 73-year-old male who presented to [facility] emergency room with a chief complaint of dizziness and unsteady gait He was evaluated in the emergency room vital examination on presentation revealed a temperature of 98.3 pulse 80 respiration 16 blood pressure 149/78 Laboratory data revealed a white blood count of 8.2 hemoglobin 15.0 platelet count 154 sodium 138 potassium 4.2 chloride 105 CO2 23 BUN 12 creatinine 1.1 Testing in the emergency room revealed computed tomography scan of the brain without contrast was done in the emergency room and revealed no acute process Patient was admitted to medical floor for further evaluation and treatment Past Medical History Past Medical History: Coronary Artery Disease (CAD), GERD/Reflux, Pneumonia, Thyroid Disorder, Vascular Disorder Additional Past Medical History / Comment(s): Covid + [facility]/18[facility]20 [facility] in [place] per pt. admitted to [facility] on 09/08/20 with previously diagnosed covid pneumonia, PAD, cardiomyopathy per past medical record but pt does not recall, severe scoliosis, occasional low back pain, bronchitis, gout L great toe and o ccasionally R great toe. History of Any Multi-Drug Resistant Organisms: None Reported Past Surgical History: Adenoidectomy, Appendectomy, Bladder Surgery, Cholecystectomy, Heart Catheterization, Orthopedic Surgery, Tonsillectomy Additional Past Surgical History / Comment(s): Bifemoral/aortic bypass, L thumb laceration/partial ampuration, bilateral cataract removals, colonoscopy, 2018 cardiac cath with disease/treated medically, benign bladder polyps, colonoscopy. Past Anesthesia/Blood Transfusion Reactions: No Reported Reaction Past Psychological History: No Psychological Hx Reported Additional Psychological History / Comment(s): Pt resides with his spouse. He is independent. Smoking Status: Former smoker Past Alcohol Use History: Occasional Additional Past Alcohol Use History / Comment(s): Pt started smoking as a teen and quit in 2010. Past Drug Use History: None Reported - Past Family History Mother Family Medical History: Cancer Additional Family Medical History / Comment(s): cervical, breast, liver Father Family Medical History: Cancer Additional Family Medical History / Comment(s): Father had brain cancer and committed suicide. Sister(s) Family Medical History: No Reported History Brother(s) Family Medical History: No Reported History Son(s) Family Medical History: No Reported History Daughter(s) Family Medical History: No Reported History Medications and Allergies Home Medications Medication Instructions Recorded Confirmed Type allopurinoL [Zyloprim] 300 mg PO DAILY 12/18/17 05/21/23 History Levothyroxine Sodium [Synthroid] 75 mcg PO DAILY 03/07/23 05/21/23 History Loratadine 10 mg PO Q2D 03/07/23 05/21/23 History Aspirin EC [Ecotrin Low Dose] 81 mg PO DAILY 05/21/23 05/21/23 History Omeprazole 20 mg PO AC-SUPPER 05/21/23 05/21/23 History tadalafiL [Cialis] 20 mg PO HS 05/21/23 05/21/23 History Allergies Allergy/AdvReac Type Severity Reaction Status Date / Time No Known Allergies Allergy Verified 05/21/23 15:30 Physical Exam Vitals: Vital Signs Temp Pulse Pulse Pulse Pulse Pulse Resp 05/22/23 07:00 98.3 F 80 16 05/22/23 02:23 98.4 F 74 16 05/21/23 20:00 78 75 103 H 77 05/21/23 18:45 97.7 F 78 16 05/21/23 18:29 60 16 05/21/23 18:17 69 16 05/21/23 18:02 72 20 05/21/23 17:40 74 20 05/21/23 16:37 65 20 05/21/23 16:11 65 20 05/21/23 15:21 80 16 05/21/23 14:34 98.5 F 60 20 05/21/23 14:31 97.9 F 62 18 BP BP BP BP BP Pulse Ox 05/22/23 07:00 161/78 96 05/22/23 02:23 117/46 93 L 05/21/23 20:00 149/78 162/78 156/65 95 05/21/23 18:45 145/76 96 05/21/23 18:29 160/80 98 05/21/23 18:17 169/82 98 05/21/23 18:02 169/82 98 05/21/23 17:40 169/100 95 05/21/23 16:37 189/109 98 05/21/23 16:11 205/87 98 05/21/23 15:21 135/68 95 05/21/23 14:34 181/89 95 05/21/23 14:31 163/89 95 Intake and Output 05/21/23 05/22/23 05/22/23 22:59 06:59 14:59 Other: # Voids 1 1 Weight 91.626 kg In general patient is alert and oriented x 3 in no distress HEENT head normocephalic and atraumatic Neck is supple no JVD no goiter no lymphadenopathy no carotid bruit Chest examination is clear to auscultation no crackles no wheezing Cardiac exam reveals regular heart sounds S1 and S2 no gallops no murmurs Abdomen is soft nontender no organomegaly with normal bowel sounds Extremity exam reveals no edema no cyanosis or clubbing Neurological examination reveals no gross focal deficits Results CBC & Chem 7: 05/21/23 14:50 05/21/23 14:53 Labs: Abnormal Lab Results - Last 24 Hours (Table) 05/21/23 Range/Units 14:53 Glucose 121 H (74-99) mg/dL Thrombosis Risk Factor Assmnt - Choose All That Apply Any of the Below Risk Factors Present?: Yes Each Factor Represents 1 point: Obesity (BMI >25) Other Risk Factors: Yes Each Risk Factor Represents 2 Points: Age 61-74 years Other congenital or acquired thrombophilia - If yes, enter type in comment: No Thrombosis Risk Factor Assessment Total Risk Factor Score: 3 Thrombosis Risk Factor Assessment Level: Moderate Risk Assessment and Plan Plan: Severe dizziness with gait disturbance Underlying history of coronary artery disease Underlying history of cardiomyopathy Underlying history of hypothyroidism Underlying history of peripheral vascular disease At this time patient is admitted to telemetry floor Echocardiogram and carotid Doppler were ordered Cardiology consultation and neurology consultation was requested Home medications reviewed and reordered Will follow closely
[2023-05-22 17:47] LABS: Appearance,Urine Clear (Clear); Bilirubin,Urine Negative (Negative); Blood,Urine Negative (Negative); Color,Urine Yellow; Glucose,Urine (UA) Negative (Negative); Ketones,Urine Negative (Negative); Leukocyte Esterase,Urine Negative (Negative); Nitrite,Urine Negative (Negative); Protein,Urine Negative (Negative); Specific Gravity,Urine 1.026 (1.001-1.035); Urobilinogen,Urine <2.0 mg/dL (<2.0)
[2023-05-22] MEDS: PANTOPRAZOLE 40 MG TABLET PO SCH (18:02)
--- NOTE | 2023-05-22 18:33 | CT ---
EXAMINATION TYPE: CT angio head neck CT DLP: 468.1 mGycm, Automated exposure control for dose reduction was used. DATE OF EXAM: 05/22/2023 6:09 PM COMPARISON: CT brain same day. CLINICAL INDICATION:Male, 73 years old with history of Bilateral ICA stenosis, dizziness, near syncop e; PHH, Bilateral ICA stenosis, dizziness, near syncope TECHNIQUE: Axially acquired helical CT angiogram of the head and neck was obtained with contrast. Axi al images are supplemented with 3D reconstructions which [facility] NASCET criteria used. Contrast used:65ml mL of Isovue 370 with IV Contrast, Oral contrast used: None. FINDINGS: CTA HEAD: No evidence of acute intracranial hemorrhage, mass effect, or midline shift. The ventricles, sulci, a nd cisterns are unremarkable. Bilaterally aphakia. The visualized portions of the internal carotid arteries, middle cerebral arteries, anterior cerebral arteries, and posterior cerebral arteries are patent. Calcifications of the carotid siphon bilateral ly. The basilar and vertebral arteries are patent. CTA NECK: Right Carotid System: The common carotid and external carotid arteries are patent. There is less than 25% stenosis at the c arotid bifurcation secondary to calcified/noncalcified plaque. The rest of the internal carotid arter y is patent. Left Carotid System: The common carotid and external carotid arteries are patent. There is 50% stenosis at the carotid bif urcation secondary to calcified/noncalcified plaque. The rest of the internal carotid artery is paten t. Vertebral arteries are patent without evidence hemodynamically significant stenosis. There is a three-vessel aortic arch. The origins of the great vessels are patent. There is at least l east 25% to 50% stenosis of the origin of the left, carotid artery. No evidence of hemodynamically si gnificant stenosis. Upper thorax: Mild centrilobular emphysema changes. Moderate atherosclerosis of the aorta. IMPRESSION: 1. 50 % stenosis of the left carotid bifurcation secondary to noncalcified plaque. 2. Less than 25% stenosis of the right carotid bifurcation. 3. There is at least least 25%-50% stenosis of the origin of the left, carotid artery. 4. No evidence of intracranial high-grade stenosis or intracranial aneurysm.
[2023-05-22] MEDS ORDERED: ATORVASTATIN 40 MG TAB PO SCH (21:00)
[2023-05-22] MEDS ORDERED: TADALAFIL 20 MG PO SCH (21:00)
[2023-05-22] MEDS ORDERED: LOSARTAN 50 MG TAB PO SCH (21:00)
--- NOTE | 2023-05-22 22:47 | CONS ---
CONSULTATION HISTORY OF PRESENT ILLNESS: This is a 73-year-old gentleman with a history of CAD, noncritical in nature, previous cardiac cath was in 2018. He had a 50% proximal circumflex and proximal RCA. The LAD was unremarkable. FFR of RCA was negative. He also has hypertension, hyperlipidemia. However, he came into the hospital with complaints of dizziness for 3 days. Whenever he turns his head, his dizziness is worse. He is here with this complaint. Mostly, it appears to be vertigo. He also has some hypothyroidism. He denies any chest discomfort. The diagnosis that he was given and the reason for consult was actually syncope, but the patient really did not have any syncope. He had dizziness persistent, especially with changing his head position to the left. PAST MEDICAL HISTORY: 1. Hypothyroidism. 2. Noncritical CAD as indicated above. 3. History of gastroesophageal reflux disease. MEDICATIONS: Medications at home include Cialis, omeprazole, Synthroid 75 mcg daily, aspirin 81 mg daily. DIAGNOSTIC DATA: EKG revealed sinus mechanism without any significant ST and T-wave changes. There is borderline voltage criteria for LVH with leftward axis. LABORATORY DATA: Revealed unremarkable troponin on the initial evaluation. PHYSICAL EXAMINATION: VITAL SIGNS: On examination, blood pressure is 118/70, pulse rate 74 per minute, regular. HEENT: Unremarkable. Fundus was not examined by me. NECK: Supple. No JVD. I do not hear a carotid bruit. There is no thyromegaly. HEART: Reveals S1, S2 heard normally. No significant rub, murmur or gallop. LUNGS: Clear. ABDOMEN: Soft, nontender. MUSCULOSKELETAL: Lower extremities reveal normal pulses. No edema. NEUROLOGIC: Central nervous system is normal. I did a nystagmus test and on turning his eyes all the way to the left, the patient felt dizzy. IMPRESSION: 1. Vertigo with possible nystagmus. 2. Dizziness. 3. No evidence of any chest pain or shortness of breath. 4. Labile hypertension with slightly elevated blood pressure, but recent recording was normal. RECOMMENDATIONS: I am recommending a full ENT neurological evaluation and echocardiogram and to optimize BP control with a combination of losartan and metoprolol succinate. I discussed my thoughts in detail with the patient and will request a Neurology evaluation as well as an ENT evaluation. I will see the patient in followup after discharge. Thank you very much for the consult. MMODL / IJN: [id number] /
[2023-05-23] MEDS: LEVOTHYROXINE 75 MCG TAB PO SCH (05:58)
[2023-05-23 07:53] VITALS: RESP 16
[2023-05-23] MEDS: METOPROLOL SUCCINATE (ER) 25 MG TAB.ER.24H PO SCH (08:37)
[2023-05-23] MEDS: ASPIRIN 81 MG PO SCH (08:37)
[2023-05-23] MEDS: allopurinoL 300 MG TAB PO SCH (08:37)
[2023-05-23] MEDS ORDERED: LORATADINE 10 MG TAB PO SCH (09:00)
--- NOTE | 2023-05-23 10:18 | P.GSCN ---
History of Present Illness Consult date: 05/23/23 Reason for Consult: Carotid stenosis Requesting physician: Kayode Santos History of present illness: This is a pleasant 73-year-old male who presented to the emergency department yesterday with complaints of ongoing and worsening dizziness. He states he's had dizziness for several months however the last week and especially the past 3 days progressively was getting worse. He's having problems with balance associated with the dizziness and syncopal events. His past medical history includes hypothyroidism, coronary artery disease, peripheral arterial disease, and history of gastro-esophageal reflux disease. Patient states previous history of aortobifem bypass about 13 years ago. He denied any focal deficits as such as vision loss, difficulty speaking, extremity weakness or facial drooping. He does state though he has felt as though he loses his train of thought easy. He states most of his symptoms are associated from a sitting to standing position however he states yesterday he went from lying in bed to sitting up and ended up falling over in his bed. He currently denies any dizziness sitting up in bed, no shortness of breath or chest pain, no abdominal pain, diarrhea, nausea, vomiting, fevers or chills. No focal deficits. As part of his workup he underwent a carotid duplex reported carotid stenosis left greater than right. Vascular surgery was consulted for carotid stenosis. Review of Systems A 14 point review systems was completed all pertinent positives and negatives as stated in the HPI. Past Medical History Past Medical History: Coronary Artery Disease (CAD), GERD/Reflux, Pneumonia, Thyroid Disorder, Vascular Disorder Additional Past Medical History / Comment(s): Covid + 08/18/20 [facility] in [place] per pt. admitted to [facility] on 09/08/20 with previously diagnosed covid pneumonia, PAD, cardiomyopathy per past medical record but pt does not recall, severe scoliosis, occasional low back pain, bronchitis, gout L great toe and occasionally R great toe. History of Any Multi-Drug Resistant Organisms: None Reported Past Surgical History: Adenoidectomy, Appendectomy, Bladder Surgery, Cholecystectomy, Heart Catheterization, Orthopedic Surgery, Tonsillectomy Additional Past Surgical History / Comment(s): Bifemoral/aortic bypass, L thumb laceration/partial ampuration, bilateral cataract removals, colonoscopy, 2018 cardiac cath with disease/treated medically, benign bladder polyps, colonoscopy. Past Anesthesia/Blood Transfusion Reactions: No Reported Reaction Past Psychological History: No Psychological Hx Reported Additional Psychological History / Comment(s): Pt resides with his spouse. He is independent. Smoking Status: Former smoker Past Alcohol Use History: Occasional Additional Past Alcohol Use History / Comment(s): Pt started smoking as a teen and quit in 2010. Past Drug Use History: None Reported - Past Family History Mother Family Medical History: Cancer Additional Family Medical History / Comment(s): cervical, breast, liver Father Family Medical History: Cancer Additional Family Medical History / Comment(s): Father had brain cancer and committed suicide. Sister(s) Family Medical History: No Reported History Brother(s) Family Medical History: No Reported History Son(s) Family Medical History: No Reported History Daughter(s) Family Medical History: No Reported History Medications and Allergies Home Medications Medication Instructions Recorded Confirmed Type allopurinoL [Zyloprim] 300 mg PO DAILY 12/18/17 05/21/23 History Levothyroxine Sodium [Synthroid] 75 mcg PO DAILY 03/07/23 05/21/23 History Loratadine 10 mg PO Q2D 03/07/23 05/21/23 History Aspirin EC [Ecotrin Low Dose] 81 mg PO DAILY 05/21/23 05/21/23 History Omeprazole 20 mg PO AC-SUPPER 05/21/23 05/21/23 History tadalafiL [Cialis] 20 mg PO HS 05/21/23 05/21/23 History Allergies Allergy/AdvReac Type Severity Reaction Status Date / Time No Known Allergies Allergy Verified 05/21/23 15:30 Surgical - Exam Vital Signs Temp Pulse Resp BP Pulse Ox 97.9 F 62 18 163/89 95 05/21/23 14:31 05/21/23 14:31 05/21/23 14:31 05/21/23 14:31 05/21/23 14:31 General appearance: The patient is alert, oriented, appears in no acute distress. HET: Head is normocephalic and atraumatic. Pupils are equal and reactive. Neck: Supple. No audible bruit. Heart: Regular. Lungs: Equal expansion, normal respiratory effort. Abdomen: Soft, nontender, nondistended. Extremities: Normal skin color and turgor. Palpable +2 radial pulses, palpable +2 dorsalis pedis pulses. Neurological: No focal deficits. Strength and sensation are grossly intact. Results - Labs 05/21/23 14:50 05/21/23 14:53 Abnormal Lab Results - Last 24 Hours (Table) 05/21/23 Range/Units 14:48 Hemoglobin A1c 6.1 H (<=6.0) % Diabetes panel 05/21/23 Range/Units 14:48 Hemoglobin A1c 6.1 H (<=6.0) % Thyroid panel 05/21/23 Range/Units 14:53 TSH 1.500 (0.350-5.500) UIU/ML Pituitary panel 05/21/23 Range/Units 14:53 TSH 1.500 (0.350-5.500) UIU/ML - Imaging Comments: Brain CT: Chronic appearing periventricular white matter ischemic type changes. Follow-up MRI can be performed as clinically indicated. Carotid duplex bilateral: Right ICA PSV 173, ICA/CCA ratio 1.66. Left ICA PSV to 58, ICA/CC ratio 2.5. 50-69% stenosis of the right carotid bifurcation. Greater than 70% stenosis of the left carotid bifurcation CT angiogram head and neck: 50% stenosis of the left carotid bifurcation second irving to noncalcified plaque. Less than 25 stenosis of the right carotid bifurcation. At least 25-50% stenosis of the origin of the left carotid artery. No evidence of intracranial high-grade stenosis or intracranial aneurysm. Echocardiogram LV size is normal with fair systolic function. Left ventricular EF estimated 50%. Right ventricle is enlarged, right sided pressures are not well identified. No significant mitral or tricuspid regurgitation. No pericardial effusion Assessment and Plan Assessment: 1. Dizziness 2. Asymptomatic left carotid stenosis. Discordant findings between CTA and carotid duplex 50% stenosis of left carotid bifurcation, 25-50% stenosis of the origin of left carotid artery 3. Abnormal CT head is slight prominence of ventricles, rule out NPH 4. History of coronary artery disease 5. History of hypertension and hyperlipidemia 6. Hypothyroidism 7. History of peripheral vascular disease, with history of aortobifem bypass Plan: 1. Continue with medical management 2. Continue with recommendations from neurology 3. Continue recommendations from cardiology 4. There is no indication for any vascular surgical intervention at this time. Recommend outpatient follow-up. Thank you for this consultation, we will continue to follow. The impression and plan of care has been dictated as directed. Dr.Giliberto Gonzalez performed a history and examination of this patient, discussed the same with the dictator. I agree with the dictator's note ,documented as a scribe. Any additional findings or plans will be noted.
--- NOTE | 2023-05-23 11:55 | P.PN ---
Subjective Progress Note Date: 05/23/23 History of present illness: This is a 73-year-old male patient with history of coronary artery disease with 50% stenosis of the proximal CX, 60% proximal RCA and RCA FFR 85% documented on cardiac catheterization 2017, history of PAD, hyperlipidemia, hypothyroidism, gastroesophageal reflux disease, gout, remote history of tobacco use quit in 2010. Patient was last seen in the office by Dr. Persaud in 2019. We have been asked to evaluate the patient for syncope. Orthostatic vital signs were negative EKG sinus rhythm with first-degree AV block CT of the brain chronic appearing periventricular white matter ischemic type changes CBC INR, electrolytes and renal function, liver function tests all within normal limits. Blood sugar 121. Troponin negative 1 Home cardiac medications: Aspirin 81 mg daily, levothyroxine 75 g daily 05/23 Patient is seen today in follow-up. He states he is feeling a little bit better from yesterday. Blood pressure today proved except for one reading of 186/84 this morning at 7 AM. Heart rate is in the 50s and 60s, pulse ox 95% on room air. Carotid ultrasound revealed 50-69% stenosis of the right carotid bifurcation. Greater than 70% stenosis on the left carotid bifurcation. CT angiogram of the head and neck revealed 50% stenosis of the left carotid bifurcation secondary to noncalcified plaque. Less than 25% stenosis of the right carotid bifurcation. 25-50% stenosis of the origin of the left carotid artery. No evidence of intracranial high-grade stenosis or intracranial aneurysm. echocardiogram reveals normal LV size and systolic function. Right-sided pressures are not well quantified. No significant mitral or tricuspid regurgitation. No pericardial fusion. Physical examination: Gen: This is a 73-year-old male. He is requesting bed appears to be comfortable. VS: reviewed blood pressure 117/46, heart rate in the 70s. Afebrile, pulse ox 93% on room air LUNGS: Clear to auscultation. No wheezes or rhonchi. No intercostal retracti ons. HEART: Regular rate and rhythm. No murmur. EXTREMITIES: No pedal edema. NEUROLOGICAL: Patient is awake, alert and oriented x3. Assessment: Vertigo with possible nystagmus Dizziness No evidence of chest pain or shortness of breath Labile hypertension with slightly elevated blood pressure readings Plan: Continue current medications and increase losartan to 100 mg, continue metoprolol succinate ENT evaluation Patient is cleared for discharge and may follow-up in 2 weeks in the office with Dr. IGNACIO Garcia. Nurse practitioner note has been reviewed, I agree with documented findings and plan of care. Patient was seen and examined. Objective - Vital Signs Vital signs: Vital Signs Temp 98.2 F 05/23/23 07:00 Pulse 59 L 05/23/23 07:00 Resp 16 05/23/23 07:00 BP 186/84 05/23/23 07:00 Pulse Ox 95 05/23/23 07:00 FiO2 Intake & Output 05/22/23 05/23/23 05/23/23 18:59 06:59 18:59 Intake Total 118 Balance 118 Intake: Oral 118 Other: # Voids 2 1 - Labs CBC & Chem 7: 05/21/23 14:50 05/21/23 14:53 Labs: Abnormal Lab Results - Last 24 Hours (Table) 05/21/23 Range/Units 14:48 Hemoglobin A1c 6.1 H (<=6.0) %
[2023-05-23 14:22] LABS: Basophils # (A) 0.05 X 10*3/uL (0.00-0.10); Basophils % (A) 0.6 %; Eosinophils # (A) 0.17 X 10*3/uL (0.04-0.35); Eosinophils % (A) 1.9 %; HCT 42.9 % (39.6-50.0); HGB 14.4 d/dL (13.0-17.0); Lymphocytes # (A) 2.64 X 10*3/uL (0.90-5.00); Lymphocytes % (A) 30.2 %; MCH 32.3 pg (27.0-32.0); MCHC 33.6 d/dL (32.0-37.0); MCV 96.2 FL (80.0-97.0); Mean Platelet Volume 11.5 FL (9.5-12.2); Monocytes # (A) 1.05 X 10*3/uL (0.20-1.00); NRBC Per 100 WBC 0 X 10*3/uL (0.00-0.01); Neutrophils # (A) 4.81 X 10*3/uL (1.80-7.70); Neutrophils % (A) 55.1 %; Platelet Count 157 X 10*3/uL (140-440); RBC 4.46 X 10*6/uL (4.40-5.60); RDW 13.4 % (11.5-14.5); WBC 8.74 X 10*3/uL (4.50-10.00)
[2023-05-23 14:24] VITALS: BP 166/73; PULSE 61; TEMP 98.1
--- NOTE | 2023-05-23 14:48 | P.DS ---
Providers Date of admission: 05/21/23 16:07 Expected date of discharge: 05/23/23 Attending physician: Pati Hoffmann Consults: 05/21/23 16:07 Consult Physician Routine Consulting Provider: Wicho Yoder Consult Reason/Comments: dizziness/vertigo Do you want consulting provider notified?: Yes 05/21/23 16:10 Consult Physician Routine Consulting Provider: Roberto Sterling Consult Reason/Comments: syncope Do you want consulting provider notified?: Yes 05/22/23 09:29 Consult Physician Routine Consulting Provider: Ap Jiménez Consult Reason/Comments: Vertigo Do you want consulting provider notified?: Yes 05/22/23 15:11 Consult Physician Routine Consulting Provider: Jesenia Ramos Consult Reason/Comments: Bilateral ICA stenosis, Left > right Do you want consulting provider notified?: Yes Primary care physician: Pati Tahira [facility] Course: Discharge diagnosis Severe dizziness with gait disturbance Underlying history of coronary artery disease Underlying history of cardiomyopathy Underlying history of hypothyroidism Underlying history of peripheral vascular disease Hospital course Ryne Fields, he is a 73-year-old male who presented to [facility] emergency room with a chief complaint of dizziness and unsteady gait He was evaluated in the emergency room vital examination on presentation revealed a temperature of 98.3 pulse 80 respiration 16 blood pressure 149/78 Laboratory data revealed a white blood count of 8.2 hemoglobin 15.0 platelet count 154 sodium 138 potassium 4.2 chloride 105 CO2 23 BUN 12 creatinine 1.1 Testing in the emergency room revealed computed tomography scan of the brain without contrast was done in the emergency room and revealed no acute process Patient was admitted to medical floor for further evaluation and treatment On 05/23/2023 patient was evaluated by cardiology services blood pressure medications adjusted. Per cardiology patient is cleared for discharge and will follow-up in office in 2 weeks the event monitor ordered. Patient was also evaluated by vascular surgery for carotid stenosis progressive surgery at this time no indication for any vascular surgical intervention recommended outpatient follow-up. Patient is eager to be DC'd home. Blood pressure has improved patient will need close follow-up and blood pressure management outpatient. Discussed with nursing staff patient is to receive neurological clearance and event monitor set up prior to discharge. This time patient denies chest pain or shortness breath. Patient denies nausea vomiting or diarrhea. Patient denies any urinary burning or frequency Patient Condition at Discharge: Stable Plan - Discharge Summary Discharge Rx Participant: No New Discharge Prescriptions: New Losartan [Cozaar] 100 mg PO HS 30 Days #30 tab Atorvastatin [Lipitor] 40 mg PO HS 30 Days #30 tab Metoprolol Succinate (ER) [Toprol XL] 25 mg PO DAILY 30 Days #30 tab Continue allopurinoL [Zyloprim] 300 mg PO DAILY Levothyroxine Sodium [Synthroid] 75 mcg PO DAILY Loratadine 10 mg PO Q2D tadalafiL [Cialis] 20 mg PO HS Aspirin EC [Ecotrin Low Dose] 81 mg PO DAILY Omeprazole 20 mg PO AC-SUPPER Discharge Medication List allopurinoL [Zyloprim] 300 mg PO DAILY 12/18/17 [History] Levothyroxine Sodium [Synthroid] 75 mcg PO DAILY 03/07/23 [History] Loratadine 10 mg PO Q2D 03/07/23 [History] Aspirin EC [Ecotrin Low Dose] 81 mg PO DAILY 05/21/23 [History] Omeprazole 20 mg PO AC-SUPPER 05/21/23 [History] tadalafiL [Cialis] 20 mg PO HS 05/21/23 [History] Atorvastatin [Lipitor] 40 mg PO HS 30 Days #30 tab 05/23/23 [Rx] Losartan [Cozaar] 100 mg PO HS 30 Days #30 tab 05/23/23 [Rx] Metoprolol Succinate (ER) [Toprol XL] 25 mg PO DAILY 30 Days #30 tab 05/23/23 [Rx] Follow up Appointment(s)/Referral(s): Lilibeth Garcia MD [STAFF PHYSICIAN] - 2 Weeks Pati Hoffmann MD [Primary Care Provider] - 1-2 days Activity/Diet/Wound Care/Special Instructions: Activity as tolerated Diet heart healthy
[2023-05-23 14:56] LABS: Chol/HDL Ratio 5.71 Ratio; LDL Cholesterol,Calculated 68.7 mg/dL (0.0-131.0)
[2023-05-23] MEDS: SODIUM CHLORIDE 0.9% 1,000 ML IV SCH (16:12)
[2023-05-23] MEDS: PANTOPRAZOLE 40 MG TABLET PO SCH (17:17)
--- NOTE | 2023-05-23 17:23 | P.PN ---
Subjective Progress Note Date: 05/23/23 Patient was seen for a follow-up. Patient states that he is feeling better. He has not much moved around. Just goes to the bathroom. He does not know if he is more dizzy or less dizzy because he has not been active. Denies any numbness or tingling any stroke symptoms. Objective - Vital Signs Vital signs: Vital Signs Temp 98.1 F 05/23/23 14:24 Pulse 61 05/23/23 14:24 Resp 16 05/23/23 14:24 BP 166/73 05/23/23 14:24 Pulse Ox 95 05/23/23 14:24 FiO2 Intake & Output 05/22/23 05/23/23 05/23/23 18:59 06:59 18:59 Intake Total 118 Balance 118 Intake: Oral 118 Other: # Voids 2 1 3 - Exam Patient's mental status, speech and language functions are normal. Patient walked with a walker, and was very stable. - Labs CBC & Chem 7: 05/23/23 07:28 05/21/23 14:53 Labs: Abnormal Lab Results - Last 24 Hours (Table) 05/21/23 05/23/23 05/23/23 Range/Units 14:48 07:28 07:28 MCH 32.3 H (27.0-32.0) pg Monocytes # 1.05 H (0.20-1.00) X 10*3/uL Hemoglobin A1c 6.1 H (<=6.0) % Triglycerides 333.00 H (0.00-149.00) mg/dL VLDL Cholesterol, Calc 66.60 H (5.00-40.00) mg/dL HDL Cholesterol 28.70 L (40.00-60.00) mg/dL Assessment and Plan Assessment: * Recurrent near syncopal spells on getting up, unclear cause. Orthostatic checks are negative. Rule out arrhythmia. * Bilateral ICA stenosis, left side > 70%, whereas 50-69% stenosis right ICA per carotid Doppler. CTA reported different/discordant findings as below. * Abnormal CT head, with slight prominence of the ventricles, rule out NPH. * Gout * Scoliosis * Hypothyroidism Plan: * Patient's dizziness has improved. Neurological examination is stable. * Orthostatics checked are negative. May consider tilt table test. * Cardiology has seen the patient, recommending event monitoring. Agree. * Carotid Doppler revealed 50-69% stenosis of the right carotid bifurcation. Greater than 70% stenosis of the left carotid bifurcation. Antegrade flow in both vertebral arteries. * CTA of head and neck revealed 50% stenosis of the left carotid bifurcation secondary to non-calcified plaque. Less than 25% stenosis of the right carotid bifurcation. There is at least 25-50% stenosis of the origin of the left carotid artery. No evidence of intracranial high-grade stenosis or intracranial aneurysm. * Vascular surgical input appreciated. No surgical intervention recommended. Medical management. They will follow patient outpatient. * 2-D echo revealed normal left ventricular size and systolic function with EF 50%. Mild concentric LVH. Left ventricular cavity size in the upper limits of normal. Mildly reduced global left ventricular systolic function. Normal left atrial size. * B12 528, folate, lipid panel cholesterol 164, LDL 68, HDL 28 and triglycerides 333. Patient was not taking any statins. Now with significant bilateral stenosis, agree with starting Lipitor 40 mg. May need treatment for triglycerides. * Hemoglobin A1c 6.1 . * Patient's computed tomography scan of the head revealed some prominence of the lateral ventricles, concerning for NPH. At present patient does not have sig nificant gait impairment, balance issues, incontinence or memory loss. Patient was informed, if he ever gets those symptoms, may need to follow-up with neurologist as an outpatient. * Neurologically clear. Recommend follow-up with vascular surgery outpatient.
[2023-05-23] MEDS ORDERED: LOSARTAN 50 MG TAB PO SCH (21:00)
--- NOTE | 2023-06-13 15:29 | EM ---
EVENT MONITOR STUDY PERFORMED: A 14-day event monitor. FINDINGS: The patient was monitored for 14 days. The baseline rhythm appeared to be sinus mechanism with sinus tachycardia. No atrial fibrillation or atrial flutter noted. No significant sinus pause or sinus arrest. The patient did have rare PVC noted. No diary was attached to the study. CONCLUSION: 1. This is a 14-day event monitor. 2. The baseline rhythm is sinus mechanism. 3. Rare PVC noted. 4. No significant sinus pause or sinus arrest. 5. No atrial fibrillation or atrial flutter noted. MMODL / IJN: [id number] /
--- NOTE | 2023-06-14 15:32 | P.CEMON ---
Event monitor for palpitations shows sinus mechanism with normal heart rates ranging from 50s to the 80s No bradycardia Intermittent PVCs No nonsustained ventricular tachycardia
== END 2023-05-23 17:50 | disposition home or self-care (01) ==
LOC: EC 14:30 → 6NMEDSUR 16:07
PROVIDERS: ADMIT Internal Medicine; ATTEND Internal Medicine
DX: R55 Syncope and collapse (principal); R53.1 Weakness; R11.10 Vomiting, unspecified; R26.9 Unspecified abnormalities of gait and mobility; I25.10 Atherosclerotic heart disease of native coronary artery without angina pectoris; I10 Essential (primary) hypertension; E78.5 Hyperlipidemia, unspecified; I42.9 Cardiomyopathy, unspecified; I73.9 Peripheral vascular disease, unspecified; I65.23 Occlusion and stenosis of bilateral carotid arteries; E66.9 Obesity, unspecified; Z68.31 Body mass index [BMI] 31.0-31.9, adult; K21.9 Gastro-esophageal reflux disease without esophagitis; I44.0 Atrioventricular block, first degree; I67.82 Cerebral ischemia; E03.9 Hypothyroidism, unspecified; Z86.16 Personal history of COVID-19; M41.9 Scoliosis, unspecified; M10.9 Gout, unspecified; Z90.49 Acquired absence of other specified parts of digestive tract; Z98.42 Cataract extraction status, left eye; Z98.41 Cataract extraction status, right eye; Z98.890 Other specified postprocedural states; Z89.012 Acquired absence of left thumb; Z87.01 Personal history of pneumonia (recurrent); Z87.891 Personal history of nicotine dependence; Z80.49 Family history of malignant neoplasm of other genital organs; Z80.3 Family history of malignant neoplasm of breast; Z80.0 Family history of malignant neoplasm of digestive organs; Z80.8 Family history of malignant neoplasm of other organs or systems; Z79.82 Long term (current) use of aspirin; Z79.890 Hormone replacement therapy; Z79.899 Other long term (current) drug therapy
CPT/HCPCS: 96375 ×2; 96361; 96374; 36415; 93005; 93306; 93270; 80061; 80053; 82607; 84443; 84484; 85025 ×2; 85610; 85730; 81003; 87040; 83036; 93880; 70496; 70450; 70498; G0378 ×3; J0360; J2765; J2405; Q9967; 82746

== ENCOUNTER 2023-10-25 05:55 | Day surgery (SDC) | payer MEDICARE ==
[~2023-10-25 05:55] MED LIST changes: +ALPRAZolam 0.25 MG TAB PO PRN; +ALPRAZolam 0.5 MG TAB PO PRN; +ASPIRIN 325 MG TAB PO STA; +HEPARIN SODIUM,PORCINE (1 ML) 2,500 UNIT in SODIUM CHLORIDE 0.9% 250 ML IRRIGATION PRN; +HEPARIN SODIUM,PORCINE 10,000 UNIT in SODIUM CHLORIDE 0.9% 1,000 ML IRRIGATION PRN; -LACTATED RINGERS 1,000 ML IV SCH; +NITROGLYCERIN SL TABS 0.4 MG TAB SUBLINGUAL PRN
[2023-10-25 06:38] LABS: Basophils # (A) 0.1 k/uL (0-0.2); Basophils % (A) 1 %; Eosinophils # (A) 0.3 k/uL (0-0.7); Eosinophils % (A) 3 %; HCT 42.9 % (39.0-53.0); HGB 14.5 gm/dL (13.0-17.5); Lymphocytes # (A) 3.5 k/uL (1.0-4.8); Lymphocytes % (A) 42 %; MCH 31.5 pg (25.0-35.0); MCHC 33.9 g/dL (31.0-37.0); MCV 93.1 fL (80.0-100.0); Mean Platelet Volume 8.6; Monocytes # (A) 0.6 k/uL (0-1.0); Monocytes % (A) 7 %; Neutrophils # (A) 3.8 k/uL (1.3-7.7); Neutrophils % (A) 45 %; Platelet Count 165 k/uL (150-450); RBC 4.61 m/uL (4.30-5.90); RDW 13.6 % (11.5-15.5); WBC 8.4 k/uL (3.8-10.6)
[2023-10-25] MEDS: SODIUM CHLORIDE 0.9% 1,000 ML in EMPTY BAG 1 BAG IV SCH (06:39)
[2023-10-25 06:48] LABS: African American GFR (CKD) 70 (>60 ml/min/1.73 sqM); Anion Gap 11 mmol/L; Blood Urea Nitrogen 13 mg/dL (9-20); Calcium 8.8 mg/dL (8.4-10.2); Carbon Dioxide 22 mmol/L (22-30); Chloride 106 mmol/L (98-107); Glucose 96 mg/dL (74-99); Non-African American GFR(CKD) 60 (>60 ml/min/1.73 sqM); Potassium 4.4 mmol/L (3.5-5.1); Sodium 139 mmol/L (137-145)
[2023-10-25 06:52] VITALS: RESP 18; TEMP 98.2
[2023-10-25] MEDS ORDERED: fentaNYL (PF) 50 MCG/ML 2 ML AMP ONE (07:33)
[2023-10-25] MEDS ORDERED: LIDOCAINE 1% INJ 10MG/ML (20 ML MDV) ONE (07:33)
[2023-10-25] MEDS ORDERED: VERAPAMIL 2.5 MG/ML 2 ML AMP ONE (07:33)
[2023-10-25] MEDS ORDERED: HEPARIN SODIUM 1,000 UN/ML (10ML VL) ONE (07:34)
[2023-10-25] MEDS: LIDOCAINE 1% INJ 10MG/ML (20 ML MDV) SQ ONE (07:39)
[2023-10-25] MEDS: fentaNYL (PF) 50 MCG/1 ML VIAL IVP ONE (07:39)
[2023-10-25] MEDS: VERAPAMIL SYRINGE (5 MG/10 ML) INTRAARTER ONE (07:43)
[2023-10-25] MEDS: MIDAZOLAM 2 MG/2 ML VIAL IVP ONE ×2 (07:44)
[2023-10-25] MEDS: HEPARIN SODIUM 1,000 UN/ML (10ML VL) IV ONE (07:46)
[2023-10-25] MEDS: IOPAMIDOL-370 100ML BTL INJ ONE ×2 (07:57→08:23)
[2023-10-25] MEDS ORDERED: CLOPIDOGREL 75 MG TAB ONE (08:02)
[2023-10-25] MEDS: CLOPIDOGREL 75 MG TAB PO ONE (08:08)
[2023-10-25] MEDS ORDERED: RX INFO: IV CONTRAST WAS GIVEN 1 EACH MISC MISCELLANE PRN (08:36)
[2023-10-25] MEDS ORDERED: ATROPINE SULFATE 0.1 MG/ML 10ML SYRINGE IV PRN (08:36)
[2023-10-25] MEDS ORDERED: ZOLPIDEM 5 MG TAB PO PRN (08:36)
[2023-10-25] MEDS ORDERED: NITROGLYCERIN SL TABS 0.4 MG TAB SUBLINGUAL PRN (08:36)
[2023-10-25] MEDS ORDERED: MAG HYDROX/AL HYDROX/SIMETH 30 ML CUP PO PRN (08:36)
[2023-10-25] MEDS ORDERED: SODIUM CHLORIDE 0.9% 1,000 ML in EMPTY BAG 1 BAG IV SCH (08:45)
--- NOTE | 2023-10-25 08:49 | P.CARDCATH ---
Date of Procedure: 10/25/23 Description of Procedure: Cardiac Catheterization: The patient is a 73-year-old male with a known history of hypertension, hyperlipidemia, dyspnea, underwent an MPI that showed evidence of stress-induced ischemia. Recommendations were made regarding cardiac catheterization, the risks and the complications were discussed with the patient who is in full understanding and agreement. Procedure Description: Patient was brought to [employer] lab[employer] in fasting semi-sedated state after receiving Fentanyl and Benadryl achieiving moderate conscious sedated state. Using Xylocaine Anesthesia and modified Seldinger technique, a 6-Swazi sheath was introduced in the right radial artery . Subsequently, selective coronary angiography was performed using a 5-Swazi 3.5 bend Farhat catheter. Multiple views of the coronary artery including hemiaxial views were obtained. The right Farhat catheter was used to cross the aortic valve and LVEDP was calculated. PCI: After removing the catheters a 6-Swazi AL 0.75 guiding catheter was introduced into system and after cannulating the right coronary ostium an Omni Doppler flow wire was advanced to the distal RCA and IFR was measured at 0.8, subsequently a [employer] [place] eye IVUS was introduced and imaging were performed. After removing the catheter 4.0 x 15 mm Xience lizzeth point stent advanced and deployed at 16 robert after removing the balloon repeat IVUS was performed. Subsequently a 4.0 x 12 mm NC Treck was advanced and one inflation at 10 robert was done. After removing the balloon repeat IFR was performed and it was calculated at 0.94. Subsequently the wire was removed images were obtained and revealed stable successful stenting. Following that, catheter and sheath were removed. Hemostasis was obtained with deployment of vascular band . There was no immediate complication. Patient was returned to room in stable condition. Of note, the patient received a total of 7000 units of intravenous heparin as well as intra-arterial verapamil. He received an oral loading dose of clopidogrel. His ACT was monitored. He had no chest discomfort and EKG changes the inflations. Findings: Left main: This is a large size vessel, bifurcating into LAD and left circumflex, left main has no obstructive disease LAD: This is a large size vessel, reaching to the apex giving rise to a diagonal branch. The LAD has no evidence of significant obstructive disease Left circumflex: This is a nondominant large size vessel giving rise to 2 obtuse marginal branch, the first one is very proximal area to the proximal left circumflex is a 20-30% plaque. Prior to the takeoff second obtuse marginal branch there is an eccentric 40-50% plaque. The rest of the vessel has no high- grade stenosis RCA: This is a large dominant vessel, bifurcating distally to PDA and PLV. The proximal RCA has a 60-70% plaque. The mid and distal vessel has mild intimal disease of 20-30%, with no high-grade stenosis Left Ventriculogram: Not performed Hemodynamics: There was no gradient across the aortic valve , LVEDP was 14-16 mmHg Conclusion: 1. 60-70% stenosis in the proximal RCA with hemodynamically significant IFR 2. Moderate disease in the proximal left circumflex and mid circumflex with no progression since 2018 3. Successful stenting of the proximal RCA with reduction of stenosis from 70% to 0% with IVUS imaging 4. Right dominance Recommendations: The patient will continue on aspirin and clopidogrel for 6 month without any interruption in addition to aggressive coronary risks modifications, attempting to maintain LDL below 70 mg/dL. The findings and the recommendations were discussed with the patient and the family and they were in full understanding and agreement. Duration of sedation is 43 minutes.
[2023-10-25] MEDS ORDERED: ASPIRIN 81 MG PO SCH (09:00)
[2023-10-25] MEDS ORDERED: LEVOTHYROXINE 75 MCG TAB PO SCH (09:00)
[2023-10-25] MEDS ORDERED: METOPROLOL SUCCINATE (ER) 25 MG TAB.ER.24H PO SCH (09:00)
[2023-10-25] MEDS ORDERED: allopurinoL 300 MG TAB PO SCH (09:00)
[2023-10-25 12:33] VITALS: BP 172/82; PULSE 52
[2023-10-25] MEDS ORDERED: NON FORMULARY DRUG (Omeprazole [Omeprazole] 20 MG Capsule.Dr) PO SCH (17:30)
[2023-10-25] MEDS ORDERED: LOSARTAN 50 MG TAB PO SCH (21:00)
[2023-10-25] MEDS ORDERED: ATORVASTATIN 40 MG TAB PO SCH (21:00)
[2023-10-26] MEDS ORDERED: CLOPIDOGREL 75 MG TAB PO SCH (09:00)
== END 2023-10-25 13:02 | disposition home or self-care (01) ==
LOC: CATHCVL 05:55
PROVIDERS: ATTEND Internal Medicine Interventional Cardiology
DX: I25.5 Ischemic cardiomyopathy (principal); I25.10 Atherosclerotic heart disease of native coronary artery without angina pectoris; I42.8 Other cardiomyopathies; I10 Essential (primary) hypertension; E78.5 Hyperlipidemia, unspecified; Z95.1 Presence of aortocoronary bypass graft; Z87.891 Personal history of nicotine dependence; I73.9 Peripheral vascular disease, unspecified; Z79.899 Other long term (current) drug therapy; Z79.51 Long term (current) use of inhaled steroids; Z79.82 Long term (current) use of aspirin
CPT/HCPCS: 92978; 93458; 93799; 80048; 85025; C9600; C1887 ×2; C1769 ×3; C1894; C1753; C1874; C1725; J2250; J2001; J1644; Q9967; J3010

== ENCOUNTER → 2024-02-21 | Outpatient (CLI) | payer MEDICARE ==
[2024-02-22 02:04] LABS: BUN/Creat Ratio 16.13 Ratio (12.00-20.00); Blood Urea Nitrogen 24.2 mg/dL (9.0-27.0); Calcium 9.3 mg/dL (8.7-10.3); Carbon Dioxide 24.8 mmol/L (21.6-31.8); Chloride 105 mmol/L (96-109); Glucose 87 mg/dL (70-110); Potassium 5.1 mmol/L (3.5-5.5); Sodium 141 mmol/L (135-145)
== END | disposition home or self-care (01) ==
LOC: LABWHC1 15:10
PROVIDERS: ATTEND Nurse Practitioner Adult Health
DX: I10 Essential (primary) hypertension (principal)
CPT/HCPCS: 36415; 80048

== ENCOUNTER → 2024-09-18 | Outpatient (CLI) | payer MEDICARE ==
[2024-09-18 11:47] LABS: African American GFR (CKD) 46 (>60 ml/min/1.73 sqM); Blood Urea Nitrogen 25 mg/dL (9-20); Non-African American GFR(CKD) 40 (>60 ml/min/1.73 sqM)
--- NOTE | 2024-09-18 12:43 | CT ---
EXAMINATION TYPE: CT angio neck CT DLP: 405.18 mGycm, Automated exposure control for dose reduction was used. DATE OF EXAM: 09/18/2024 12:33 PM COMPARISON: CTA head and neck 05/22/2023, carotid ultrasound 05/22/2023. CLINICAL INDICATION:Male, 74 years old with history of I65.29 CAROTID STENOSIS; PHH, Stenosis TECHNIQUE: Axially acquired helical CT angiogram of the neck was obtained with contrast utilizing 75 cc of Isovue-370 administered intravenously. Axial images are supplemented with 3D reconstructions wh ich were post-processed at an independent workstation. NASCET criteria used. FINDINGS: CTA NECK: Right Carotid System: The common carotid and external carotid arteries are patent. There is less than 25% stenosis at the c arotid bifurcation secondary to calcified/noncalcified plaque. The rest of the internal carotid arter y is patent. Left Carotid System: The common carotid and external carotid arteries are patent. There is 50% stenosis at the carotid bif urcation secondary to calcified/noncalcified plaque. The rest of the internal carotid artery is paten t. There is some tortuosity identified within the mid left internal carotid artery. Vertebral arteries are patent without evidence hemodynamically significant stenosis. Their codominant . The visualized portions of the ABBY, MCA, basilar arteries are patent. There is a three-vessel aortic arch. The origins of the great vessels are patent. There is at least l east 25% to 50% stenosis of the origin of the left, and carotid artery secondary to noncalcified plaq ue. No evidence of hemodynamically significant stenosis of the remaining great vessels. Other: Mild centrilobular emphysema changes. Moderate atherosclerosis of the aorta. Bilateral aphakia . Multilevel degenerative changes of the cervical spine. IMPRESSION: 1. Stable 50 % stenosis of the left carotid bifurcation secondary to noncalcified plaque. 2. Stable less than 25% stenosis of the right carotid bifurcation. 3. Stable at least least 25%-50% stenosis of the origin of the left common carotid artery. [facility], , 09/18/2024 12:41 PM
== END | disposition home or self-care (01) ==
LOC: RADCTMAIN 10:54
PROVIDERS: ATTEND Surgery
DX: I65.23 Occlusion and stenosis of bilateral carotid arteries (principal); J43.2 Centrilobular emphysema; H27.03 Aphakia, bilateral; I70.0 Atherosclerosis of aorta
CPT/HCPCS: 82565; 84520; 70498; 36415; Q9967

== ENCOUNTER → 2024-10-21 | Day surgery (SDC) | payer MEDICARE ==
[2024-10-17 08:54] VITALS: BMI 32.8
[2024-10-21] MEDS: IV FLUID CONTINUATION 1,000 ML IV ONE ×2 (08:23→15:04)
[2024-10-21] MEDS: SODIUM CHLORIDE 0.9% 1,000 ML IV SCH (08:23)
[2024-10-21 08:54] LABS: Basophils # (A) 0.1 k/uL (0-0.2); Basophils % (A) 1 %; Eosinophils # (A) 0.3 k/uL (0-0.7); Eosinophils % (A) 3 %; HGB 13.7 gm/dL (13.0-17.5); Lymphocytes # (A) 3.9 k/uL (1.0-4.8); Lymphocytes % (A) 42 %; MCH 31.5 pg (25.0-35.0); MCHC 33.3 g/dL (31.0-37.0); MCV 94.5 fL (80.0-100.0); Mean Platelet Volume 8.2; Monocytes # (A) 0.6 k/uL (0-1.0); Monocytes % (A) 7 %; Neutrophils # (A) 4.1 k/uL (1.3-7.7); Neutrophils % (A) 45 %; Platelet Count 183 k/uL (150-450); RBC 4.33 m/uL (4.30-5.90); WBC 9.3 k/uL (3.8-10.6)
[2024-10-21 08:56] LABS: African American GFR (CKD) 46 (>60 ml/min/1.73 sqM); Anion Gap 9 mmol/L; Blood Urea Nitrogen 26 mg/dL (9-20); Calcium 9.3 mg/dL (8.4-10.2); Carbon Dioxide 25 mmol/L (22-30); Chloride 105 mmol/L (98-107); Glucose 113 mg/dL (74-99); Non-African American GFR(CKD) 40 (>60 ml/min/1.73 sqM); Potassium 4.6 mmol/L (3.5-5.1); Sodium 139 mmol/L (137-145)
[2024-10-21 09:05] VITALS: RESP 16; TEMP 97.4
[2024-10-21] MEDS: MIDAZOLAM 2 MG/2 ML VIAL IVP ONE (10:20)
[2024-10-21] MEDS: LIDOCAINE 1% INJ 10MG/ML (20 ML MDV) SQ ONE (10:20)
[2024-10-21] MEDS: fentaNYL (PF) 50 MCG/1 ML VIAL IVP ONE (10:21)
[2024-10-21] MEDS: NITROGLYCERIN 1000MCG/10ML SYRINGE INTRAARTER ONE (10:23)
[2024-10-21] MEDS: HEPARIN SODIUM 1,000 UN/ML (10ML VL) MISCELLANE ONE (10:23)
[2024-10-21] MEDS: VERAPAMIL 2.5 MG/ML 2 ML AMP INTRAARTER ONE (10:23)
[2024-10-21] MEDS: IOPAMIDOL-370 100ML BTL INJ ONE (10:46)
--- NOTE | 2024-10-21 12:52 | IR ---
EXAMINATION TYPE: IR angio aortic arch DATE OF EXAM: 10/21/2024 FLUOROSCOPY carotid stenosis, 1.2min fluoro, 12.1GYcm2 33 images are submitted. [facility], Workstation: [email or web address], 10/21/2024 12:50 PM
[2024-10-21 16:06] VITALS: BP 151/72; PULSE 52
--- NOTE | 2024-10-30 13:37 | P.OP ---
Date of Procedure: 10/21/24 Description of Procedure: Preoperative diagnosis: Carotid stenosis, discordance on imaging Postoperative diagnosis: Same Procedure: [Ultrasound-guided left radial artery access Aortic arch angiogram Sedation: Moderate certified RN administration with personal hemodynamic monitoring of 18 minutes] Surgeon: Jesenia Ramos D.O. EBL: [Less than 5 cc] IV fluids: [See records] Urine output: [Not measured] Drains: [None] Complications: [None immediately apparent] Condition: [Stable to recovery] Operative indication and findings: [Patient is a 74-year-old male with ultrasound findings of carotid stenosis, on CT scan of the neck operated due to the discordance it was discussed that she will forward with a cerebral angiogram for further evaluation. Risks and benefits were discussed. He seemed understood and was willing to proceed.] Procedure in detail: [Patient was brought to the operative suite placed in supine position. The left radial artery was prepped and draped in usual sterile fashion. A preprocedural timeout performed, all parties were in agreement. Ultrasound,. Performed. Wires were then removed the sheath was removed after placement of a TR band. At the conclusion of the procedure he is neuro intact without any obvious deficits. Angiographic findings: Type I arch. The ascending and ascending aorta appear relatively normal in course and caliber no obvious significant stenosis. The subclavian arteries bilaterally. Tortuous. The visualized common carotids bilaterally are patent without significant disease. The visualized vertebral arteries appear patent without significant disease. At the bifurcation of the right, the external appears patent without significant disease. There is some dilation of the proximal ICA on the right with a mild area of stenosis around 40 to 50% in the mid. On the left, there is measured 85% stenosis at the bifurcation at the internal carotid artery, there is some poststenotic dilation and the tandem lesion more towards the mid ICA measuring 71% ] Plan - Discharge Summary New Discharge Prescriptions: No Action allopurinoL [Zyloprim] 300 mg PO DAILY Loratadine 10 mg PO DAILY Aspirin EC [Ecotrin Low Dose] 81 mg PO DAILY Losartan [Cozaar] 100 mg PO DAILY Levothyroxine Sodium 88 mcg PO DAILY Ergocalciferol [Vitamin D2 (1250 Mcg = 68865 Iu)] 1,250 mcg PO SA Fenofibrate Nanocrystallized [Fenofibrate] 145 mg PO DAILY Omeprazole 20 mg PO DAILY Metoprolol Succinate (ER) [Toprol XL] 25 mg PO DAILY Atorvastatin [Lipitor] 40 mg PO DAILY hydroCHLOROthiazide 25 mg PO DAILY Albuterol Inhaler [Ventolin Hfa Inhaler] 1 - 2 puff INHALATION Q6H PRN PRN Reason: Shortness Of Breath Or Wheezing Discharge Medication List allopurinoL [Zyloprim] 300 mg PO DAILY 12/18/17 [History] Loratadine 10 mg PO DAILY 03/07/23 [History] Aspirin EC [Ecotrin Low Dose] 81 mg PO DAILY 05/21/23 [History] Omeprazole 20 mg PO DAILY 05/21/23 [History] Metoprolol Succinate (ER) [Toprol XL] 25 mg PO DAILY 09/24/23 [History] Atorvastatin [Lipitor] 40 mg PO DAILY 10/17/24 [History] Ergocalciferol [Vitamin D2 (1250 Mcg = 81562 Iu)] 1,250 mcg PO SA 10/17/24 [History] Fenofibrate Nanocrystallized [Fenofibrate] 145 mg PO DAILY 10/17/24 [History] Levothyroxine Sodium 88 mcg PO DAILY 10/17/24 [History] Losartan [Cozaar] 100 mg PO DAILY 10/17/24 [History] hydroCHLOROthiazide 25 mg PO DAILY 10/17/24 [History] Albuterol Inhaler [Ventolin Hfa Inhaler] 1 - 2 puff INHALATION Q6H PRN 10/21/24 [History] Follow up Appointment(s)/Referral(s): Jesenia Ramos DO [STAFF PHYSICIAN] - 11/05/24 1:00 pm (FOLLOW UP APPOINTMENT HAS BEEN MADE. ) Patient Instructions/Handouts: Moderate Sedation (DC), Angiogram (DC) Activity/Diet/Wound Care/Special Instructions: NO LIFTING/PUSHING/PULLING GREATER THAN 5 LBS FOR 5 DAYS WITH LEFT ARM. REMOVE DRESSING FROM LEFT WRIST TOMORROW (LATE MORNING/NOON-). NO NEED TO RE- DRESS. YOU MAY SHOWER TOMORROW AFTER DRESSING REMOVAL. NO PROLONGED SOAKING OF PUNCTURE SITE FOR 3 DAYS (TODAY IS DAY 1), SUCH SWIM OR TUB. REPORT ANY SIGNS OF INFECTION TO PUNCTURE SITE. REPORT ANY MODERATE TO SEVERE PAIN (NOT RELIEVED WITH TYLENOL), FIRM PAINFUL BRU ISING (MAY INDICATE BLEEDING UNDER THE TISSUE IN YOUR WRIST). NO DRIVING UNTIL SUNDAY.
== END ==
LOC: CATHCVL 07:55
PROVIDERS: ATTEND Surgery
DX: I65.29 Occlusion and stenosis of unspecified carotid artery (principal); I25.10 Atherosclerotic heart disease of native coronary artery without angina pectoris; I73.9 Peripheral vascular disease, unspecified; Z95.1 Presence of aortocoronary bypass graft; Z87.891 Personal history of nicotine dependence; Z79.82 Long term (current) use of aspirin; Z79.890 Hormone replacement therapy; Z79.899 Other long term (current) drug therapy
CPT/HCPCS: 36200; 36221; 80048; 85025; C1769 ×3; C1894; J2250; J2003; J1644; Q9967; J3010; J2305

== ENCOUNTER → 2024-11-07 | Outpatient (CLI) | payer MEDICARE ==
[2024-11-07 15:57] LABS: BUN/Creat Ratio 15.94 Ratio (12.00-20.00); Blood Urea Nitrogen 28.7 mg/dL (9.0-27.0); Chloride 105 mmol/L (96-109); Chol/HDL Ratio 3.79 Ratio; Glucose 101 mg/dL (70-110); LDL Cholesterol,Calculated 49.6 mg/dL (0.0-131.0); Potassium 4.3 mmol/L (3.5-5.5); Sodium 141 mmol/L (135-145)
[2024-11-07 15:58] LABS: ALT 27 U/L (10-49); AST 20 U/L (14-35); Albumin 4.5 g/dL (3.8-4.9); Albumin/Globulin Ratio 1.67 Ratio (1.60-3.17); Alkaline Phosphatase 56 U/L (41-126); Calcium 9.7 mg/dL (8.7-10.3); Carbon Dioxide 25.4 mmol/L (21.6-31.8); Globulin 2.7 g/dL (1.6-3.3); Total Bilirubin 0.5 mg/dL (0.3-1.2); Total Protein 7.2 g/dL (6.2-8.2)
== END | disposition home or self-care (01) ==
LOC: LABWHC1 10:59
PROVIDERS: ATTEND Internal Medicine Interventional Cardiology
DX: E78.2 Mixed hyperlipidemia (principal)
CPT/HCPCS: 36415; 80053; 80061

== ENCOUNTER 2024-12-04 06:00 | Inpatient (IN) | payer MEDICARE ==
[~2024-12-04 06:00] MED LIST changes: -ASPIRIN 325 MG TAB PO STA; +ASPIRIN 81 MG PO PRN; +CLOPIDOGREL 75 MG TAB PO PRN; -HEPARIN SODIUM,PORCINE (1 ML) 2,500 UNIT in SODIUM CHLORIDE 0.9% 250 ML IRRIGATION PRN; -HEPARIN SODIUM,PORCINE 10,000 UNIT in SODIUM CHLORIDE 0.9% 1,000 ML IRRIGATION PRN; -NITROGLYCERIN SL TABS 0.4 MG TAB SUBLINGUAL PRN; +ceFAZolin 2 GM in SODIUM CHLORIDE 0.9% 500 ML 500 ML IRRIGATION PRN
[2024-12-04 07:05] LABS: Basophils # (A) 0.1 k/uL (0-0.2); Basophils % (A) 1 %; Eosinophils # (A) 0.2 k/uL (0-0.7); Eosinophils % (A) 2 %; HCT 42.5 % (39.0-53.0); Lymphocytes # (A) 2.8 k/uL (1.0-4.8); Lymphocytes % (A) 34 %; MCH 31.4 pg (25.0-35.0); MCV 95.2 fL (80.0-100.0); Mean Platelet Volume 8.2; Monocytes # (A) 0.6 k/uL (0-1.0); Monocytes % (A) 7 %; Neutrophils # (A) 4.4 k/uL (1.3-7.7); Neutrophils % (A) 54 %; Platelet Count 187 k/uL (150-450); RBC 4.46 m/uL (4.30-5.90); RDW 14.1 % (11.5-15.5); WBC 8.2 k/uL (3.8-10.6)
[2024-12-04] MEDS: MIDAZOLAM 2 MG/2 ML VIAL IV ONE (07:10)
[2024-12-04] MEDS: LIDOCAINE 1% PF 10 MG/ML (5 ML AMP) SQ ONE (07:11)
[2024-12-04] MEDS: SODIUM CHLORIDE 0.9% 1,000 ML in EMPTY BAG 1 BAG IV ONE (07:12)
[2024-12-04] MEDS: SODIUM CHLORIDE 0.9% 1,000 ML IV ONE (07:13)
[2024-12-04] MEDS ORDERED: DEXMEDETOMIDINE/0.9% NACL(PMX) 400 MCG/100 ML IV ONE (07:25)
[2024-12-04] MEDS ORDERED: PROTAMINE SULFATE 10 MG/ML 5 ML VIAL ONE (07:25)
[2024-12-04] MEDS ORDERED: GLYCOPYRROLATE 0.2 MG/ML 2 ML VIAL ONE (07:25)
[2024-12-04] MEDS ORDERED: fentaNYL (PF) 50 MCG/ML 2 ML AMP ONE (07:25)
[2024-12-04] MEDS ORDERED: PHENYLEPHRINE-0.9% NACL SYG 1,000 MCG/10 ML SYRINGE ONE (07:25)
[2024-12-04] MEDS ORDERED: HEPARIN SODIUM,PORCINE 10,000 UNIT/ML 1 ML VIAL ONE (07:25)
[2024-12-04] MEDS: ceFAZolin 2 GM in SODIUM CHLORIDE 0.9% 500 ML 500 ML IRRIGATION ONE (07:50)
[2024-12-04] MEDS: HEPARIN SODIUM,PORCINE (1 ML) 2,500 UNIT in SODIUM CHLORIDE 0.9% 250 ML IRRIGATION ONE (07:50)
[2024-12-04] MEDS: LIDOCAINE 1% INJ 10MG/ML (20 ML MDV) SQ ONE (07:51)
[2024-12-04] MEDS: IOPAMIDOL-250 100ML BTL INTRAARTER ONE (08:46)
[2024-12-04] MEDS ORDERED: RX INFO: IV CONTRAST WAS GIVEN 1 EACH MISC MISCELLANE PRN (09:00)
[2024-12-04] MEDS ORDERED: MAG HYDROX/AL HYDROX/SIMETH 30 ML CUP PO PRN (09:23)
[2024-12-04] MEDS ORDERED: ATROPINE SULFATE 0.1 MG/ML 10ML SYRINGE IV PRN (09:23)
--- NOTE | 2024-12-04 09:23 | P.OP ---
Date of Procedure: 12/04/24 Description of Procedure: Preoperative diagnosis: Left internal carotid artery, asymptomatic Postoperative diagnosis: Same Procedure: Left transcarotid artery revascularization with stenting. Right common femoral vein central venous catheter placement under ultrasound guidance Surgeon: Jesenia Ramos DO Child Care Director: Pauly Sullivan Anesthesia: Conscious sedation Complications: None Condition: Stable Flow reversal time: 9 minutes Lesion length: 30 mm Indication for procedure: Patient is a 74-year-old male with previous findings of high-grade tandem lesion with greater than 80% stenosis of his left internal carotid artery at the bifurcation and more distally. After discussion about potential options for revascularization and was decided upon to go forward with a transcarotid artery revascularization and stent. Risk and benefits previously discussed he seemed understood and was willing to proceed. Operative narrative: the patient was brought to the Ion Exchange Operator and laid in a supine position. The area of the neck and groins were prepped and draped in usual sterile fashion after appropriate anesthetic was performed per the anesthesiologist. A timeout was performed in normal fashion and antibiotics were administered prior to incision. Utilizing ultrasound the left common carotid artery was located and a transverse incision was created overlying this area after proper anesthetization. Dissection was carried between the sternocleidomastoid musculature down to the carotid sheath. The sheath was then incised and the common carotid artery was located and dissected free in a circumferential manner and controlled with umbilical tape. Once controlled, attention was placed down to the common femoral vein and utilizing ultrasound the vein was cannulated and the 8-Burmese sheath was placed in normal fashion. Attention was then placed back to the carotid artery and the patient was administered heparin and followed with ACTs and redosed as needed for ACT above 250. A pursestring suture was then placed at the common carotid artery with 5-0 Prolene and utilizing a micropuncture needle the common carotid artery was accessed and wire was placed followed by a 4-Burmese sheath. Carotid angiogram was then obtained demonstrating significant stenosis in the internal carotid artery. Stiff wire was then placed followed by the 8 Burmese [place] sheath. Flow reversal was then established with the enroute VALUE STREAM COACH system after patient's blood pressure was increased to above 160, heart rate above 60 and ACT above 250. 014 wire was then placed across the lesion followed by a 5.5 x 30 mm Hinkle balloon and balloon angioplasty was performed followed by an 10-8 taper by 40 mm Silkroad stent. Postdilatation was performed and final angiogram was obtained demonstrating complete resolution of the stenosis. All guidewires and catheters were removed and the sheath was removed and the arteriotomy was secured with the previously placed pursestring suture. Hemostasis was assured with Surgicel. The area was irrigated and closed. The platysma was closed with 3-0 Vicryl. The skin was closed with running 4-0 Monocryl in subcuticular fashionThe femoral sheath was also removed and pressure was held for hemostasis. The patient all procedure well and was moving all extremities and following commands. The patient was then sent to PACU for recovery.
[2024-12-04] MEDS ORDERED: HYDROcodone/APAP 5-325MG 1 EACH TAB PO PRN (09:24)
--- NOTE | 2024-12-04 09:34 | IR ---
"Fluoroscopy INDICATION: Pain FINDINGS: Fluoroscopy time: 3.5 seconds. Total dose area product (DAP) in uGy*m?, mGy*cm? (or similar): 16.3 Images obtained: 162. Multiple images document the procedure. On one image there is a rounded area in the proximal barrow of Brasher. Small aneurysms not excluded. Image 10 of 12. IMPRESSION: 1. Documentation of fluoroscopy. 2. 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 Differential includes vessel seen end on. Follow-up recommended. A Yellow level critical message alert has been initiated for Isaias Persaud MD via the [employer] | Critical Results System on 12/04/2024 9:31 AM. This message alert has been sent to Isaias Persaud MD via the preferences provided by the clinician for the receipt of Radiology Critical Findings. [facility] ID [id number]. [facility], , 12/04/2024 9:31 AM"
[2024-12-04] MEDS: PHENYLEPHRINE 40 MG in SODIUM CHLORIDE 0.9% 250 ML IV SCH (09:58)
[2024-12-04] MEDS: IV FLUID CONTINUATION 1,000 ML IV ONE ×3 (10:05→12:05)
[2024-12-04] MEDS: LACTATED RINGERS 1,000 ML BAG IV STA (10:06)
[2024-12-04] MEDS: hydrALAZINE HCL 20 MG/ML 1 ML VIAL IVP STA (10:30)
[2024-12-04] MEDS: NITROGLYCERIN 1000MCG/10ML SYRINGE INTRAARTER ONE (10:45)
[2024-12-04] MEDS: GLYCOPYRROLATE 0.2 MG/ML 2 ML VIAL IVP STA (10:50)
[2024-12-04] MEDS: ePHEDrine 50 MG/ML 1 ML VIAL IVP STA (11:04)
[2024-12-04] MEDS: NITROGLYCERIN-D5W PMX 50 MG in DEXTROSE/WATER 1 250ML.BAG IV SCH (12:33)
[2024-12-04 12:36] LABS: Glucose,Whole Blood 112 mg/dL (70-110)
[2024-12-04] MEDS: PSEUDOEPHEDRINE 30 MG TAB PO SCH (12:51)
--- NOTE | 2024-12-04 16:51 | P.ANPRN ---
Procedure Note - Anesthesia - Invasive Line Left Arterial Line Time Out Performed: Yes Date of Procedure: 12/04/24 Time of Procedure: 06:59 Location of Patient: [facility] Preparation: Sterile Prep, Sterile Dressing Arterial Line Location: Radial Ultrasound Used: No Purpose - Visualization and Identification of Vasculature: No Image Stored and Saved: No Narrative: Invasive line placement per sterile protocol utilized.
[2024-12-04] MEDS: ASPIRIN 81 MG PO SCH (17:56)
[2024-12-04] MEDS: CLOPIDOGREL 75 MG TAB PO SCH (17:56)
[2024-12-04] MEDS: ATORVASTATIN 40 MG TAB PO SCH (22:23)
[2024-12-05 06:30] LABS: Basophils # (A) 0.1 k/uL (0-0.2); Basophils % (A) 0 %; Eosinophils # (A) 0.1 k/uL (0-0.7); Eosinophils % (A) 1 %; HCT 37.5 % (39.0-53.0); HGB 12.2 gm/dL (13.0-17.5); Lymphocytes # (A) 2.7 k/uL (1.0-4.8); Lymphocytes % (A) 23 %; MCH 31.3 pg (25.0-35.0); MCHC 32.5 g/dL (31.0-37.0); MCV 96.3 fL (80.0-100.0); Mean Platelet Volume 8.3; Monocytes # (A) 0.9 k/uL (0-1.0); Monocytes % (A) 7 %; Neutrophils # (A) 7.9 k/uL (1.3-7.7); Neutrophils % (A) 67 %; Platelet Count 182 k/uL (150-450); RBC 3.89 m/uL (4.30-5.90); RDW 13.7 % (11.5-15.5); WBC 11.8 k/uL (3.8-10.6)
[2024-12-05 06:39] LABS: African American GFR (CKD) 53 (>60 ml/min/1.73 sqM); Anion Gap 8 mmol/L; Blood Urea Nitrogen 24 mg/dL (9-20); Calcium 8.8 mg/dL (8.4-10.2); Carbon Dioxide 22 mmol/L (22-30); Chloride 107 mmol/L (98-107); Glucose 106 mg/dL (74-99); Non-African American GFR(CKD) 46 (>60 ml/min/1.73 sqM); Potassium 3.9 mmol/L (3.5-5.1); Sodium 137 mmol/L (137-145)
[2024-12-05] MEDS ORDERED: PANTOPRAZOLE 40 MG TABLET PO PRN (08:14)
[2024-12-05] MEDS: FENOFIBRATE 160 MG TAB PO SCH (08:50)
[2024-12-05] MEDS: LEVOTHYROXINE 88 MCG TAB PO SCH (08:51)
[2024-12-05] MEDS: allopurinoL 300 MG TAB PO SCH (08:51)
[2024-12-05] MEDS ORDERED: LOSARTAN 50 MG TAB PO SCH (09:00)
[2024-12-05] MEDS ORDERED: METOPROLOL SUCCINATE (ER) 25 MG TAB.ER.24H PO SCH (09:00)
[2024-12-05] MEDS ORDERED: hydroCHLOROthiazide 25 MG TAB PO SCH (09:00)
--- NOTE | 2024-12-05 09:47 | P.CONS ---
History of Present Illness - Reason for Consult Consult date: 12/04/24 - History of Present Illness Ryne Fields, is a 74-year-old male well-known to my practice who was admitted to [facility] and underwent left transcarotid artery revascularization with stenting with Dr. Ramos on 12/04/2024. Patient has a past medical history of CAD, GERD, hyperlipidemia, hypertension, osteoarthritis, thyroid disorder, previous vascular surgery and ex-smoker. Patient is currently resting in the intensive care unit currently on neoepinephrine for pressure support. Patient denies chest pain or shortness of breath. Patient denies nausea vomiting or diarrhea. Patient denies any urinary burning or frequency Review of Systems Please refer to HPI otherwise unremarkable Past Medical History Past Medical History: Coronary Artery Disease (CAD), GERD/Reflux, Hyperlipidemia, Hypertension, Osteoarthritis (OA), Pneumonia, Thyroid Disorder, Vascular Disorder Additional Past Medical History / Comment(s): See Dr Ramos's H&P. Hx Covid 08/18/20. PAD, cardiomyopathy per past medical record but pt does not recall, severe scoliosis, occasional low back pain, bronchitis, gout, episodes of losing balance and falls. History of Any Multi-Drug Resistant Organisms: None Reported Past Surgical History: Adenoidectomy, Appendectomy, Bladder Surgery, Cholec ystectomy, Heart Catheterization, Tonsillectomy Additional Past Surgical History / Comment(s): Bifemoral/aortic bypass, left thumb laceration/partial ampuration, bilateral cataract removals, colonoscopy, benign bladder polyps removed. aortic arch angiogram in October 2024 Past Anesthesia/Blood Transfusion Reactions: No Reported Reaction Additional Past Anesthesia/Blood Transfusion Reaction / Comm: DOES NOT LIKE THE STING OF LIDOCAINE. Smoking Status: Former smoker - Past Family History Mother Family Medical History: Cancer Additional Family Medical History / Comment(s): Cervical, breast, liver cancer. Father Family Medical History: Cancer Additional Family Medical History / Comment(s): Father had brain cancer and committed suicide. Sister(s) Family Medical History: No Reported History Brother(s) Family Medical History: No Reported History Son(s) Family Medical History: No Reported History Daughter(s) Family Medical History: No Reported History Medications and Allergies Home Medications Medication Instructions Recorded Confirmed Type allopurinoL [Zyloprim] 300 mg PO DAILY 12/18/17 12/04/24 History Loratadine 10 mg PO DAILY 03/07/23 12/04/24 History Aspirin EC [Ecotrin Low Dose] 81 mg PO DAILY 05/21/23 12/04/24 History Omeprazole 20 mg PO DAILY PRN 05/21/23 12/04/24 History Metoprolol Succinate (ER) [Toprol 25 mg PO DAILY 09/24/23 12/04/24 History XL] Atorvastatin [Lipitor] 40 mg PO DAILY 10/17/24 12/04/24 History Ergocalciferol [Vitamin D2 (1250 1,250 mcg PO SA 10/17/24 12/04/24 History Mcg = 38726 Iu)] Fenofibrate Nanocrystallized 145 mg PO DAILY 10/17/24 12/04/24 History [Fenofibrate] Levothyroxine Sodium 88 mcg PO DAILY 10/17/24 12/04/24 History Losartan [Cozaar] 100 mg PO DAILY 10/17/24 12/04/24 History hydroCHLOROthiazide 25 mg PO DAILY 10/17/24 12/04/24 History Albuterol Inhaler [Ventolin Hfa 1 - 2 puff INHALATION Q6H PRN 10/21/24 12/04/24 History Inhaler] Clopidogrel [Plavix] 75 mg PO DAILY 12/02/24 12/04/24 History Allergies Allergy/AdvReac Type Severity Reaction Status Date / Time No Known Allergies Allergy Verified 12/02/24 14:51 Physical Exam Vitals: Vital Signs Temp Pulse Pulse Pulse Resp BP BP 12/04/24 14:15 71 22 12/04/24 14:00 71 21 12/04/24 13:45 68 31 H 12/04/24 13:30 68 11 L 12/04/24 13:15 73 17 12/04/24 13:00 78 26 H 12/04/24 12:45 58 L 31 H 12/04/24 12:30 76 14 12/04/24 12:26 22 12/04/24 12:03 69 152/52 12/04/24 11:58 72 177/59 12/04/24 11:45 77 166/55 12/04/24 11:30 79 140/63 12/04/24 11:15 79 89/52 12/04/24 11:00 80 90/53 12/04/24 10:50 84/53 12/04/24 10:45 81/52 12/04/24 10:40 87 156/74 12/04/24 10:35 210/118 12/04/24 10:32 250/130 12/04/24 10:30 38 L 14 183/95 12/04/24 10:15 47 L 14 173/79 12/04/24 10:00 48 L 14 145/71 12/04/24 09:45 50 L 14 118/58 12/04/24 09:30 49 L 14 105/44 12/04/24 09:13 97 F L 50 L 14 139/57 12/04/24 06:51 98.5 F 75 16 183/88 148/72 Pulse Ox 12/04/24 14:15 99 12/04/24 14:00 99 12/04/24 13:45 98 12/04/24 13:30 98 12/04/24 13:15 98 12/04/24 13:00 99 12/04/24 12:45 98 12/04/24 12:30 97 12/04/24 12:26 12/04/24 12:03 12/04/24 11:58 12/04/24 11:45 12/04/24 11:30 12/04/24 11:15 12/04/24 11:00 12/04/24 10:50 12/04/24 10:45 12/04/24 10:40 12/04/24 10:35 12/04/24 10:32 12/04/24 10:30 100 12/04/24 10:15 100 12/04/24 10:00 100 12/04/24 09:45 100 12/04/24 09:30 100 12/04/24 09:13 100 12/04/24 06:51 92 L Intake and Output 12/04/24 12/04/24 12/04/24 06:59 14:59 22:59 Intake Total 1573.239 Balance 1573.239 Intake: IV 1552 Sodium Chloride 0.9% 1, 50 000 ml @ 0 mls/hr IV .[facility] Rx#:[id number] Intake, IV Titration 21.239 Amount Phenylephrine 40 mg In 21.239 Sodium Chloride 0.9% 250 ml @ 0.5 MCG/KG/MIN 17. 221 mls/hr IV .[id number] [facility] Rx#:[id number] Other: Weight 90.4 kg ABP, PAP, CO, CI - Last 8 Hours Arterial Blood Pressure 141/54 Arterial Blood Pressure 113/48 Arterial Blood Pressure 113/49 Arterial Blood Pressure 114/49 Arterial Blood Pressure 80/43 Arterial Blood Pressure 144/56 Arterial Blood Pressure 197/62 In general patient is alert and oriented -3 in no distress HEENT head normocephalic and atraumatic Neck is supple no JVD no goiter no lymphadenopathy no carotid bruit Chest examination is clear to auscultation no crackles no wheezing Cardiac exam reveals regular heart sounds S1 and S2 no gallops no murmurs Abdomen is soft nontender no organomegaly with normal bowel sounds Extremity exam reveals no edema no cyanosis or clubbing Neurological examination reveals no gross focal deficits Results CBC & Chem 7: 12/05/24 06:15 12/05/24 06:15 Labs: Abnormal Lab Results - Last 24 Hours (Table) 12/04/24 Range/Units 12:34 POC Glucose (mg/dL) 112 H (70-110) mg/dL Assessment and Plan Assessment: 1. Status post left carotid artery stenting with Dr. Ramos on 12/04/2024 2. History of coronary artery disease 3. History of cardiomyopathy 4. History of peripheral vascular disease 5. History of hypothyroidism Thank you for this consultation we will continue to follow patient closely throughout stay Time with Patient: Greater than 30 (Greater than 60% of the total time spent in counseling and coordination of care)
--- NOTE | 2024-12-05 09:48 | P.PN ---
Subjective Progress Note Date: 12/05/24 Ryne Fields, is a 74-year-old male well-known to my practice who was admitted to [facility] and underwent left transcarotid artery revascularization with stenting with Dr. Ramos on 12/04/2024. Patient has a past medical history of CAD, GERD, hyperlipidemia, hypertension, osteoarthritis, t hyroid disorder, previous vascular surgery and ex-smoker. Patient is currently resting in the intensive care unit currently on neoepinephrine for pressure support. Patient denies chest pain or shortness of breath. Patient denies nausea vomiting or diarrhea. Patient denies any urinary burning or frequency On 12/05/2024 patient is alert and oriented x 3. Patient remains in the intensive care unit. Patient on neoepinephrine for blood pressure support per nursing staff vascular surgery would like to keep blood pressure elevated. Continue to hold home blood pressure medications. Patient denies chest pain or shortness of breath. Patient denies nausea vomiting or diarrhea. Patient denies any urinary burning or frequency Objective - Vital Signs Vital signs: Vital Signs Temp 98.5 F 12/05/24 09:00 Pulse 82 12/05/24 09:30 Resp 25 H 12/05/24 09:30 BP 147/74 12/05/24 09:15 Pulse Ox 94 L 12/05/24 09:30 FiO2 Intake & Output 12/04/24 12/05/24 12/05/24 18:59 06:59 18:59 Intake Total 1763.909 692.091 196.469 Output Total 700 175 Balance 1763.909 -7.909 21.469 Intake: IV 1677 275 175 Sodium Chloride 0.9% 1, 175 275 175 000 ml @ 0 mls/hr IV .[facility] Rx#:[id number] Intake, IV Titration 86.909 167.091 21.469 Amount Phenylephrine 40 mg In 86.909 167.091 21.469 Sodium Chloride 0.9% 250 ml @ 0.5 MCG/KG/MIN 17. 221 mls/hr IV .[id number] [facility] Rx#:[id number] Oral 250 Output: Urine 700 175 Other: Voiding Method Urinal Urinal Urinal ABP, PAP, CO, CI - Last Documented Arterial Blood Pressure 112/48 - Exam In general patient is alert and oriented -3 in no distress HEENT head normocephalic and atraumatic Neck is supple no JVD no goiter no lymphadenopathy no carotid bruit Chest examination is clear to auscultation no crackles no wheezing Cardiac exam reveals regular heart sounds S1 and S2 no gallops no murmurs Abdomen is soft nontender no organomegaly with normal bowel sounds Extremity exam reveals no edema no cyanosis or clubbing Neurological examination reveals no gross focal deficits - Labs CBC & Chem 7: 12/05/24 06:15 12/05/24 06:15 Labs: Abnormal Lab Results - Last 24 Hours (Table) 12/04/24 12/05/24 12/05/24 Range/Units 12:34 06:15 06:15 WBC 11.8 H (3.8-10.6) k/uL RBC 3.89 L (4.30-5.90) m/uL Hgb 12.2 L (13.0-17.5) gm/dL Hct 37.5 L (39.0-53.0) % Neutrophils # 7.9 H (1.3-7.7) k/uL BUN 24 H (9-20) mg/dL Creatinine 1.50 H (0.66-1.25) mg/dL Glucose 106 H (74-99) mg/dL POC Glucose (mg/dL) 112 H (70-110) mg/dL Assessment and Plan Assessment: 1. Status post left carotid artery stenting with Dr. Ramos on 12/04/2024 2. History of coronary artery disease 3. History of cardiomyopathy 4. History of peripheral vascular disease 5. History of hypothyroidism Thank you for this consultation we will continue to follow patient closely throughout stay
--- NOTE | 2024-12-05 12:46 | P.DS ---
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 Ramos on outpatient basis and he had discussed r evascularization options and patient was subsequently scheduled for a left transcarotid artery revascularization with stent. He is postop day #1. Following his procedure he had postoperative hypotension which can be expected and he required admission to the ICU with a Pancho-Synephrine drip. Goal blood pressures during the first 24 hours were systolic blood pressure between 130 and 180. This morning he was on 0.5 micrograms which subsequently was discontinued to maintain his systolic blood pressure greater than 100. He has a history of hypertension and home antihypertensives are on hold. His PCP Dr. Hoffmann has been following along. He denies any focal deficits. No difficulty with swallowing. He ate breakfast this morning and is voiding well. Left-sided neck without any swelling, dressing clean dry and intact. He has been afebrile. Patient had gotten up to the chair and had some dizziness. Nursing reported he he was up in recliner no further dizziness and was eating lunch. Had them increase activity and ambulate in the room however once patient was standing up he became dizzy and pale again. Will plan to hold discharge at this time. Resuscitate with 500 cc fluid bolus and monitor orthostatic blood pressures. Exam General appearance: The patient is alert, oriented, appears in no acute distress. HET: Head is normocephalic and atraumatic. Pupils are equal and reactive. Neck: Supple. Left-sided neck TCAR incision well-approximated with minimal swelling and bruising. Heart: Regular. Lungs: Equal expansion, normal respiratory effort. Abdomen: Soft, nontender, nondistended. Extremities: Normal skin color and turgor. Neurological: No focal deficits. Strength and sensation are grossly intact. Assessment 1. Postop day #1 for left transcarotid artery revascularization with stent 2. Asymptomatic left internal carotid artery stenosis 3. Postoperative hypotension, expected 4. History of hypertension 5. Hypothyroidism 6. History of coronary artery disease status post stenting 7. Chronic kidney disease Plan 1. Discontinue Pancho-Synephrine to maintain systolic blood pressure greater than 100mmhg 2. May discontinue arterial line 3. Increase activity and encourage ambulation 4. Continue pseudoephedrine 60 mg every 6 hours 5. Hold home blood pressure medications 6. Primary medical physician Dr. Hoffmann on consultation for medical management. Recommend patient follow-up with him Sunday or Sunday for blood pressure management 7. Discharge on hold secondary to dizziness The impression and plan of care has been dictated as directed. I performed a history and examination of this patient, discussed the same with the dictator. I agree with the dictator's note ,documented as a scribe. Any additional findings or plans will be noted. Procedures: Procedure: Left transcarotid artery revascularization with stenting. Right common femoral vein central venous catheter placement under ultrasound guidance Patient Condition at Discharge: Stable Plan - Discharge Summary Discharge Rx Participant: No New Discharge Prescriptions: New Pseudoephedrine [Sudafed] 60 mg PO Q6HR tab Continue allopurinoL [Zyloprim] 300 mg PO DAILY Loratadine 10 mg PO DAILY Aspirin EC [Ecotrin Low Dose] 81 mg PO DAILY Levothyroxine Sodium 88 mcg PO DAILY Ergocalciferol [Vitamin D2 (1250 Mcg = 56466 Iu)] 1,250 mcg PO SA Fenofibrate Nanocrystallized [Fenofibrate] 145 mg PO DAILY Clopidogrel [Plavix] 75 mg PO DAILY Omeprazole 20 mg PO DAILY PRN PRN Reason: Heartburn Atorvastatin [Lipitor] 40 mg PO DAILY Albuterol Inhaler [Ventolin Hfa Inhaler] 1 - 2 puff INHALATION Q6H PRN PRN Reason: Shortness Of Breath Or Wheezing Discontinued Losartan [Cozaar] 100 mg PO DAILY Metoprolol Succinate (ER) [Toprol XL] 25 mg PO DAILY hydroCHLOROthiazide 25 mg PO DAILY Discharge Medication List allopurinoL [Zyloprim] 300 mg PO DAILY 12/18/17 [History] Loratadine 10 mg PO DAILY 03/07/23 [History] Aspirin EC [Ecotrin Low Dose] 81 mg PO DAILY 05/21/23 [History] Omeprazole 20 mg PO DAILY PRN 05/21/23 [History] Atorvastatin [Lipitor] 40 mg PO DAILY 10/17/24 [History] Ergocalciferol [Vitamin D2 (1250 Mcg = 53118 Iu)] 1,250 mcg PO SA 10/17/24 [History] Fenofibrate Nanocrystallized [Fenofibrate] 145 mg PO DAILY 10/17/24 [History] Levothyroxine Sodium 88 mcg PO DAILY 10/17/24 [History] Albuterol Inhaler [Ventolin Hfa Inhaler] 1 - 2 puff INHALATION Q6H PRN 10/21/24 [History] Clopidogrel [Plavix] 75 mg PO DAILY 12/02/24 [History] Pseudoephedrine [Sudafed] 60 mg PO Q6HR tab 12/05/24 [Rx] Follow up Appointment(s)/Referral(s): Jesenia Mcmahon DO [STAFF PHYSICIAN] - 1 Week (Dr. Ramos want you to follow-up in her office next week 12/10/2024. Please call office Sunday to set up follow-up appointment) Pati Hoffmann MD [Primary Care Provider] - 3 Days (Follow-up with Dr. Hoffmann on Sunday or Friday 12/08 or 12/09/24 to follow-up on blood pressure and blood pressure management regarding resuming home blood pressure medications) Activity/Diet/Wound Care/Special Instructions: No strenuous activity or heavy lifting greater than 10 pounds. May shower tomorrow but no tub bathing or soaking. Watch incision site for infection including redness, drainage, or temperature greater than 100.4. No driving until cleared by vascular surgeon. If you notice he symptoms please call office Do not resume home blood pressure medications until you follow-up with Dr. Hoffmann Follow-up with your PCP Dr. Hoffmann next week Sunday or Sunday for blood pressure and possibly resuming your home blood pressure medications Continue taking hpot-dei-murbonf Sudafed 60 mg every 6 hours until seen by your PCP Discharge Disposition: HOME SELF-CARE
[2024-12-05] MEDS: SODIUM CHLORIDE 0.9% 500 ML 500 ML IV ONE (14:45)
[2024-12-06 03:15] LABS: Basophils % (A) 0 %; Eosinophils # (A) 0.1 k/uL (0-0.7); Eosinophils % (A) 1 %; HCT 39.1 % (39.0-53.0); HGB 12.8 gm/dL (13.0-17.5); Lymphocytes # (A) 2.1 k/uL (1.0-4.8); Lymphocytes % (A) 22 %; MCH 31.6 pg (25.0-35.0); MCHC 32.7 g/dL (31.0-37.0); MCV 96.8 fL (80.0-100.0); Mean Platelet Volume 8.2; Monocytes # (A) 0.6 k/uL (0-1.0); Monocytes % (A) 7 %; Neutrophils # (A) 6.3 k/uL (1.3-7.7); Neutrophils % (A) 68 %; Platelet Count 153 k/uL (150-450); RBC 4.04 m/uL (4.30-5.90); RDW 14.1 % (11.5-15.5); WBC 9.3 k/uL (3.8-10.6)
[2024-12-06 03:52] LABS: ALT 21 U/L (4-49); AST 21 U/L (17-59); African American GFR (CKD) 54 (>60 ml/min/1.73 sqM); Albumin 3.6 g/dL (3.5-5.0); Alkaline Phosphatase 43 U/L (38-126); Anion Gap 9 mmol/L; Blood Urea Nitrogen 21 mg/dL (9-20); Calcium 9.2 mg/dL (8.4-10.2); Carbon Dioxide 22 mmol/L (22-30); Chloride 108 mmol/L (98-107); Glucose 102 mg/dL (74-99); Non-African American GFR(CKD) 46 (>60 ml/min/1.73 sqM); Potassium 4.6 mmol/L (3.5-5.1); Sodium 139 mmol/L (137-145); Total Bilirubin 0.7 mg/dL (0.2-1.3); Total Protein 6.3 g/dL (6.3-8.2)
[2024-12-06 12:27] VITALS: TEMP 98.2
[2024-12-06 13:52] VITALS: PULSE 78
[2024-12-06 13:53] VITALS: BP 134/69; RESP 17
--- NOTE | 2024-12-06 14:23 | P.PN ---
Subjective Progress Note Date: 12/06/24 Ryne Fields, is a 74-year-old male well-known to my practice who was admitted to [facility] and underwent left transcarotid artery revascularization with stenting with Dr. Ramos on 12/04/2024. Patient has a past medical history of CAD, GERD, hyperlipidemia, hypertension, osteoarthritis, t hyroid disorder, previous vascular surgery and ex-smoker. Patient is currently resting in the intensive care unit currently on neoepinephrine for pressure support. Patient denies chest pain or shortness of breath. Patient denies nausea vomiting or diarrhea. Patient denies any urinary burning or frequency On 12/05/2024 patient is alert and oriented x 3. Patient remains in the intensive care unit. Patient on neoepinephrine for blood pressure support per nursing staff vascular surgery would like to keep blood pressure elevated. Continue to hold home blood pressure medications. Patient denies chest pain or shortness of breath. Patient denies nausea vomiting or diarrhea. Patient denies any urinary burning or frequency. On 12/06/2024 patient was seen and examined in the ICU he is alert and oriented x 3 in no apparent distress there is no fever or chills no headache or dizziness no chest pain no shortness of breath no cough no nausea or vomiting no abdominal pain no diarrhea and no urinary symptoms. Patient is scheduled for discharge to home today by vascular surgery. He is cleared for discharge from medical standpoint. Objective - Vital Signs Vital signs: Vital Signs Temp 98.2 F 12/06/24 12:00 Pulse 78 12/06/24 13:00 Resp 17 12/06/24 13:00 BP 134/69 12/06/24 13:00 Pulse Ox 97 12/06/24 13:00 FiO2 Intake & Output 12/05/24 12/06/24 12/06/24 18:59 06:59 18:59 Intake Total 168.856 200 200 Output Total 1025 800 800 Balance -856.144 -600 -600 Weight 94.8 kg Intake: IV 125 Sodium Chloride 0.9% 1, 125 000 ml @ 0 mls/hr IV .[facility] -[facility] ONE Rx#:[id number] Intake, IV Titration 43.856 Amount Phenylephrine 40 mg In 43.856 Sodium Chloride 0.9% 250 ml @ 0.5 MCG/KG/MIN 17. 221 mls/hr IV .[id number] GLORY Rx#:[id number] Oral 200 200 Output: Urine 1025 800 800 Other: Voiding Method Urinal Urinal Urinal # Voids 0 ABP, PAP, CO, CI - Last Documented Arterial Blood Pressure 156/58 - Exam In general patient is alert and oriented -3 in no distress HEENT head normocephalic and atraumatic Neck is supple no JVD no goiter no lymphadenopathy no carotid bruit Chest examination is clear to auscultation no crackles no wheezing Cardiac exam reveals regular heart sounds S1 and S2 no gallops no murmurs Abdomen is soft nontender no organomegaly with normal bowel sounds Extremity exam reveals no edema no cyanosis or clubbing Neurological examination reveals no gross focal deficits - Labs CBC & Chem 7: 12/06/24 02:38 12/06/24 02:38 Labs: Abnormal Lab Results - Last 24 Hours (Table) 12/06/24 12/06/24 Range/Units 02:38 02:38 RBC 4.04 L (4.30-5.90) m/uL Hgb 12.8 L (13.0-17.5) gm/dL Chloride 108 H (98-107) mmol/L BUN 21 H (9-20) mg/dL Creatinine 1.48 H (0.66-1.25) mg/dL Glucose 102 H (74-99) mg/dL Assessment and Plan Assessment: 1. Status post left carotid artery stenting with Dr. Ramos on 12/04/2024 2. History of coronary artery disease 3. History of cardiomyopathy 4. History of peripheral vascular disease 5. History of hypothyroidism Thank you for this consultation we will continue to follow patient closely throughout stay
== END 2024-12-06 13:15 | disposition home or self-care (01) | DRG 35 ==
LOC: 2ORMAIN 06:00 → 2SICU 11:41
PROVIDERS: ADMIT Surgery; ATTEND Surgery
PROC: 037L3DZ Dilation of Left Internal Carotid Artery with Intraluminal Device, Percutaneous Approach (ICD-10-PCS; principal; 2024-12-04 07:30)
PROC: X2AJ336 Cerebral Embolic Filtration, Extracorporeal Flow Reversal Circuit from Left Common Carotid Artery, Percutaneous Approach, New Technology Group 6 (ICD-10-PCS; principal; 2024-12-04 07:30)
PROC: 3E033XZ Introduction of Vasopressor into Peripheral Vein, Percutaneous Approach (ICD-10-PCS; 2024-12-04 07:30)
DX: I65.22 Occlusion and stenosis of left carotid artery (principal); Z00.6 Encounter for examination for normal comparison and control in clinical research program; I42.9 Cardiomyopathy, unspecified; E03.9 Hypothyroidism, unspecified; I73.9 Peripheral vascular disease, unspecified; I12.9 Hypertensive chronic kidney disease with stage 1 through stage 4 chronic kidney disease, or unspecified chronic kidney disease; N18.9 Chronic kidney disease, unspecified; I95.9 Hypotension, unspecified; K21.9 Gastro-esophageal reflux disease without esophagitis; E78.5 Hyperlipidemia, unspecified; I25.10 Atherosclerotic heart disease of native coronary artery without angina pectoris; M10.9 Gout, unspecified; Z79.82 Long term (current) use of aspirin; Z79.890 Hormone replacement therapy; Z79.02 Long term (current) use of antithrombotics/antiplatelets; Z79.899 Other long term (current) drug therapy; Z86.16 Personal history of COVID-19; Z87.891 Personal history of nicotine dependence; Z95.5 Presence of coronary angioplasty implant and graft
CPT/HCPCS: 37215; 76937; 80048; 80053; 85025; 86850; 86900; 86901

== ENCOUNTER → 2024-12-25 | Outpatient (CLI) | payer MEDICARE ==
[2024-12-25 14:38] LABS: African American GFR (CKD) 50 (>60 ml/min/1.73 sqM); Blood Urea Nitrogen 18 mg/dL (9-20); Non-African American GFR(CKD) 43 (>60 ml/min/1.73 sqM)
--- NOTE | 2024-12-25 15:39 | CT ---
EXAMINATION TYPE: CT angio head neck DATE OF EXAM: 12/25/2024 COMPARISON: CTA neck September 18, 2024. CTA head May 22, 2023 CLINICAL INDICATION: Male, 74 years old with history of I65.29 OCCLUSION AND STENOSIS OF UNSPECIFIED CAROT, Carotid stenosis., TECHNIQUE: CTA scan of the head and neck is performed with IV Contrast, patient injected with 65 ml mL of Isovue 370, axial images are obtained, coronal and sagittal reformatted images are reviewed. 3D reconstructed images are created on an independent workstation and reviewed. NASCET criteria was use d in interpretation of this exam? CT DLP: 1555.9 mGycm. Automated Exposure Control for Dose Reduction was Utilized. FINDINGS: CTA head. No large vessel occlusion or aneurysm. CTA NECK: Right Carotid System: The common carotid artery and external carotid artery are patent. The carotid bifurcation demonstrate s no evidence of hemodynamically significant stenosis. Moderate peripheral noncalcified plaque causin g stenosis under 50%. The remaining portions of the internal carotid artery demonstrate normal size w ithout significant narrowing. Left Carotid System: The common carotid artery and external carotid artery are patent. The carotid bifurcation demonstrate s no evidence of hemodynamically significant stenosis. There is patent stent graft in the distal left common carotid artery extending into the internal carotid artery. The remaining portions of the inte rnal carotid artery demonstrate normal size without significant narrowing. Moderate to severe periphe ral calcified plaque distally is redemonstrated. Vertebral arteries are patent without evidence hemodynamically significant stenosis. Vertebral arteri es are codominant. There is a three-vessel aortic arch. The origins of the great vessels are patent. Moderate peripheral noncalcified plaque at this level is seen. No evidence of hemodynamically significant stenosis. IMPRESSION: New left-sided stent graft. No hemodynamically significant stenosis in either common or internal murcia tid artery. No large vessel occlusion at level of [place] of [place].. [facility], , 12/25/2024 3:37 PM
== END | disposition home or self-care (01) ==
LOC: RADCTMAIN 13:56
PROVIDERS: ATTEND Surgery
DX: I65.23 Occlusion and stenosis of bilateral carotid arteries (principal); Z95.820 Peripheral vascular angioplasty status with implants and grafts
CPT/HCPCS: 82565; 84520; 70496; 70498; 36415; Q9967

== ENCOUNTER 2025-01-12 20:34 | Observation (INO) | payer MEDICARE ==
--- NOTE | 2025-01-12 20:40 | ED ---
Syncope HPI - General Stated Complaint: Syncope Time Seen by Provider: 01/12/25 20:37 Source: RN notes reviewed, old records reviewed Mode of arrival: EMS Limitations: no limitations - History of Present Illness Initial Comments: This is a 74-year-old male to the ER for evaluation of chest pain chest pain with syncope. Patient has no fevers no weakness no illness no recent nausea vomiting or diarrhea no other complaints. Patient has persistent symptoms here in the ER of chest pain, states he was just watching TV when the symptoms began. Been feeling well yesterday feeling well day-to-day MD Complaint: loss of consciousness, felt faint -: days(s) Prodromal Symptoms: lightheaded, shortness of breath Witnessed: yes - by bystander Injuries Sustained Associated with Event: None Current Symptoms: chest pain Context: at rest Treatments Prior to Arrival: none - Related Data Home Medications Medication Instructions Recorded Confirmed allopurinoL [Zyloprim] 300 mg PO DAILY 12/18/17 01/13/25 Loratadine 10 mg PO DAILY 03/07/23 01/13/25 Aspirin EC [Ecotrin Low Dose] 81 mg PO DAILY 05/21/23 01/13/25 Omeprazole 20 mg PO DAILY PRN 05/21/23 01/13/25 Atorvastatin [Lipitor] 40 mg PO DAILY 10/17/24 01/13/25 Ergocalciferol [Vitamin D2 (1250 1,250 mcg PO SA 10/17/24 01/13/25 Mcg = 70357 Iu)] Fenofibrate Nanocrystallized 145 mg PO DAILY 10/17/24 01/13/25 [Fenofibrate] Levothyroxine Sodium 88 mcg PO DAILY 10/17/24 01/13/25 Albuterol Inhaler [Ventolin Hfa 2 puff INHALATION RT-Q6H PRN 10/21/24 01/13/25 Inhaler] Clopidogrel [Plavix] 75 mg PO DAILY 12/02/24 01/13/25 Losartan Potassium 100 mg PO DAILY 01/13/25 01/13/25 Metoprolol Succinate [Metoprolol 25 mg PO DAILY 01/13/25 01/13/25 Succinate ER] Allergies Allergy/AdvReac Type Severity Reaction Status Date / Time No Known Allergies Allergy Verified 01/13/25 09:22 Review of Systems ROS Statement: Those systems with pertinent positive or pertinent negative responses have been documented in the HPI. ROS Other: All systems not noted in ROS Statement are negative. Past Medical History Past Medical History: Coronary Artery Disease (CAD), GERD/Reflux, Hyperlipidemia, Hypertension, Osteoarthritis (OA), Pneumonia, Thyroid Disorder, Vascular Disorder Additional Past Medical History / Comment(s): See Dr Ramos's H&P. Hx Covid 08/18/20. PAD, cardiomyopathy per past medical record but pt does not recall, severe scoliosis, occasional low back pain, bronchitis, gout, episodes of losing balance and falls. History of Any Multi-Drug Resistant Organisms: None Reported Past Surgical History: Adenoidectomy, Appendectomy, Bladder Surgery, Cholecystectomy, Heart Catheterization, Tonsillectomy Additional Past Surgical History / Comment(s): Bifemoral/aortic bypass, left thumb laceration/partial ampuration, bilateral cataract removals, colonoscopy, benign bladder polyps removed. aortic arch angiogram in October 2024 Past Anesthesia/Blood Transfusion Reactions: No Reported Reaction Additional Past Anesthesia/Blood Transfusion Reaction / Comment(s): DOES NOT L BETHANY THE STING OF LIDOCAINE. Smoking Status: Former smoker - Past Family History Mother Family Medical History: Cancer Additional Family Medical History / Comment(s): Cervical, breast, liver cancer. Father Family Medical History: Cancer Additional Family Medical History / Comment(s): Father had brain cancer and committed suicide. Sister(s) Family Medical History: No Reported History Brother(s) Family Medical History: No Reported History Son(s) Family Medical History: No Reported History Daughter(s) Family Medical History: No Reported History General Exam General appearance: alert, in no apparent distress Head exam: Present: atraumatic, normocephalic, normal inspection Eye exam: Present: normal appearance, PERRL, EOMI. Absent: scleral icterus, conjunctival injection, periorbital swelling ENT exam: Present: normal exam, mucous membranes moist Neck exam: Present: normal inspection. Absent: tenderness, meningismus, lymphadenopathy Respiratory exam: Present: normal lung sounds bilaterally. Absent: respiratory distress, wheezes, rales, rhonchi, stridor Cardiovascular Exam: Present: regular rate, normal rhythm, normal heart sounds. Absent: systolic murmur, diastolic murmur, rubs, gallop, clicks GI/Abdominal exam: Present: soft, normal bowel sounds. Absent: distended, tenderness, guarding, rebound, rigid Extremities exam: Present: normal inspection, full ROM, normal capillary refill. Absent: tenderness, pedal edema, joint swelling, calf tenderness Back exam: Present: normal inspection Neurological exam: Present: alert, oriented X3, CN II-XII intact Psychiatric exam: Present: normal affect, normal mood Skin exam: Present: warm, dry, intact, normal color. Absent: rash Course Vital Signs 01/12/25 01/12/25 20:36 23:50 Temperature 97.7 F Pulse Rate 59 L 66 Respiratory 18 16 Rate Blood Pressure 133/67 137/67 O2 Sat by Pulse 95 97 Oximetry - Reevaluation(s) Reevaluation #1: 01/12/25 22:48 Medical records reviewed Reevaluation #2: 01/12/25 22:48 No recurrent syncope here in the ER Persistent chest pain here in the ER Reevaluation #3: 01/12/25 22:48 Patient informed of results questions answered Reevaluation #4: Was pt. sent in by a medical professional or institution (Dr. PA, CONTRACTS LAW PROFESSOR, urgent care, hospital, or [place] health care facility...) When possible be specific @ -no Did you speak to anyone other than the patient for history (EMS, parent, family, police, friend...)? What history was obtained from this source @ -no Did you review nursing and triage notes (agree or disagree)? Why? @ -agree Are old charts reviewed (outside hosp., previous admission, EMS record, old EKG, old radiological studies, urgent care reports/EKG's, [place] health care facility records)? Report findings @ -yes Differential Diagnosis (chest pain, altered mental status, abdominal pain women, abdominal pain men, vaginal bleeding, weakness, fever, dyspnea, syncope, headache, dizziness, GI bleed, back pain, seizure, CVA, palpatations, mental health, musculoskeletal)? @ -prior EKG interpreted by me (3pts min.). @ -yes X-rays interpreted by me (1pt min.). @ -yes negative for acute disease CT interpreted by me (1pt min.). @ -no U/S interpreted by me (1pt. min.). @ -no What testing was considered but not performed or refused? (CT, X-rays, U/S, labs)? Why? @ -none What meds were considered but not given or refused? Why? @ -none Did you discuss the management of the patient with other professionals (professionals i.e. , PA, CONTRACTS LAW PROFESSOR, lab, RT, psych nurse, manager social media, credit cashier, teacher, police booking officer, geriatric case manager)? Give summary @ -no Was smoking cessation discussed for >3mins.? @ -no Was critical care preformed (if so, how long)? @ -yes31 Were there social determinants of health that impacted care today? How? (Homelessness, low income, unemployed, alcoholism, drug addiction, transportation, low edu. Level, literacy, decrease access to med. care, half-way, rehab)? @ -none Was there de-escalation of care discussed even if they declined (Discuss DNR or withdrawal of care, Hospice)? DNR status @ -no What co-morbidities impacted this encounter? (DM, HTN, Smoking, COPD, CAD, Ca ncer, CVA, ARF, Chemo, Hep., AIDS, mental health diagnosis, sleep apnea, morbid obesity)? @ -none Was patient admitted / discharged? Hospital course, mention meds given and route, prescriptions, significant lab abnormalities, going to OR and other pertinent info. @ - 74 male to be admitted. Patient will admit for rule out PE started on heparin this syncopal event surrounded by diaphoresis and shortness of breath with persistent chest pain here in the ER Admit Undiagnosed new problem with uncertain prognosis? @ -no Drug Therapy requiring intensive monitoring for toxicity (Heparin, Nitro, In sulin, Cardizem)? @ -no Were any procedures done? @ -no Diagnosis/symptom? @ -Syncope chest pain shortness of breath Acute, or Chronic, or Acute on Chronic? @ -Acute Uncomplicated (without systemic symptoms) or Complicated (systemic symptoms)? @ -Complicated Side effects of treatment? @ -no Exacerbation, Progression, or Severe Exacerbation? @ -exacerbation Poses a threat to life or bodily function? How? (Chest pain, USA, AR, pneumonia, PE, COPD, DKA, ARF, appy, cholecystitis, CVA, Diverticulitis, Homicidal, Suicidal, threat to staff... and all critical care pts) @ -yes extremes of age Reevaluation #5: Differential Chest Pain: Stable Angina, Unstable Angina, STEMI, NSTEMI Aortic Dissection, Pneumothorax, Musculoskeletal, Esophageal Spasm GERD, Cholecystitis, Pancreatitis, Zoster, this is not meant to be an all-inclusive list. Differential Syncope: Valvular disease, hypertrophic cardiomyopathy, pulmonary embolism, tamponade, tachycardia, bradycardia, AR, hypovolemia, hemorrhage, dissection, anemia, intracranial hemorrhage, seizure, hypoglycemia, carbon monoxide poisoning, this is not meant to be an all-inclusive list. - Consultations Consultation #1: Spoke with [facility] who agrees to admit this patient EKG Findings - EKG Comments: EKG Findings:: EKG is sinus bradycardia 58 NE 245 QRS 110 QTc 436 - EKG Results: EKG: interpreted by [facility] Medical Decision Making - Medical Decision Making 74 male to be admitted. Patient will admit for rule out PE started on heparin this syncopal event surrounded by diaphoresis and shortness of breath with persistent chest pain here in the ER - Lab Data Result diagrams: 01/14/25 05:18 01/14/25 05:18 Lab Results 01/12/25 01/12/25 01/12/25 Range/Units 20:43 20:43 20:43 WBC 10.7 H (3.8-10.6) k/uL RBC 4.67 (4.30-5.90) m/uL Hgb 14.6 (13.0-17.5) gm/dL Hct 44.7 (39.0-53.0) % MCV 95.6 (80.0-100.0) fL MCH 31.2 (25.0-35.0) pg MCHC 32.7 (31.0-37.0) g/dL RDW 13.5 (11.5-15.5) % Plt Count 213 (150-450) k/uL MPV 8.3 Neutrophils % 51 % Lymphocytes % 37 % Monocytes % 7 % Eosinophils % 2 % Basophils % 1 % Neutrophils # 5.5 (1.3-7.7) k/uL Lymphocytes # 3.9 (1.0-4.8) k/uL Monocytes # 0.8 (0-1.0) k/uL Eosinophils # 0.2 (0-0.7) k/uL Basophils # 0.1 (0-0.2) k/uL Hypochromasia Slight PT 10.8 (10.0-12.5) sec INR 1.0 (<1.2) APTT 21.9 L (22.0-30.0) sec D-Dimer 0.99 H (<0.60) mg/L FEU Sodium 137 (137-145) mmol/L Potassium 3.9 (3.5-5.1) mmol/L Chloride 104 (98-107) mmol/L Carbon Dioxide 20 L (22-30) mmol/L Anion Gap 13 mmol/L BUN 36 H (9-20) mg/dL Creatinine 2.29 H (0.66-1.25) mg/dL Est GFR (CKD-EPI)AfAm 32 (>60 ml/min/1.73 sqM) Est GFR (CKD-EPI)NonAf 27 (>60 ml/min/1.73 sqM) Glucose 143 H (74-99) mg/dL POC Glucose (mg/dL) (70-110) mg/dL POC Glu Program Technician ID Plasma Lactic Acid Colton (0.7-2.0) mmol/L Calcium 9.0 (8.4-10.2) mg/dL Phosphorus 3.5 (2.5-4.5) mg/dL Magnesium 2.0 (1.6-2.3) mg/dL Total Bilirubin 0.5 (0.2-1.3) mg/dL AST 22 (17-59) U/L ALT 27 (4-49) U/L Alkaline Phosphatase 49 (38-126) U/L Troponin I (0.000-0.034) ng/mL NT-Pro-B Natriuret Pep 130 pg/mL Total Protein 7.0 (6.3-8.2) g/dL Albumin 4.2 (3.5-5.0) g/dL 01/12/25 01/12/25 01/12/25 Range/Units 20:43 20:43 20:57 WBC (3.8-10.6) k/uL RBC (4.30-5.90) m/uL Hgb (13.0-17.5) gm/dL Hct (39.0-53.0) % MCV (80.0-100.0) fL MCH (25.0-35.0) pg MCHC (31.0-37.0) g/dL RDW (11.5-15.5) % Plt Count (150-450) k/uL MPV Neutrophils % % Lymphocytes % % Monocytes % % Eosinophils % % Basophils % % Neutrophils # (1.3-7.7) k/uL Lymphocytes # (1.0-4.8) k/uL Monocytes # (0-1.0) k/uL Eosinophils # (0-0.7) k/uL Basophils # (0-0.2) k/uL Hypochromasia PT (10.0-12.5) sec INR (<1.2) APTT (22.0-30.0) sec D-Dimer (<0.60) mg/L FEU Sodium (137-145) mmol/L Potassium (3.5-5.1) mmol/L Chloride (98-107) mmol/L Carbon Dioxide (22-30) mmol/L Anion Gap mmol/L BUN (9-20) mg/dL Creatinine (0.66-1.25) mg/dL Est GFR (CKD-EPI)AfAm (>60 ml/min/1.73 sqM) Est GFR (CKD-EPI)NonAf (>60 ml/min/1.73 sqM) Glucose (74-99) mg/dL POC Glucose (mg/dL) 133 H (70-110) mg/dL POC Glu Program Technician ID Garcia Eln Plasma Lactic Acid Colton 1.1 (0.7-2.0) mmol/L Calcium (8.4-10.2) mg/dL Phosphorus (2.5-4.5) mg/dL Magnesium (1.6-2.3) mg/dL Total Bilirubin (0.2-1.3) mg/dL AST (17-59) U/L ALT (4-49) U/L Alkaline Phosphatase (38-126) U/L Troponin I 0.012 (0.000-0.034) ng/mL NT-Pro-B Natriuret Pep pg/mL Total Protein (6.3-8.2) g/dL Albumin (3.5-5.0) g/dL - EKG Data -: EKG Interpreted by Me - Radiology Data Radiology results: report reviewed (Chest x-ray is negative for acute disease), image reviewed Critical Care Time Critical Care Time: Yes Total Critical Care Time: 31 Disposition Clinical Impression: LENNOX (acute kidney injury), Chest pain, Vasovagal syncope, Syncope due to orthostatic hypotension, Syncope, Elevated d-dimer Disposition: ADMITTED IP TO THIS HOSP Condition: Fair Is patient prescribed a controlled substance at d/c from ED?: No Time of Disposition: 22:45
[2025-01-12 20:58] LABS: Glucose,Whole Blood 133 mg/dL (70-110)
[2025-01-12] MEDS: SODIUM CHLORIDE 0.9% 1,000 ML IV ONE ×2 (21:02→23:42)
[2025-01-12 21:13] LABS: Basophils # (A) 0.1 k/uL (0-0.2); Basophils % (A) 1 %; Eosinophils # (A) 0.2 k/uL (0-0.7); Eosinophils % (A) 2 %; HCT 44.7 % (39.0-53.0); HGB 14.6 gm/dL (13.0-17.5); Hypochromasia Slight; Lymphocytes # (A) 3.9 k/uL (1.0-4.8); Lymphocytes % (A) 37 %; MCH 31.2 pg (25.0-35.0); MCHC 32.7 g/dL (31.0-37.0); MCV 95.6 fL (80.0-100.0); Mean Platelet Volume 8.3; Monocytes # (A) 0.8 k/uL (0-1.0); Monocytes % (A) 7 %; Neutrophils # (A) 5.5 k/uL (1.3-7.7); Neutrophils % (A) 51 %; Platelet Count 213 k/uL (150-450); RBC 4.67 m/uL (4.30-5.90); RDW 13.5 % (11.5-15.5); WBC 10.7 k/uL (3.8-10.6)
[2025-01-12 21:23] LABS: ALT 27 U/L (4-49); AST 22 U/L (17-59); African American GFR (CKD) 32 (>60 ml/min/1.73 sqM); Albumin 4.2 g/dL (3.5-5.0); Alkaline Phosphatase 49 U/L (38-126); Anion Gap 13 mmol/L; Blood Urea Nitrogen 36 mg/dL (9-20); Carbon Dioxide 20 mmol/L (22-30); Chloride 104 mmol/L (98-107); Glucose 143 mg/dL (74-99); Non-African American GFR(CKD) 27 (>60 ml/min/1.73 sqM); Phosphorus 3.5 mg/dL (2.5-4.5); Potassium 3.9 mmol/L (3.5-5.1); Sodium 137 mmol/L (137-145); Total Bilirubin 0.5 mg/dL (0.2-1.3)
[2025-01-12 21:32] LABS: NT-Pro-B-Type Natriuretic Pept 130 pg/mL
[2025-01-12 21:42] LABS: Partial Thromboplastin Time 21.9 sec (22.0-30.0); Prothrombin Time 10.8 sec (10.0-12.5)
[2025-01-12] MEDS ORDERED: MORPHINE SULFATE 4 MG/ML SYRINGE IV PRN (22:45)
[2025-01-12] MEDS ORDERED: NALOXONE 0.4 MG/ML 1 ML VIAL IV PRN (22:45)
[2025-01-12] MEDS ORDERED: HEPARIN SODIUM 1,000 UN/ML (10ML VL) IV PRN (22:45)
[2025-01-12] MEDS ORDERED: ONDANSETRON 4 MG/2 ML VIAL IVP PRN (22:45)
--- NOTE | 2025-01-12 23:26 | XR ---
EXAMINATION TYPE: XR chest 1V portable DATE OF EXAM: 01/12/2025 11:12 PM COMPARISON: Chest radiographs from 10/01/2020. CLINICAL INDICATION: Male, 74 years old with history of PE; shortness of breath. TECHNIQUE: XR chest 1V portable Frontal view of the chest. FINDINGS: Lungs/Pleura: There is no evidence of pleural effusion, focal consolidation, or pneumothorax. Pulmonary vascularity: Unremarkable. Heart/mediastinum: Cardiomediastinal silhouette is unremarkable. Musculoskeletal: No acute osseous pathology. Other findings: None IMPRESSION: No acute cardiopulmonary disease/process. [facility], , 01/12/2025 11:24 PM
[2025-01-12] MEDS: HEPARIN SODIUM 1,000 UN/ML (10ML VL) IV ONE (23:38)
[2025-01-12] MEDS: HEPARIN SOD,PORK IN 0.45% NACL 25,000 UNIT in 0.45% NACL 1 250ML.BAG IV SCH (23:39)
[2025-01-12] MEDS: SODIUM CHLORIDE 0.9% 1,000 ML IV SCH ×2 (23:40→23:42)
[2025-01-13 06:15] LABS: Basophils # (A) 0.1 k/uL (0-0.2); Basophils % (A) 1 %; Eosinophils # (A) 0.2 k/uL (0-0.7); Eosinophils % (A) 2 %; HGB 14.5 gm/dL (13.0-17.5); Hypochromasia Slight; Lymphocytes # (A) 3.6 k/uL (1.0-4.8); Lymphocytes % (A) 34 %; MCH 30.9 pg (25.0-35.0); MCHC 30.8 g/dL (31.0-37.0); MCV 100.4 fL (80.0-100.0); Macrocytosis Slight; Mean Platelet Volume 8.4; Monocytes # (A) 0.6 k/uL (0-1.0); Monocytes % (A) 6 %; Neutrophils # (A) 5.7 k/uL (1.3-7.7); Neutrophils % (A) 55 %; Platelet Count 200 k/uL (150-450); RBC 4.68 m/uL (4.30-5.90); RDW 13.6 % (11.5-15.5); WBC 10.4 k/uL (3.8-10.6)
[2025-01-13 06:47] LABS: ALT 28 U/L (4-49); AST 28 U/L (17-59); African American GFR (CKD) 42 (>60 ml/min/1.73 sqM); Albumin 4.1 g/dL (3.5-5.0); Alkaline Phosphatase 58 U/L (38-126); Anion Gap 12 mmol/L; Blood Urea Nitrogen 33 mg/dL (9-20); Carbon Dioxide 17 mmol/L (22-30); Chloride 109 mmol/L (98-107); Glucose 101 mg/dL (74-99); Magnesium 2.1 mg/dL (1.6-2.3); Non-African American GFR(CKD) 37 (>60 ml/min/1.73 sqM); Phosphorus 3.4 mg/dL (2.5-4.5); Sodium 138 mmol/L (137-145); Total Bilirubin 0.7 mg/dL (0.2-1.3); Total Protein 7.1 g/dL (6.3-8.2)
[2025-01-13 06:48] LABS: Potassium 4.6 mmol/L (3.5-5.1)
--- NOTE | 2025-01-13 08:11 | NM ---
EXAMINATION TYPE: NM pul vent and perfuse DATE OF EXAM: 01/13/2025 CLINICAL INDICATION: Male, 74 years old with history of PE; SOB COMPARISON: Chest x-ray from one day earlier TECHNIQUE: Utilizing inhalation of 69.4 mCi Tc 99m DTPA aerosol and intravenous injection of 5.4 mCi of Tc 99m MAA, ventilation and perfusion images are acquired post injection in multiple projections. FINDINGS: Normal radiotracer distribution is noted in the lungs. There is no evidence of mismatched defects. IMPRESSION: Low scintigraphic evidence for acute pulmonary embolism. [facility], , 01/13/2025 8:09 AM
--- NOTE | 2025-01-13 09:41 | US ---
EXAMINATION TYPE: US carotid duplex BILAT DATE OF EXAM: 01/13/2025 COMPARISON: Carotid ultrasound May 22, 2023. CTA neck December 25, 2024 CLINICAL INDICATION: Male, 74 years old with history of recent TCAR, syncope;syncope patient had left stent put in carotid in Nov 2024 Additional History: R55 Syncope TECHNIQUE: Grayscale, color Doppler and spectral Doppler evaluation of the bilateral carotid systems and vertebral arteries. Indirect Doppler criteria was utilized. FINDINGS: EXAM MEASUREMENTS: RIGHT: Peak Systolic Velocity (PSV) cm/sec ----- Right CCA: 99.7 ----- Right ICA: 120 ----- Right ECA: 75.2 ICA/CCA ratio: 1.2 RIGHT: End Diastole cm/sec ----- Right CCA: 17.2 ----- Right ICA: 10.9 ----- Right ECA: 7.25 LEFT: Peak Systolic Velocity (PSV) cm/sec ----- Left CCA: 66.1 ----- Left ICA: 77 ----- Left ECA: 169 ICA/CCA ratio: 1.1 LEFT: End Diastole cm/sec ----- Left CCA: 15.4 ----- Left ICA: 14.5 ----- Left ECA: 8.0 VERTEBRALS (direction of flow): Right Vertebral: Antegrade Left Vertebral: Antegrade Rhythm: Normal LOG SAWYER NOTES: No significant stenosis seen Color Doppler imaging shows patency with blood flow throughout the carotid artery. Spectral waveforms are within normal limits. Left-sided proximal internal carotid artery stent is present. IMPRESSION: Right: No hemodynamically significant stenosis. Left: No hemodynamically significant stenosis. Criteria for Assigning % of Stenosis / Diameter reduction (Estimation based on the indirect measurements of the internal carotid artery velocities (ICA PSV). 1. Normal (no stenosis)=ICA PSV < 180 cm/s: ratio < 2.0: ICA EDV<40 cm/s. 2. Less than 50% stenosis=ICA PSV < 180 cm/s: ratio < 2.0: ICA EDV<40 cm/s. 3. 50 to 69% stenosis=ICA PSV of 180 to 230 cm/s: ration 2.0 ? 4.0: ICA EDV 40-100 cm/s. PSV 125-180 cm/sec and ICA/CCA PSV Ratio ? 2.0 is also consistent with 50-69% stenosis 4. Greater than 70% stenosis to near occlusion= ICA PSV > 230 cm/s: ratio > 4.0: ICA EDV > 100 cm/s. 5. Near occlusion= ICA PSV velocities may be low or undetectable: variable ratio and ICA EDV. 6. Total occlusion=unable to detect flow. [facility], , 01/13/2025 9:39 AM
[2025-01-13] MEDS ORDERED: PANTOPRAZOLE 40 MG TABLET PO PRN (10:25)
[2025-01-13] MEDS ORDERED: ALBUTEROL NEBULIZED 2.5 MG/3 ML INHALATION PRN (10:25)
--- NOTE | 2025-01-13 10:33 | P.HPIM ---
History of Present Illness H&P Date: 01/13/25 Ryne Fields is a 74-year-old male patient who presented to the ER with concerns of syncope. Patient reports he was watching TV when the symptoms began and was unable to sit up. Patient has a past medical history of CAD, GERD, hyperlipidemia, hypertension, osteoarthritis, PAD, cardiomyopathy EKG completed in ER showing sinus bradycardia with first-degree AV block. Chest x-ray completed showing no acute cardiopulmonary disease or process. D-dimer was elevated. VQ scan was completed showing negative for PE. Lab work completed showing creatinine 2.29 bun 36 troponins negative x 3 BNP 130. At this time patient will be admitted cardiology services consulted 2D echo and carotid Doppler has been ordered. Vital signs temp 97.7, heart rate 66, respiratory rate 18, blood pressure 133/67 with a pulse ox of 95% on room air. Review of Systems Please refer to HPI otherwise unremarkable Past Medical History Past Medical History: Coronary Artery Disease (CAD), GERD/Reflux, Hyperlipidemia, Hypertension, Osteoarthritis (OA), Pneumonia, Thyroid Disorder, Vascular Disorder Additional Past Medical History / Comment(s): See Dr Ramos's H&P. Hx Covid 08/18/20. PAD, cardiomyopathy per past medical record but pt does not recall, severe scoliosis, occasional low back pain, bronchitis, gout, episodes of losing balance and falls. History of Any Multi-Drug Resistant Organisms: None Reported Past Surgical History: Adenoidectomy, Appendectomy, Bladder Surgery, Cholecystectomy, Heart Catheterization, Heart Catheterization With Stent, Tonsillectomy Additional Past Surgical History / Comment(s): Bifemoral/aortic bypass, left thumb laceration/partial amputation, bilateral cataract removals, colonoscopy, benign bladder polyps removed. aortic arch angiogram in October 2024 Past Anesthesia/Blood Transfusion Reactions: No Reported Reaction Additional Past Anesthesia/Blood Transfusion Reaction / Comment(s): DOES NOT LIKE THE STING OF LIDOCAINE. Date of Last Stent Placement:: October 2023 Past Psychological History: No Psychological Hx Reported Additional Psychological History / Comment(s): Pt resides with his spouse. He is independent. Smoking Status: Former smoker Past Alcohol Use History: Occasional Additional Past Alcohol Use History / Comment(s): Started smoking as a teen and quit in 2010. Past Drug Use History: None Reported - Past Family History Mother Family Medical History: Cancer Additional Family Medical History / Comment(s): Cervical, breast, liver cancer. Father Family Medical History: Cancer Additional Family Medical History / Comment(s): Father had brain cancer and committed suicide. Sister(s) Family Medical History: No Reported History Brother(s) Family Medical History: No Reported History Son(s) Family Medical History: No Reported History Daughter(s) Family Medical History: No Reported History Medications and Allergies Home Medications Medication Instructions Recorded Confirmed Type allopurinoL [Zyloprim] 300 mg PO DAILY 12/18/17 01/13/25 History Loratadine 10 mg PO DAILY 03/07/23 01/13/25 History Aspirin EC [Ecotrin Low Dose] 81 mg PO DAILY 05/21/23 01/13/25 History Omeprazole 20 mg PO DAILY PRN 05/21/23 01/13/25 History Atorvastatin [Lipitor] 40 mg PO DAILY 10/17/24 01/13/25 History Ergocalciferol [Vitamin D2 (1250 1,250 mcg PO SA 10/17/24 01/13/25 History Mcg = 03984 Iu)] Fenofibrate Nanocrystallized 145 mg PO DAILY 10/17/24 01/13/25 History [Fenofibrate] Levothyroxine Sodium 88 mcg PO DAILY 10/17/24 01/13/25 History Albuterol Inhaler [Ventolin Hfa 2 puff INHALATION RT-Q6H PRN 10/21/24 01/13/25 History Inhaler] Clopidogrel [Plavix] 75 mg PO DAILY 12/02/24 01/13/25 History Losartan Potassium 100 mg PO DAILY 01/13/25 01/13/25 History Metoprolol Succinate [Metoprolol 25 mg PO DAILY 01/13/25 01/13/25 History Succinate ER] hydroCHLOROthiazide [Hydrodiuril] 25 mg PO DAILY 01/13/25 01/13/25 History Allergies Allergy/AdvReac Type Severity Reaction Status Date / Time No Known Allergies Allergy Verified 01/13/25 09:22 Physical Exam Vitals: Vital Signs Temp Pulse Pulse Resp BP BP Pulse Ox 01/13/25 06:35 97.7 F 63 17 147/71 98 01/13/25 00:13 97.5 F L 64 16 152/78 100 01/12/25 23:50 66 16 137/67 97 01/12/25 20:36 97.7 F 59 L 18 133/67 95 Intake and Output 01/12/25 01/13/25 01/13/25 22:59 06:59 14:59 Intake Total 125.42 Balance 125.42 Intake: Intake, IV Titration 125.42 Amount Heparin Sod,Pork in 0.45% 125.42 NaCl 25,000 unit In 0.45 % NaCl 1 250ml.bag @ 18 UNITS/KG/HR 17.064 mls/hr IV .[id number] [facility] Rx#: [id number] Other: Voiding Method Toilet # Voids 1 Weight 94.801 kg 94.801 kg Head normocephalic Neck supple Lungs clear to auscultation bilaterally no wheezing or crackles Heart regular rate and rhythm S1-S2, no rub or gallop Abdomen is soft nontender nondistended positive bowel sounds no hepatosplenomegaly Extremities no edema Neuro alert and orientated to 3 Results CBC & Chem 7: 01/13/25 05:29 01/13/25 05:29 Labs: Abnormal Lab Results - Last 24 Hours (Table) 01/12/25 01/12/25 01/12/25 Range/Units 20:43 20:43 20:43 WBC 10.7 H (3.8-10.6) k/uL MCV (80.0-100.0) fL MCHC (31.0-37.0) g/dL APTT 21.9 L (22.0-30.0) sec D-Dimer 0.99 H (<0.60) mg/L FEU Chloride (98-107) mmol/L Carbon Dioxide 20 L (22-30) mmol/L BUN 36 H (9-20) mg/dL Creatinine 2.29 H (0.66-1.25) mg/dL Glucose 143 H (74-99) mg/dL POC Glucose (mg/dL) (70-110) mg/dL 01/12/25 01/13/25 01/13/25 Range/Units 20:57 05:29 05:29 WBC (3.8-10.6) k/uL MCV 100.4 H (80.0-100.0) fL MCHC 30.8 L (31.0-37.0) g/dL APTT (22.0-30.0) sec D-Dimer (<0.60) mg/L FEU Chloride 109 H (98-107) mmol/L Carbon Dioxide 17 L (22-30) mmol/L BUN 33 H (9-20) mg/dL Creatinine 1.80 H (0.66-1.25) mg/dL Glucose 101 H (74-99) mg/dL POC Glucose (mg/dL) 133 H (70-110) mg/dL 01/13/25 Range/Units 05:29 WBC (3.8-10.6) k/uL MCV (80.0-100.0) fL MCHC (31.0-37.0) g/dL APTT 132.9 H* (22.0-30.0) sec D-Dimer (<0.60) mg/L FEU Chloride (98-107) mmol/L Carbon Dioxide (22-30) mmol/L BUN (9-20) mg/dL Creatinine (0.66-1.25) mg/dL Glucose (74-99) mg/dL POC Glucose (mg/dL) (70-110) mg/dL Thrombosis Risk Factor Assmnt - Choose All That Apply Each Factor Represents 1 point: Obesity (BMI >25) Each Risk Factor Represents 2 Points: Age 61-74 years Thrombosis Risk Factor Assessment Total Risk Factor Score: 3 Thrombosis Risk Factor Assessment Level: Moderate Risk Assessment and Plan Assessment: 1. Syncope 2. Elevated D-dimer. VQ scan completed showing low probability for PE. 3. Acute on chronic kidney disease patient's hydrochlorothiazide on hold 4. Recent left carotid stenting on 12/04/[address] Ramos. Patient maintained on Plavix 5. History of cardiomyopathy 6. History of peripheral vascular disease 7. History of hypothyroidism Cardiology services consulted 2D echo and carotid Doppler ordered Possible loop recorder per cardiology Repeat labs in a.m.
[2025-01-13] MEDS: SODIUM CHLORIDE 0.9% 250 ML IV ONE (12:36)
--- NOTE | 2025-01-13 12:57 | P.CRDCN ---
History of Present Illness Consult date: 01/13/25 Reason for Consult (text): Syncope History of present illness: This is a 74-year-old male patient of Dr. Persaud with past medical history of re cent TCAR in November 2024, coronary artery disease with previous PCI with stent to the proximal RCA, hypertension, nonischemic cardiomyopathy, hyperlipidemia. We have been asked to evaluate the patient for syncope. Patient's states that patient was sitting in the left seat and he had just eaten a sandwich. He was watching TV and then all of a sudden became hot and sweaty. He told his wif e to open all the windows which she did and it was quite cold outside. Patient then wanted to go the bathroom but she knew that she would not be able to help him to the bathroom. They did a blood pressure check and found that his blood pressure was low. Patient's also states that he was not understanding the things that she was saying. She then called her [id number]-gix who then told her to call 911. Patient also had vomiting during this. Patient does recall talking to EMS. Other details are a little foggy for him. The entire episode lasted about 10 to 15 minutes. He states he had a similar episode 1 and half years ago when he was in the backyard and had a workup at that time done which came back negative. Blood pressure 147/71, heart rate 63, pulse ox 98% on room air. Patient has been started on a heparin drip. -EKG: First-degree AV block -Chest x-ray: No acute process. -Carotid ultrasound revealed no hemodynamically significant stenosis bilaterally. -VQ scan low probability for pulmonary embolism. -Laboratory studies: WBC 10.4, hemoglobin 14.5, D-dimer 0.99. BUN initially 36 now 33, creatinine initially 2.29 and repeat 1.8. Troponins negative x 3 draws. proBNP 130. -Home cardiac medications: Aspirin 81 mg daily, atorvastatin 40 mg daily, Plavix 75 mg daily, fenofibrate 145 mg daily, hydrochlorothiazide 25 mg daily, losartan 100 mg daily, metoprolol succinate 25 mg daily, also on levothyroxine. -Cardiac catheterization performed 10/25/2023 revealed 60 to 70% stenosis of the proximal RCA with hemodynamically significant IFR. Moderate disease in the proximal left circumflex and mid circumflex with no progression since 2018. Successful stenting of the proximal RCA. There was no gradient across the aortic valve. -Echocardiogram performed 05/22/2023: LV size is normal with fair systolic function. Right ventricle is enlarged. Right-sided pressures not well quantified. No significant mitral or tricuspid regurgitation. No pericardial effusion. EF 50%. Review Of Systems: At the time of my exam: CONSTITUTIONAL: Denies fever or chills. HEENT: Denies blurred vision, vision changes, or eye pain. Denies hemoptysis CARDIOVASCULAR: Denies chest pain. Denies orthopnea. Denies PND. Denies palpitations RESPIRATORY: Denies shortness of breath. GASTROINTESTINAL: Denies abdominal pain. Denies nausea or vomiting. HEMATOLOGIC: Denies bleeding disorders. GENITOURINARY: Denies any blood in urine. SKIN: Denies puritis. Denies rash. Physical examination: Gen: This is a 74-year-old male in no acute distress. VS: reviewed HEENT: Head is atraumatic, normocephalic. Pupils equal, round. Sclerae is anicteric. NECK: Supple. No JVD. LUNGS: Clear to auscultation. No wheezes or rhonchi. No intercostal retractions. HEART: Regular rate and rhythm. Systolic murmur. ABDOMEN: Soft No tenderness. EXTREMITIES: No pedal edema. No calf tenderness. NEUROLOGICAL: Patient is awake, alert and oriented x3. Assessment: Syncopal episode possible vasovagal, rule out bradycardia or other arrhythmias Recent TCAR in November 2024 Coronary artery disease with previous PCI with stent to the proximal RCA Hypertension Nonischemic cardiomyopathy Hyperlipidemia Plan: Resume patient's home cardiac medications Discontinue heparin drip Continue telemetry monitoring Schedule patient for loop recorder implantation tomorrow Schedule patient for tilt table test tomorrow Further recommendations to follow based upon clinical course Thank you kindly for this consultation. Nurse practitioner note has been reviewed, I agree with documented findings and plan of care. Patient was seen and examined. Past Medical History Past Medical History: Coronary Artery Disease (CAD), GERD/Reflux, Hyperlipidemia, Hypertension, Osteoarthritis (OA), Pneumonia, Thyroid Disorder, Vascular Disorder Additional Past Medical History / Comment(s): See Dr Ramos's H&P. Hx Covid 08/18/20. PAD, cardiomyopathy per past medical record but pt does not recall, severe scoliosis, occasional low back pain, bronchitis, gout, episodes of losing balance and falls. History of Any Multi-Drug Resistant Organisms: None Reported Past Surgical History: Adenoidectomy, Appendectomy, Bladder Surgery, Cholecystectomy, Heart Catheterization, Heart Catheterization With Stent, Tonsillectomy Additional Past Surgical History / Comment(s): Bifemoral/aortic bypass, left thumb laceration/partial amputation, bilateral cataract removals, colonoscopy, benign bladder polyps removed. aortic arch angiogram in October 2024 Past Anesthesia/Blood Transfusion Reactions: No Reported Reaction Additional Past Anesthesia/Blood Transfusion Reaction / Comment(s): DOES NOT LIKE THE STING OF LIDOCAINE. Date of Last Stent Placement:: October 2023 Past Psychological History: No Psychological Hx Reported Additional Psychological History / Comment(s): Pt resides with his spouse. He is independent. Smoking Status: Former smoker Past Alcohol Use History: Occasional Additional Past Alcohol Use History / Comment(s): Started smoking as a teen and quit in 2010. Past Drug Use History: None Reported - Past Family History Mother Family Medical History: Cancer Additional Family Medical History / Comment(s): Cervical, breast, liver cancer. Father Family Medical History: Cancer Additional Family Medical History / Comment(s): Father had brain cancer and committed suicide. Sister(s) Family Medical History: No Reported History Brother(s) Family Medical History: No Reported History Son(s) Family Medical History: No Reported History Daughter(s) Family Medical History: No Reported History Medications and Allergies Home Medications Medication Instructions Recorded Confirmed Type allopurinoL [Zyloprim] 300 mg PO DAILY 12/18/17 01/13/25 History Loratadine 10 mg PO DAILY 03/07/23 01/13/25 History Aspirin EC [Ecotrin Low Dose] 81 mg PO DAILY 05/21/23 01/13/25 History Omeprazole 20 mg PO DAILY PRN 05/21/23 01/13/25 History Atorvastatin [Lipitor] 40 mg PO DAILY 10/17/24 01/13/25 History Ergocalciferol [Vitamin D2 (1250 1,250 mcg PO SA 10/17/24 01/13/25 History Mcg = 95880 Iu)] Fenofibrate Nanocrystallized 145 mg PO DAILY 10/17/24 01/13/25 History [Fenofibrate] Levothyroxine Sodium 88 mcg PO DAILY 10/17/24 01/13/25 History Albuterol Inhaler [Ventolin Hfa 2 puff INHALATION RT-Q6H PRN 10/21/24 01/13/25 History Inhaler] Clopidogrel [Plavix] 75 mg PO DAILY 12/02/24 01/13/25 History Losartan Potassium 100 mg PO DAILY 01/13/25 01/13/25 History Metoprolol Succinate [Metoprolol 25 mg PO DAILY 01/13/25 01/13/25 History Succinate ER] hydroCHLOROthiazide [Hydrodiuril] 25 mg PO DAILY 01/13/25 01/13/25 History Allergies Allergy/AdvReac Type Severity Reaction Status Date / Time No Known Allergies Allergy Verified 01/13/25 09:22 Physical Exam Vitals: Vital Signs Temp Pulse Pulse Resp BP BP Pulse Ox 01/13/25 06:35 97.7 F 63 17 147/71 98 01/13/25 00:13 97.5 F L 64 16 152/78 100 01/12/25 23:50 66 16 137/67 97 01/12/25 20:36 97.7 F 59 L 18 133/67 95 Intake and Output 01/12/25 01/13/25 01/13/25 22:59 06:59 14:59 Intake Total 125.42 Balance 125.42 Intake: Intake, IV Titration 125.42 Amount Heparin Sod,Pork in 0.45% 125.42 NaCl 25,000 unit In 0.45 % NaCl 1 250ml.bag @ 18 UNITS/KG/HR 17.064 mls/hr IV .[id number] [facility] Rx#: [id number] Other: Voiding Method Toilet # Voids 1 Weight 94.801 kg 94.801 kg Results 01/13/25 05:29 01/13/25 05:29 Cardiac Enzymes 01/12/25 01/12/25 01/12/25 Range/Units 20:43 20:43 23:37 AST 22 (17-59) U/L Troponin I 0.012 <0.012 (0.000-0.034) ng/mL 01/13/25 01/13/25 Range/Units 05:29 05:29 AST 28 (17-59) U/L Troponin I <0.012 (0.000-0.034) ng/mL Coagulation 01/12/25 01/13/25 Range/Units 20:43 05:29 PT 10.8 (10.0-12.5) sec APTT 21.9 L 132.9 H* (22.0-30.0) sec CBC 01/12/25 01/13/25 Range/Units 20:43 05:29 WBC 10.7 H 10.4 (3.8-10.6) k/uL RBC 4.67 4.68 (4.30-5.90) m/uL Hgb 14.6 14.5 (13.0-17.5) gm/dL Hct 44.7 47.0 (39.0-53.0) % Plt Count 213 200 (150-450) k/uL Comprehensive Metabolic Panel 01/12/25 01/13/25 Range/Units 20:43 05:29 Sodium 137 138 (137-145) mmol/L Potassium 3.9 4.6 (3.5-5.1) mmol/L Chloride 104 109 H (98-107) mmol/L Carbon Dioxide 20 L 17 L (22-30) mmol/L BUN 36 H 33 H (9-20) mg/dL Creatinine 2.29 H 1.80 H (0.66-1.25) mg/dL Glucose 143 H 101 H (74-99) mg/dL Calcium 9.0 9.0 (8.4-10.2) mg/dL AST 22 28 (17-59) U/L ALT 27 28 (4-49) U/L Alkaline Phosphatase 49 58 (38-126) U/L Total Protein 7.0 7.1 (6.3-8.2) g/dL Albumin 4.2 4.1 (3.5-5.0) g/dL Current Medications Generic Name Dose Route Start Last Admin Trade Name Freq PRN Reason Stop Dose Admin Heparin Sodium (Porcine) 0 unit 01/12/25 22:45 Heparin Sodium 1,000 Un/Ml (10ml Vl) IV PER PROTOCOL PRN Low PTT Protocol Heparin Sodium/Sodium Chloride 250 mls @ 17.064 mls/hr 01/12/25 22:45 01/13/25 08:06 25,000 unit/ Sodium Chloride IV 15 units/kg/hr .[id number] GLORY 14.22 mls/hr Titration Protocol 18 UNITS/KG/HR Sodium Chloride 1,000 mls @ 130 mls/hr 01/12/25 22:45 01/12/25 23:40 Saline 0.9% IV 130 mls/hr .[id number] GLORY Administration Sodium Chloride 1,000 mls @ 75 mls/hr 01/12/25 22:45 01/12/25 23:42 Saline 0.9% IV Not Given .[id number] GLORY Morphine Sulfate 4 mg 01/12/25 22:45 Morphine Sulfate 4 Mg/Ml Syringe IV Q4HR PRN Severe Pain (Scale 7 to 10) Naloxone HCl 0.2 mg 01/12/25 22:45 Naloxone 0.4 Mg/Ml 1 Ml Vial IV Q2M PRN Opioid Reversal Ondansetron HCl 4 mg 01/12/25 22:45 Ondansetron 4 Mg/2 Ml Vial IVP Q8HR PRN Nausea And Vomiting Intake and Output 01/12/25 01/13/25 01/13/25 22:59 06:59 14:59 Intake Total 125.42 Balance 125.42 Intake: Intake, IV Titration 125.42 Amount Heparin Sod,Pork in 0.45% 125.42 NaCl 25,000 unit In 0.45 % NaCl 1 250ml.bag @ 18 UNITS/KG/HR 17.064 mls/hr IV .[id number] [facility] Rx#: [id number] Other: Voiding Method Toilet # Voids 1 Weight 94.801 kg 94.801 kg 01/13/25 05:29 01/13/25 05:29
[2025-01-13] MEDS: SODIUM CHLORIDE 0.9% 1,000 ML IV SCH ×2 (13:16→13:17)
--- NOTE | 2025-01-13 20:52 | P.EPPROC ---
- EP Procedure Note Electrophysiology Procedure Note: Diagnosis Recurrent syncope both in the standing position and this time while sitting Baseline 12 EKG shows sinus rhythm with first-degree AV block Tilt table test per protocol Baseline blood pressure 166/81 mmHg baseline heart rate 73 beats a minute Patient was tilted upright in angle of 70 degrees per protocol No evidence for neurocardiogenic syncope No evidence for dysautonomia Impression first-degree AV block Elevated blood pressure readings No evidence for neurocardiogenic syncope If no bradycardia arrhythmias noted on telemetry monitoring overnight, proceed with implantation of loop monitor
[2025-01-14] MEDS: LEVOTHYROXINE 88 MCG TAB PO SCH (06:05)
[2025-01-14] MEDS: PANTOPRAZOLE 40 MG TABLET PO SCH (06:05)
[2025-01-14 08:26] LABS: Basophils # (A) 0.06 X 10*3/uL (0.00-0.10); Basophils % (A) 0.8 %; Eosinophils # (A) 0.13 X 10*3/uL (0.04-0.35); Eosinophils % (A) 1.7 %; HCT 43.3 % (39.6-50.0); HGB 13.8 g/dL (13.0-17.0); Lymphocytes # (A) 2.32 X 10*3/uL (0.90-5.00); Lymphocytes % (A) 30.3 %; MCH 30.8 pg (27.0-32.0); MCHC 31.9 g/dL (32.0-37.0); MCV 96.7 FL (80.0-97.0); Mean Platelet Volume 10.9 FL (9.5-12.2); Monocytes # (A) 0.71 X 10*3/uL (0.20-1.00); Monocytes % (A) 9.3 %; NRBC Per 100 WBC 0 X 10*3/uL (0.00-0.01); Neutrophils % (A) 57.5 %; Platelet Count 188 X 10*3/uL (140-440); RBC 4.48 X 10*6/uL (4.40-5.60); RDW 13.3 % (11.5-14.5); WBC 7.65 X 10*3/uL (4.50-10.00)
[2025-01-14 08:43] LABS: ALT 27 U/L (10-49); AST 22 U/L (14-35); Albumin/Globulin Ratio 1.54 Ratio (1.60-3.17); Alkaline Phosphatase 50 U/L (41-126); BUN/Creat Ratio 17.56 Ratio (12.00-20.00); Blood Urea Nitrogen 28.1 mg/dL (9.0-27.0); Carbon Dioxide 20.5 mmol/L (21.6-31.8); Chloride 106 mmol/L (96-109); Globulin 2.6 g/dL (1.6-3.3); Glucose 116 mg/dL (70-110); Potassium 4.2 mmol/L (3.5-5.5); Sodium 139 mmol/L (135-145); Total Bilirubin 0.4 mg/dL (0.3-1.2); Total Protein 6.6 g/dL (6.2-8.2)
[2025-01-14] MEDS: ATORVASTATIN 40 MG TAB PO SCH (09:16)
[2025-01-14] MEDS: METOPROLOL SUCCINATE (ER) 25 MG TAB.ER.24H PO SCH (09:16)
[2025-01-14] MEDS: LOSARTAN 50 MG TAB PO SCH (09:17)
[2025-01-14] MEDS: CLOPIDOGREL 75 MG TAB PO SCH (09:17)
[2025-01-14] MEDS: ASPIRIN 81 MG PO SCH (09:17)
[2025-01-14] MEDS: allopurinoL 300 MG TAB PO SCH (09:17)
[2025-01-14] MEDS: LORATADINE 10 MG TAB PO SCH (09:17)
[2025-01-14] MEDS: ENOXAPARIN 40 MG/0.4 ML SYRINGE SQ SCH (09:18)
[2025-01-14] MEDS: LIDOCAINE 1% INJ 10MG/ML (20 ML MDV) SQ ONE (10:33)
[2025-01-14] MEDS: SODIUM CHLORIDE 0.9% 1,000 ML IV ONE (10:34)
--- NOTE | 2025-01-14 10:56 | P.EPPROC ---
- EP Procedure Note Electrophysiology Procedure Note: Loop monitor implant, Finderlytt IQ 3+ Primary physicians: Dr. Singletary Unemployment Claims Adjudicator: Dr. Persaud Indication: Recurrent syncope over the years without a clear-cut diagnosis, most recent episode of syncope while sitting, mildly prolonged [place] interval at baseline, no evidence for neurocardiogenic syncope on recent tilt table testing Patient was brought to the EP lab in a fasting state. Written informed consent was obtained prior to the procedure. The left pectoral area was prepped and d raped per protocol. Intravenous antibiotic was administered preoperatively. A subcutaneous Loop monitor was implanted successfully and the wound was closed per protocol. The device was programmed to detect significant nichole- arrhythmic and tachy-arrhythmic events, per protocol. Device and programming details: Bradycardia parameters syncope parameters
--- NOTE | 2025-01-14 13:43 | P.PN ---
Subjective Progress Note Date: 01/14/25 Reason for Consult (text): Syncope History of present illness: This is a 74-year-old male patient of Dr. Persaud with past medical history of recent TCAR in November 2024, coronary artery disease with previous PCI with stent to the proximal RCA, hypertension, nonischemic cardiomyopathy, hyperlipidemia. We have been asked to evaluate the patient for syncope. Patient's states that patient was sitting in the left seat and he had just eaten a sandwich. He was watching TV and then all of a sudden became hot and sweaty. He told his to open all the windows which she did and it was quite cold outside. Patient then wanted to go the bathroom but she knew that she would not be able to help him to the bathroom. They did a blood pressure check and found that his blood pressure was low. Patient's also states that he was not understanding the things that she was saying. She then called her [id number] who then told her to call 911. Patient also had vomiting during this. Patient does recall talking to EMS. Other details are a little foggy for him. The entire episode lasted about 10 to 15 minutes. He states he had a similar episode 1 and half years ago when he was in the backyard and had a workup at that time done which came back negative. Blood pressure 147/71, heart rate 63, pulse ox 98% on room air. Patient has been started on a heparin drip. -EKG: First-degree AV block -Chest x-ray: No acute process. -Carotid ultrasound revealed no hemodynamically significant stenosis bilaterally. -VQ scan low probability for pulmonary embolism. -Laboratory studies: WBC 10.4, hemoglobin 14.5, D-dimer 0.99. BUN initially 36 now 33, creatinine initially 2.29 and repeat 1.8. Troponins negative x 3 draws. proBNP 130. -Home cardiac medications: Aspirin 81 mg daily, atorvastatin 40 mg daily, Plavix 75 mg daily, fenofibrate 145 mg daily, hydrochlorothiazide 25 mg daily, losartan 100 mg daily, metoprolol succinate 25 mg daily, also on levothyroxine. -Cardiac catheterization performed 10/25/2023 revealed 60 to 70% stenosis of the proximal RCA with hemodynamically significant IFR. Moderate disease in the proximal left circumflex and mid circumflex with no progression since 2018. Successful stenting of the proximal RCA. There was no gradient across the aortic valve. -Echocardiogram performed 05/22/2023: LV size is normal with fair systolic function. Right ventricle is enlarged. Right-sided pressures not well chalino ntified. No significant mitral or tricuspid regurgitation. No pericardial effusion. EF 50%. 01/14 Yesterday, patient underwent tilt table test and found first-degree AV block, elevated blood pressure readings, no evidence of neurocardiogenic syncope. Patient is scheduled for loop recorder implantation today. Patient has had no further syncopal episodes. No dizziness or lightheadedness. Blood pressure 126/81, heart rate 63, pulse ox 94% on room air. Repeat blood work reveals creatinine 1.6. Physical examination: Gen: This is a 74-year-old male in no acute distress. VS: reviewed HEENT: Head is atraumatic, normocephalic. Pupils equal, round. Sclerae is anicteric. NECK: Supple. No JVD. LUNGS: Clear to auscultation. No wheezes or rhonchi. No intercostal retractions. HEART: Regular rate and rhythm. Systolic murmur. ABDOMEN: Soft No tenderness. EXTREMITIES: No pedal edema. No calf tenderness. NEUROLOGICAL: Patient is awake, alert and oriented x3. Assessment: Syncopal episode possible vasovagal, rule out bradycardia or other arrhythmias Recent TCAR in November 2024 Coronary artery disease with previous PCI with stent to the proximal RCA Hypertension Nonischemic cardiomyopathy Hyperlipidemia Acute kidney injury, improved Plan: Continue patient's home cardiac medications Schedule patient for loop recorder implantation Patient is cleared for discharge after loop recorder has been implanted. Patient will follow-up with Dr. Persaud in 4 weeks and follow-up in the device clinic in 1 week. Nurse practitioner note has been reviewed, I agree with documented findings and plan of care. Patient was seen and examined. Objective - Vital Signs Vital signs: Vital Signs Temp 97.9 F 01/14/25 08:13 Pulse 70 01/14/25 08:13 Resp 15 01/14/25 08:13 BP 94/51 01/14/25 08:13 Pulse Ox 96 01/14/25 08:13 FiO2 Intake & Output 01/13/25 01/14/25 01/14/25 18:59 06:59 18:59 Intake Total 1018.745 Balance 1018.745 Intake: Intake, IV Titration 178.745 Amount Heparin Sod,Pork in 0.45% 178.745 NaCl 25,000 unit In 0.45 % NaCl 1 250ml.bag @ 18 UNITS/KG/HR 17.064 mls/hr IV .[id number] [facility] Rx#: [id number] Oral 840 Other: Voiding Method Toilet # Voids 2 1 - Labs CBC & Chem 7: 01/14/25 05:18 01/14/25 05:18 Labs: Abnormal Lab Results - Last 24 Hours (Table) 01/14/25 01/14/25 Range/Units 05:18 05:18 MCHC 31.9 L (32.0-37.0) g/dL Carbon Dioxide 20.5 L (21.6-31.8) mmol/L Anion Gap 12.50 H (4.00-12.00) mmol/L BUN 28.1 H (9.0-27.0) mg/dL Creatinine 1.6 H (0.6-1.5) mg/dL Est GFR (CKD-EPI) 45 L (>=60) Glucose 116 H (70-110) mg/dL Albumin/Globulin Ratio 1.54 L (1.60-3.17) Ratio
[2025-01-14 14:54] VITALS: BP 159/73; PULSE 65; RESP 17; TEMP 98.2
--- NOTE | 2025-01-16 09:38 | P.DS ---
Providers Date of admission: 01/12/25 22:47 Expected date of discharge: 01/14/25 Attending physician: Pati Hoffmann Consults: 01/12/25 22:45 Consult Physician Routine Consulting Provider: Isaias Persaud Consult Reason/Comments: syncope Do you want consulting provider notified?: Yes Primary care physician: Pati Hoffmann [facility] Course: Discharge diagnosis 1. Syncope 2. Elevated D-dimer. VQ scan completed showing low probability for PE. 3. Acute on chronic kidney disease patient's hydrochlorothiazide on hold 4. Recent left carotid stenting on 12/04/[address] Ramos. Patient maintained on Plavix 5. History of cardiomyopathy 6. History of peripheral vascular disease 7. History of hypothyroidism Hospital course Ryne Fields is a 74-year-old male patient who presented to the ER with concerns of syncope. Patient reports he was watching TV when the symptoms began and was unable to sit up. Patient has a past medical history of CAD, GERD, hyperlipidemia, hypertension, osteoarthritis, PAD, cardiomyopathy EKG completed in ER showing sinus bradycardia with first-degree AV block. Chest x-ray completed showing no acute cardiopulmonary disease or process. D-dimer was elevated. VQ scan was completed showing negative for PE. Lab work completed showing creatinine 2.29 bun 36 troponins negative x 3 BNP 130. At this time patient will be admitted cardiology services consulted 2D echo and carotid Doppler has been ordered. Vital signs temp 97.7, heart rate 66, respiratory rate 18, blood pressure 133/67 with a pulse ox of 95% on room air. On 01/14/2025 patient is alert and oriented x 3. Patient has been cleared for discharge cardiac loop monitor has been inserted. Patient to follow-up with cardiology services outpatient for further management Patient Condition at Discharge: Fair Plan - Discharge Summary Discharge Rx Participant: No New Discharge Prescriptions: Continue allopurinoL [Zyloprim] 300 mg PO DAILY Loratadine 10 mg PO DAILY Aspirin EC [Ecotrin Low Dose] 81 mg PO DAILY Levothyroxine Sodium 88 mcg PO DAILY Ergocalciferol [Vitamin D2 (1250 Mcg = 07166 Iu)] 1,250 mcg PO SA Fenofibrate Nanocrystallized [Fenofibrate] 145 mg PO DAILY Clopidogrel [Plavix] 75 mg PO DAILY Losartan Potassium 100 mg PO DAILY Metoprolol Succinate [Metoprolol Succinate ER] 25 mg PO DAILY Omeprazole 20 mg PO DAILY PRN PRN Reason: Heartburn Atorvastatin [Lipitor] 40 mg PO DAILY Albuterol Inhaler [Ventolin Hfa Inhaler] 2 puff INHALATION RT-Q6H PRN PRN Reason: Shortness Of Breath Or Wheezing Discontinued hydroCHLOROthiazide [Hydrodiuril] 25 mg PO DAILY Discharge Medication List allopurinoL [Zyloprim] 300 mg PO DAILY 12/18/17 [History] Loratadine 10 mg PO DAILY 03/07/23 [History] Aspirin EC [Ecotrin Low Dose] 81 mg PO DAILY 05/21/23 [History] Omeprazole 20 mg PO DAILY PRN 05/21/23 [History] Atorvastatin [Lipitor] 40 mg PO DAILY 10/17/24 [History] Ergocalciferol [Vitamin D2 (1250 Mcg = 11510 Iu)] 1,250 mcg PO SA 10/17/24 [History] Fenofibrate Nanocrystallized [Fenofibrate] 145 mg PO DAILY 10/17/24 [History] Levothyroxine Sodium 88 mcg PO DAILY 10/17/24 [History] Albuterol Inhaler [Ventolin Hfa Inhaler] 2 puff INHALATION RT-Q6H PRN 10/21/24 [History] Clopidogrel [Plavix] 75 mg PO DAILY 12/02/24 [History] Losartan Potassium 100 mg PO DAILY 01/13/25 [History] Metoprolol Succinate [Metoprolol Succinate ER] 25 mg PO DAILY 01/13/25 [History] Follow up Appointment(s)/Referral(s): Isaias Persaud MD [STAFF PHYSICIAN] - 4 Weeks (Device clinic in [address] PERSAUD ON 02/16/2025 AT 2:45PM ) Pati Hoffmann MD [Primary Care Provider] - 1-2 days Patient Instructions/Handouts: Cardiac Loop Recorder Insertion (DC), Cardiac Loop Recorder Insertion (GEN) Activity/Diet/Wound Care/Special Instructions: FOLLOW UP DIRECTED, SOONER FOR WORSENING SYMPTOMS, PROBLEMS, OR CONCERNS. DEVICE CLINIC 01/20/2025 AT 3:30PM Discharge Disposition: HOME SELF-CARE
== END 2025-01-14 15:12 | disposition home or self-care (01) ==
LOC: EC 20:34 → 6NMEDSUR 22:47
PROVIDERS: ADMIT Internal Medicine; ATTEND Internal Medicine
DX: R55 Syncope and collapse (principal); R79.89 Other specified abnormal findings of blood chemistry; I12.9 Hypertensive chronic kidney disease with stage 1 through stage 4 chronic kidney disease, or unspecified chronic kidney disease; N18.9 Chronic kidney disease, unspecified; N17.9 Acute kidney failure, unspecified; I25.10 Atherosclerotic heart disease of native coronary artery without angina pectoris; I42.8 Other cardiomyopathies; I44.0 Atrioventricular block, first degree; E03.9 Hypothyroidism, unspecified; E78.5 Hyperlipidemia, unspecified; I73.9 Peripheral vascular disease, unspecified; K21.9 Gastro-esophageal reflux disease without esophagitis; Z79.02 Long term (current) use of antithrombotics/antiplatelets; Z79.82 Long term (current) use of aspirin; Z79.890 Hormone replacement therapy; Z79.899 Other long term (current) drug therapy; Z87.891 Personal history of nicotine dependence; Z95.5 Presence of coronary angioplasty implant and graft
CPT/HCPCS: 96365; 96366; 96372; 99285; 36415; 93005 ×2; 93660; 33285; 85379; 83880; 80053 ×3; 83605; 83735 ×2; 84100 ×2; 84484 ×2; 85025 ×3; 85610; 85730 ×2; 71045; 93880; 78582; G0378 ×3; C1764; A9540; A9567; J0690; J2003; J1650; J1644 ×2

== ENCOUNTER 2025-02-04 12:36 | Emergency (ER) | payer MEDICARE ==
[2025-02-04 12:47] VITALS: TEMP 99.3
--- NOTE | 2025-02-04 13:26 | ED ---
General Adult HPI - General Chief complaint: Dizziness Stated complaint: Syncope Time Seen by Provider: 02/04/25 12:50 Source: patient, EMS, RN notes reviewed, old records reviewed Mode of arrival: EMS Limitations: no limitations - History of Present Illness Initial comments: This is a 74-year-old male who has a past medical history significant for high blood pressure and a cardiac stent. Patient states he also has a stent in his left carotid at the beginning of November. Patient states he came in a few weeks ago for dizziness and a syncopal episode. Patient states again today he was going to the bathroom when he became very dizzy he states he did not think he was going to pass out he thought he might fall over patient states he also had episodes of nausea. Patient denied any chest pain or difficulty breathing or shortness of breath. Patient denies any numbness or weakness. Patient states currently he is back to his baseline. - Related Data Home Medications Medication Instructions Recorded Confirmed allopurinoL [Zyloprim] 300 mg PO DAILY 12/18/17 01/13/25 Loratadine 10 mg PO DAILY 03/07/23 01/13/25 Aspirin EC [Ecotrin Low Dose] 81 mg PO DAILY 05/21/23 01/13/25 Omeprazole 20 mg PO DAILY PRN 05/21/23 01/13/25 Atorvastatin [Lipitor] 40 mg PO DAILY 10/17/24 01/13/25 Ergocalciferol [Vitamin D2 (1250 1,250 mcg PO SA 10/17/24 01/13/25 Mcg = 82163 Iu)] Fenofibrate Nanocrystallized 145 mg PO DAILY 10/17/24 01/13/25 [Fenofibrate] Levothyroxine Sodium 88 mcg PO DAILY 10/17/24 01/13/25 Albuterol Inhaler [Ventolin Hfa 2 puff INHALATION RT-Q6H PRN 10/21/24 01/13/25 Inhaler] Clopidogrel [Plavix] 75 mg PO DAILY 12/02/24 01/13/25 Losartan Potassium 100 mg PO DAILY 01/13/25 01/13/25 Metoprolol Succinate [Metoprolol 25 mg PO DAILY 01/13/25 01/13/25 Succinate ER] Previous Rx's Medication Instructions Recorded Meclizine [Antivert] 25 mg PO TID #20 tab 02/04/25 Allergies Allergy/AdvReac Type Severity Reaction Status Date / Time No Known Allergies Allergy Verified 02/04/25 12:47 Review of Systems ROS Statement: Those systems with pertinent positive or pertinent negative responses have been documented in the HPI. ROS Other: All systems not noted in ROS Statement are negative. Past Medical History Past Medical History: Coronary Artery Disease (CAD), GERD/Reflux, Hyperlipidemia, Hypertension, Osteoarthritis (OA), Pneumonia, Thyroid Disorder, Vascular Disorder Additional Past Medical History / Comment(s): See Dr Ramos's H&P. Hx Covid 08/18/20. PAD, cardiomyopathy per past medical record but pt does not recall, severe scoliosis, occasional low back pain, bronchitis, gout, episodes of losing balance and falls. History of Any Multi-Drug Resistant Organisms: None Reported Past Surgical History: Adenoidectomy, Appendectomy, Bladder Surgery, Cholecystectomy, Heart Catheterization, Tonsillectomy Additional Past Surgical History / Comment(s): Bifemoral/aortic bypass, left thumb laceration/partial ampuration, bilateral cataract removals, colonoscopy, benign bladder polyps removed. aortic arch angiogram in October 2024, STENT Past Anesthesia/Blood Transfusion Reactions: No Reported Reaction Additional Past Anesthesia/Blood Transfusion Reaction / Comment(s): DOES NOT LIKE THE STING OF LIDOCAINE. Date of Last Stent Placement:: October 2023 Past Psychological History: No Psychological Hx Reported Smoking Status: Former smoker - Past Family History Mother Family Medical History: Cancer Additional Family Medical History / Comment(s): Cervical, breast, liver cancer. Father Family Medical History: Cancer Additional Family Medical History / Comment(s): Father had brain cancer and committed suicide. Sister(s) Family Medical History: No Reported History Brother(s) Family Medical History: No Reported History Son(s) Family Medical History: No Reported History Daughter(s) Family Medical History: No Reported History General Exam - General Exam Comments Initial Comments: GENERAL: Patient is well-developed and well-nourished. Patient is nontoxic and well- hydrated and is in no acute distress. ENT: Neck is soft and supple. No significant lymphadenopathy is noted. Oropharynx is clear. Moist mucous membranes. Neck has full range of motion without eliciting any pain. EYES: The sclera were anicteric and conjunctiva were pink and moist. Extraocular movements were intact and pupils were equal round and reactive to light. Eyelids were unremarkable. PULMONARY: Unlabored respirations. Good breath sounds bilaterally. No audible rales rhonchi or wheezing was noted. CARDIOVASCULAR: There is a regular rate and rhythm without any murmurs gallops or rubs. ABDOMEN: Soft and nontender with normal bowel sounds. SKIN: Skin is clear with no lesions or rashes and otherwise unremarkable. NEUROLOGIC: Patient is alert and oriented x3. Cranial nerves II through XII are grossly intact. Motor and sensory are also intact. Normal speech, volume and content. Symmetrical smile. Finger-nose testing is normal bilaterally MUSCULOSKELETAL: Normal extremities with adequate strength and full range of motion. LYMPHATICS: No significant lymphadenopathy is noted PSYCHIATRIC: Normal psychiatric evaluation. Limitations: no limitations Course Vital Signs 02/04/25 02/04/25 02/04/25 12:40 13:46 14:30 Temperature 99.3 F Pulse Rate 96 91 89 Respiratory 18 18 16 Rate Blood Pressure 124/80 122/82 129/73 O2 Sat by Pulse 96 94 L 96 Oximetry Medical Decision Making - Medical Decision Making EKG is interpreted by myself. EKG shows a sinus rhythm at 94 bpm [place] is 244 QRS 114 QT interval 359 QTc is 411. Patient's EKG shows no ST segment elevation Was pt. sent in by a medical professional or institution (ANGELICA Avila, FLEET ASSISTANT, urgent care, hospital, or alf...) When possible be specific @ [id number] Did you speak to anyone other than the patient for history (EMS, parent, family, police, friend...)? What history was obtained from this source @ -No Did you review nursing and triage notes (agree or disagree)? Why? @ -I reviewed and agree with nursing and triage notes Were old charts reviewed (outside hosp., previous admission, EMS record, old EKG, old radiological studies, urgent care reports/EKG's, alf records)? Report findings @ -No old charts were reviewed Differential Diagnosis? @ -Differential dizziness EKG interpreted by me (3pts min.). @ -As above X-rays interpreted by me (1pt min.). @ -Chest x-ray shows no acute CT interpreted by me (1pt min.). @ -Body CT of the brain shows no acute abnormality CT angiogram shows no acute abnormality patient does have a 50% stenosis of the right internal carotid artery U/S interpreted by me (1pt. min.). @ -None done What testing was considered but not performed or refused? (CT, X-rays, U/S, [facility] [place])? Why? @ -None What meds were considered but not given or refused? Why? @ -None Did you discuss the management of the patient with other professionals (professionals i.e. , PA, FLEET ASSISTANT, lab, RT, psych nurse, social media community manager, de icer element winder, teacher, campus security officer, case mgr)? Give summary @ -No Was smoking cessation discussed for >3mins.? @ -No Was critical care preformed (if so, how long)? @ -No Were there social determinants of health that impacted care today? How? (Homelessness, low income, unemployed, alcoholism, drug addiction, transportation, low edu. Level, literacy, decrease access to med. care, residential, rehab)? @ -No Was there de-escalation of care discussed even if they declined (Discuss DNR or withdrawal of care, Hospice)? DNR status @ -No What co-morbidities impacted this encounter? (DM, HTN, Smoking, COPD, CAD, Cancer, CVA, ARF, Chemo, Hep., AIDS, mental health diagnosis, sleep apnea, morbid obesity)? @ -None Was patient admitted / discharged? Hospital course, mention meds given and route, prescriptions, significant lab abnormalities, going to OR and other pertinent info. @ -Patient was asymptomatic in the emergency department. Patient will be sent home with some Antivert to treat vertigo. Undiagnosed new problem with uncertain prognosis? @ -No Drug Therapy requiring intensive monitoring for toxicity (Heparin, Nitro, Insulin, Cardizem)? @ -No Were any procedures done? @ -No Diagnosis/symptom? @ -Vertigo Acute, or Chronic, or Acute on Chronic? @ -Acute Uncomplicated (without systemic symptoms) or Complicated (systemic symptoms)? @ -Complicated Side effects of treatment? @ -No Exacerbation, Progression, or Severe Exacerbation? @ -No Poses a threat to life or bodily function? How? (Chest pain, USA, ME, pneumonia, PE, COPD, DKA, ARF, appy, cholecystitis, CVA, Diverticulitis, Homicidal, Suicidal, threat to staff... and all critical care pts) @ -No - Lab Data Result diagrams: 02/04/25 13:39 02/04/25 13:39 Lab Results 02/04/25 02/04/25 02/04/25 Range/Units 13:39 13:39 13:39 WBC 9.19 (4.50-10.00) 10*3/uL RBC 4.46 (4.40-5.60) 10*6/uL Hgb 14.0 (13.0-17.0) g/dL Hct 41.8 (39.6-50.0) % MCV 93.7 (80.0-97.0) fL MCH 31.4 (27.0-32.0) pg MCHC 33.5 (32.0-37.0) g/dL Plt Count 160 (140-440) 10*3/uL MPV 10.5 (9.5-12.2) fL Immature Gran % (Auto) 0.2 % Neutrophils % 74.6 % Lymphocytes % 11.8 % Monocytes % 12.6 % Eosinophils % 0.3 % Basophils % 0.5 % Immature Gran # 0.02 (0.00-0.04) 10*3/uL Neutrophils # 6.85 (1.80-7.70) 10*3/uL Lymphocytes # 1.08 (0.90-5.00) 10*3/uL Monocytes # 1.16 H (0.20-1.00) 10*3/uL Eosinophils # 0.03 L (0.04-0.35) 10*3/uL Basophils # 0.05 (0.00-0.10) 10*3/uL Sodium 137 (137-145) mmol/L Potassium 4.1 (3.5-5.1) mmol/L Chloride 101 (98-107) mmol/L Carbon Dioxide 24 (22-30) mmol/L Anion Gap 12 mmol/L BUN 23 H (9-20) mg/dL Creatinine 1.75 H (0.66-1.25) mg/dL Est GFR (CKD-EPI)AfAm 44 (>60 ml/min/1.73 sqM) Est GFR (CKD-EPI)NonAf 38 (>60 ml/min/1.73 sqM) Glucose 140 H (74-99) mg/dL Calcium 9.2 (8.4-10.2) mg/dL Magnesium 1.8 (1.6-2.3) mg/dL Total Bilirubin 0.8 (0.2-1.3) mg/dL AST 20 (17-59) U/L ALT 24 (4-49) U/L Alkaline Phosphatase 66 (38-126) U/L Troponin I <0.012 (0.000-0.034) ng/mL Total Protein 7.1 (6.3-8.2) g/dL Albumin 4.1 (3.5-5.0) g/dL Disposition Clinical Impression: Vertigo Disposition: HOME SELF-CARE Condition: Good Instructions (If sedation given, give patient instructions): Vertigo (ED) Prescriptions: Meclizine [Antivert] 25 mg PO TID #20 tab Is patient prescribed a controlled substance at d/c from ED?: No Referrals: Pati Hoffmann MD [Primary Care Provider] - 1-2 days Time of Disposition: 16:37
[2025-02-04] MEDS: MECLIZINE 25 MG TAB PO STA (13:45)
[2025-02-04] MEDS: SODIUM CHLORIDE 0.9% 500 ML 500 ML IV STA (13:45)
[2025-02-04 13:52] LABS: Basophils # (A) 0.05 10*3/uL (0.00-0.10); Basophils % (A) 0.5 %; Eosinophils # (A) 0.03 10*3/uL (0.04-0.35); Eosinophils % (A) 0.3 %; HCT 41.8 % (39.6-50.0); Lymphocytes # (A) 1.08 10*3/uL (0.90-5.00); Lymphocytes % (A) 11.8 %; MCH 31.4 pg (27.0-32.0); MCHC 33.5 g/dL (32.0-37.0); MCV 93.7 fL (80.0-97.0); Mean Platelet Volume 10.5 fL (9.5-12.2); Monocytes # (A) 1.16 10*3/uL (0.20-1.00); Monocytes % (A) 12.6 %; Neutrophils # (A) 6.85 10*3/uL (1.80-7.70); Neutrophils % (A) 74.6 %; Platelet Count 160 10*3/uL (140-440); RBC 4.46 10*6/uL (4.40-5.60); RDW 13.2 % (11.5-14.5); WBC 9.19 10*3/uL (4.50-10.00)
[2025-02-04 14:04] LABS: ALT 24 U/L (4-49); AST 20 U/L (17-59); African American GFR (CKD) 44 (>60 ml/min/1.73 sqM); Albumin 4.1 g/dL (3.5-5.0); Alkaline Phosphatase 66 U/L (38-126); Anion Gap 12 mmol/L; Blood Urea Nitrogen 23 mg/dL (9-20); Calcium 9.2 mg/dL (8.4-10.2); Carbon Dioxide 24 mmol/L (22-30); Chloride 101 mmol/L (98-107); Glucose 140 mg/dL (74-99); Magnesium 1.8 mg/dL (1.6-2.3); Non-African American GFR(CKD) 38 (>60 ml/min/1.73 sqM); Potassium 4.1 mmol/L (3.5-5.1); Sodium 137 mmol/L (137-145); Total Bilirubin 0.8 mg/dL (0.2-1.3); Total Protein 7.1 g/dL (6.3-8.2)
--- NOTE | 2025-02-04 14:13 | XR ---
EXAMINATION TYPE: XR chest 2V DATE OF EXAM: 02/04/2025 2:01 PM COMPARISON: None. CLINICAL INDICATION: Male, 74 years old with history of Chest Pain, chest pain near syncope and diaph oresis TECHNIQUE: XR chest 2V view(s) obtained. FINDINGS: The heart size is normal. The pulmonary vasculature is normal. The lungs are clear. Electronic device overlies left chest. IMPRESSION: 1. No acute pulmonary process. [facility], Workstation: [facility], 02/04/2025 2:11 PM
--- NOTE | 2025-02-04 15:50 | CT ---
EXAMINATION TYPE: CT brain wo con DATE OF EXAM: 02/04/2025 COMPARISON: 05/21/2023 CLINICAL INDICATION: Male, 74 years old with history of Dizziness, post carotid stent; [facility], Dizziness , post carotid stent sx CT DLP: 1898.8 mGycm Automated exposure control for dose reduction was used. Findings: There is stable moderate to marked enlargement of the ventricles and mild to moderate enlargement of the basal cisterns and sulci over convexities. The findings are consistent with moderate to marked at rophy with greater central component.. There is moderate decreased density in the periventricular white matter consistent with moderate regulatory compliance officer karolina ischemic white matter demyelination. There is no acute intra or extra-axial hemorrhage. The posterior fossa including the brainstem, fourth ventricle and cerebellar pontine angles appear no rmal. Intraorbital contents appear normal and symmetric. Visualized paranasal sinuses and mastoid air cells are well aerated. The calvarium is intact. IMPRESSION: 1. No acute bleed or mass effect 2. Moderate to marked atrophy with greater central component and moderate chronic ischemic white vania er change. 3. No interval change. [facility], , 02/04/2025 3:47 PM
--- NOTE | 2025-02-04 16:25 | CT ---
EXAMINATION TYPE: CT angio head neck DATE OF EXAM: 02/04/2025 COMPARISON: 12/25/2024 CLINICAL INDICATION: Male, 74 years old with history of Dizziness, post carotid stent; [facility], TECHNIQUE: CTA scan of the head and neck is performed , patient injected with mL of , axial images a re obtained, coronal and sagittal reformatted images are reviewed. 3D reconstructed images are create d on an independent workstation and reviewed. CT DLP: mGycm CT CTDI: mGy Automated exposure control for dose reduction was used. NASCET criteria was used in interpretation of this exam? FINDINGS: The brachiocephalic origins are widely patent and no significant stenosis. There is a stent within the distal left common and proximal left internal carotid artery which is wid man patent. There is a shelflike 50% stenosis in the right internal carotid artery approximately 1.5 cm distal to its origin. The vertebral arteries are patent without stenosis. Intracranially, there is no stenosis, segmental occlusion, sizable aneurysm sac or vascular malformat ion. IMPRESSION:. 1. Patent left common and internal carotid artery stent without stenosis. 2. Approximate 50% stenosis in the right internal carotid artery as described above. 3. No significant occlusive disease, sizable aneurysm sac or vascular malformation intracranially. NASCET criteria was used in interpretation of this exam? [facility], , 02/04/2025 4:23 PM
[2025-02-04 16:51] VITALS: BP 128/65; PULSE 78; RESP 18
== END 2025-02-04 16:51 | disposition home or self-care (01) ==
LOC: EC 12:36
DX: R42 Dizziness and giddiness (principal); Z87.891 Personal history of nicotine dependence; Z86.16 Personal history of COVID-19
CPT/HCPCS: 36415; 93005; 80053; 83735; 84484; 85025; 71046; 70496; 70450; 70498; 99285; 96360; 96361 ×2; Q9967